=== PATIENT | male | born 1955 | race Caucasian/White ===

== ENCOUNTER 2017-04-21 14:57 | Outpatient (CLI) | payer MEDICARE ==
[2017-04-21 15:56] LABS: Mean Corpuscular Hemoglobin 30.2 pg (27.0-31.0); Mean Corpuscular Volume 91.4 fl (80.0-94.0); Platelet Count 256 thou/uL (130-400); RBC Distribution Width 12.9 % (11.5-14.5); Red Blood Cell (RBC) Count 5.32 mill/uL (4.70-6.10)
[2017-04-21 16:06] LABS: PTT 27.6 SEC (22.9-36.1); Prothrombin Time 13.5 SEC (12.0-14.7)
[2017-04-21 16:24] LABS: ALT (SGPT) 21 U/L (8-55); AST (SGOT) 13 U/L (5-34); Albumin 4.7 g/dL (3.4-4.8); Alkaline Phosphatase 65 U/L (40-150); Anion Gap 14 mmol/L (10-20); BUN (Urea Nitrogen) 20 mg/dL (8.4-25.7); Bilirubin, Total 0.7 mg/dL (0.2-1.2); Calc. Creatinine Clearance 0 mL/min (70-130); Calcium 9.5 mg/dL (7.8-10.44); Carbon Dioxide 24 mmol/L (23-31); Cardiac Risk 3.8 (Less than 4.5); Chloride 101 mmol/L (98-107); Cholesterol 106 mg/dl (< 200 Desired); Estimated GFR-MDRD 60; Globulin 2.5 g/dL (2.4-3.5); Glucose 86 mg/dL (80-115); HDL Cholesterol 28 mg/dL (>60 Neg Risk); LDL Cholesterol, Calculated 50 mg/dL; Potassium 4.6 mmol/L (3.5-5.1); Protein, Total 7.2 g/dL (5.8-8.1); Sodium 134 mmol/L (136-145); Triglycerides 138 mg/dL (Less than 150)
--- NOTE | 2017-04-24 17:31 | EKG ---
Test Reason : Blood Pressure : / mmHG Vent. Rate : 064 BPM Atrial Rate : 064 BPM P-R Int : 216 ms QRS Dur : 084 ms QT Int : 380 ms P-R-T Axes : 042 080 056 degrees QTc Int : 392 ms Sinus rhythm with 1st degree A-V block Otherwise normal ECG When compared with ECG of 17-JUN-2016 10:05, No significant change was found Confirmed by DR. Christine LORENZ ([id number]) on 04/24/2017 5:30:23 PM Referred By: BRETT Confirmed By:DR. Christine LORENZ
== END 2017-04-21 14:58 | disposition home or self-care (01) ==
LOC: LABBT 14:57
PROVIDERS: ATTEND Internal Medicine Cardiovascular Disease
DX: Z01.810 Encounter for preprocedural cardiovascular examination (principal); Z01.818 Encounter for other preprocedural examination; R07.9 Chest pain, unspecified; R06.09 Other forms of dyspnea; R53.83 Other fatigue
CPT/HCPCS: 80053; 80061; 85027; 85610; 85730; 93005; 93010

== ENCOUNTER 2017-04-22 05:54 | Day surgery (SDC) | payer MEDICARE ==
[2017-04-21 15:01] VITALS: BMI 36.6
[2017-04-22] MEDS ORDERED: Lidocaine 1% (PF) 30 ML VIAL ONE ×3 (06:51→11:27)
[2017-04-22] MEDS ORDERED: Midazolam HCl 2 mg/2 ml Vial ONE ×2 (11:48→12:10)
[2017-04-22] MEDS ORDERED: Fentanyl 100 MCG/2 ML VIAL ONE (11:53)
[2017-04-22] MEDS ORDERED: Heparin 10,000 UNITS/1 ML VIAL ONE (12:09)
--- NOTE | 2017-04-22 14:04 | DIS ---
DATE OF PROCEDURE: 04/22/2017 INDICATION FOR PROCEDURE: This is a 61-year-old patient with a known coronary artery disease, who srinivasan d a saphenous vein graft to the circumflex as well as a SPRINGER to left anterior descending artery. He was found to have essentially occluded SPRINGER to left anterior descending artery. He complained of uns table angina-type symptoms. He was advised to undergo a cardiac catheterization with probable angiop lasty and stent placement to the left anterior descending artery. He was taken to cardiac catheteriz ation lab, prepped and draped in sterile fashion where he underwent the procedure today without diffi culties or complications. The full note can be found in the computer system and in the chart. ADMISSION DIAGNOSES: The diagnoses for admission would have been unstable angina. He also has a his tory of hypertension; dyslipidemia; history of tobacco abuse in the past, but he has stopped smoking. DISCHARGE DIAGNOSES: Unstable angina. He also has a history of hypertension; dyslipidemia; history of tobacco abuse in the past, but he has stopped smoking. PROCEDURE IN HOSPITAL: Included cardiac catheterization, angioplasty with stent placement to left an terior descending artery. FOLLOWUP: Will be with me in the next 1 month in the office. He will continue his routine followups with the primary care physician. DISCHARGE MEDICATIONS: Include Brilinta 90 mg a day, aspirin 81 mg a day, ascorbic acid, vitamin C. He will also take Keflex as needed, vitamin D3, finasteride 5 mg daily, he takes krill oil 1 tablet daily, lisinopril 10 mg a day, metoprolol XL 50 mg daily, multivitamins daily, omeprazole 40 mg a day , Crestor 20 mg daily, Flomax 0.4 mg capsules 2 q.p.m., Lamisil 250 mg oral dose daily, and venlafaxi ne 150 mg q.24 hours. HOSPITAL COURSE: This very pleasant gentleman has a history of known coronary artery disease, who un derwent bypass surgery in the past. 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 He continued to have significant stenosis. T he left anterior descending artery was advised to undergo cardiac catheterization with probable stent placement to the left anterior descending artery. If we were unable to do this, then the patient wi ll need to undergo redo bypass surgery with a single vessel bypass to the left anterior descending ar gisella. He was taken to the lab today where he underwent successful angioplasty and stent placement to the left anterior descending artery. He was implanted with a 2.75 x 32 mm nondrug-coated stent, lioneli ch was dilated up to 2.74 mm. There was no evidence of residual stenosis and the patient tolerated t he procedure well. Once he remained stable and the sheaths have been removed, he can be discharged t o home 5-6 hours later.
[2017-04-22] MEDS ORDERED: Iopamidol 370 76% 100 ML VIAL ONE (16:21)
[2017-04-22] MEDS ORDERED: Iopamidol 370 76% 50 ML VIAL FS ONE (16:21)
--- NOTE | 2017-04-24 17:37 | EKG ---
Test Reason : POST STENT Blood Pressure : / mmHG Vent. Rate : 061 BPM Atrial Rate : 061 BPM P-R Int : 230 ms QRS Dur : 088 ms QT Int : 398 ms P-R-T Axes : 004 067 082 degrees QTc Int : 400 ms Sinus rhythm with 1st degree A-V block Otherwise normal ECG When compared with ECG of 21-APR-2017 15:36, (Unconfirmed) No significant change was found Confirmed by DR. Christine LORENZ ([id number]) on 04/24/2017 5:36:44 PM Referred By: BRETT Confirmed By:DR. Christine LORENZ
== END 2017-04-22 22:15 | disposition home or self-care (01) ==
LOC: CCL 05:54
PROVIDERS: ATTEND Internal Medicine Cardiovascular Disease
PROC: 4A023N6 Measurement of Cardiac Sampling and Pressure, Right Heart, Percutaneous Approach (ICD-10-PCS; principal; 2017-04-22)
DX: I25.110 Atherosclerotic heart disease of native coronary artery with unstable angina pectoris (principal); I10 Essential (primary) hypertension; E78.5 Hyperlipidemia, unspecified; Z79.899 Other long term (current) drug therapy; Z95.5 Presence of coronary angioplasty implant and graft; Z95.1 Presence of aortocoronary bypass graft; Z87.891 Personal history of nicotine dependence
CPT/HCPCS: 85347 ×3; 92928; 93455; C1769 ×2; C1876; C1887; 93005; 99152; 99153; J1644; J2001; J2250; J3010

== ENCOUNTER 2018-01-14 08:33 | Outpatient (CLI) | payer MEDICARE ==
--- NOTE | 2018-01-14 09:37 | RAD ---
TWO VIEW CHEST: Indication: Dyspnea. FINDINGS: The lungs are mildly hyperinflated. The cardiac silhouette is at upper limits of normal of size. Ther e has been prior sternotomy. No significant effusion or discrete pneumothorax. IMPRESSION: No focal consolidation. POS: SARANH
== END 2018-01-14 08:34 | disposition home or self-care (01) ==
LOC: RAD 08:33
PROVIDERS: ATTEND Internal Medicine Critical Care Medicine
DX: R06.00 Dyspnea, unspecified (principal)
CPT/HCPCS: 71046

== ENCOUNTER 2019-01-11 13:04 | Outpatient (CLI) | payer OTHER ==
--- NOTE | 2019-01-11 16:00 | CT ---
CT RIGHT SHOULDER WITHOUT CONTRAST ENHANCEMENT: HISTORY: The patient was carrying a 5 gallon bucket two to three weeks ago and has been having shoulder pain e shade since. FINDINGS: There is motion artifact on this exam. There is mild arthrosis of the AC and glenohumeral joints. I d o not see any signs of fracture. No signs of any soft tissue hematoma. No acute findings. If a rotato r cuff injury is clinically suspected, arthrogram may be helpful in further assessment. IMPRESSION: Mild arthritic changes of the right shoulder. POS: RAFFI
== END 2019-01-11 13:05 | disposition home or self-care (01) ==
LOC: CT 13:04
PROVIDERS: ATTEND Nurse Practitioner Family
DX: S43.401D Unspecified sprain of right shoulder joint, subsequent encounter (principal); M19.011 Primary osteoarthritis, right shoulder

== ENCOUNTER 2019-02-04 07:45 | Outpatient (CLI) | payer OTHER ==
[2019-02-04] MEDS ORDERED: EPINEPHrine 1 MG/ML AMP ONE (09:45)
[2019-02-04] MEDS ORDERED: Iopamidol 300 61% 50 ML VIAL FS ONE (09:45)
[2019-02-04] MEDS ORDERED: Lidocaine 1% PF 10 ML AMP ONE (09:45)
--- NOTE | 2019-02-04 11:28 | CT ---
CT ARTHROGRAM OF RIGHT SHOULDER: INDICATION: Concern for rotator cuff tear. COMPARISON: Prior CT right shoulder dated 01/11/2019. FINDINGS: There is complete disruption of the infraspinatus tendon with retraction of the tendon to the level o f the glenohumeral joint. There is also a full-thickness partial width tear involving the mid to posterior supraspinatus. There is a full-thickness tear of the long head of the biceps tendon with di stal retraction. The subscapularis appears intact. The teres minor is intact. No muscular atrophy is evident. There is mild osteoarthrosis of the glenohumeral joint and AC joint. No acute fracture is demonstrated. There is severe emphysema involving the right lung. There is a 3 mm pulmonary nodule in the right upper lobe. IMPRESSION: 1. There is a full-thickness tear of the infraspinatus and mid to posterior supraspinatus with retrac tion of the tendon to the level of the glenohumeral joint. Portions of the anterior supraspinatus remain intact. 2. Complete disruption of the intra-articular long head of the biceps tendon with distal retraction o f the tendon to the level bicipital groove. 3. Mild glenohumeral and AC joint osteoarthrosis. 4. Severe emphysema of the right lung with a 3 mm right upper lobe pulmonary nodule. Recommend a dedi cated CT of the thorax utilizing IV contrast to evaluate the lungs for additional pulmonary nodules. Transcribed Date/Time: 02/04/2019 11:40 AM
--- NOTE | 2019-02-04 12:14 | RAD ---
PROCEDURE: Fluoroscopic right shoulder arthrogram INDICATION: Right shoulder pain COMPARISON: None TECHNIQUE: Informed consent was obtained. Preprocedure nuclear radiation engineer images were obtained of the right should er. The patient was placed supine on the fluoroscopic table. A timeout was performed. Site overlying the right shoulder was prepped and draped in the usual sterile fashion. Buffered 1% lidocai ne was administered into the overlying subcutaneous tissues. Under fluoroscopic guidance, a 22-gauge spinal needle was guided down into the right glenohumeral joint. Confirmation of needle loca lization was confirmed by injecting 1 cc of the buffered 1% lidocaine. Following this 10 6060of the dilute Isovue solution CT Mix: 30 mL total volume consisting of 20 mL normal saline, 5 mL Isovue 300 , 5 mL 1% Lidocaine, 0.1 mL Epi 1 mg/ml) was injected. Contrast was visualized within the right glenohumeral joint with fluoroscopy. The needle was removed. The injection site was then cleansed and bandage. The patient tolerated the injection without difficulty. Fluoroscopic time: 0.5minutes Fluoroscopic dose: 127.8mcg/sq m FINDINGS: There is elevation of the right humeral head raising suspicion for rotator cuff insufficien cy. There is mild glenohumeral and AC joint osteoarthrosis. IMPRESSION: Successful right shoulder arthrogram. The patient is to have a follow-up CTarthrogram of the right shoulder. Please see this report for further details.
== END 2019-02-04 07:46 | disposition home or self-care (01) ==
LOC: CT 07:45
PROVIDERS: ATTEND Nurse Practitioner Family
DX: S49.91XD Unspecified injury of right shoulder and upper arm, subsequent encounter (principal); M19.011 Primary osteoarthritis, right shoulder; J43.9 Emphysema, unspecified; R91.1 Solitary pulmonary nodule; S46.111S Strain of muscle, fascia and tendon of long head of biceps, right arm, sequela; M75.121 Complete rotator cuff tear or rupture of right shoulder, not specified as traumatic; S46.811A Strain of other muscles, fascia and tendons at shoulder and upper arm level, right arm, initial encounter
CPT/HCPCS: 23350; 82565; J0171; J2001; Q9967

== ENCOUNTER 2019-03-03 07:44 | Outpatient (CLI) | payer OTHER, MEDICARE ==
--- NOTE | 2019-03-03 08:54 | CT ---
EXAM: CT of the chest with contrast HISTORY: Pulmonary nodule seen on CT of the right shoulder. History of bladder cancer COMPARISON: CT shoulder 02/04/2019 TECHNIQUE: Multiple contiguous axial images were obtained in a CT the chest with contrast. Coronal an d sagittal reformats were performed. FINDINGS: HEART: Normal in size without focal cardiac abnormality. There is ectasia of the anterior aspect of t he left ventricular wall and ectasia of the root of the main pulmonary artery. Calcification are seen in the coronary arteries. MEDIASTINUM: No hilar or mediastinal lymphadenopathy. LUNGS: No focal infiltrates, nodules, or masses. Emphysematous changes are seen in the lungs. PLEURAL SPACE: No pneumothorax or pleural effusion. CHEST WALL SOFT TISSUES: Unremarkable OSSEOUS STRUCTURES: Degenerative changes in the spine. A spinal stimulation device is seen with its t ip in the mid thoracic spine. VISUALIZED SUBDIAPHRAGMATIC STRUCTURES: Tiny calcified gallstone in the gallbladder neck. IMPRESSION: 1. No suspicious pulmonary nodule is identified. 2. Cholelithiasis
[2019-03-03] MEDS ORDERED: Iopamidol 370 76% 100 ML VIAL ONE (13:41)
== END 2019-03-03 07:45 | disposition home or self-care (01) ==
LOC: CT 07:44
PROVIDERS: ATTEND Nurse Practitioner Family
DX: R91.1 Solitary pulmonary nodule (principal); K80.20 Calculus of gallbladder without cholecystitis without obstruction
CPT/HCPCS: 71260; Q9967

== ENCOUNTER 2019-06-28 05:52 | Outpatient (CLI) | payer OTHER ==
[2019-06-28 10:43] LABS: #Basophils 0.1 thou/uL (0.0-0.2); #Eosinphils 0.1 thou/uL (0.0-0.7); #Lymphocytes 2.2 thou/uL (1.20-3.40); #Monocytes 0.7 thou/uL (0.11-0.59); #Neutrophils 4.2 thou/uL (1.40-6.50); %Basophils 0.9 % (0.0-1.0); %Eosinophils 1.7 % (0.0-10.0); %Monocytes 9.3 % (0.0-10.0); %Neutrophils 58.1 % (42.0-75.0); Mean Corpuscular HGB CONC 31.7 g/dL (32.0-36.0); Mean Corpuscular Hemoglobin 29.4 pg (27.0-31.0); Mean Corpuscular Volume 92.6 fL (78.0-98.0); Platelet Count 246 thou/uL (130-400); RBC Distribution Width 13.4 % (11.5-14.5); Red Blood Cell (RBC) Count 5.77 mill/uL (4.70-6.10); White Blood Cell (WBC) Count 7.2 thou/uL (4.8-10.8)
[2019-06-28 10:56] LABS: Anion Gap 13 mmol/L (10-20); BUN (Urea Nitrogen) 15 mg/dL (8.4-25.7); Calc. Creatinine Clearance 0 mL/min (70-130); Calcium 9.1 mg/dL (7.8-10.44); Carbon Dioxide 22 mmol/L (23-31); Chloride 107 mmol/L (98-107); Estimated GFR-MDRD 69; Glucose 83 mg/dL (80-115); Potassium 3.9 mmol/L (3.5-5.1); Sodium 138 mmol/L (136-145)
--- NOTE | 2019-06-28 16:10 | EKG ---
Test Reason : Blood Pressure : / mmHG Vent. Rate : 088 BPM Atrial Rate : 088 BPM P-R Int : 198 ms QRS Dur : 088 ms QT Int : 340 ms P-R-T Axes : 048 090 025 degrees QTc Int : 411 ms Normal sinus rhythm Rightward axis Nonspecific T wave abnormality Abnormal ECG When compared with ECG of 22-APR-2017 13:46, OR interval has decreased Nonspecific T wave abnormality now evident in Inferior leads Nonspecific T wave abnormality now evident in Anterolateral leads Confirmed by GENE JASON, DR. Albarado ([id number]) on 06/28/2019 4:10:05 PM Referred By: FARIDA Confirmed By:DR. Verena MILLS MD
[2019-06-28 18:12] LABS: SARS-CoV-2 MS2 Positive; SARS-CoV-2 N Gene Negative; SARS-CoV-2 S Gene Negative; SARS-CoV-2 orf1ab Negative
== END 2019-06-28 05:53 | disposition home or self-care (01) ==
LOC: LABBT 05:52
PROVIDERS: ATTEND Orthopaedic Surgery
DX: Z01.818 Encounter for other preprocedural examination (principal); Z11.59 Encounter for screening for other viral diseases; S46.011A Strain of muscle(s) and tendon(s) of the rotator cuff of right shoulder, initial encounter
CPT/HCPCS: 80048; 85025; 87635; 93005; 93010; U0003

== ENCOUNTER 2019-07-13 07:01 | Outpatient (CLI) | payer OTHER ==
[2019-07-13 10:16] LABS: #Basophils 0.1 thou/uL (0.0-0.2); #Eosinphils 0.2 thou/uL (0.0-0.7); #Lymphocytes 2.1 thou/uL (1.20-3.40); #Monocytes 0.6 thou/uL (0.11-0.59); #Neutrophils 4.5 thou/uL (1.40-6.50); %Basophils 0.9 % (0.0-1.0); %Eosinophils 2.9 % (0.0-10.0); %Lymphocytes 28.7 % (21.0-51.0); %Monocytes 7.8 % (0.0-10.0); %Neutrophils 59.8 % (42.0-75.0); Hemoglobin 16.4 g/dL (14.0-18.0); Mean Corpuscular HGB CONC 32.3 g/dL (32.0-36.0); Mean Corpuscular Volume 92.9 fL (78.0-98.0); Platelet Count 252 thou/uL (130-400); RBC Distribution Width 13.1 % (11.5-14.5); Red Blood Cell (RBC) Count 5.48 mill/uL (4.70-6.10); White Blood Cell (WBC) Count 7.5 thou/uL (4.8-10.8)
[2019-07-13 10:34] LABS: Anion Gap 13 mmol/L (10-20); BUN (Urea Nitrogen) 14 mg/dL (8.4-25.7); Calc. Creatinine Clearance 0 mL/min (70-130); Calcium 8.7 mg/dL (7.8-10.44); Carbon Dioxide 21 mmol/L (23-31); Chloride 107 mmol/L (98-107); Estimated GFR-MDRD 67; Glucose 103 mg/dL (80-115); Sodium 137 mmol/L (136-145)
[2019-07-13 17:44] LABS: SARS-CoV-2 MS2 Positive; SARS-CoV-2 N Gene Negative; SARS-CoV-2 S Gene Negative; SARS-CoV-2 orf1ab Negative
== END 2019-07-13 07:02 | disposition home or self-care (01) ==
LOC: LABBT 07:01
PROVIDERS: ATTEND Orthopaedic Surgery
DX: Z01.812 Encounter for preprocedural laboratory examination (principal); Z11.59 Encounter for screening for other viral diseases; S46.011A Strain of muscle(s) and tendon(s) of the rotator cuff of right shoulder, initial encounter
CPT/HCPCS: 80048; 85025; 87635; U0003

== ENCOUNTER 2019-09-06 06:37 | Outpatient (CLI) | payer OTHER ==
[2019-09-06 11:27] LABS: INR-International Normal Ratio 0.9; Prothrombin Time 11.6 sec (12.0-14.7)
[2019-09-06 11:29] LABS: #Basophils 0.1 thou/uL (0.0-0.2); #Eosinphils 0.2 thou/uL (0.0-0.7); #Lymphocytes 1.8 thou/uL (1.20-3.40); #Monocytes 0.6 thou/uL (0.11-0.59); #Neutrophils 4.6 thou/uL (1.40-6.50); %Basophils 0.8 % (0.0-1.0); %Eosinophils 2.2 % (0.0-10.0); %Lymphocytes 24.7 % (21.0-51.0); %Neutrophils 64.3 % (42.0-75.0); Hemoglobin 16.8 g/dL (14.0-18.0); Mean Corpuscular HGB CONC 32.6 g/dL (32.0-36.0); Mean Corpuscular Hemoglobin 29.7 pg (27.0-31.0); Mean Corpuscular Volume 91.1 fL (78.0-98.0); Mean Platelet Volume 6.7 fL (7.4-10.4); Platelet Count 288 thou/uL (130-400); RBC Distribution Width 12.9 % (11.5-14.5); Red Blood Cell (RBC) Count 5.66 mill/uL (4.70-6.10); White Blood Cell (WBC) Count 7.2 thou/uL (4.8-10.8)
[2019-09-06 12:25] LABS: Anion Gap 17 mmol/L (10-20); BUN (Urea Nitrogen) 13 mg/dL (8.4-25.7); Calc. Creatinine Clearance 0 mL/min (70-130); Calcium 9.2 mg/dL (7.8-10.44); Carbon Dioxide 18 mmol/L (23-31); Chloride 107 mmol/L (98-107); Estimated GFR-MDRD 52; Glucose 114 mg/dL (80-115); Potassium 4.2 mmol/L (3.5-5.1); Sodium 138 mmol/L (136-145)
[2019-09-07 12:20] LABS: SARS-CoV-2 MS2 Positive; SARS-CoV-2 N Gene Negative; SARS-CoV-2 S Gene Negative; SARS-CoV-2 orf1ab Negative
== END 2019-09-06 06:38 | disposition home or self-care (01) ==
LOC: LABBT 06:37
PROVIDERS: ATTEND Orthopaedic Surgery
DX: Z01.812 Encounter for preprocedural laboratory examination (principal); Z11.59 Encounter for screening for other viral diseases; S43.014A Anterior dislocation of right humerus, initial encounter
CPT/HCPCS: 80048; 85025; 85610; 87635; U0003

== ENCOUNTER 2019-09-09 05:42 | Inpatient (IN) | payer OTHER ==
[2019-09-09] MEDS ORDERED: Fentanyl 100 MCG/2 ML VIAL ONE ×2 (06:35→06:45)
[2019-09-09] MEDS ORDERED: Midazolam HCl 2 mg/2 ml Vial ONE ×2 (06:35→06:45)
[2019-09-09] MEDS ORDERED: Sodium Chloride 0.9% 100 ML ONE (06:42)
[2019-09-09] MEDS ORDERED: Tranexamic Acid 1,000 MG/10 ML VIAL ONE ×2 (06:42→09:56)
[2019-09-09] MEDS ORDERED: Vancomycin 1.5 GRAM/300 ML BAG ONE (06:42)
[2019-09-09] MEDS ORDERED: Ondansetron PF 4 MG/2 ML Vial IVP PRN (07:32)
[2019-09-09] MEDS ORDERED: Zolpidem Tartrate 5 MG TAB PO PRN (07:32)
[2019-09-09] MEDS ORDERED: Promethazine HCl 25 MG/ML VIAL IM PRN (07:32)
[2019-09-09] MEDS ORDERED: HYDROcodone/Acetaminophen 10/325 mg Tablet PO PRN (07:32)
[2019-09-09] MEDS ORDERED: traMADol HCl 50 MG TAB PO PRN ×2 (07:32)
[2019-09-09] MEDS ORDERED: Ropivacaine 0.2% 550 ML 550 ML NERVE BLCK SCH (07:32)
[2019-09-09] MEDS ORDERED: Fentanyl 100 MCG/2 ML VIAL IV PRN (07:33)
[2019-09-09] MEDS ORDERED: Methocarbamol 1 GM/10 ML VIAL SLOW IVP PRN (10:33)
[2019-09-09] MEDS ORDERED: Bisacodyl 10 MG SUPP PR PRN (10:33)
[2019-09-09] MEDS ORDERED: Methocarbamol 500 MG TAB PO PRN (10:33)
[2019-09-09] MEDS ORDERED: Acetaminophen 325 MG TAB PO PRN (10:33)
[2019-09-09] MEDS ORDERED: diphenhydrAMINE 50 MG CAP PO PRN (10:33)
--- NOTE | 2019-09-09 10:46 | RAD ---
EXAM: 2 views of the right shoulder HISTORY: Right shoulder arthroplasty COMPARISON: None FINDINGS: The patient is status post recent right shoulder arthroplasty. Overlying skin colby and a ir in the soft tissues are from recent surgery. No perihardware lucency is seen. IMPRESSION: Status post right shoulder arthroplasty without evidence of complication.
[2019-09-09 11:40] VITALS: BMI 33.3
[2019-09-09] MEDS: Dextrose 5 %-0.45 % NaCl 1,000 ML IV SCH (16:06)
[2019-09-09] MEDS: Cepastat Lozenges 1 LOZ PO PRN (16:07)
[2019-09-09] MEDS: CEFAZOLIN 2 GM in Premix Bag 1 BAG IVPB SCH ×2 (16:08→23:54)
[2019-09-09] MEDS ORDERED: Vancomycin 1.5 GRAM/300 ML BAG 1.5 GM in Premix Bag 1 BAG IVPB SCH (18:00)
[2019-09-09] MEDS: HYDROcodone/Acetaminophen 10/325 mg Tablet PO PRN ×2 (19:29→23:52)
[2019-09-09] MEDS: Famotidine 20 MG TAB PO SCH (21:48)
[2019-09-09] MEDS: Carvedilol 6.25 MG TAB PO SCH (21:49)
[2019-09-10] MEDS: Dextrose 5 %-0.45 % NaCl 1,000 ML IV SCH (02:55)
[2019-09-10] MEDS: HYDROcodone/Acetaminophen 10/325 mg Tablet PO PRN ×2 (04:09→09:23)
[2019-09-10] MEDS: Cepastat Lozenges 1 LOZ PO PRN (04:15)
[2019-09-10] MEDS ORDERED: Bupropion 150 MG SR TAB PO SCH (09:00)
[2019-09-10] MEDS ORDERED: Prevnar 13-Val Conj/PF 0.5 ML SYRINGE IM ONE (09:00)
[2019-09-10] MEDS ORDERED: Venlafaxine HCl XR 150 MG CAP PO SCH (09:00)
--- NOTE | 2019-09-10 09:12 | OP ---
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 POSTOPERATIVE DIAGNOSIS: Right reverse shoulder arthroplasty with recurrent dislocation. PROCEDURE PERFORMED: Revision right reverse shoulder arthroplasty. MITTEN STITCHER: Rashi Rico PA-C ANESTHESIA: Dr. Alberts. Patient received a general intubation with interscalene block. ESTIMATED BLOOD LOSS: 150 mL. TOURNIQUET TIME: None. IMPLANTS: A Tornier 42 mm, +3 lateral offset sphere with a 0 mm high-offset tray and a +9 mm poly. ANTIBIOTICS: Vancomycin 1.5, Ancef 2 g, TXA 1 g. COMPLICATIONS: None. HISTORY OF PRESENT ILLNESS: Mr. Garcia is a 63-year-old male who was dislocating his right reverse about 4 weeks after the initial procedure. The patient said he was bringing it up and he was having recurrent dislocation. The patient had no fevers or chills. No recurrence of drainage. No other issues. I discussed the risks and benefits of a revision reverse shoulder arthroplasty including pain, scar, bleeding, infection, damage to vital structures, decreased range of motion and strength, continued pain despite surgery intervention, need for further surgeries, loss of life or limb, the patient understood the risks and benefits of procedure, and elected to proceed. Time-out was then performed designating the patient's right upper extremity as the operative site based on site, consent, marking. DESCRIPTION OF PROCEDURE: After time-out, the patient was placed in beach chair position with bony prominences well padded. Ioban was placed over the incision. I made an in-line incision in line with the scar. My speech and language assistant helped to retract. As we retracted the skin edges and came down to the scar plane, took a little bit of pec laterally to create a scar plane and the vein laterally, we sidewalled the vein at some point during the case, which we later cauterized. We came down on top of the scar plane, created a plane underneath the deltoid. We came down on the bone laterally where the biceps screw would have been, peeled off remnant scar and followed up into the scar plane of the rotator interval. We took a culture of the joint fluid, it looked just serosanguineous without foul odor. We then exposed the entire shoulder. I actually had a very difficult time dislocating the shoulder while he was asleep or while he was moving his shoulder. I could see though that there was about a centimeter of distance between the glenosphere and the metaglene. We then dislocated the shoulder. We then used a tuning fork extractor to knock off the patient's metaglene component to the stem after we took off the tray from the stem, took that off and we cleaned off the edges, cleaned up, put a hubcap, moved back to the glenosphere. We exposed the glenosphere, removed the glenosphere, washed, cleaned out the edges, ensured that we removed some of the remnant scar versus subcapsular superolaterally and superomedially. We exposed the entire glenoid. After removing the glenosphere, my speech and language assistant placed an [place] to help retract and expose. We removed the glenosphere and placed a trial 42 mm lateral offset. My speech and language assistant dislocated the shoulder in position, we cleaned and placed a tray at the 12 mm position. We placed a poly at 6 mm, he reduced it into place, while I was pulling traction. We were able to keep it in place. I liked the position, we went for a slightly higher offset and 3 mm more, which gave a firmer fit. Being happy with this reduction, I removed our lateral offset, placed our final 42 mm, +3 mm glenosphere, screwed it into position. I went back, placed our tray at the 12 mm position high with high offset, and placed our +9 mm poly, reduced the shoulder into position. We washed, we took the remnant in subscap position, we placed #5 Ethibond twice through bone tunnels to help with the repair. We did a whipstitch through and past both limbs so we could have knots medially, we then passed those back through the cuff and sewed them to the remnant across the biceps interval. My partner retracted the soft tissue to expose that. We cut the sutures, we then closed the rotator interval with #2 Ethibond, washed. We saw some bleeding, we looked medially and saw there was a sidewall of the vein, which was where the oozing had been coming from. We cauterized that vein, we washed, closed the deltopectoral interval with 0 Vicryl, closed the subcu and colby. The patient will be admitted for 24 hours of antibiotics, placed in an abduction pillow, will perform elbow, wrist, and hand motion. He will not come out of his abduction pillow for 4 weeks. Job ID: [id number]
[2019-09-10] MEDS: Famotidine 20 MG TAB PO SCH (09:24)
[2019-09-10] MEDS: Carvedilol 6.25 MG TAB PO SCH (09:27)
[2019-09-10] MEDS ORDERED: Sodium Chloride 0.9% 10 ML ONE (10:15)
[2019-09-10 11:29] VITALS: TEMP 98.1
[2019-09-10 12:17] VITALS: BP 125/70
== END 2019-09-10 13:05 | disposition home or self-care (01) | DRG 483 ==
LOC: SDC 05:42 → SJJU 10:33
PROVIDERS: ADMIT Orthopaedic Surgery; ATTEND Orthopaedic Surgery
PROC: 0RRJ00Z Replacement of Right Shoulder Joint with Reverse Ball and Socket Synthetic Substitute, Open Approach (ICD-10-PCS; principal; 2019-09-09)
PROC: 0RPJ0JZ Removal of Synthetic Substitute from Right Shoulder Joint, Open Approach (ICD-10-PCS; 2019-09-09)
DX: T84.028A Dislocation of other internal joint prosthesis, initial encounter (principal); Y83.1 Surgical operation with implant of artificial internal device as the cause of abnormal reaction of the patient, or of later complication, without mention of misadventure at the time of the procedure; Z95.1 Presence of aortocoronary bypass graft; Z95.5 Presence of coronary angioplasty implant and graft
CPT/HCPCS: 87070; 87205; A4306; J0690; J2250; J2795; J3010; J3370; J3490

== ENCOUNTER 2020-02-01 07:25 | Outpatient (CLI) | payer OTHER ==
--- NOTE | 2020-02-01 09:03 | RAD ---
XR Joint Aspiration, Major History: Anterior dislocation of right shoulder, post reverse total arthroplasty. Concern for infecti on. Comparison: None. Findings: Patient was brought to the fluoroscopy suite. All questions were answered. Informed consent obtained. Timeout performed. The patient's right shoulder was prepped and draped in normal sterile fashion. Using fluoroscopic pete dance after adequate local anesthesia with lidocaine the right shoulder joint was accessed with a 22-gauge needle. 20 mL of red-tinged fluid was removed. Patient tolerated the procedure well without complication. Impression: Technically successful fluoroscopic guided right shoulder aspiration with removal of 20 m L red-tinged fluid.
== END 2020-02-01 07:26 | disposition home or self-care (01) ==
LOC: RAD 07:25
PROVIDERS: ATTEND Orthopaedic Surgery Hand Surgery
DX: S43.014A Anterior dislocation of right humerus, initial encounter (principal); M25.511 Pain in right shoulder; S46.011D Strain of muscle(s) and tendon(s) of the rotator cuff of right shoulder, subsequent encounter; Z96.611 Presence of right artificial shoulder joint
CPT/HCPCS: 20610; 77002

== ENCOUNTER 2020-02-04 16:30 | Inpatient (IN) | payer OTHER ==
[2020-02-08] MEDS ORDERED: Fentanyl 100 MCG/2 ML VIAL ONE ×3 (06:35→11:11)
[2020-02-08] MEDS ORDERED: Lidocaine 1% (PF) 30 ML VIAL ONE (06:37)
[2020-02-08] MEDS ORDERED: Midazolam HCl 2 mg/2 ml Vial ONE (06:56)
[2020-02-08] MEDS ORDERED: Mineral Oil Sterile 10ML 10 ML UDCUP ONE ×2 (07:07→07:47)
[2020-02-08] MEDS ORDERED: Sodium Chloride 0.9% 100 ML ONE (07:11)
[2020-02-08] MEDS ORDERED: Vancomycin 1.5 GRAM/300 ML BAG ONE (07:11)
[2020-02-08] MEDS ORDERED: Tranexamic Acid 1,000 MG/10 ML VIAL ONE ×2 (07:11→11:07)
[2020-02-08] MEDS ORDERED: Vancomycin 1.5 GRAM/300 ML BAG 1.5 GM in Premix Bag 1 BAG IVPB SCH ×2 (07:15→21:00)
[2020-02-08] MEDS ORDERED: Piperacillin/Tazobactam 3.375 GM in Sodium Chloride 0.9% 100 ML IVPB SCH ×2 (07:15→14:00)
[2020-02-08] MEDS ORDERED: Tobramycin Sulfate 1.2 GM VIAL ONE (07:47)
[2020-02-08] MEDS ORDERED: Tobramycin/Dexamethasone Ophth Oint 3.5 GM TUBE ONE (07:47)
[2020-02-08 08:05] LABS: PTT 27.8 sec (22.9-36.1); Prothrombin Time 13.4 sec (12.0-14.7)
--- NOTE | 2020-02-08 08:14 | HP ---
HISTORY OF PRESENT ILLNESS: Mr. Garcia is a 64-year-old male who presents with a right shoulder pain, had a revision reverse shoulder arthroplasty performed on 09/08. The patient presented to my clinic showing increased signs of an infectious source of his right shoulder. He had some induration. Pain was increasing. Attempted aspiration was done in my clinic, which was negative. The patient was sent for CT-guided aspiration of his right shoulder, which jad off fluid concerning for infection. Given the patient's increasing pain, induration, and signs of potential infection, we will take him back for an antibiotic spacer exchange. PAST MEDICAL HISTORY: Includes hypercholesterolemia, high blood pressure. PAST SURGICAL HISTORY: Cardiac bypass, past back surgery, right shoulder reverse on 07/14 with a revision on 09/08 for dislocation. ALLERGIES: NO KNOWN DRUG ALLERGIES. MEDICATIONS: Include aspirin, carvedilol, clopidogrel, Lexapro, Crestor, venlafaxine. SOCIAL HISTORY: The patient has history of smoker, quit in 2010. No alcohol use. Denies elicit drug use. The patient worked for the [employer]. REVIEW OF SYSTEMS: Noncontributory. PHYSICAL EXAMINATION: GENERAL: Alert and oriented male, in no acute distress. EXTREMITIES: Right upper extremity induration and swelling in his right arm. The patient has pain to touch. He has neurovascularly intact to the right lower extremity. 2+ PT pulses. LABORATORY DATA: The patient's CRP was 4 on last draw. ESR was greater than 20. White blood cell counts from the aspiration greater than 50,000. Culture at this point from 02/03 has no growth to date. His previous culture from July showed no growth to date. 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 ASSESSMENT AND PLAN: The patient needs to urgently/emergently have this right shoulder resected for antibiotic coverage for two-stage conversion back to reverse shoulder arthroplasty. I discussed with the patient that we need to do potentially an osteotomy of his humerus to remove the humeral stem as well as that we could fracture his glenoid trying to remove the implant. We will be planning to place a highly impregnated, highly dosed antibiotic spacer with a mold hemiarthroplasty to help with eradication of the infection. Give the patient IV antibiotics likely for [address] a PICC line. I discussed the risks and benefits of the surgery including pain, scar, bleeding, infection, damage to vital structures, decreased range of motion or strength, nonhealing, inability to replant, loss of life or limb. The patient understands these risks and benefits and elected to proceed. Job ID: [id number] MTDD
[2020-02-08] MEDS ORDERED: Phenylephrine 10 MG/ML VIAL ONE (09:28)
[2020-02-08] MEDS ORDERED: PHENYLEPHRINE-NS 100 MCG/ML 10 ML SYRINGE ONE (10:08)
[2020-02-08] MEDS ORDERED: Lidocaine 1% PF 5 ML VIAL ONE (10:08)
[2020-02-08] MEDS ORDERED: Rocuronium Bromide 10 MG/ML (10ML VIAL) ONE (10:08)
[2020-02-08] MEDS ORDERED: Ropivacaine 0.5% HCl/PF (150 MG/30 ML VIAL) ONE (10:08)
[2020-02-08] MEDS ORDERED: Dexamethasone 20 MG/5 ML VIAL ONE (10:08)
[2020-02-08] MEDS ORDERED: ePHEDrine 50 MG/ML VIAL ONE (10:08)
[2020-02-08] MEDS ORDERED: Glycopyrrolate 0.2 MG/ML 5 ML SYRINGE ONE (10:08)
[2020-02-08] MEDS ORDERED: PROPOFOL 200 MG/20 ML VIAL ONE (10:08)
[2020-02-08] MEDS ORDERED: Ondansetron PF 4 MG/2 ML Vial ONE (10:08)
[2020-02-08] MEDS ORDERED: Bisacodyl 10 MG SUPP PR PRN (10:28)
[2020-02-08] MEDS ORDERED: Methocarbamol 1 GM/10 ML VIAL SLOW IVP PRN (10:28)
[2020-02-08] MEDS ORDERED: Morphine 2 MG/ML VIAL SLOW IVP PRN (10:28)
[2020-02-08] MEDS ORDERED: Ondansetron PF 4 MG/2 ML Vial IVP PRN ×2 (10:28→10:53)
[2020-02-08] MEDS ORDERED: Ondansetron ODT 4 MG TAB PO PRN (10:28)
[2020-02-08] MEDS ORDERED: HYDROcodone/Acetaminophen 10/325 mg Tablet PO PRN ×4 (10:28→11:12)
[2020-02-08] MEDS ORDERED: Methocarbamol 500 MG TAB PO PRN (10:28)
[2020-02-08] MEDS ORDERED: traMADol HCl 50 MG TAB PO PRN ×2 (10:28)
[2020-02-08] MEDS ORDERED: Zolpidem Tartrate 5 MG TAB PO PRN ×2 (10:28→10:53)
[2020-02-08] MEDS ORDERED: diphenhydrAMINE 50 MG CAP PO PRN (10:28)
[2020-02-08] MEDS ORDERED: Ondansetron HCl/PF 4 MG/2 ML Vial IVP PRN (10:53)
[2020-02-08] MEDS ORDERED: diphenhydrAMINE 50 MG/ML VIAL IM PRN (10:53)
[2020-02-08] MEDS ORDERED: diphenhydrAMINE 50 MG/ML VIAL IVP PRN (10:53)
[2020-02-08] MEDS ORDERED: Promethazine HCl 25 MG/ML VIAL SLOW IVP PRN (10:53)
[2020-02-08] MEDS ORDERED: fentaNYL Citrate/PF 2,000 MCG in Sodium Chloride 0.9% 60 ML IV PRN (10:53)
[2020-02-08] MEDS ORDERED: Naloxone HCl 0.4 mg/ml Vial IV PRN (10:53)
[2020-02-08] MEDS ORDERED: Promethazine HCl 25 MG/ML VIAL IM PRN ×2 (10:53)
[2020-02-08] MEDS ORDERED: Communication Order-Pharmacy FS PRN (11:00)
[2020-02-08] MEDS: Clopidogrel Bisulfate 75 MG TAB PO SCH (12:03)
[2020-02-08] MEDS: Venlafaxine HCl XR 150 MG CAP PO SCH (12:03)
[2020-02-08] MEDS: Escitalopram Oxalate 10 mg Tablet PO SCH (12:03)
[2020-02-08] MEDS: Aspirin 81 mg Enteric Coated Tablet PO SCH (12:03)
[2020-02-08] MEDS: Famotidine 20 MG TAB PO SCH ×2 (12:56→20:54)
[2020-02-08] MEDS: Sodium Chloride 0.9% 1,000 ML IV SCH ×2 (13:34→16:58)
[2020-02-08] MEDS ORDERED: Heparin 1,000 UNITS/ML VIAL ONE (14:25)
--- NOTE | 2020-02-08 16:02 | CON ---
DATE OF CONSULTATION: 02/08/2020 REASON FOR CONSULTATION: Right shoulder arthroplasty infection. HISTORY OF PRESENT ILLNESS: A 64-year-old who has a history of hypertension and hyperlipidemia and coronary artery disease, and has chronic back pain and wears a spinal stimulator and as he picked up a heavy weight, he noticed sensation of pain in the right shoulder. He underwent right reverse shoulder arthroplasty, which happened in June 2019. In August, the patient sustained dislocation of the arthroplasty, 4 weeks after the initial procedure and kept having recurrent dislocations. Did not have any fever. No drainage. So, he underwent a revision of the arthroplasty. The patient subsequently developed worsening pain around January with swelling. He had a CT-guided aspiration, which jad fluid, cultures were negative, the cell count showed 50,000 WBCs with predominance of segmented neutrophils. Previous rheumatoid factor was negative, and despite negative culture, the clinical and laboratory findings were consistent with infection. So, the patient was admitted today and had the arthroplasty removed. Currently, he does not appear in distress. Denies headaches. No visual symptoms. Mild pain in the right shoulder. No dyspnea or cough. No abdominal pain or diarrhea. No genitourinary symptoms. No other joint symptoms. No neurological symptoms. MEDICAL HISTORY: Hyperlipidemia, hypertension, chronic low back pain with spinal stimulator, ischemic cardiomyopathy with cardiac bypass surgery and two reverse arthroplasties of the right shoulder, the second one was a revision. ALLERGIES: NONE. SOCIAL HISTORY: Used to work for [employer]. Former smoker, quit in 2010. Lives with his in [place]. FAMILY HISTORY: Noncontributory. CURRENT MEDICATIONS: 1. Dulcolax. 2. Coreg. 3. Plavix. 4. Lexapro. 5. Pepcid. 6. Fentanyl. 7. [place]. 8. Robaxin. 9. Zofran. 10. Promethazine. 11. Vancomycin. 12. Ambien. PHYSICAL EXAMINATION: VITAL SIGNS: Temperature 96.3, pulse 99, O2 saturation 92, flow rate 2 L. GENERAL: Does not appear in distress. Right shoulder dressing not removed. Peripheral IV access. No Burroughs catheter. No lymphadenopathy. HEENT: Ocular movements conjugate. Oral cavity normal. LUNGS: Symmetric, clear breath sounds. CARDIAC: S1 and S2, regular rate. No S3 or S4. ABDOMEN: Soft. Not distended or tender. No ascites. No bladder distention. MUSCULOSKELETAL: No other joint inflammatory activity. NEUROLOGIC: Nonfocal. LABORATORY DATA: White cell count 10.7, hemoglobin 15, platelets 320, normal differential. Sodium 138, creatinine 1.17, glucose 97, uric acid 7.5. In the synovial fluid, no crystals were identified by the pathologist. We now have a second sample for cultures still pending. The Gram stain has not shown any organism, although there is plenty of WBCs as expected. ASSESSMENT: Hypertension, hyperlipidemia, coronary artery disease with prior bypass graft surgery, spinal cord stimulator for back pain, and right shoulder tear with reverse arthroplasty procedure with revision and then now evidence of inflammatory changes. DISCUSSION: As mentioned by Dr. Beltrán, Cutibacterium acnes is one of the possible culprits here, and frequently those negative culture results are associated with subsequent identification of this organism. Coagulase-negative Staphylococci, nutritionally variant Streptococci would be another possibility. We will continue vancomycin for 4 to 6 weeks. Monitor CRP. Since all hardware was removed, the chances for relapse are low. Probably, we would give him another 3 months of oral doxycycline after completion of the initial IV phase. PICC line placement. Job ID: [id number]
[2020-02-08] MEDS: Rosuvastatin 10 MG TAB PO SCH (20:54)
[2020-02-08] MEDS: Carvedilol 6.25 MG TAB PO SCH (20:54)
[2020-02-09] MEDS ORDERED: Ondansetron PF 4 MG/2 ML Vial IVP PRN (02:55)
[2020-02-09] MEDS ORDERED: Promethazine HCl 25 MG/ML VIAL IM PRN (02:55)
[2020-02-09] MEDS ORDERED: diphenhydrAMINE 50 MG/ML VIAL IM PRN (02:55)
[2020-02-09] MEDS ORDERED: diphenhydrAMINE 50 MG/ML VIAL IVP PRN (02:55)
[2020-02-09] MEDS ORDERED: Naloxone HCl 0.4 mg/ml Vial IV PRN (02:55)
[2020-02-09] MEDS ORDERED: Communication Order-Pharmacy FS SCH (03:00)
[2020-02-09] MEDS: diphenhydrAMINE 25 MG CAP PO PRN ×4 (06:44→18:19)
[2020-02-09] MEDS: Sodium Chloride 0.9% 1,000 ML IV SCH ×2 (07:04→17:06)
--- NOTE | 2020-02-09 07:05 | OP ---
DATE OF PROCEDURE: 02/08/2020 PREOPERATIVE DIAGNOSIS: Right infected reverse shoulder arthroplasty. POSTOPERATIVE DIAGNOSIS: Right infected reverse shoulder arthroplasty. PROCEDURES PERFORMED: 1. Explant reverse shoulder arthroplasty. 2. Irrigation and debridement of osteomyelitis, right shoulder. 3. Antibiotic spacer implantation. DEPUTY COUNTY COUNSEL: Rashi Rico PA-C ANESTHESIOLOGIST: Johnny Daniel MD ANESTHESIA: The patient received a general endotracheal intubation with a single shot interscalene. ESTIMATED BLOOD LOSS: 400 mL. TOURNIQUET TIME: None. ANTIBIOTICS: Vancomycin 1.5 g after cultures were taken and Zosyn 3.375. The patient had cultures taken of soft tissue and sent for pathology, and cultures taken of the fluid. The patient had 2 g of vancomycin and 3.4 g of tobramycin in the cement spacer. IMPLANTS: We implanted a stem size 4 long and a 52 head mold cement spacer. COMPLICATIONS: None. HISTORY OF PRESENT ILLNESS: Mr. Garcia is a 64-year-old male who presented with right shoulder pain. The patient had a dislocating reverse total shoulder, which cultures were negative. The patient sustained a dislocation and was converted to a larger implant. The patient's pain increased acutely about 4 weeks ago. The patient had an aspiration done under CT guidance, which showed 50,000 white cells, elevated CRP and ESR. No cultures have grown to this date. They are being held for 3 weeks for cutaneous bacterial acnes. The patient's right shoulder implant and the patient's pain. The patient was brought emergently/urgently for explant of his right infected total shoulder. I discussed with him the risks and benefits of surgery to include pain, scar, bleeding, infection, damage to vital structures, decreased range of motion and strength, continued pain despite surgical intervention, loss of life or limb, and need for revision surgery for reimplantation. The patient understood the risks and benefits and elected to proceed. DESCRIPTION OF PROCEDURE: Time-out was performed designating the patient's right upper extremity as the operative site based on site, consents, and markings. After time-out, the patient's right upper extremity was prepped and draped in sterile fashion. We made a deltopectoral incision with cautery and came down to the scar plane of the deltopectoral confluence. We used cautery. As we controlled bleeding and fell into the hole, there was a full amount of serosanguineous fluid with what appeared to be like some fat necrosis or fluid collection. We took the fluid and sent it off for culture. We also took soft tissue, which we sent for path and for culture, Gram stain, anaerobes, aerobes, acid-fast, and fungal. We washed out the wound, dissected out the rim and debris. We dislocated this reverse, used a tuning fork to knock the metaglene off. We then moved to the glenosphere. We used our opening screw and loosened our opened screw. We then placed the extraction tool with its teeth and popped the glenosphere off. We backed out all 3 screws within the glenosphere. We then used an osteotome to break the adherence on the posterior aspect of the glenosphere. It was fixed, but not well fixed. We then placed the extraction device for the baseplate, backed up the screw, turned back to the screw, allowed not to dissociate from the screw and baseplate complex, and backed out. We used a curette to clean out bone as well as the scar and soft tissue. We washed thoroughly with 2 L of water and washed in the space to ensure we could get anything from any of the recesses. We then moved our attention to the patient's glenoid. We removed the patient's humerus. We exposed the humerus. We placed a flexible osteotome, which we knocked, placed around the patient's stem, loosening it, placed an extraction tool. We repeated this,with some minor torquing and we were able to back out the stem. We curetted out the bone, made sure the pedestal was opened, ensured we could broach and placed a size 4 stem. We had concurrently opened and started with 2 g of vancomycin and 3.4 g of tobramycin as antibiotic spacer, which we had curetted on the back table. We washed. We ensured there was space and passed it in place to reduce the shoulder. We washed. We closed the patient's deltopectoral interval with a running 0 Prolene. We closed the skin with 2-0 Prolene in a running stitch fashion. Before closing, we washed the remainder with 1.5 to 2 L through. The patient will be admitted. We will consult Dr. Jasso. PICC line will be placed. He will be started on vancomycin and Zosyn. We will await final cultures and likely discharge him home with home antibiotics. My cleaner assistant is helped with approach, retraction of structures, removal of implants, debridement, irrigation, and closure. Job ID: [id number] [facility]ITALJulia
[2020-02-09 07:48] LABS: Hemoglobin 12.5 g/dL (14.0-18.0); Mean Corpuscular HGB CONC 32.5 g/dL (32.0-36.0); Mean Corpuscular Hemoglobin 28.6 pg (27.0-31.0); Mean Corpuscular Volume 88.2 fL (78.0-98.0); Mean Platelet Volume 6.5 fL (7.4-10.4); Platelet Count 306 thou/uL (130-400); RBC Distribution Width 13.5 % (11.5-14.5); Red Blood Cell (RBC) Count 4.36 mill/uL (4.70-6.10); White Blood Cell (WBC) Count 14.1 thou/uL (4.8-10.8)
[2020-02-09] MEDS: Famotidine 20 MG TAB PO SCH ×2 (08:07→21:52)
[2020-02-09] MEDS: Escitalopram Oxalate 10 mg Tablet PO SCH (08:07)
[2020-02-09] MEDS: Venlafaxine HCl XR 150 MG CAP PO SCH (08:07)
[2020-02-09] MEDS: Carvedilol 6.25 MG TAB PO SCH ×2 (08:07→21:52)
[2020-02-09 08:08] LABS: Anion Gap 15 mmol/L (10-20); BUN (Urea Nitrogen) 10 mg/dL (8.4-25.7); Calc. Creatinine Clearance 121 mL/min (70-130); Calcium 8.1 mg/dL (7.8-10.44); Carbon Dioxide 22 mmol/L (23-31); Chloride 105 mmol/L (98-107); Glucose 120 mg/dL (80-115); Potassium 4.3 mmol/L (3.5-5.1); Sodium 138 mmol/L (136-145)
[2020-02-09] MEDS: Clopidogrel Bisulfate 75 MG TAB PO SCH (08:08)
[2020-02-09] MEDS: Aspirin 81 mg Enteric Coated Tablet PO SCH (08:08)
--- NOTE | 2020-02-09 10:49 | SPC ---
Left upper extremity PICC placement sonographic guided HISTORY: Septic arthritis. FINDINGS: After explaining the procedure and answering all questions, the left upper extremity was pr epped and draped in usual sterile fashion. Sterile technique, buffered local anesthesia, sonographic guidance, and a 22-gauge needle were used t o carefully access the left brachial vein. Standard technique was used to place the tip of a 5 Slovak single lumen PICC so that the tip lies at the level of the superior vena cava. Catheter was flushed and secured externally. Patient tolerated the procedure well and was returned in unchanged condition. Fluoroscopy time 0 seconds. IMPRESSION : Left upper extremity PICC is ready for use.
[2020-02-09] MEDS: Vancomycin 1.5 GRAM/300 ML BAG 1.5 GM in Premix Bag 1 BAG IVPB SCH (13:46)
[2020-02-09] MEDS: fentaNYL Citrate/PF 2,000 MCG in Sodium Chloride 0.9% 60 ML IV PRN (17:05)
[2020-02-09] MEDS: Rosuvastatin 10 MG TAB PO SCH (21:52)
--- NOTE | 2020-02-09 23:00 | CON ---
DATE OF CONSULTATION: CHIEF COMPLAINT: Right shoulder pain. HISTORY OF PRESENT ILLNESS: The patient is a 64-year-old male who had originally presented with a right shoulder pain, status post revision reverse shoulder arthroplasty performed on 09/09/2019. Apparently, the patient exhibited signs of an infected right shoulder status post surgery. He had increasing pain and induration. At one point, aspiration of shoulder was performed at an outpatient clinic, which was negative. The patient was sent for a CT-guided aspiration of his right shoulder, which jad out fluid that was concerning for infection. Therefore, the decision was made for the patient to undergo shoulder debridement. We were consulted for medical management for his history of high blood pressure and high cholesterol. PAST MEDICAL HISTORY: 1. Hypertension. 2. Hypercholesterolemia. PAST SURGICAL HISTORY: 1. Cardiac bypass. 2. Back surgery. 3. Right shoulder revision and reversal. SOCIAL HISTORY: The patient is a smoker. He quit in 2010. He has no history of alcohol use. Denies any illicit drug use. The patient works for the [employer]. FAMILY HISTORY: Noncontributory to this case. ALLERGIES: NO KNOWN DRUG ALLERGIES. HOME MEDICATIONS: 1. Coreg 6.25 mg p.o. b.i.d. 2. Aspirin 81 mg p.o. daily. 3. Plavix 75 mg p.o. daily. 4. Lexapro 10 mg p.o. daily. 5. Venlafaxine 150 mg p.o. daily. 6. Crestor 10 mg p.o. q.p.m. REVIEW OF SYSTEMS: All review of systems are negative unless otherwise stated in HPI. PHYSICAL EXAMINATION: VITAL SIGNS: Temperature 98.1, blood pressure 154/78, heart rate 85, respirations 16, 94% on room air. CONSTITUTIONAL: The patient is alert and oriented. Appears nontoxic and comfortable, lying in bed. HEAD: Atraumatic and normocephalic. EYES: PERRLA. Extraocular muscles intact. Sclerae nonicteric. ENT: Oropharynx clear. Uvula midline. Moist mucous membranes. NECK: Full range of motion. No cervical spinous tenderness. RESPIRATORY/CHEST: Respirations even and nonlabored. Clear to auscultation. No rhonchi, wheezes, or rales. CARDIAC: S1, S2 appreciated. No murmurs, rubs, or gallops. ABDOMEN: Soft, nontender. Active bowel sounds. No guarding. No rigidity. No rebound tenderness. BACK: Full range of motion. No central spinous tenderness. No CVA tenderness. EXTREMITIES: Upper extremities; right upper extremity is in a sling. Left upper extremity is normal. Full range of motion. Sensation intact. Palpable radial pulses. Strength is normal. Lower extremities; full range of motion. Strength intact. Sensation intact. Palpable pedal pulses. No swelling. NEUROLOGICAL: A and O x4. GCS of 15. LABORATORIES AND DIAGNOSTICS: Sodium 138, potassium 4.3, chloride 105, carbon dioxide 22, BUN 10, creatinine 1.0, GFR 75, glucose 120, calcium 8.1. WBCs 14.1, hemoglobin 12.5, hematocrit 38.5, platelets 306. Coags: PT was 13.4, APTT is 27.8, INR is 1.0. IMPRESSION: 1. Hypertension. 2. Hyperlipidemia. 3. Status post debridement of right shoulder revision and reversal. PLAN: The patient is postop day 0 for his right shoulder debridement. He is resting comfortably in bed. His blood pressure is mildly elevated. I agree with restarting the patient's home dose of Coreg. Agree with restarting home dose of Crestor. The patient is on aspirin and Plavix per Orthopedic Surgery. Further clinical course for his right shoulder as per Orthopedics. The patient is a full code. Discussed the case with Dr. Love. Job ID: [id number]
[2020-02-10] MEDS: Vancomycin 1.5 GRAM/300 ML BAG 1.5 GM in Premix Bag 1 BAG IVPB SCH ×2 (01:36→12:41)
[2020-02-10 06:09] LABS: #Basophils 0.1 thou/uL (0.0-0.2); #Eosinphils 0.2 thou/uL (0.0-0.7); #Lymphocytes 1.2 thou/uL (1.20-3.40); #Monocytes 0.9 thou/uL (0.11-0.59); #Neutrophils 7.1 thou/uL (1.40-6.50); %Basophils 0.6 % (0.0-1.0); %Eosinophils 2.1 % (0.0-10.0); %Lymphocytes 12.8 % (21.0-51.0); %Monocytes 9.7 % (0.0-10.0); %Neutrophils 74.8 % (42.0-75.0); Hemoglobin 11.5 g/dL (14.0-18.0); Mean Corpuscular HGB CONC 32.4 g/dL (32.0-36.0); Mean Corpuscular Hemoglobin 28.3 pg (27.0-31.0); Mean Corpuscular Volume 87.3 fL (78.0-98.0); Mean Platelet Volume 6.6 fL (7.4-10.4); Platelet Count 237 thou/uL (130-400); RBC Distribution Width 13.7 % (11.5-14.5); Red Blood Cell (RBC) Count 4.07 mill/uL (4.70-6.10); White Blood Cell (WBC) Count 9.5 thou/uL (4.8-10.8)
[2020-02-10] MEDS ORDERED: Fentanyl 100 MCG/2 ML VIAL ONE ×2 (06:52→09:32)
[2020-02-10] MEDS ORDERED: Phenylephrine 10 MG/ML VIAL ONE (07:35)
[2020-02-10] MEDS ORDERED: Promethazine HCl 25 MG/ML VIAL SLOW IVP PRN (08:42)
[2020-02-10] MEDS ORDERED: HYDROmorphone 2 MG/ML VIAL SLOW IVP PRN (08:42)
[2020-02-10] MEDS ORDERED: Promethazine HCl 25 MG/ML VIAL IM PRN (08:42)
[2020-02-10] MEDS ORDERED: Ondansetron HCl/PF 4 MG/2 ML Vial IVP PRN (08:42)
[2020-02-10] MEDS ORDERED: SUGAMMADEX SODIUM 200 MG/2 ML VIAL ONE (08:47)
[2020-02-10] MEDS ORDERED: PHENYLEPHRINE-NS 100 MCG/ML 10 ML SYRINGE ONE (10:19)
[2020-02-10] MEDS ORDERED: Ondansetron PF 4 MG/2 ML Vial ONE (10:19)
[2020-02-10] MEDS ORDERED: Glycopyrrolate 0.2 MG/ML 5 ML SYRINGE ONE (10:19)
[2020-02-10] MEDS ORDERED: Lidocaine 1% PF 5 ML VIAL ONE (10:19)
[2020-02-10] MEDS ORDERED: Rocuronium Bromide 10 MG/ML (10ML VIAL) ONE (10:19)
[2020-02-10] MEDS ORDERED: Dexamethasone 20 MG/5 ML VIAL ONE (10:19)
[2020-02-10] MEDS ORDERED: PROPOFOL 200 MG/20 ML VIAL ONE (10:19)
[2020-02-10] MEDS: Famotidine 20 MG TAB PO SCH ×2 (10:20→20:24)
[2020-02-10] MEDS: Venlafaxine HCl XR 150 MG CAP PO SCH (10:20)
[2020-02-10] MEDS: Carvedilol 6.25 MG TAB PO SCH ×2 (10:20→20:24)
[2020-02-10] MEDS: Escitalopram Oxalate 10 mg Tablet PO SCH (10:20)
[2020-02-10] MEDS: Sodium Chloride 0.9% 1,000 ML IV SCH ×2 (10:20→12:45)
[2020-02-10] MEDS: Clopidogrel Bisulfate 75 MG TAB PO SCH (10:37)
[2020-02-10] MEDS: Aspirin 81 mg Enteric Coated Tablet PO SCH (10:37)
[2020-02-10] MEDS: Rosuvastatin 10 MG TAB PO SCH (20:24)
[2020-02-11] MEDS: Vancomycin 1.5 GRAM/300 ML BAG 1.5 GM in Premix Bag 1 BAG IVPB SCH ×2 (00:26→12:25)
[2020-02-11 05:40] LABS: Hemoglobin 10.5 g/dL (14.0-18.0); Mean Corpuscular Hemoglobin 28.1 pg (27.0-31.0); Platelet Count 249 thou/uL (130-400); RBC Distribution Width 13.8 % (11.5-14.5); Red Blood Cell (RBC) Count 3.73 mill/uL (4.70-6.10); White Blood Cell (WBC) Count 8.1 thou/uL (4.8-10.8)
[2020-02-11 05:41] LABS: Mean Platelet Volume 6.8 fL (7.4-10.4)
[2020-02-11] MEDS: diphenhydrAMINE 25 MG CAP PO PRN ×2 (06:41→19:53)
[2020-02-11] MEDS: fentaNYL Citrate/PF 2,000 MCG in Sodium Chloride 0.9% 60 ML IV PRN (07:23)
[2020-02-11] MEDS: Venlafaxine HCl XR 150 MG CAP PO SCH (08:47)
[2020-02-11] MEDS: Famotidine 20 MG TAB PO SCH ×2 (08:47→19:53)
[2020-02-11] MEDS: Carvedilol 6.25 MG TAB PO SCH ×2 (08:48→19:54)
[2020-02-11] MEDS: Escitalopram Oxalate 10 mg Tablet PO SCH (08:48)
--- NOTE | 2020-02-11 09:25 | PDOC.HOSPP ---
- Subjective Encounter Date: 02/10/20 Encounter Time: 12:30 Subjective: pt up in bed no complains - Objective Vital Signs & Weight: Vital Signs (12 hours) Temp Pulse Resp BP BP Pulse Ox 02/11/20 08:48 136/68 02/11/20 07:16 98.1 F 83 16 136/68 96 02/11/20 03:52 98.5 F 84 16 137/78 96 02/11/20 00:09 98.4 F 80 16 139/77 95 Weight Weight 260 lb I&O: 02/10/20 02/11/20 02/12/20 06:59 06:59 06:59 Intake Total 2440 4595 Output Total 4050 Balance -1610 4595 Result Diagrams: 02/11/20 05:12 02/09/20 07:24 Hospitalist ROS - Review of Systems Cardiovascular: denies: chest pain, palpitations, orthopnea, paroxysmal noc. dyspnea, edema, light headedness, other Gastrointestinal: denies: nausea, vomiting, abdominal pain, diarrhea, constipation, melena, hematochezia, other Genitourinary: denies: dysuria, frequency, incontinence, hematuria, retention, other - Medication Medications: Active Medications Generic Name Dose Route Start Last Admin Trade Name Freq PRN Reason Stop Dose Admin Carvedilol 6.25 mg 02/08/20 21:00 02/11/20 08:48 Carvedilol 6.25 Mg Tab PO 6.25 mg BID DIO Administration Diphenhydramine HCl 25 mg 02/09/20 02:55 02/11/20 06:41 Diphenhydramine 25 Mg Cap PO 25 mg Q3H PRN Administration Itching Escitalopram Oxalate 10 mg 02/08/20 09:00 02/11/20 08:48 Escitalopram Oxalate 10 Mg Tablet PO 10 mg DAILY DIO Administration Famotidine 20 mg 02/08/20 12:00 02/11/20 08:47 Famotidine 20 Mg Tab PO 20 mg BID DIO Administration Sodium Chloride 1,000 mls @ 65 mls/hr 02/08/20 10:28 02/10/20 12:45 Normal Saline 0.9% IV 1,000 mls .[id number] DIO Administration Fentanyl Citrate 2,000 mcg/ 100 mls @ 0 mls/hr 02/09/20 02:56 02/11/20 07:23 Sodium Chloride IV 100 mls INF PRN Administration Pain As Directed Vancomycin HCl 1.5 gm/ Device 300 mls @ 200 mls/hr 02/09/20 13:00 02/11/20 00:26 IVPB 300 mls 0100,1300 DIO Administration Rosuvastatin Calcium 10 mg 02/08/20 21:00 02/10/20 20:24 Rosuvastatin 10 Mg Tab PO 10 mg HS DIO Administration Sodium Chloride 10 ml 02/08/20 09:00 02/11/20 08:48 Flush - Normal Saline 10 Ml Syringe IVF Not Given Q12HR DIO Venlafaxine HCl 150 mg 02/08/20 09:00 02/11/20 08:47 Venlafaxine Hcl Xr 150 Mg Cap PO 150 mg DAILY DIO Administration - Exam Neck: negative: supple, symmetric, no JVD, no thyromegaly, no lymphadenopathy, no carotid bruit, JVD Heart: negative: RRR, no murmur, no gallops, no rubs, normal peripheral pulses, irregular, diminshed peripheral pulses, murmur present, II/IV, III/IV Respiratory: negative: CTAB, no wheezes, no rales, no ronchi, normal chest expansion, no tachypnea, normal percussion, rales, rhonchi, tachypneic, wheezes Hosp A/P (1) Hypercholesteremia Code(s): E78.00 - PURE HYPERCHOLESTEROLEMIA, UNSPECIFIED Status: Acute (2) Hypertension Code(s): I10 - ESSENTIAL (PRIMARY) HYPERTENSION Status: Acute (3) Obesity Code(s): E66.9 - OBESITY, UNSPECIFIED Status: Acute (4) 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 Code(s): Z96.611 - PRESENCE OF RIGHT ARTIFICIAL SHOULDER JOINT Status: Acute - Plan pt has a hx of cad was on asa/plavix will need to restart when ok with surgery. pt restarted on her bp meds.
[2020-02-11 14:13] LABS: Fungus Stain Final report (.)
[2020-02-11] MEDS: Sodium Chloride 0.9% 1,000 ML IV SCH (14:27)
--- NOTE | 2020-02-11 16:41 | PDOC.HOSPP ---
- Subjective Encounter Date: 02/11/20 Encounter Time: 11:15 Subjective: pt up in bed no problems. - Objective Vital Signs & Weight: Vital Signs (12 hours) Temp Pulse Resp BP BP BP Pulse Ox 02/11/20 16:04 98.4 F 93 16 121/62 92 L 02/11/20 11:53 98.4 F 84 16 183/68 H 93 L 02/11/20 08:48 136/68 02/11/20 08:20 96 02/11/20 07:16 98.1 F 83 16 136/68 96 Weight Weight 260 lb I&O: 02/10/20 02/11/20 02/12/20 06:59 06:59 06:59 Intake Total 2440 4595 Output Total 4050 Balance -1610 4595 Result Diagrams: 02/11/20 05:12 02/09/20 07:24 Hospitalist ROS - Review of Systems Cardiovascular: denies: chest pain, palpitations, orthopnea, paroxysmal noc. dyspnea, edema, light headedness, other Gastrointestinal: denies: nausea, vomiting, abdominal pain, diarrhea, constipation, melena, hematochezia, other Genitourinary: denies: dysuria, frequency, incontinence, hematuria, retention, other - Medication Medications: Active Medications Generic Name Dose Route Start Last Admin Trade Name Freq PRN Reason Stop Dose Admin Carvedilol 6.25 mg 02/08/20 21:00 02/11/20 08:48 Carvedilol 6.25 Mg Tab PO 6.25 mg BID DIO Administration Diphenhydramine HCl 25 mg 02/09/20 02:55 02/11/20 06:41 Diphenhydramine 25 Mg Cap PO 25 mg Q3H PRN Administration Itching Escitalopram Oxalate 10 mg 02/08/20 09:00 02/11/20 08:48 Escitalopram Oxalate 10 Mg Tablet PO 10 mg DAILY DIO Administration Famotidine 20 mg 02/08/20 12:00 02/11/20 08:47 Famotidine 20 Mg Tab PO 20 mg BID DIO Administration Sodium Chloride 1,000 mls @ 65 mls/hr 02/08/20 10:28 02/11/20 14:27 Normal Saline 0.9% IV 1,000 mls .[id number] DIO Administration Fentanyl Citrate 2,000 mcg/ 100 mls @ 0 mls/hr 02/09/20 02:56 02/11/20 07:23 Sodium Chloride IV 100 mls INF PRN Administration Pain As Directed Vancomycin HCl 1.5 gm/ Device 300 mls @ 200 mls/hr 02/09/20 13:00 02/11/20 12:25 IVPB 300 mls 0100,1300 DIO Administration Rosuvastatin Calcium 10 mg 02/08/20 21:00 02/10/20 20:24 Rosuvastatin 10 Mg Tab PO 10 mg HS DIO Administration Sodium Chloride 10 ml 02/08/20 09:00 02/11/20 08:48 Flush - Normal Saline 10 Ml Syringe IVF Not Given Q12HR DIO Venlafaxine HCl 150 mg 02/08/20 09:00 02/11/20 08:47 Venlafaxine Hcl Xr 150 Mg Cap PO 150 mg DAILY DIO Administration - Exam Neck: negative: supple, symmetric, no JVD, no thyromegaly, no lymphadenopathy, no carotid bruit, JVD Heart: negative: RRR, no murmur, no gallops, no rubs, normal peripheral pulses, irregular, diminshed peripheral pulses, murmur present, II/IV, III/IV Respiratory: negative: CTAB, no wheezes, no rales, no ronchi, normal chest expansion, no tachypnea, normal percussion, rales, rhonchi, tachypneic, wheezes Gastrointestinal: negative: soft, non-tender, non-distended, normal bowel sounds, no palpable masses, no hepatomegaly, no splenomegaly, no bruit, no guarding, no rigidity, tender to palpation, distended, diminished bowl sounds, voluntary guarding Hosp A/P (1) Hypertension Code(s): I10 - ESSENTIAL (PRIMARY) HYPERTENSION Status: Acute (2) Obesity Code(s): E66.9 - OBESITY, UNSPECIFIED Status: Acute (3) Hypercholesteremia Code(s): E78.00 - PURE HYPERCHOLESTEROLEMIA, UNSPECIFIED Status: Acute - Plan pt has a hx of cad was on asa/plavix will need to restart when ok with surgery. pt restarted on her bp meds. 02/10 vital signs stable we will continue current antibiotics. Culture so far negative. Patient states that he does snore at night however does not want to get a sleep study.
[2020-02-11 18:16] LABS: Vancomycin, Random 26.5 ug/mL (See Comment)
[2020-02-11] MEDS: Rosuvastatin 10 MG TAB PO SCH (19:53)
[2020-02-11] MEDS: Zolpidem Tartrate 5 MG TAB PO PRN (19:54)
[2020-02-12] MEDS: Vancomycin 1.5 GRAM/300 ML BAG 1.5 GM in Premix Bag 1 BAG IVPB SCH ×2 (00:11→12:26)
[2020-02-12] MEDS: Sodium Chloride 0.9% 1,000 ML IV SCH (00:11)
[2020-02-12] MEDS ORDERED: Sodium Chloride 0.9% 1,000 ML IV SCH (01:55)
[2020-02-12 02:00] LABS: ALT (SGPT) 31 U/L (8-55); AST (SGOT) 28 U/L (5-34); Albumin 3.4 g/dL (3.4-4.8); Alkaline Phosphatase 73 U/L (40-110); Anion Gap 15 mmol/L (10-20); BUN (Urea Nitrogen) 14 mg/dL (8.4-25.7); Bilirubin, Total 0.7 mg/dL (0.2-1.2); Calc. Creatinine Clearance 121 mL/min (70-130); Calcium 7.9 mg/dL (7.8-10.44); Carbon Dioxide 25 mmol/L (23-31); Chloride 96 mmol/L (98-107); Globulin 3.1 g/dL (2.4-3.5); Glucose 100 mg/dL (80-115); Potassium 3.9 mmol/L (3.5-5.1); Protein, Total 6.5 g/dL (5.8-8.1); Sodium 132 mmol/L (136-145)
[2020-02-12] MEDS ORDERED: Furosemide 40 MG/4 ML VIAL SLOW IVP SCH (02:00)
[2020-02-12 05:47] LABS: #Eosinphils 0.1 thou/uL (0.0-0.7); #Lymphocytes 0.9 thou/uL (1.20-3.40); #Monocytes 1.1 thou/uL (0.11-0.59); #Neutrophils 6.9 thou/uL (1.40-6.50); %Basophils 0.3 % (0.0-1.0); %Eosinophils 0.6 % (0.0-10.0); %Lymphocytes 9.9 % (21.0-51.0); %Neutrophils 77.3 % (42.0-75.0); Hemoglobin 11.8 g/dL (14.0-18.0); Mean Corpuscular HGB CONC 32.3 g/dL (32.0-36.0); Mean Corpuscular Hemoglobin 28.3 pg (27.0-31.0); Mean Corpuscular Volume 87.5 fL (78.0-98.0); Mean Platelet Volume 6.7 fL (7.4-10.4); Platelet Count 253 thou/uL (130-400); Red Blood Cell (RBC) Count 4.16 mill/uL (4.70-6.10); White Blood Cell (WBC) Count 8.9 thou/uL (4.8-10.8)
[2020-02-12 06:06] LABS: Anion Gap 14 mmol/L (10-20); BUN (Urea Nitrogen) 14 mg/dL (8.4-25.7); Calc. Creatinine Clearance 104 mL/min (70-130); Calcium 7.9 mg/dL (7.8-10.44); Carbon Dioxide 30 mmol/L (23-31); Chloride 93 mmol/L (98-107); Glucose 100 mg/dL (80-115); Potassium 3.7 mmol/L (3.5-5.1); Sodium 133 mmol/L (136-145)
--- NOTE | 2020-02-12 07:23 | OP ---
DATE OF PROCEDURE: 02/10/2020 PREOPERATIVE DIAGNOSIS: Right shoulder reverse shoulder arthroplasty infection with wound drainage. POSTOPERATIVE DIAGNOSIS: Right shoulder septic wound drainage. PROCEDURE PERFORMED: Irrigation and debridement of right shoulder with exploration and cauterization of bleeding. EATING DISORDER PSYCHOLOGIST: None. ANESTHESIA: Dr. Alberts. The patient received a general intubation. ESTIMATED BLOOD LOSS: Less than 70 cc. TOURNIQUET TIME: None. ANTIBIOTICS: Vanc and Zosyn scheduled IMPLANTS: None. COMPLICATIONS: None. HISTORY OF PRESENT ILLNESS: Mr. Garcia is a 64-year-old male, who underwent an I and D on Friday, two days ago. Had continued significant drainage from his incision site. We felt that there were no significant bleeders. 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 I felt that given that there was so much infectious fluid and continued drainage, it would be mccarthy to repeat an I and D. I discussed with him the risks and benefits of an I and D. I discussed opening him back up to wash the shoulder back out, control any bleeding and closing again. He understood the risks and benefits and elected to proceed. DESCRIPTION OF PROCEDURE: Time-out was performed designating the patient's right upper extremity as the operative site based on site, consents, and markings. After time-out, the patient's right upper extremity was prepped and draped in sterile fashion. At completion of this, we took the sutures out of the wound, opened the superficial layer. There were no significant bleeders that we noted, washed about 300 cc of fluid through, looked for any bleeding superficially. We then took down the deltopectoral interval. There was some serous fluid different in nature to the previous infectious fluid and some hematoma that was noted. We washed, sucked out all the hematoma and fluid, but could not see any bleeding. We washed with 3 L of fluid through the shoulder joint subcu, completely washing out the joint for second I and D. We left the spacer in place, it has only been in for 48 hours. On completion of this, we looked deep, could see no bleeding, looked superficially and there was some bleeding that was just a general ooze, cauterized and could not control, therefore, used some Jules to help control the incision line right there with the hyperemic bleeding, after it was controlled, being happy with that we closed with 0 [id number] Prolene sutures deep, ensured that it was controlled bleeding, washed with 4L total through the wound and closed with a running 2-0 Prolene stitch for skin. The patient will be admitted back. We will continue IV antibiotics, can be discharged tomorrow if his IV antibiotics are set up. We will follow his H and H again in the morning. He is being followed by Dr. Mehul Jasso. The patient will likely undergo a period of spacer antibiotics, oral suppression and then potentially be converted back to reverse. Job ID: [id number] [facility]
[2020-02-12] MEDS: Acetaminophen 325 MG TAB PO PRN (08:13)
[2020-02-12] MEDS: Venlafaxine HCl XR 150 MG CAP PO SCH (08:14)
[2020-02-12] MEDS: Famotidine 20 MG TAB PO SCH ×2 (08:14→20:00)
[2020-02-12] MEDS: Carvedilol 6.25 MG TAB PO SCH (08:14)
[2020-02-12] MEDS: Escitalopram Oxalate 10 mg Tablet PO SCH (08:14)
--- NOTE | 2020-02-12 08:52 | RAD ---
Chest AP view INDICATION: New onset confusion COMPARISON: CT the chest dated March 03, 2019 FINDINGS: Lungs: There are scattered emphysema. Cardiac silhouette: There is mild cardiomegaly. There is post CABG change. There is a left-sided PIC C line in place. Pulmonary vasculature: Normal Pleural spaces: No pleural effusion or pneumothorax is demonstrated. Upper abdomen: No abnormality seen. Osseous structures: No acute osseous abnormality. Additional findings: None. IMPRESSION: No acute cardiopulmonary abnormality.
[2020-02-12] MEDS ORDERED: Clopidogrel Bisulfate 75 MG TAB PO SCH (10:30)
[2020-02-12] MEDS ORDERED: Aspirin 81 mg Enteric Coated Tablet PO SCH (10:30)
[2020-02-12] MEDS ORDERED: HYDROcodone/Acetaminophen 10/325 mg Tablet PO PRN (11:13)
[2020-02-12] MEDS ORDERED: traMADol HCl 50 MG TAB PO PRN ×2 (11:14)
[2020-02-12 13:10] LABS: Vancomycin, Trough 8.6 ug/mL
[2020-02-12] MEDS ORDERED: Iopamidol-370 76% 500 ML 1 ML ONE (13:46)
--- NOTE | 2020-02-12 15:10 | PDOC.HOSPP ---
- Subjective Encounter Date: 02/12/20 Encounter Time: 10:30 Subjective: Patient up in bed no complaints. - Objective Vital Signs & Weight: Vital Signs (12 hours) Temp Pulse Resp BP BP Pulse Ox 02/12/20 12:11 98.3 F 78 16 93/59 L 96 02/12/20 08:43 100 F H 02/12/20 08:14 131/83 02/12/20 08:13 100.4 F H 02/12/20 08:10 94 L 02/12/20 07:18 100.4 F H 99 18 131/83 94 L 02/12/20 06:29 98 86 L 02/12/20 04:00 98.9 F 101 H 20 154/75 H 92 L 02/12/20 03:40 92 L Weight Weight 260 lb I&O: 02/11/20 02/12/20 02/13/20 06:59 06:59 06:59 Intake Total 4595 2960 Output Total 1700 Balance 4595 1260 Result Diagrams: 02/12/20 05:16 02/12/20 05:16 Hospitalist ROS - Review of Systems Cardiovascular: denies: chest pain, palpitations, orthopnea, paroxysmal noc. dyspnea, edema, light headedness, other Gastrointestinal: denies: nausea, vomiting, abdominal pain, diarrhea, constipation, melena, hematochezia, other Genitourinary: denies: dysuria, frequency, incontinence, hematuria, retention, other - Medication Medications: Active Medications Generic Name Dose Route Start Last Admin Trade Name Freq PRN Reason Stop Dose Admin Acetaminophen 650 mg 02/08/20 10:28 02/12/20 08:13 Acetaminophen 325 Mg Tab PO 650 mg Q4H PRN Administration ORTA/T > 101.5F/Mild Pain (1-3) Carvedilol 6.25 mg 02/08/20 21:00 02/12/20 08:14 Carvedilol 6.25 Mg Tab PO 6.25 mg BID DIO Administration Diphenhydramine HCl 25 mg 02/09/20 02:55 02/11/20 19:53 Diphenhydramine 25 Mg Cap PO 25 mg Q3H PRN Administration Itching Escitalopram Oxalate 10 mg 02/08/20 09:00 02/12/20 08:14 Escitalopram Oxalate 10 Mg Tablet PO 10 mg DAILY DIO Administration Famotidine 20 mg 02/08/20 12:00 02/12/20 08:14 Famotidine 20 Mg Tab PO 20 mg BID DIO Administration Ondansetron HCl 4 mg 02/09/20 02:55 02/12/20 01:26 Ondansetron Pf 4 Mg/2 Ml Vial IVP 4 mg Q6H PRN Administration Nausea/Vomiting Rosuvastatin Calcium 10 mg 02/08/20 21:00 02/11/20 19:53 Rosuvastatin 10 Mg Tab PO 10 mg HS DIO Administration Sodium Chloride 10 ml 02/08/20 09:00 02/12/20 08:15 Flush - Normal Saline 10 Ml Syringe IVF Not Given Q12HR DIO Venlafaxine HCl 150 mg 02/08/20 09:00 02/12/20 08:14 Venlafaxine Hcl Xr 150 Mg Cap PO 150 mg DAILY DIO Administration Zolpidem Tartrate 5 mg 02/09/20 02:55 02/11/20 19:54 Zolpidem Tartrate 5 Mg Tab PO 5 mg HSPRN PRN Administration Insomnia - Exam Neck: negative: supple, symmetric, no JVD, no thyromegaly, no lymphadenopathy, no carotid bruit, JVD Heart: negative: RRR, no murmur, no gallops, no rubs, normal peripheral pulses, irregular, diminshed peripheral pulses, murmur present, II/IV, III/IV Respiratory: negative: CTAB, no wheezes, no rales, no ronchi, normal chest expansion, no tachypnea, normal percussion, rales, rhonchi, tachypneic, wheezes Gastrointestinal: negative: soft, non-tender, non-distended, normal bowel sounds, no palpable masses, no hepatomegaly, no splenomegaly, no bruit, no guarding, no rigidity, tender to palpation, distended, diminished bowl sounds, voluntary guarding Hosp A/P (1) Hypertension Code(s): I10 - ESSENTIAL (PRIMARY) HYPERTENSION Status: Acute (2) Obesity Code(s): E66.9 - OBESITY, UNSPECIFIED Status: Acute (3) Hypercholesteremia Code(s): E78.00 - PURE HYPERCHOLESTEROLEMIA, UNSPECIFIED Status: Acute (4) Acute respiratory failure with hypoxia Code(s): J96.01 - ACUTE RESPIRATORY FAILURE WITH HYPOXIA Status: Acute - Plan pt has a hx of cad was on asa/plavix will need to restart when ok with surgery. pt restarted on her bp meds. 02/10 vital signs stable we will continue current antibiotics. Culture so far negative. Patient states that he does snore at night however does not want to get a sleep study. 02/11 patient appeared to be hypoxic last night. BNP mildly elevated patient was given Lasix x1. Patient does have a history of smoking 4 packs a day for 40 years he quit in 2010 after his bypass. His lungs appear clear to auscultate. We will go ahead and do a CTA to rule out a PE. If his CT is negative we will start him on low-dose steroids with inhalers. We will also start patient on some duo nebs. I have stopped his IV fluids. We will hold his blood pressure medication also. His blood pressure is little bit on the softer side. Patient's cultures indicated propionibacterium acnes which is sensitive to ceftriaxone. Patient currently vancomycin. Infectious disease has been consulted. Patient was given incentive spirometer. Patient's aspirin and Plavix restarted.
--- NOTE | 2020-02-12 16:09 | CT ---
CTA Angio Chest W Con 02/12/2020 3:42 PM Indication: Recent shoulder surgery and concern for pulmonary embolus Technique: Multiple CTA images were obtained of the thorax with IV contrast. 3-D rendering: MIP nevaeh nstructed images were created and reviewed. Comparison: CT of the thorax with contrast agent or 2019 Findings: Pulmonary arteries: No central or segmental pulmonary embolus is evident. Heart and Aorta: There is postsurgical change of a prior CABG. There is coronary artery and thoracic aortic calcifications. There is a left-sided PICC line in place. Mediastinum:Normal appearing. No enlarged lymph nodes. Lungs:There are new area of patchy interstitial and airspace opacity within the posterior medial righ t lower lobe. There are subtle areas of subpleural groundglass airspace opacity within the left lower lobe. No kaitlynn consolidation is evident. There is scattered emphysema. Pleural space: Clear. Upper Abdomen: There is small hiatal hernia. There is gallstones layered within the gallbladder. Osseous Structures: There is scattered degenerative and osteoarthritic change present. No acute frac ture or subluxation demonstrated. There is a dorsal column stimulator involving the mid to distal thoracic spine. Soft tissues:There is soft tissue swelling surrounding the right shoulder consistent patient's recent shoulder replacement. Other findings:None. Impression: 1. No central or segmental pulmonary embolus demonstrated. 2. Peripheral areas of patchy interstitial and airspace opacity within the posterior medial right low er lobe is nonspecific and may reflect a developing pneumonia. There are also patchy areas of subpleural groundglass opacity in the peripheral left lower lobe suspicious for areas of bronchioliti s. Findings can be infectious or inflammatory in etiology. Recommend consideration for CT follow-up after appropriate therapy to document stability versus resolution. 3. Soft tissue swelling surrounding the right shoulder consistent patient's reported history of a rec ent right shoulder replacement. 4. Cholelithiasis 5. Small hiatal hernia.
[2020-02-12] MEDS: Rosuvastatin 10 MG TAB PO SCH (20:00)
[2020-02-12] MEDS: Vancomycin HCl 1.25 GM in Sodium Chloride 0.9% 250 ML 250 ML IVPB SCH (21:16)
[2020-02-13] MEDS: Vancomycin HCl 1.25 GM in Sodium Chloride 0.9% 250 ML 250 ML IVPB SCH (05:28)
[2020-02-13] MEDS ORDERED: Clopidogrel Bisulfate 75 MG TAB PO SCH (09:00)
[2020-02-13] MEDS ORDERED: methylPREDNISolone Sod Succ 40 MG VIAL IVP SCH (09:00)
[2020-02-13] MEDS: Aspirin 81 mg Enteric Coated Tablet PO SCH (09:01)
[2020-02-13] MEDS: Clopidogrel Bisulfate 75 MG TAB PO SCH (09:01)
[2020-02-13] MEDS: cefTRIAXone\\ROCEPHIN 2 GM in Sodium Chloride 0.9% 100 ML IVPB SCH (09:01)
[2020-02-13] MEDS: Venlafaxine HCl XR 150 MG CAP PO SCH (09:02)
[2020-02-13] MEDS: Escitalopram Oxalate 10 mg Tablet PO SCH (09:02)
[2020-02-13] MEDS: Famotidine 20 MG TAB PO SCH ×2 (09:02→21:01)
[2020-02-13] MEDS: Milk Of Magnesia 30 ML UDCUP PO PRN (10:34)
[2020-02-13] MEDS: Ipratropium Bromide 2.5 ml Neb NEB SCH ×4 (11:34→22:22)
[2020-02-13] MEDS ORDERED: Vancomycin HCl 1.25 GM in Sodium Chloride 0.9% 250 ML 250 ML IVPB SCH ×2 (14:15→15:00)
[2020-02-13] MEDS: HYDROcodone/Acetaminophen 10/325 mg Tablet PO PRN (14:26)
[2020-02-13] MEDS ORDERED: chlorproMAZINE HCl 25 MG TAB PO SCH (14:45)
--- NOTE | 2020-02-13 15:40 | PDOC.HOSPP ---
- Subjective Encounter Date: 02/13/20 Encounter Time: 11:00 Subjective: pt up in bed no complains - Objective Vital Signs & Weight: Vital Signs (12 hours) Temp Pulse Resp BP Pulse Ox 02/13/20 11:34 70 18 94 L 02/13/20 11:31 98.5 F 88 16 126/76 94 L 02/13/20 09:13 94 L 02/13/20 07:43 98.5 F 100 18 142/76 H 91 L 02/13/20 06:15 100.7 F H 97 18 115/71 93 L Weight Weight 260 lb I&O: 02/12/20 02/13/20 02/14/20 06:59 06:59 06:59 Intake Total 2960 1900 700 Output Total 1700 2200 Balance 1260 -300 700 Result Diagrams: 02/12/20 05:16 02/12/20 05:16 Hospitalist ROS - Review of Systems Gastrointestinal: denies: nausea, vomiting, abdominal pain, diarrhea, constipation, melena, hematochezia, other Genitourinary: denies: dysuria, frequency, incontinence, hematuria, retention, other Musculoskeletal: denies: neck pain, shoulder pain, arm pain, back pain, hand pain, leg pain, foot pain, other - Medication Medications: Active Medications Generic Name Dose Route Start Last Admin Trade Name Rejiq PRN Reason Stop Dose Admin Acetaminophen 650 mg 02/08/20 10:28 02/12/20 08:13 Acetaminophen 325 Mg Tab PO 650 mg Q4H PRN Administration ORTA/T > 101.5F/Mild Pain (1-3) Hydrocodone Bitart/Acetaminophen 2 tab 02/12/20 11:13 02/13/20 14:26 Hydrocodone/Acetaminophen 10/325 Mg Tablet PO 2 tab Q4H PRN Administration Pain 5-10 Aspirin 81 mg 02/13/20 09:00 02/13/20 09:01 Aspirin 81 Mg Enteric Coated Tablet PO 81 mg DAILY DIO Administration Carvedilol 6.25 mg 02/08/20 21:00 02/12/20 08:14 Carvedilol 6.25 Mg Tab PO 6.25 mg BID DIO Administration Chlorpromazine HCl 25 mg 02/13/20 14:45 02/13/20 15:29 Chlorpromazine Hcl 25 Mg Tab PO 02/13/20 16:45 25 mg NOW DIO Administration Clopidogrel Bisulfate 75 mg 02/13/20 09:00 02/13/20 09:01 Clopidogrel Bisulfate 75 Mg Tab PO 75 mg DAILY DIO Administration Diphenhydramine HCl 25 mg 02/09/20 02:55 02/11/20 19:53 Diphenhydramine 25 Mg Cap PO 25 mg Q3H PRN Administration Itching Escitalopram Oxalate 10 mg 02/08/20 09:00 02/13/20 09:02 Escitalopram Oxalate 10 Mg Tablet PO 10 mg DAILY DIO Administration Famotidine 20 mg 02/08/20 12:00 02/13/20 09:02 Famotidine 20 Mg Tab PO 20 mg BID DIO Administration Ceftriaxone Sodium 2 gm/ 100 mls @ 200 mls/hr 02/13/20 09:00 02/13/20 09:01 Sodium Chloride IVPB 100 mls Q24HR DIO Administration Ipratropium [place] 2.5 ml 02/13/20 10:30 02/13/20 11:34 Ipratropium [place] 2.5 Ml Neb NEB 2.5 ml [id number] DIO Administration Magnesium Hydroxide 30 ml 02/08/20 10:28 02/13/20 10:34 Milk Of Magnesia 30 Ml Udcup PO 30 ml DAILYPRN PRN Administration Constipation Ondansetron HCl 4 mg 02/09/20 02:55 02/12/20 01:26 Ondansetron Pf 4 Mg/2 Ml Vial IVP 4 mg Q6H PRN Administration Nausea/Vomiting Rosuvastatin Calcium 10 mg 02/08/20 21:00 02/12/20 20:00 Rosuvastatin 10 Mg Tab PO 10 mg HS DIO Administration Sodium Chloride 10 ml 02/08/20 09:00 02/13/20 09:03 Flush - Normal Saline 10 Ml Syringe IVF 10 ml Q12HR DIO Administration Venlafaxine HCl 150 mg 02/08/20 09:00 02/13/20 09:02 Venlafaxine Hcl Xr 150 Mg Cap PO 150 mg DAILY DIO Administration Zolpidem Tartrate 5 mg 02/09/20 02:55 02/11/20 19:54 Zolpidem Tartrate 5 Mg Tab PO 5 mg HSPRN PRN Administration Insomnia - Exam Heart: negative: RRR, no murmur, no gallops, no rubs, normal peripheral pulses, irregular, diminshed peripheral pulses, murmur present, II/IV, III/IV Respiratory: negative: CTAB, no wheezes, no rales, no ronchi, normal chest expansion, no tachypnea, normal percussion, rales, rhonchi, tachypneic, wheezes Hosp A/P (1) Hypertension Code(s): I10 - ESSENTIAL (PRIMARY) HYPERTENSION Status: Acute (2) Obesity Code(s): E66.9 - OBESITY, UNSPECIFIED Status: Acute (3) Hypercholesteremia Code(s): E78.00 - PURE HYPERCHOLESTEROLEMIA, UNSPECIFIED Status: Acute (4) Acute respiratory failure with hypoxia Code(s): J96.01 - ACUTE RESPIRATORY FAILURE WITH HYPOXIA Status: Acute - Plan pt has a hx of cad was on asa/plavix will need to restart when ok with surgery. pt restarted on her bp meds. 02/10 vital signs stable we will continue current antibiotics. Culture so far negative. Patient states that he does snore at night however does not want to get a sleep study. 02/11 patient appeared to be hypoxic last night. BNP mildly elevated patient was given Lasix x1. Patient does have a history of smoking 4 packs a day for 40 years he quit in 2010 after his bypass. His lungs appear clear to auscultate. We will go ahead and do a CTA to rule out a PE. If his CT is negative we will start him on low-dose steroids with inhalers. We will also start patient on some duo nebs. I have stopped his IV fluids. We will hold his blood pressure medication also. His blood pressure is little bit on the softer side. Patient's cultures indicated propionibacterium acnes which is sensitive to ceftriaxone. Patient currently vancomycin. Infectious disease has been consulted. Patient was given incentive spirometer. Patient's aspirin and Plavix restarted. 02/12 we will start patient on steroids given patient's 4 pack a day smoking history. Patient also on duo nebs. CTA negative for PE. This was discussed with patient and patient's .
--- NOTE | 2020-02-13 16:17 | PRG ---
DATE OF SERVICE: 02/13/2020 SUBJECTIVE: Sitting in bed, getting ready for some physical therapy, a little bit constipated. No respiratory symptoms. Mild pain in the right shoulder. He is voiding in the urinal without difficulty. No chest pain. No abdominal pain. OBJECTIVE: VITAL SIGNS: T-max 100.7 at 6:00 a.m. today, blood pressure 120/70, heart rate 70, respiratory rate 18, O2 saturation 94% on room air. LUNGS: Clear. HEART: S1 and S2. Regular rate. EXTREMITIES: Right shoulder with a small little dressing anteriorly placed. ABDOMEN: Soft, not distended. : No bladder distention. LABORATORY DATA: White cell count down to 8.9, hemoglobin 11.8, platelets 253. Creatinine 1.17. Microbiology showed Propionibacterium acne in 2 different samples from the shoulder. He had a chest CT done yesterday. The CT angio did not show any pulmonary embolism. There was some patchy areas of interstitial and airspace opacity in the posteromedial right lower lobe. There are some ground-glass opacities in peripheral left lower lobe. 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 Now the patient has those areas of lung changes with low-grade temperature elevation, although the overall picture is improving. We always worry about SARS-CoV-2 even in the hospital setting, so we will go ahead and recheck him for that including antibody test to make sure he does not have that. Switch him to Rocephin from vancomycin which is a first choice for treatment of Propionibacterium acne now that we have it identified from the samples. This will make it easier for outpatient management. Job ID: [id number] [facility]
--- NOTE | 2020-02-13 16:53 | PRG ---
DATE OF SERVICE: 02/13/2020 SUBJECTIVE: The patient is doing fine. He is somewhat agitated. He is still in the hospital. He is eager to leave the hospital. He is awaiting antibiotic treatment as an outpatient. He has an infected shoulder with Propionibacterium acne. Dr. Jasso is following the patient. His shoulder pain is decreasing. He has not really started moving the shoulder or exercising the shoulder. He is now wearing a sling. OBJECTIVE: VITAL SIGNS: Temperature is 98.5, pulse is 70, respiratory rate of 18, blood pressure is 126/76. GENERAL: He is lying supine. He is alert, in no apparent distress. LUNGS: Breathing comfortably. EXTREMITIES: Right shoulder has a healing wound. Dressing was taken off. There was some drainage on the dressing, but no active drainage. No erythema. He is able to gently flex and extend the fingers and wrist. 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 PLAN: The patient will continue intravenous antibiotics as guided by Dr. Jasso. He will continue inpatient treatment until these are arranged. I am hopefully, he could go home tomorrow. He is very eager to leave the hospital. I will ask the nurse to change his dressing today. He can mobilize out of bed. Job ID: [id number]
[2020-02-13] MEDS: Rosuvastatin 10 MG TAB PO SCH (21:01)
[2020-02-13 23:15] LABS: SARS-CoV-2 MS2 Positive; SARS-CoV-2 N Gene Positive; SARS-CoV-2 S Gene Positive; SARS-CoV-2 by NAA DETECTED (NotDetected); SARS-CoV-2 orf1ab Positive
[2020-02-14] MEDS: Ipratropium Bromide 2.5 ml Neb NEB SCH (00:34)
[2020-02-14] MEDS ORDERED: Albuterol 200 PUFF (6.7GM INHALER) INH PRN (00:50)
[2020-02-14] MEDS: Ipratropium Oral Inhaler INH SCH ×6 (03:12→22:45)
[2020-02-14] MEDS ORDERED: predniSONE 20 MG TAB PO SCH (08:00)
[2020-02-14] MEDS: HYDROcodone/Acetaminophen 10/325 mg Tablet PO PRN ×2 (09:12→17:32)
[2020-02-14] MEDS: cefTRIAXone\\ROCEPHIN 2 GM in Sodium Chloride 0.9% 100 ML IVPB SCH (09:13)
[2020-02-14] MEDS: Clopidogrel Bisulfate 75 MG TAB PO SCH (09:13)
[2020-02-14] MEDS: Famotidine 20 MG TAB PO SCH ×2 (09:13→21:00)
[2020-02-14] MEDS: Aspirin 81 mg Enteric Coated Tablet PO SCH (09:13)
[2020-02-14] MEDS: Escitalopram Oxalate 10 mg Tablet PO SCH (09:13)
[2020-02-14] MEDS: Venlafaxine HCl XR 150 MG CAP PO SCH (09:13)
[2020-02-14 10:12] LABS: SARS-CoV-2 IgG Ab Non-Reactive (NonReactive); SARS-CoV-2 IgG Index 0.05 S/CO (< 1.40)
[2020-02-14] MEDS: diphenhydrAMINE 25 MG CAP PO PRN (12:53)
[2020-02-14 14:26] LABS: Vancomycin, Trough 4.4 ug/mL
--- NOTE | 2020-02-14 16:09 | PRG ---
DATE OF SERVICE: 02/14/2020 SUBJECTIVE: The patient is feeling well. He wants to go home. Minimal pain in the right shoulder. No respiratory symptoms to speak off. OBJECTIVE: VITAL SIGNS: He is saturating 94% on room air. LUNGS: Clear. HEART: S1 and S2. Regular rate. ABDOMEN: Soft, not distended. EXTREMITIES: Right shoulder with a small dressing. LABORATORY DATA: His SARS-CoV PCR was positive, his antibody was negative. ASSESSMENT AND DISCUSSION: 1. Hypertension. 2. Coronary artery disease. 3. Bypass graft surgery. 4. Chronic smoking. 5. Spinal cord stimulator. 6. Right shoulder tear with arthroplasty and then infection with Propionibacterium acne. The patient to continue on IV Rocephin. He tested positive for SARS-CoV-2 and seems to be mild at this point, but he is in the first week of illness and I explained to him that he may deteriorate in the next week. He does have pulse oximeters at home and I advised him that if it drops below 94 to head onto the hospital to get early treatment to prevent progression. Hopefully, he is not going to progress into the inflammatory phase. Job ID: [id number]
[2020-02-14] MEDS ORDERED: chlorproMAZINE HCl 25 MG TAB PO PRN (17:03)
--- NOTE | 2020-02-14 17:18 | PDOC.HOSPP ---
- Subjective Encounter Date: 02/14/20 Encounter Time: 10:30 Subjective: pt up in bed no complains - Objective Vital Signs & Weight: Vital Signs (12 hours) Temp Pulse Resp BP BP Pulse Ox 02/14/20 14:44 98.7 F 91 16 108/66 92 L 02/14/20 11:20 98.7 F 81 18 121/78 93 L 02/14/20 09:13 93 L 02/14/20 07:40 99 F 94 16 117/72 93 L Weight Weight 260 lb I&O: 02/13/20 02/14/20 02/15/20 06:59 06:59 06:59 Intake Total 1900 1900 Output Total 2200 Balance -300 1900 Result Diagrams: 02/12/20 05:16 02/12/20 05:16 Hospitalist ROS - Review of Systems Cardiovascular: denies: chest pain, palpitations, orthopnea, paroxysmal noc. dyspnea, edema, light headedness, other Gastrointestinal: denies: nausea, vomiting, abdominal pain, diarrhea, constipation, melena, hematochezia, other Genitourinary: denies: dysuria, frequency, incontinence, hematuria, retention, other - Medication Medications: Active Medications Generic Name Dose Route Start Last Admin Trade Name Freq PRN Reason Stop Dose Admin Acetaminophen 650 mg 02/08/20 10:28 02/12/20 08:13 Acetaminophen 325 Mg Tab PO 650 mg Q4H PRN Administration ORTA/T > 101.5F/Mild Pain (1-3) Hydrocodone Bitart/Acetaminophen 2 tab 02/12/20 11:13 02/14/20 09:12 Hydrocodone/Acetaminophen 10/325 Mg Tablet PO 2 tab Q4H PRN Administration Pain 5-10 Aspirin 81 mg 02/13/20 09:00 02/14/20 09:13 Aspirin 81 Mg Enteric Coated Tablet PO 81 mg DAILY DIO Administration Carvedilol 6.25 mg 02/08/20 21:00 02/12/20 08:14 Carvedilol 6.25 Mg Tab PO 6.25 mg BID DIO Administration Clopidogrel Bisulfate 75 mg 02/13/20 09:00 02/14/20 09:13 Clopidogrel Bisulfate 75 Mg Tab PO 75 mg DAILY DIO Administration Diphenhydramine HCl 25 mg 02/09/20 02:55 02/14/20 12:53 Diphenhydramine 25 Mg Cap PO 25 mg Q3H PRN Administration Itching Escitalopram Oxalate 10 mg 02/08/20 09:00 02/14/20 09:13 Escitalopram Oxalate 10 Mg Tablet PO 10 mg DAILY DIO Administration Famotidine 20 mg 02/08/20 12:00 02/14/20 09:13 Famotidine 20 Mg Tab PO 20 mg BID DIO Administration Ceftriaxone Sodium 2 gm/ 100 mls @ 200 mls/hr 02/13/20 09:00 02/14/20 09:13 Sodium Chloride IVPB 100 mls Q24HR DIO Administration Ipratropium [place] 2 puff 02/14/20 02:30 02/14/20 15:25 Ipratropium Oral Inhaler INH 2 puff [id number] DIO Administration Magnesium Hydroxide 30 ml 02/08/20 10:28 02/13/20 10:34 Milk Of Magnesia 30 Ml Udcup PO 30 ml DAILYPRN PRN Administration Constipation Ondansetron HCl 4 mg 02/09/20 02:55 02/12/20 01:26 Ondansetron Pf 4 Mg/2 Ml Vial IVP 4 mg Q6H PRN Administration Nausea/Vomiting Prednisone 40 mg 02/14/20 08:00 02/14/20 09:26 Prednisone 20 Mg Tab PO 02/17/20 09:00 Not Given QAM-WM COUNTS INCLUDE 234 BEDS AT THE [facility] Rosuvastatin Calcium 10 mg 02/08/20 21:00 02/13/20 21:01 Rosuvastatin 10 Mg Tab PO 10 mg HS DIO Administration Sodium Chloride 10 ml 02/08/20 09:00 02/14/20 09:13 Flush - Normal Saline 10 Ml Syringe IVF 10 ml Q12HR DIO Administration Venlafaxine HCl 150 mg 02/08/20 09:00 02/14/20 09:13 Venlafaxine Hcl Xr 150 Mg Cap PO 150 mg DAILY DIO Administration Zolpidem Tartrate 5 mg 02/09/20 02:55 02/11/20 19:54 Zolpidem Tartrate 5 Mg Tab PO 5 mg HSPRN PRN Administration Insomnia - Exam Neck: negative: supple, symmetric, no JVD, no thyromegaly, no lymphadenopathy, no carotid bruit, JVD Heart: negative: RRR, no murmur, no gallops, no rubs, normal peripheral pulses, irregular, diminshed peripheral pulses, murmur present, II/IV, III/IV Respiratory: negative: CTAB, no wheezes, no rales, no ronchi, normal chest expansion, no tachypnea, normal percussion, rales, rhonchi, tachypneic, wheezes Gastrointestinal: negative: soft, non-tender, non-distended, normal bowel sounds, no palpable masses, no hepatomegaly, no splenomegaly, no bruit, no guarding, no rigidity, tender to palpation, distended, diminished bowl sounds, voluntary guarding Hosp A/P (1) Hypertension Code(s): I10 - ESSENTIAL (PRIMARY) HYPERTENSION Status: Acute (2) Obesity Code(s): E66.9 - OBESITY, UNSPECIFIED Status: Acute (3) Hypercholesteremia Code(s): E78.00 - PURE HYPERCHOLESTEROLEMIA, UNSPECIFIED Status: Acute (4) Acute respiratory failure with hypoxia Code(s): J96.01 - ACUTE RESPIRATORY FAILURE WITH HYPOXIA Status: Acute - Plan pt has a hx of cad was on asa/plavix will need to restart when ok with surgery. pt restarted on her bp meds. 02/10 vital signs stable we will continue current antibiotics. Culture so far negative. Patient states that he does snore at night however does not want to get a sleep study. 02/11 patient appeared to be hypoxic last night. BNP mildly elevated patient was given Lasix x1. Patient does have a history of smoking 4 packs a day for 40 years he quit in 2010 after his bypass. His lungs appear clear to auscultate. We will go ahead and do a CTA to rule out a PE. If his CT is negative we will start him on low-dose steroids with inhalers. We will also start patient on andrew e duo nebs. I have stopped his IV fluids. We will hold his blood pressure medication also. His blood pressure is little bit on the softer side. Patient's cultures indicated propionibacterium acnes which is sensitive to ceftriaxone. Patient currently vancomycin. Infectious disease has been cons ulted. Patient was given incentive spirometer. Patient's aspirin and Plavix restarted. 02/12 we will start patient on steroids given patient's 4 pack a day smoking history. Patient also on duo nebs. CTA negative for PE. This was discussed with patient and patient's . 02/13 will stop steroids. pt's abx will be set up and possible home in am. pt's covid test is positive.
[2020-02-14] MEDS: Rosuvastatin 10 MG TAB PO SCH (21:00)
[2020-02-14] MEDS: Carvedilol 6.25 MG TAB PO SCH (21:00)
[2020-02-15] MEDS: Ipratropium Oral Inhaler INH SCH ×5 (03:03→19:25)
[2020-02-15] MEDS: Famotidine 20 MG TAB PO SCH ×2 (10:26→20:40)
[2020-02-15] MEDS: Aspirin 81 mg Enteric Coated Tablet PO SCH (10:27)
[2020-02-15] MEDS: Clopidogrel Bisulfate 75 MG TAB PO SCH (10:27)
[2020-02-15] MEDS: Escitalopram Oxalate 10 mg Tablet PO SCH (10:27)
[2020-02-15] MEDS: Carvedilol 6.25 MG TAB PO SCH ×2 (10:27→20:49)
[2020-02-15] MEDS: Venlafaxine HCl XR 150 MG CAP PO SCH (10:27)
[2020-02-15] MEDS: cefTRIAXone\\ROCEPHIN 2 GM in Sodium Chloride 0.9% 100 ML IVPB SCH (10:30)
--- NOTE | 2020-02-15 12:33 | PRG ---
DATE OF SERVICE: 02/15/2020 SUBJECTIVE: Mr. Garcia is a 64-year-old male who is status post removal of the reverse shoulder arthroplasty for infection positive for propriobactor acnes. The patient is currently on IV antibiotics for treatment. He was negative before admission and now positive on admission for COVID, having some acute respiratory issues, but currently off any home oxygen; low-lying history of emphysema from previous smoking. The patient is currently resting comfortably in bed. He is pending discharge to home. We are waiting antibiotics for management. OBJECTIVE: VITAL SIGNS: Currently, temperature 99.9, pulse 101, respiratory rate 16, oxygen saturation 92%, blood pressure 112/72. GENERAL: Alert and oriented male, in no acute distress, resting comfortably in bed. EXTREMITIES: Right upper extremity clean, dry, and intact. Neurovascularly intact distally. LABORATORY DATA: COVID positive ASSESSMENT AND PLAN: The patient will need to be managed with vancomycin under direction of Dr. Jasso as outpatient. Appreciate Internal Medicine's management of his lungs as well as his COVID positive. We are currently pending transfer home depending on home health availability. The patient has been restarted on his deep venous thrombosis prophylaxis. I followed him in-house. [facility] ID: [id number] [facility]
[2020-02-15] MEDS: Rosuvastatin 10 MG TAB PO SCH (20:40)
[2020-02-16] MEDS: Ipratropium Oral Inhaler INH SCH ×2 (01:27→01:28)
[2020-02-16] MEDS: cefTRIAXone\\ROCEPHIN 2 GM in Sodium Chloride 0.9% 100 ML IVPB SCH (09:56)
[2020-02-16] MEDS: Clopidogrel Bisulfate 75 MG TAB PO SCH (09:57)
[2020-02-16] MEDS: Carvedilol 6.25 MG TAB PO SCH ×2 (09:57→21:55)
[2020-02-16] MEDS: Escitalopram Oxalate 10 mg Tablet PO SCH (09:57)
[2020-02-16] MEDS: Famotidine 20 MG TAB PO SCH ×2 (09:57→21:55)
[2020-02-16] MEDS: Aspirin 81 mg Enteric Coated Tablet PO SCH (09:57)
[2020-02-16] MEDS: Venlafaxine HCl XR 150 MG CAP PO SCH (09:57)
[2020-02-16] MEDS: HYDROcodone/Acetaminophen 10/325 mg Tablet PO PRN ×2 (10:15→22:12)
[2020-02-16] MEDS: Benzonatate 100 MG CAP PO PRN (10:53)
[2020-02-16] MEDS: Rosuvastatin 10 MG TAB PO SCH (21:55)
[2020-02-17] MEDS: Benzonatate 100 MG CAP PO PRN ×3 (05:59→15:56)
[2020-02-17] MEDS: Ipratropium Oral Inhaler INH SCH ×4 (07:00→18:39)
[2020-02-17] MEDS: Clopidogrel Bisulfate 75 MG TAB PO SCH (09:13)
[2020-02-17] MEDS: cefTRIAXone\\ROCEPHIN 2 GM in Sodium Chloride 0.9% 100 ML IVPB SCH (09:13)
[2020-02-17] MEDS: Famotidine 20 MG TAB PO SCH ×2 (09:13→20:05)
[2020-02-17] MEDS: Venlafaxine HCl XR 150 MG CAP PO SCH (09:13)
[2020-02-17] MEDS: Carvedilol 6.25 MG TAB PO SCH ×2 (09:14→21:26)
[2020-02-17] MEDS: HYDROcodone/Acetaminophen 10/325 mg Tablet PO PRN ×2 (09:14→15:56)
[2020-02-17] MEDS: Aspirin 81 mg Enteric Coated Tablet PO SCH (09:14)
[2020-02-17] MEDS: Escitalopram Oxalate 10 mg Tablet PO SCH (09:14)
[2020-02-17] MEDS: diphenhydrAMINE 25 MG CAP PO PRN (18:21)
[2020-02-17] MEDS: Rosuvastatin 10 MG TAB PO SCH (20:05)
[2020-02-18] MEDS: Ipratropium Oral Inhaler INH SCH ×9 (03:28→20:30)
[2020-02-18] MEDS: Benzonatate 100 MG CAP PO PRN ×2 (09:14→12:37)
[2020-02-18] MEDS: Famotidine 20 MG TAB PO SCH ×2 (09:14→20:30)
[2020-02-18] MEDS: Aspirin 81 mg Enteric Coated Tablet PO SCH (09:14)
[2020-02-18] MEDS: diphenhydrAMINE 25 MG CAP PO PRN (09:14)
[2020-02-18] MEDS: Clopidogrel Bisulfate 75 MG TAB PO SCH (09:14)
[2020-02-18] MEDS: Escitalopram Oxalate 10 mg Tablet PO SCH (09:14)
[2020-02-18] MEDS: Venlafaxine HCl XR 150 MG CAP PO SCH (09:15)
[2020-02-18] MEDS: Carvedilol 6.25 MG TAB PO SCH ×2 (09:15→22:58)
[2020-02-18] MEDS: cefTRIAXone\\ROCEPHIN 2 GM in Sodium Chloride 0.9% 100 ML IVPB SCH (09:15)
[2020-02-18] MEDS: HYDROcodone/Acetaminophen 10/325 mg Tablet PO PRN ×2 (09:16→12:36)
--- NOTE | 2020-02-18 09:20 | PRG ---
DATE OF SERVICE: 02/18/2020 HISTORY OF PRESENT ILLNESS: Mr. Garcia is a 64-year-old male, status post explant of his right infected reverse total shoulder arthroplasty. The patient is resting up in bed. He is removing his [place]. He is currently COVID positive, being followed by Internal Medicine as well as ID. The patient is pending placement for long-term IV antibiotic use. He is, otherwise, comfortable, resting in bed. OBJECTIVE: VITAL SIGNS: The patient's vitals today are 97.8, 77, 20, 85%, 105/64. The patient was discussed through a telephone encounter given his COVID positivity, but per nurses' report at the bedside, he has no wound changes. Otherwise, neurovascularly intact. ASSESSMENT AND PLAN: The patient is still pending transfer. I discussed then that I would like him to potentially be transferred to the [facility] bed. Therefore, he can continue his IV antibiotics there and be close to his home. We will try to get this set up through his insurance. We were still pending clearance by insurance. Job ID: [id number] [facility]
[2020-02-18] MEDS: Rosuvastatin 10 MG TAB PO SCH (20:30)
[2020-02-19] MEDS ORDERED: Dexamethasone 4 mg/ml Vial SLOW IVP SCH (00:45)
[2020-02-19] MEDS: Ipratropium Oral Inhaler INH SCH ×8 (01:00→22:30)
--- NOTE | 2020-02-19 01:02 | PDOC.EVN ---
Event Note - Event Note Event Note: Nursing called and stated that patient had to be changed from 4 L nasal cannula to a nonrebreather as he was not maintaining his oxygen saturation. Patient was continually taking off oxygen throughout the night and having to recover. However now patient is satting in the high 80s on a nonrebreather. Stat labs, ABG, steroids ordered for patient. Consider remdesivir once labs result. RT placing patient on high flow oxygen now. Transfer to tele monitored unit.
[2020-02-19 01:04] LABS: Actual Bicarbonate (HCO3a) 24.5 mEq/L (22-28); Base Excess (BEa) 0.2 mEq/L (-2.0 to +3.0); CO2 Tension 38.3 mmHg (35.0-45.0); Calcium, Ionized (arterial) 1.09 mmol/L (1.12-1.30); Carboxyhemoglobin (COHb) 0.8 gm% (0.0-3.0); pH, Arterial 7.42 (7.35-7.45)
[2020-02-19 01:06] LABS: Puncture Site RRA
[2020-02-19 01:07] LABS: ALV-art Gradient 613.125 mmHg (0-20)
[2020-02-19 01:58] LABS: #Eosinphils 0.1 thou/uL (0.0-0.7); #Lymphocytes 0.8 thou/uL (1.20-3.40); #Monocytes 0.4 thou/uL (0.11-0.59); #Neutrophils 5.4 thou/uL (1.40-6.50); %Basophils 0.1 % (0.0-1.0); %Eosinophils 1.1 % (0.0-10.0); %Lymphocytes 12.5 % (21.0-51.0); %Monocytes 6.6 % (0.0-10.0); %Neutrophils 79.8 % (42.0-75.0); Hemoglobin 11.4 g/dL (14.0-18.0); Mean Corpuscular HGB CONC 32.3 g/dL (32.0-36.0); Mean Corpuscular Volume 86.7 fL (78.0-98.0); Mean Platelet Volume 6.5 fL (7.4-10.4); Platelet Count 216 thou/uL (130-400); RBC Distribution Width 14.2 % (11.5-14.5); Red Blood Cell (RBC) Count 4.06 mill/uL (4.70-6.10); White Blood Cell (WBC) Count 6.7 thou/uL (4.8-10.8)
[2020-02-19 02:16] LABS: Lactic Acid 0.9 mmol/L (0.5-2.2)
[2020-02-19 02:20] LABS: ALT (SGPT) 17 U/L (8-55); AST (SGOT) 33 U/L (5-34); Albumin 2.9 g/dL (3.4-4.8); Alkaline Phosphatase 66 U/L (40-110); Anion Gap 15 mmol/L (10-20); BUN (Urea Nitrogen) 16 mg/dL (8.4-25.7); Bilirubin, Total 0.5 mg/dL (0.2-1.2); Calc. Creatinine Clearance 130 mL/min (70-130); Calcium 7.7 mg/dL (7.8-10.44); Carbon Dioxide 26 mmol/L (23-31); Chloride 99 mmol/L (98-107); Globulin 3.2 g/dL (2.4-3.5); Glucose 119 mg/dL (80-115); Potassium 3.5 mmol/L (3.5-5.1); Protein, Total 6.1 g/dL (5.8-8.1); Sodium 136 mmol/L (136-145)
[2020-02-19] MEDS: Benzonatate 100 MG CAP PO PRN (03:30)
[2020-02-19] MEDS: HYDROcodone/Acetaminophen 10/325 mg Tablet PO PRN (05:41)
[2020-02-19] MEDS: Dexamethasone 4 mg/ml Vial SLOW IVP SCH (08:04)
[2020-02-19] MEDS: Escitalopram Oxalate 10 mg Tablet PO SCH (08:05)
[2020-02-19] MEDS: Zinc Sulfate 220 MG CAP PO SCH (08:05)
[2020-02-19] MEDS: Ascorbic Acid 500 mg Chewable Tablet PO SCH (08:06)
[2020-02-19] MEDS: Cholecalciferol (Vitamin D3) 400 UNITS TAB PO SCH (08:06)
[2020-02-19] MEDS: Aspirin 81 mg Enteric Coated Tablet PO SCH (08:06)
[2020-02-19] MEDS: Carvedilol 6.25 MG TAB PO SCH ×2 (08:06→20:43)
[2020-02-19] MEDS: Famotidine 20 MG TAB PO SCH ×2 (08:07→20:43)
[2020-02-19] MEDS: Clopidogrel Bisulfate 75 MG TAB PO SCH (08:07)
[2020-02-19] MEDS: Venlafaxine HCl XR 150 MG CAP PO SCH (08:07)
[2020-02-19] MEDS: cefTRIAXone\\ROCEPHIN 2 GM in Sodium Chloride 0.9% 100 ML IVPB SCH (08:09)
[2020-02-19] MEDS ORDERED: Pharmacy to Dose REMDESIVIR IVPB PRN (08:31)
--- NOTE | 2020-02-19 08:46 | PDOC.HOSPP ---
- Subjective Encounter Date: 02/19/20 Encounter Time: 08:45 Subjective: Patient reports feeling short of breath. States he has been having difficulty catching his breath whenever he moves or gets out of bed to use the restroom. It also exacerbates his cough and the coughing fits then exacerbates his sob further. His cough has been productive for white phlegm but no hemoptysis noted. Denies any chest pain. Has not noted any lower leg swelling or calf tenderness. He was using mechanical SCDs initially but took them over a few days ago. He complains of pain in his right shoulder that is stable. Usually tolerable and only bothersome with movement. Patient was last seen by us on 02/13/2010, at which time we were following for medical management of his comorbidities. Our team had signed off due to plans for discharge the morning of 02/14, however patient remained in the hospital. He had an episode of respiratory distress yesterday evening and was transferred to [facility] for high flow given hypoxia noted on ABG. His sats are now ranging 96-100% on 35L O2 via High Flow. - Objective Vital Signs & Weight: Vital Signs (12 hours) Temp Pulse Resp BP BP Pulse Ox 02/19/20 04:00 95 02/19/20 03:25 97.7 F 76 18 116/73 96 02/19/20 00:20 98.8 F 69 18 117/74 87 L 02/18/20 23:59 93 L 02/18/20 22:58 103/67 02/18/20 21:00 98 F 76 18 103/67 93 L Weight Admit Weight 260 lb Weight 260 lb I&O: 02/18/20 02/19/20 02/20/20 06:59 06:59 06:59 Intake Total 1548 1640 Balance 1548 1640 Result Diagrams: 02/19/20 01:30 02/19/20 01:30 Hospitalist ROS - Review of Systems Constitutional: denies: fever, chills, sweats, weakness, malaise, other Eyes: denies: pain, vision change, conjunctivae inflammation, eyelid inflammation, redness, other ENT: denies: ear pain, ear discharge, nose pain, nose discharge, nose congestion, mouth pain, mouth swelling, throat pain, throat swelling, other Respiratory: reports: cough, shortness of breath, SOB with excertion, sputum (white). denies: dry, hemoptysis, pleuritic pain, wheezing, other Cardiovascular: denies: chest pain, palpitations, orthopnea, paroxysmal noc. dyspnea, edema, light headedness, other Gastrointestinal: denies: nausea, vomiting, abdominal pain, diarrhea, constipation, melena, hematochezia, other Genitourinary: denies: dysuria, frequency, incontinence, hematuria, retention, other Musculoskeletal: reports: shoulder pain (right shoulder). denies: neck pain, arm pain, back pain, hand pain, leg pain, foot pain, other Skin: denies: rash, lesions, krishna, bruising, other Neurological: denies: weakness, numbness, incoordination, change in speech, co nfusion, seizures, other - Medication Medications: Active Medications Generic Name Dose Route Start Last Admin Trade Name Freq PRN Reason Stop Dose Admin Acetaminophen 650 mg 02/08/20 10:28 02/12/20 08:13 Acetaminophen 325 Mg Tab PO 650 mg Q4H PRN Administration ORTA/T > 101.5F/Mild Pain (1-3) Hydrocodone Bitart/Acetaminophen 2 tab 02/12/20 11:13 02/19/20 05:41 Hydrocodone/Acetaminophen 10/325 Mg Tablet PO 2 tab Q4H PRN Administration Pain 5-10 Ascorbic Acid 1,000 mg 02/19/20 09:00 02/19/20 08:06 Ascorbic Acid 500 Mg Chewable Tablet PO 1,000 mg DAILY DIO Administration Aspirin 81 mg 02/13/20 09:00 02/19/20 08:06 Aspirin 81 Mg Enteric Coated Tablet PO 81 mg DAILY DIO Administration Benzonatate 100 mg 02/16/20 10:30 02/19/20 03:30 Benzonatate 100 Mg Cap PO 100 mg Q4H PRN Administration Cough Carvedilol 6.25 mg 02/08/20 21:00 02/19/20 08:06 Carvedilol 6.25 Mg Tab PO 6.25 mg BID DIO Administration Chlorpromazine HCl 25 mg 02/14/20 17:03 02/14/20 18:56 Chlorpromazine Hcl 25 Mg Tab PO 25 mg Q6H PRN Administration Restlessness Cholecalciferol 400 units 02/19/20 09:00 02/19/20 08:06 Cholecalciferol (Vitamin D3) 400 Units Tab PO 400 units DAILY DIO Administration Clopidogrel Bisulfate 75 mg 02/13/20 09:00 02/19/20 08:07 Clopidogrel Bisulfate 75 Mg Tab PO 75 mg DAILY DIO Administration Dexamethasone 6 mg 02/19/20 09:00 02/19/20 08:04 Dexamethasone 4 Mg/Ml Vial SLOW IVP 6 mg DAILY DIO Administration Diphenhydramine HCl 25 mg 02/09/20 02:55 02/18/20 09:14 Diphenhydramine 25 Mg Cap PO 25 mg Q3H PRN Administration Itching Escitalopram Oxalate 10 mg 02/08/20 09:00 02/19/20 08:05 Escitalopram Oxalate 10 Mg Tablet PO 10 mg DAILY DIO Administration Famotidine 20 mg 02/08/20 12:00 02/19/20 08:07 Famotidine 20 Mg Tab PO 20 mg BID DIO Administration Ceftriaxone Sodium 2 gm/ 100 mls @ 200 mls/hr 02/13/20 09:00 02/19/20 08:09 Sodium Chloride IVPB 100 mls Q24HR DIO Administration Ipratropium Jensen 2 puff 02/14/20 02:30 02/19/20 05:50 Ipratropium Oral Inhaler INH 2 puff [id number] DIO Administration Magnesium Hydroxide 30 ml 02/08/20 10:28 02/13/20 10:34 Milk Of Magnesia 30 Ml Udcup PO 30 ml DAILYPRN PRN Administration Constipation Ondansetron HCl 4 mg 02/09/20 02:55 02/12/20 01:26 Ondansetron Pf 4 Mg/2 Ml Vial IVP 4 mg Q6H PRN Administration Nausea/Vomiting Rosuvastatin Calcium 10 mg 02/08/20 21:00 02/18/20 20:30 Rosuvastatin 10 Mg Tab PO 10 mg HS DIO Administration Sodium Chloride 10 ml 02/08/20 09:00 02/19/20 08:04 Flush - Normal Saline 10 Ml Syringe IVF 10 ml Q12HR DIO Administration Venlafaxine HCl 150 mg 02/08/20 09:00 02/19/20 08:07 Venlafaxine Hcl Xr 150 Mg Cap PO 150 mg DAILY DIO Administration Zinc Sulfate 220 mg 02/19/20 09:00 02/19/20 08:05 Zinc Sulfate 220 Mg Cap PO 220 mg DAILY DIO Administration Zolpidem Tartrate 5 mg 02/09/20 02:55 02/11/20 19:54 Zolpidem Tartrate 5 Mg Tab PO 5 mg HSPRN PRN Administration Insomnia - Exam General Appearance: NAD, awake alert Eye: PERRL, anicteric sclera ENT: normocephalic atraumatic, no oropharyngeal lesions Neck: supple, no lymphadenopathy Heart: RRR, normal peripheral pulses Respiratory: CTAB, no wheezes, no rales, normal chest expansion, no tachypnea Gastrointestinal: soft, non-tender, non-distended, normal bowel sounds, no guarding, no rigidity Extremities: no edema Extremities - other findings: right leg girth slightly greater than left Skin: normal turgor, no lesions, no rashes Neurological: cranial nerve grossly intact, normal sensation to touch Musculoskeletal: normal tone, normal strength, no muscle wasting Psychiatric: normal affect, normal behavior, A&O x 3 Hosp A/P (1) COVID-19 Code(s): U07.1 - COVID-19 Status: Acute (2) Acute respiratory failure with hypoxia Code(s): J96.01 - ACUTE RESPIRATORY FAILURE WITH HYPOXIA Status: Acute (3) Hypercholesteremia Code(s): E78.00 - PURE HYPERCHOLESTEROLEMIA, UNSPECIFIED Status: Chronic (4) Hypertension Code(s): I10 - ESSENTIAL (PRIMARY) HYPERTENSION Status: Chronic (5) Obesity Code(s): E66.9 - OBESITY, UNSPECIFIED Status: Chronic (6) 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 Code(s): Z96.611 - PRESENCE OF RIGHT ARTIFICIAL SHOULDER JOINT Status: Acute (7) CAD (coronary artery disease) Code(s): I25.10 - ATHSCL HEART DISEASE OF [place] CORONARY ARTERY W/O ANG PCTRS Status: Chronic (8) History of tobacco abuse Code(s): Z87.891 - PERSONAL HISTORY OF NICOTINE DEPENDENCE Status: Chronic - Plan Acute hypoxic respiratory failure secondary to COVID: Tested + on 02/13/20 Started on Dex 6 mg IV daily, Zinc and Vitamin C Continue inhalers, change PRN to [facility] Screen for Remdesivir Monitor O2 sats Repeat ABG to assess for improvement on high flow CXR ordered given episode of respiratory distress this morning D-dimer elevated, has been off mechanical SCDs venous dopplers, if negative resume mechanical SCDs CTA done on 02/12/20 (negative for PE), no chest pain at present or tachycardia Consider repeating if any worsening Monitor inflammatory markers Hypertension: Monitor BP Receiving Coreg and BP has been stable CAD: Stable Continue home medications Hyperlipidemia: Continue statin Monitor LFTs Right shoulder pain: S/p right infected reverse total shoulder arthroplasty Continue Tylenol for pain Continue antibiotics (long-term use of IV antibiotics expected per Ortho team) Disposition: Awaiting Swing bed placement, currently on hold given respiratory status CODE STATUS FULL ADDENDUM: Venogram negative for DVT DVT Prophylaxis with Heparin Patient has asked me to update his Skylar Garcia and has asked that his family not call him ronan as many phone calls have been interrupting his rest. updated, she is aware of improvement in oxygenation since placed on supplemental O2. All questions answered. She is requesting no family contact him ronan and has notified her son and other family members.
--- NOTE | 2020-02-19 09:16 | ULT ---
Venous duplex sonogram bilateral lower extremity HISTORY: Bilateral leg pain and edema. FINDINGS: Each common femoral vein and greater saphenous junction were evaluated along with each femo ral, deep femoral, popliteal, and posterior tibial vein. There is good color and spectral Doppler flow, compression, and augmentation. IMPRESSION : Normal exam.
[2020-02-19 09:45] LABS: Actual Bicarbonate (HCO3a) 25.8 mEq/L (22-28); Base Excess (BEa) 1.7 mEq/L (-2.0 to +3.0); CO2 Tension 38.9 mmHg (35.0-45.0); Calcium, Ionized (arterial) 1.08 mmol/L (1.12-1.30); Carboxyhemoglobin (COHb) 0.1 gm% (0.0-3.0); Hemoglobin (Hb) 11.9 g/dL (14.0-18.0); O2 Tension (PaO2), arterial 75.4 mmHg (> 80.0); Potassium - ABG Lab 4.07 mmol/L (3.70-5.30); pH, Arterial 7.44 (7.35-7.45)
[2020-02-19 09:47] LABS: Puncture Site LRA
[2020-02-19 09:48] LABS: ALV-art Gradient 474.895 mmHg (0-20)
--- NOTE | 2020-02-19 12:19 | PRG ---
DATE OF SERVICE: 02/19/2020 HISTORY OF PRESENT ILLNESS: Mr. Garcia is a 64-year-old male status post resection of his right shoulder, who is currently in the hospital, was awaiting placement, was positive for COVID on 02/03/2020. Currently, moved to the step-down unit. He is on high-flow oxygen. Had an ultrasound taken which was negative for DVT. The patient is awaiting a CTA. Previous CTA showed no PE. The patient is being followed by Internal Medicine. The patient is resting in bed. OBJECTIVE: VITAL SIGNS: 97.7, 62, 20, 123/64. GENERAL: Alert, oriented, resting in bed, non-breather in place. EXTREMITIES: Right upper extremity clean, dry, and intact. Neurovascularly intact right upper extremity. IMPRESSION: 1. Acute respiratory failure with hypoxia, history of COVID. 2. History of revision right shoulder. 3. Coronary artery disease. 4. Hypertension. 5. Obesity. PLAN: The patient will be monitored by Medicine. The patient is still receiving his antibiotics. His swing bed placement placed on hold. I discussed the patient that his situation is concerning. I discussed that his pre-existing pulmonary disease, obesity, combined with COVID is concerning for potential difficulty with his lungs, effusion or injury. I discussed that. The patient desires to be intubated, I discussed that we will continue to medically manage him as we move forward. Discussed that I would contact his and tell her that he has been moved to step-down unit to different unit to be followed for his lungs. He expressed that he did not want to worry his or concern her in any way. Therefore, I would mention that as we discussed the patient will be followed in-house by Medicine as well as Ortho. Job ID: [id number] [facility]
[2020-02-19] MEDS ORDERED: Enoxaparin Sodium 40 MG/0.4 ML SYRINGE SC SCH (12:30)
--- NOTE | 2020-02-19 13:32 | RAD ---
Chest one view HISTORY: Breast showing distress. COMPARISON: 02/12/2020. FINDINGS: Cardiac silhouette is magnified by projection. Pulmonary vasculature upper limits of normal . Mediastinum is midline with postoperative changes. Subtle ill-defined patchy areas of groundglass infiltrate involving each lung, relative sparing of th e right upper lobe, have progressed since the prior study. No lobar consolidation or evidence of pneumothorax. IMPRESSION : Slight interval progression of hazy bilateral infiltrates. Correlate for COVID pneumonitis.
[2020-02-19] MEDS: Heparin 5,000 UNITS/ML VIAL SC SCH ×2 (14:32→20:42)
[2020-02-19] MEDS ORDERED: Azithromycin 500 MG in Sodium Chloride 0.9% 250 ML 250 ML IVPB SCH (15:00)
[2020-02-19] MEDS ORDERED: REMDESIVIR (EUA) 200 MG in Sodium Chloride 0.9% 250 ML 210 ML IV SCH ×2 (18:00→20:15)
[2020-02-19] MEDS: Albuterol 200 PUFF (6.7GM INHALER) INH SCH (18:44)
[2020-02-19] MEDS: Rosuvastatin 10 MG TAB PO SCH (20:41)
[2020-02-19] MEDS: Zolpidem Tartrate 5 MG TAB PO PRN (20:42)
--- NOTE | 2020-02-19 21:52 | PRG ---
DATE OF SERVICE: 02/19/2020 SUBJECTIVE: Mr. Garcia is in the observation COVID unit and he has deteriorated. Unfortunately, what I was afraid he was going to go into is has really materialized. He is in the full inflammatory phase. Now, he is on high-flow at 55 and still not kind of borderline marginal O2 saturations. When I went into the room, he actually had the cannula off his nose and he was at 70% and he is kind of clueless and that type of COVID patient who does not feel the hypoxemia. It is more of a shunt type of phenomenon and so I repositioned it and it went up to 90% to 91%, but that is kind of marginal. Otherwise, he does not complain of much of anything. His right shoulder is not bothering him. OBJECTIVE: VITAL SIGNS: His temperature is normal, BP 106/50, heart rate 64, and his O2 saturations actually are not 97, they are more like 90% to 91%. LUNGS: He has bilateral inspiratory crackles. HEART: S1 and S2. Regular rate. ABDOMEN: Soft. MUSCULOSKELETAL: Right shoulder covered with dressing. He has no edema. LABORATORY DATA: White cell count 6.7, hemoglobin 11.4, and platelets 216. Sodium 136 and creatinine 0.93. Liver profile normal. CRP is up to 14. ASSESSMENT AND DISCUSSION: Now, he is on Decadron and he just got his first dose today and he is on Remdesivir as well. He is on Rocephin and azithromycin. I guess Rocephin will mostly be for his Propionibacterium infection of the right shoulder. He does not need azithromycin. I will go ahead and discontinue it, but he has a very marginal state right now and there is not much else other than BiPAP and going to the ICU for intubation if he continues to deteriorate. Job ID: [id number]
[2020-02-20] MEDS: Ipratropium Oral Inhaler INH SCH ×6 (02:30→22:54)
[2020-02-20] MEDS: Albuterol 200 PUFF (6.7GM INHALER) INH SCH ×4 (04:19→18:30)
[2020-02-20 05:26] LABS: Anion Gap 16 mmol/L (10-20); BUN (Urea Nitrogen) 17 mg/dL (8.4-25.7); CRP (Inflammatory) 8.19 mg/dL (= or < 0.5); Calc. Creatinine Clearance 148 mL/min (70-130); Carbon Dioxide 23 mmol/L (23-31); Chloride 104 mmol/L (98-107); Glucose 115 mg/dL (80-115); Potassium 3.8 mmol/L (3.5-5.1); Sodium 139 mmol/L (136-145)
[2020-02-20 05:28] LABS: ALT (SGPT) 18 U/L (8-55); AST (SGOT) 27 U/L (5-34); Alkaline Phosphatase 66 U/L (40-110); Bilirubin, Direct 0.3 mg/dL (0.1-0.3); Bilirubin, Total 0.7 mg/dL (0.2-1.2); Protein, Total 6.3 g/dL (5.8-8.1)
[2020-02-20] MEDS: Dexamethasone 4 mg/ml Vial SLOW IVP SCH (07:58)
[2020-02-20] MEDS: Clopidogrel Bisulfate 75 MG TAB PO SCH (07:59)
[2020-02-20] MEDS: Venlafaxine HCl XR 150 MG CAP PO SCH (07:59)
[2020-02-20] MEDS: Aspirin 81 mg Enteric Coated Tablet PO SCH (07:59)
[2020-02-20] MEDS: Famotidine 20 MG TAB PO SCH ×2 (07:59→20:37)
[2020-02-20] MEDS: Ascorbic Acid 500 mg Chewable Tablet PO SCH (07:59)
[2020-02-20] MEDS: Cholecalciferol (Vitamin D3) 400 UNITS TAB PO SCH (07:59)
[2020-02-20] MEDS: Carvedilol 6.25 MG TAB PO SCH ×2 (07:59→20:37)
[2020-02-20] MEDS: Escitalopram Oxalate 10 mg Tablet PO SCH (07:59)
[2020-02-20] MEDS: Zinc Sulfate 220 MG CAP PO SCH (07:59)
[2020-02-20] MEDS: cefTRIAXone\\ROCEPHIN 2 GM in Sodium Chloride 0.9% 100 ML IVPB SCH (08:01)
[2020-02-20] MEDS: Heparin 5,000 UNITS/ML VIAL SC SCH ×3 (08:03→20:37)
[2020-02-20] MEDS ORDERED: Enoxaparin Sodium 40 MG/0.4 ML SYRINGE SC SCH (09:00)
--- NOTE | 2020-02-20 15:20 | PDOC.HOSPP ---
- Subjective Encounter Date: 02/20/20 Encounter Time: 10:30 Subjective: pt up in bed confused. - Objective Vital Signs & Weight: Vital Signs (12 hours) Temp Pulse Resp BP BP Pulse Ox 02/20/20 15:10 98.0 F 69 24 H 124/70 98 02/20/20 11:32 98.2 F 65 24 H 143/75 H 98 02/20/20 08:00 97.3 F L 69 22 H 171/69 H 100 02/20/20 04:20 97.6 F 71 22 H 115/58 L Weight Admit Weight 260 lb Weight 260 lb I&O: 02/19/20 02/20/20 02/21/20 06:59 06:59 06:59 Intake Total 1640 Output Total 750 Balance 1640 -750 Result Diagrams: 02/19/20 01:30 02/20/20 04:54 Hospitalist ROS - Review of Systems Other: pt confused - Medication Medications: Active Medications Generic Name Dose Route Start Last Admin Trade Name Freq PRN Reason Stop Dose Admin Acetaminophen 650 mg 02/08/20 10:28 02/12/20 08:13 Acetaminophen 325 Mg Tab PO 650 mg Q4H PRN Administration ORTA/T > 101.5F/Mild Pain (1-3) Hydrocodone Bitart/Acetaminophen 2 tab 02/12/20 11:13 02/19/20 05:41 Hydrocodone/Acetaminophen 10/325 Mg Tablet PO 2 tab Q4H PRN Administration Pain 5-10 Albuterol Sulfate 2 puff 02/19/20 19:00 02/20/20 12:27 Albuterol 200 Puff (6.7gm Inhaler) INH 2 puff [id number] DIO Administration Ascorbic Acid 1,000 mg 02/19/20 09:00 02/20/20 07:59 Ascorbic Acid 500 Mg Chewable Tablet PO 1,000 mg DAILY DIO Administration Aspirin 81 mg 02/13/20 09:00 02/20/20 07:59 Aspirin 81 Mg Enteric Coated Tablet PO 81 mg DAILY DIO Administration Benzonatate 100 mg 02/16/20 10:30 02/19/20 03:30 Benzonatate 100 Mg Cap PO 100 mg Q4H PRN Administration Cough Carvedilol 6.25 mg 02/08/20 21:00 02/20/20 07:59 Carvedilol 6.25 Mg Tab PO 6.25 mg BID DIO Administration Chlorpromazine HCl 25 mg 02/14/20 17:03 02/14/20 18:56 Chlorpromazine Hcl 25 Mg Tab PO 25 mg Q6H PRN Administration Restlessness Cholecalciferol 400 units 02/19/20 09:00 02/20/20 07:59 Cholecalciferol (Vitamin D3) 400 Units Tab PO 400 units DAILY DIO Administration Clopidogrel Bisulfate 75 mg 02/13/20 09:00 02/20/20 07:59 Clopidogrel Bisulfate 75 Mg Tab PO 75 mg DAILY DIO Administration Dexamethasone 6 mg 02/19/20 09:00 02/20/20 07:58 Dexamethasone 4 Mg/Ml Vial SLOW IVP 6 mg DAILY DIO Administration Escitalopram Oxalate 10 mg 02/08/20 09:00 02/20/20 07:59 Escitalopram Oxalate 10 Mg Tablet PO 10 mg DAILY DIO Administration Famotidine 20 mg 02/08/20 12:00 02/20/20 07:59 Famotidine 20 Mg Tab PO 20 mg BID DIO Administration Heparin Sodium (Porcine) 5,000 units 02/19/20 15:00 02/20/20 14:50 Heparin 5,000 Units/Ml Vial SC 5,000 units TID DIO Administration Ceftriaxone Sodium 2 gm/ 100 mls @ 200 mls/hr 02/13/20 09:00 02/20/20 08:01 Sodium Chloride IVPB 100 mls Q24HR DIO Administration Ipratropium [place] 2 puff 02/14/20 02:30 02/20/20 14:51 Ipratropium Oral Inhaler INH 2 puff [id number] DIO Administration Magnesium Hydroxide 30 ml 02/08/20 10:28 02/13/20 10:34 Milk Of Magnesia 30 Ml Udcup PO 30 ml DAILYPRN PRN Administration Constipation Rosuvastatin Calcium 10 mg 02/08/20 21:00 02/19/20 20:41 Rosuvastatin 10 Mg Tab PO 10 mg HS DIO Administration Sodium Chloride 10 ml 02/08/20 09:00 02/20/20 08:04 Flush - Normal Saline 10 Ml Syringe IVF 10 ml Q12HR DIO Administration Venlafaxine HCl 150 mg 02/08/20 09:00 02/20/20 07:59 Venlafaxine Hcl Xr 150 Mg Cap PO 150 mg DAILY DIO Administration Zinc Sulfate 220 mg 02/19/20 09:00 02/20/20 07:59 Zinc Sulfate 220 Mg Cap PO 220 mg DAILY DIO Administration Zolpidem Tartrate 5 mg 02/09/20 02:55 02/19/20 20:42 Zolpidem Tartrate 5 Mg Tab PO 5 mg HSPRN PRN Administration Insomnia - Exam Neck: negative: supple, symmetric, no JVD, no thyromegaly, no lymphadenopathy, no carotid bruit, JVD Heart: negative: RRR, no murmur, no gallops, no rubs, normal peripheral pulses, irregular, diminshed peripheral pulses, murmur present, II/IV, III/IV Respiratory: negative: CTAB, no wheezes, no rales, no ronchi, normal chest expansion, no tachypnea, normal percussion, rales, rhonchi, tachypneic, wheezes Gastrointestinal: negative: soft, non-tender, non-distended, normal bowel sounds, no palpable masses, no hepatomegaly, no splenomegaly, no bruit, no guarding, no rigidity, tender to palpation, distended, diminished bowl sounds, voluntary guarding Hosp A/P (1) Hypertension Code(s): I10 - ESSENTIAL (PRIMARY) HYPERTENSION Status: Chronic (2) Obesity Code(s): E66.9 - OBESITY, UNSPECIFIED Status: Chronic (3) Hypercholesteremia Code(s): E78.00 - PURE HYPERCHOLESTEROLEMIA, UNSPECIFIED Status: Chronic (4) Acute respiratory failure with hypoxia Code(s): J96.01 - ACUTE RESPIRATORY FAILURE WITH HYPOXIA Status: Acute - Plan pt has a hx of cad was on asa/plavix will need to restart when ok with surgery. pt restarted on her bp meds. 02/10 vital signs stable we will continue current antibiotics. Culture so far negative. Patient states that he does snore at night however does not want to get a sleep study. 02/11 patient appeared to be hypoxic last night. BNP mildly elevated patient was given Lasix x1. Patient does have a history of smoking 4 packs a day for 40 years he quit in 2010 after his bypass. His lungs appear clear to auscultate. We will go ahead and do a CTA to rule out a PE. If his CT is negative we will start him on low-dose steroids with inhalers. We will also start patient on some duo nebs. I have stopped his IV fluids. We will hold his blood pressure medication also. His blood pressure is little bit on the softer side. Patient's cultures indicated propionibacterium acnes which is sensitive to ceftriaxone. Patient currently vancomycin. Infectious disease has been consulted. Patient was given incentive spirometer. Patient's aspirin and Plavix restarted. 02/12 we will start patient on steroids given patient's 4 pack a day smoking history. Patient also on duo nebs. CTA negative for PE. This was discussed with patient and patient's . 02/13 will stop steroids. pt's abx will be set up and possible home in am. pt's covid test is positive. 02/18 called and updated. Asked nursing staff to keep oxygen sat around 95% since pt has a significant hx of smoking and most likely has emphysema. pt on remdesivir and steroids. He is on high flow. will continue abx for right shoulder.
--- NOTE | 2020-02-20 16:08 | PRG ---
DATE OF SERVICE: 02/20/2020 HISTORY OF PRESENT ILLNESS: Mr. Garcia is a 64-year-old male who is status post spacer exchange of his right infected total shoulder. The patient is currently positive for COVID, currently on high-flow oxygen. His saturations have been normalized as well as he is maintaining his oxygen. The patient has been removing his oxygen and somewhat confused. He has gotten up twice and fallen off his bed. Most recently while his bedside visit, the patient is somewhat combative and confused. OBJECTIVE: VITAL SIGNS: Temperature 98, pulse 69, respiratory rate 24, currently on high-flow with 98%, blood pressure 124/70. GENERAL: The patient is confused, moving around in bed, dressing in place. LABORATORY DATA: The patient's labs today show chemistry with a BUN of 3, AST and ALT 27 and 18. IMPRESSION: 1. COVID with acute respiratory distress. 2. History of obesity. 3. Hypertension. 4. Status post total shoulder removal for infected total shoulder. ASSESSMENT AND PLAN: The patient will be followed in-house by Medicine and Ortho. He is currently receiving medical management for his COVID. He continues to have confusion, which is concerning. He may deteriorate and require intubation. The patient's will be contacted and informed of the situation. Job ID: [id number] MTDD
[2020-02-20] MEDS ORDERED: Ziprasidone 20 MG VIAL IM SCH (16:30)
--- NOTE | 2020-02-20 17:50 | PRG ---
DATE OF SERVICE: 02/20/2020 SUBJECTIVE: Mr. Garcia is kind of confused, rambling speech, slightly labored breathing. He has a PICC line in place, mildly uncooperative. He denies any abdominal pain. He is voiding in diaper. OBJECTIVE: VITAL SIGNS: He has briefly tried nonrebreathing mask, but went back to high-flow at 60, saturating 98% with 24 respirations per minute, his blood pressure 160/69. LUNGS: With a few scattered inspiratory crackles. HEART: S1 and S2. Regular rate. ABDOMEN: Soft, not distended. EXTREMITIES: Right shoulder dressing in place. NEUROLOGIC: Nonfocal. LABORATORY DATA: White cell count 6.7, not repeated. Today's liver profile normal. Ferritin is 367 and CRP is down to 8.19 yesterday. ASSESSMENT AND DISCUSSION: Right shoulder infection propionibacterium after arthroplasty removed. He is on Rocephin for it. In addition, he got COVID-19 and he has quite [id number] infection. He is quite marginal now. His KAVYA score is at 4.6, so he is right at the borderline of having to require transfer to the ICU and intubation. He has just started with Decadron yesterday, so maybe we will turn around quickly. We will hope for that. Job ID: [id number]
[2020-02-20] MEDS: Mometasone 100 MCG/Formoterol 5 MCG 120 PUFF INHALER INH SCH (18:30)
[2020-02-20] MEDS: Rosuvastatin 10 MG TAB PO SCH (20:37)
[2020-02-20] MEDS: REMDESIVIR (EUA) 100 MG in Sodium Chloride 0.9% 250 ML 230 ML IV SCH (20:38)
[2020-02-21] MEDS: Albuterol 200 PUFF (6.7GM INHALER) INH SCH ×4 (01:52→18:00)
[2020-02-21] MEDS: Ipratropium Oral Inhaler INH SCH ×6 (03:00→22:35)
[2020-02-21] MEDS ORDERED: Melatonin 3 MG TAB PO PRN (03:20)
[2020-02-21] MEDS ORDERED: Ziprasidone 20 MG VIAL IM SCH ×2 (03:30→15:30)
[2020-02-21] MEDS ORDERED: Sterile Water 10 ML VIAL FS PRN (03:45)
[2020-02-21] MEDS: Mometasone 100 MCG/Formoterol 5 MCG 120 PUFF INHALER INH SCH ×2 (05:30→17:59)
[2020-02-21] MEDS: Ascorbic Acid 500 mg Chewable Tablet PO SCH (09:41)
[2020-02-21] MEDS: Aspirin 81 mg Enteric Coated Tablet PO SCH (09:41)
[2020-02-21] MEDS: Dexamethasone 4 mg/ml Vial SLOW IVP SCH (09:42)
[2020-02-21] MEDS: Clopidogrel Bisulfate 75 MG TAB PO SCH (09:42)
[2020-02-21] MEDS: cefTRIAXone\\ROCEPHIN 2 GM in Sodium Chloride 0.9% 100 ML IVPB SCH (09:42)
[2020-02-21] MEDS: Cholecalciferol (Vitamin D3) 400 UNITS TAB PO SCH (09:42)
[2020-02-21] MEDS: Venlafaxine HCl XR 150 MG CAP PO SCH (09:43)
[2020-02-21] MEDS: Zinc Sulfate 220 MG CAP PO SCH (09:43)
[2020-02-21] MEDS: Famotidine 20 MG TAB PO SCH ×2 (09:44→19:36)
[2020-02-21] MEDS: Heparin 5,000 UNITS/ML VIAL SC SCH ×3 (09:44→19:36)
[2020-02-21] MEDS: Escitalopram Oxalate 10 mg Tablet PO SCH (09:46)
[2020-02-21] MEDS: Carvedilol 6.25 MG TAB PO SCH ×2 (09:47→19:36)
--- NOTE | 2020-02-21 15:57 | PDOC.HOSPP ---
- Subjective Encounter Date: 02/21/20 Encounter Time: 10:30 Subjective: Patient up in bed very agitated try to pull off his restraints multiple times. - Objective Vital Signs & Weight: Vital Signs (12 hours) Temp Pulse Resp BP BP Pulse Ox 02/21/20 12:23 73 26 H 120/58 L 95 02/21/20 09:47 108/54 L 02/21/20 07:50 97.9 F 82 25 H 180/76 H 94 L Weight Admit Weight 260 lb Weight 260 lb I&O: 02/20/20 02/21/20 02/22/20 06:59 06:59 06:59 Intake Total 610 120 Output Total 750 600 500 Balance -750 10 -380 Result Diagrams: 02/19/20 01:30 02/20/20 04:54 Hospitalist ROS - Review of Systems Other: pt confused - Medication Medications: Active Medications Generic Name Dose Route Start Last Admin Trade Name Freq PRN Reason Stop Dose Admin Acetaminophen 650 mg 02/08/20 10:28 02/12/20 08:13 Acetaminophen 325 Mg Tab PO 650 mg Q4H PRN Administration ORTA/T > 101.5F/Mild Pain (1-3) Albuterol Sulfate 2 puff 02/19/20 19:00 02/21/20 12:53 Albuterol 200 Puff (6.7gm Inhaler) INH 2 puff [id number] DIO Administration Ascorbic Acid 1,000 mg 02/19/20 09:00 02/21/20 09:41 Ascorbic Acid 500 Mg Chewable Tablet PO 1,000 mg DAILY DIO Administration Aspirin 81 mg 02/13/20 09:00 02/21/20 09:41 Aspirin 81 Mg Enteric Coated Tablet PO 81 mg DAILY DIO Administration Benzonatate 100 mg 02/16/20 10:30 02/19/20 03:30 Benzonatate 100 Mg Cap PO 100 mg Q4H PRN Administration Cough Carvedilol 6.25 mg 02/08/20 21:00 02/21/20 09:47 Carvedilol 6.25 Mg Tab PO 6.25 mg BID DIO Administration Cholecalciferol 400 units 02/19/20 09:00 02/21/20 09:42 Cholecalciferol (Vitamin D3) 400 Units Tab PO 400 units DAILY DIO Administration Clopidogrel Bisulfate 75 mg 02/13/20 09:00 02/21/20 09:42 Clopidogrel Bisulfate 75 Mg Tab PO 75 mg DAILY DIO Administration Dexamethasone 6 mg 02/19/20 09:00 02/21/20 09:42 Dexamethasone 4 Mg/Ml Vial SLOW IVP 6 mg DAILY DIO Administration Escitalopram Oxalate 10 mg 02/08/20 09:00 02/21/20 09:46 Escitalopram Oxalate 10 Mg Tablet PO 10 mg DAILY DIO Administration Famotidine 20 mg 02/08/20 12:00 02/21/20 09:44 Famotidine 20 Mg Tab PO 20 mg BID DIO Administration Heparin Sodium (Porcine) 5,000 units 02/19/20 15:00 02/21/20 14:34 Heparin 5,000 Units/Ml Vial SC 5,000 units TID DIO Administration Ceftriaxone Sodium 2 gm/ 100 mls @ 200 mls/hr 02/13/20 09:00 02/21/20 09:42 Sodium Chloride IVPB 100 mls Q24HR DIO Administration Remdesivir 100 mg/ Sodium 250 mls @ 250 mls/hr 02/20/20 18:00 02/20/20 20:38 Chloride IV 02/23/20 18:59 250 mls 1800 DIO Administration Ipratropium [place] 2 puff 02/14/20 02:30 02/21/20 14:36 Ipratropium Oral Inhaler INH 2 puff [id number] DIO Administration Magnesium Hydroxide 30 ml 02/08/20 10:28 02/13/20 10:34 Milk Of Magnesia 30 Ml Udcup PO 30 ml DAILYPRN PRN Administration Constipation Methocarbamol 1,500 mg 02/08/20 10:28 02/20/20 22:50 Methocarbamol 500 Mg Tab PO 1,500 mg Q6H PRN Administration Muscle Spasm Mometasone Furoate/Formoterol Fumar 2 puff 02/20/20 18:30 02/21/20 05:30 Mometasone 100 Mcg/Formoterol 5 Mcg 120 Puff Inhaler INH 2 puff BID-RT DIO Administration Quetiapine Fumarate 25 mg 02/21/20 09:00 02/21/20 09:43 Quetiapine Fumarate 25 Mg Tab PO 25 mg DAILY DIO Administration Rosuvastatin Calcium 10 mg 02/08/20 21:00 02/20/20 20:37 Rosuvastatin 10 Mg Tab PO 10 mg HS DIO Administration Sodium Chloride 10 ml 02/08/20 09:00 02/21/20 09:44 Flush - Normal Saline 10 Ml Syringe IVF 10 ml Q12HR DIO Administration Sterile Water 1.2 ml 02/21/20 03:45 02/21/20 04:06 Sterile Water 10 Ml Vial FS 1.2 ml PRN PRN Administration RECONSTITUTION Venlafaxine HCl 150 mg 02/08/20 09:00 02/21/20 09:43 Venlafaxine Hcl Xr 150 Mg Cap PO 150 mg DAILY DIO Administration Zinc Sulfate 220 mg 02/19/20 09:00 02/21/20 09:43 Zinc Sulfate 220 Mg Cap PO 220 mg DAILY DIO Administration Ziprasidone 10 mg 02/21/20 15:30 02/21/20 15:39 Ziprasidone 20 Mg Vial IM 02/21/20 17:30 10 mg NOW DIO Administration - Exam Heart: negative: RRR, no murmur, no gallops, no rubs, normal peripheral pulses, irregular, diminshed peripheral pulses, murmur present, II/IV, III/IV Respiratory: negative: CTAB, no wheezes, no rales, no ronchi, normal chest expansion, no tachypnea, normal percussion, rales, rhonchi, tachypneic, wheezes Gastrointestinal: negative: soft, non-tender, non-distended, normal bowel sounds, no palpable masses, no hepatomegaly, no splenomegaly, no bruit, no guarding, no rigidity, tender to palpation, distended, diminished bowl sounds, voluntary guarding Hosp A/P (1) Hypertension Code(s): I10 - ESSENTIAL (PRIMARY) HYPERTENSION Status: Chronic (2) Obesity Code(s): E66.9 - OBESITY, UNSPECIFIED Status: Chronic (3) Hypercholesteremia Code(s): E78.00 - PURE HYPERCHOLESTEROLEMIA, UNSPECIFIED Status: Chronic (4) Acute respiratory failure with hypoxia Code(s): J96.01 - ACUTE RESPIRATORY FAILURE WITH HYPOXIA Status: Acute (5) COVID-19 Code(s): U07.1 - COVID-19 Status: Acute - Plan pt has a hx of cad was on asa/plavix will need to restart when ok with surgery. pt restarted on her bp meds. 02/10 vital signs stable we will continue current antibiotics. Culture so far negative. Patient states that he does snore at night however does not want to get a sleep study. 02/11 patient appeared to be hypoxic last night. BNP mildly elevated patient was given Lasix x1. Patient does have a history of smoking 4 packs a day for 40 years he quit in 2010 after his bypass. His lungs appear clear to auscultate. We will go ahead and do a CTA to rule out a PE. If his CT is negative we will start him on low-dose steroids with inhalers. We will also start patient on some duo nebs. I have stopped his IV fluids. We will hold his blood pressure medication also. His blood pressure is little bit on the softer side. Patient's cultures indicated propionibacterium acnes which is sensitive to ceftriaxone. Patient currently vancomycin. Infectious disease has been consulted. Patient was given incentive spirometer. Patient's aspirin and Plavix restarted. 02/12 we will start patient on steroids given patient's 4 pack a day smoking history. Patient also on duo nebs. CTA negative for PE. This was discussed with patient and patient's . 02/13 will stop steroids. pt's abx will be set up and possible home in am. pt's covid test is positive. 02/18 called and updated. Asked nursing staff to keep oxygen sat around 95% since pt has a significant hx of smoking and most likely has emphysema. pt on remdesivir and steroids. He is on high flow. will continue abx for right adriel ulder. 02/20 pt's called and updated. She currently is in four-point restraint. Will check inflammatory markers in the morning. He is not eating very much either may start PPN. Patient also has not slept which can add to his confusion. I have given him Seroquel we will continue that and see if that helps.
[2020-02-21] MEDS: REMDESIVIR (EUA) 100 MG in Sodium Chloride 0.9% 250 ML 230 ML IV SCH (17:59)
[2020-02-21] MEDS: Rosuvastatin 10 MG TAB PO SCH (19:36)
[2020-02-22] MEDS: Albuterol 200 PUFF (6.7GM INHALER) INH SCH ×5 (02:17→23:54)
[2020-02-22] MEDS: Mometasone 100 MCG/Formoterol 5 MCG 120 PUFF INHALER INH SCH ×2 (02:36→05:47)
[2020-02-22] MEDS: Ipratropium Oral Inhaler INH SCH ×6 (03:00→23:54)
[2020-02-22 05:36] LABS: Anion Gap 16 mmol/L (10-20); BUN (Urea Nitrogen) 25 mg/dL (8.4-25.7); Calc. Creatinine Clearance 133 mL/min (70-130); Calcium 7.9 mg/dL (7.8-10.44); Carbon Dioxide 20 mmol/L (23-31); Chloride 108 mmol/L (98-107); Potassium 3.3 mmol/L (3.5-5.1); Sodium 141 mmol/L (136-145)
[2020-02-22 05:38] LABS: Glucose 57 mg/dL (80-115)
[2020-02-22 05:43] LABS: ALT (SGPT) 17 U/L (8-55); AST (SGOT) 22 U/L (5-34); Albumin 3.1 g/dL (3.4-4.8); Alkaline Phosphatase 17 U/L (40-110); Bilirubin, Direct 0.5 mg/dL (0.1-0.3); Bilirubin, Total 0.9 mg/dL (0.2-1.2); Magnesium 1.9 mg/dL (1.6-2.6); Protein, Total 6.1 g/dL (5.8-8.1)
[2020-02-22] MEDS ORDERED: Dextrose 5% in Water 1,000 ML IV PRN (08:23)
[2020-02-22] MEDS ORDERED: Dextrose 50% Abboject 50 ML SYRINGE SLOW IVP PRN (08:23)
[2020-02-22] MEDS: Carvedilol 6.25 MG TAB PO SCH ×3 (08:41→19:42)
[2020-02-22] MEDS: Escitalopram Oxalate 10 mg Tablet PO SCH ×2 (08:41→09:49)
[2020-02-22] MEDS: Aspirin 81 mg Enteric Coated Tablet PO SCH ×2 (08:41→09:49)
[2020-02-22] MEDS: Zinc Sulfate 220 MG CAP PO SCH ×2 (08:41→09:50)
[2020-02-22] MEDS: Cholecalciferol (Vitamin D3) 400 UNITS TAB PO SCH ×2 (08:41→09:49)
[2020-02-22 08:42] LABS: Base Excess (BEa) -2.7 mEq/L (-2.0 to +3.0); Carboxyhemoglobin (COHb) 0.5 gm% (0.0-3.0); Hemoglobin (Hb) 12.1 g/dL (14.0-18.0); Potassium - ABG Lab 3.69 mmol/L (3.70-5.30)
[2020-02-22 08:45] LABS: CO2 Tension 24.7 mmHg (35.0-45.0); O2 Tension (PaO2), arterial 53.7 mmHg (> 80.0); Puncture Site LBA
[2020-02-22] MEDS: cefTRIAXone\\ROCEPHIN 2 GM in Sodium Chloride 0.9% 100 ML IVPB SCH ×2 (08:45→11:38)
[2020-02-22 08:46] LABS: ALV-art Gradient 450.175 mmHg (0-20)
[2020-02-22] MEDS: Famotidine 20 MG TAB PO SCH ×3 (08:46→19:42)
[2020-02-22] MEDS: Venlafaxine HCl XR 150 MG CAP PO SCH (08:47)
[2020-02-22] MEDS: Dexamethasone 4 mg/ml Vial SLOW IVP SCH (08:48)
[2020-02-22] MEDS: Clopidogrel Bisulfate 75 MG TAB PO SCH ×2 (08:48→09:49)
[2020-02-22] MEDS: Ascorbic Acid 500 mg Chewable Tablet PO SCH ×2 (08:48→09:49)
[2020-02-22] MEDS: Enoxaparin Sodium 40 MG/0.4 ML SYRINGE SC SCH ×2 (08:52→19:42)
[2020-02-22] MEDS ORDERED: Propofol 1,000 MG/100 ML VIAL IV ONE (09:37)
[2020-02-22 10:03] LABS: Actual Bicarbonate (HCO3a) 19.8 mEq/L (22-28); Base Excess (BEa) -6.2 mEq/L (-2.0 to +3.0); Calcium, Ionized (arterial) 1.12 mmol/L (1.12-1.30); Carboxyhemoglobin (COHb) 0.3 gm% (0.0-3.0); Hemoglobin (Hb) 13.3 g/dL (14.0-18.0); O2 Tension (PaO2), arterial 95.2 mmHg (> 80.0); Potassium - ABG Lab 3.39 mmol/L (3.70-5.30)
--- NOTE | 2020-02-22 10:03 | RAD ---
PORTABLE SUPINE CHEST: Date: 02/22/2020 INDICATION: Assess intubation/ET tube. COMPARISON: 02/19/2020. FINDINGS/IMPRESSION: ET tube has been placed and tip is well above [place]. NG tube passes through the EG junction. Diffuse bilateral interstitial and hazy alveolar infiltrates are again noted, not significantly [place] in appearance. POS: AGW
[2020-02-22 10:04] LABS: Puncture Site LRA
[2020-02-22] MEDS ORDERED: cefTRIAXone\\ROCEPHIN 2 GM VIAL ONE (11:27)
[2020-02-22] MEDS ORDERED: DISCONTINUE PREVIOUS NARCOTIC PAIN MEDICATIONS AND BENZODIAZEPINES FS SCH (12:15)
[2020-02-22] MEDS ORDERED: Fentanyl BOLUS 250 ML IVPB PRN (12:15)
[2020-02-22] MEDS ORDERED: Morphine 2 MG/ML VIAL SLOW IVP PRN (12:15)
[2020-02-22] MEDS ORDERED: Propofol BOLUS 1,000 MG/100 ML VIAL IV PRN (12:15)
[2020-02-22 12:43] LABS: Actual Bicarbonate (HCO3a) 21.8 mEq/L (22-28); Base Excess (BEa) -3.7 mEq/L (-2.0 to +3.0); CO2 Tension 41.5 mmHg (35.0-45.0); Calcium, Ionized (arterial) 1.12 mmol/L (1.12-1.30); Carboxyhemoglobin (COHb) 0.6 gm% (0.0-3.0); Hemoglobin (Hb) 11.8 g/dL (14.0-18.0); Potassium - ABG Lab 3.85 mmol/L (3.70-5.30); pH, Arterial 7.34 (7.35-7.45)
[2020-02-22] MEDS: Propofol 1,000 MG/100 ML VIAL IV PRN ×2 (13:00→17:24)
[2020-02-22 13:05] LABS: O2 Tension (PaO2), arterial 54.1 mmHg (> 80.0)
[2020-02-22 13:06] LABS: ALV-art Gradient 321.825 mmHg (0-20); Puncture Site LBA
[2020-02-22] MEDS: fentaNYL Citrate/PF 2,000 MCG in Sodium Chloride 0.9% 60 ML IV SCH (14:05)
[2020-02-22] MEDS: Sodium Chloride 0.45% 1,000 ML IV SCH (14:59)
--- NOTE | 2020-02-22 15:55 | CON ---
DATE OF CONSULTATION: 02/22/2020 HISTORY OF PRESENT ILLNESS: Hair Garcia is a 64-year-old male. He has been in the hospital since 02/07. On 02/12, he was identified as having a COVID infection. He has had an arthroplasty removed with Propionibacterium infection in his right shoulder. He became confused today. He is not keeping high flow or BiPAP in place. I recommended intubation. PAST MEDICAL HISTORY: 1. Lipid disorder. 2. Hypertension. 3. History of spinal stimulator for chronic back pain. 4. History of coronary artery bypass grafting. 5. 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 6. History of an ischemic cardiomyopathy. SOCIAL HISTORY: He quit smoking in 2010. He is not a daily drinker. ALLERGIES: HE HAS NO DRUG ALLERGIES. FAMILY HISTORY: Negative for lung disease in early age. REVIEW OF SYSTEMS: Otherwise noncontributory. PHYSICAL EXAMINATION: VITAL SIGNS: Heart rate is in the 60s, blood pressure is 112/63, respiratory rate is 20. GENERAL: Mechanically ventilated. NECK: Without lymphadenopathy. LUNGS: Clear. HEART: Regular rhythm. ABDOMEN: Soft and nontender. EXTREMITIES: Without edema. LABORATORY DATA: A pH 7.34, CO2 of 41, and PO2 of 54 after intubation. Sodium 141, potassium 3.3, chloride 108, bicarb 20, BUN 25, and creatinine 0.9. IMPRESSION: 1. Respiratory failure associated with COVID pneumonia. 2. Status post removal of hardware in the shoulder with Propionibacterium infection, on Rocephin for this. Plan will be mechanical ventilation and supportive care. We will follow the other physicians. This is a 70 min consult with greater than 50% of the time spent on the unit with coordination of care. Job ID: [id number] [facility]
[2020-02-22] MEDS: REMDESIVIR (EUA) 100 MG in Sodium Chloride 0.9% 250 ML 230 ML IV SCH (17:24)
--- NOTE | 2020-02-22 18:03 | PDOC.HOSPP ---
- Subjective Encounter Date: 02/22/20 Encounter Time: 10:30 Subjective: Patient appears to become more confused. Appears to be significantly tachypneic - Objective Vital Signs & Weight: Vital Signs (12 hours) Temp Pulse Resp BP BP Pulse Ox 02/22/20 16:00 97.0 F L 26 H 02/22/20 14:21 63 112/63 02/22/20 14:20 63 20 100 02/22/20 14:00 25 H 02/22/20 12:30 92 L 02/22/20 12:29 72 137/80 02/22/20 12:05 97.3 F L 27 H 02/22/20 10:00 99 02/22/20 09:54 14 02/22/20 09:45 85 14 178/88 H 98 02/22/20 08:50 94 L 02/22/20 08:48 95 Weight Admit Weight 260 lb Weight 257 lb 15.053 oz Most Recent Monitor Data Heart Rate from ECG 66 NIBP 116/63 NIBP BP-Mean 80 Respiration from ECG 26 SpO2 97 I&O: 02/21/20 02/22/20 02/23/20 06:59 06:59 06:59 Intake Total 610 810 Output Total 600 500 319 Balance 10 310 -319 Result Diagrams: 02/19/20 01:30 02/22/20 04:41 Additional Labs: Accuchecks 02/22/20 02/22/20 02/22/20 16:38 11:06 09:17 POC Glucose 124 H 100 73 02/22/20 06:46 POC Glucose 80 Hospitalist ROS - Review of Systems Other: Patient confused - Medication Medications: Active Medications Generic Name Dose Route Start Last Admin Trade Name Freq PRN Reason Stop Dose Admin Acetaminophen 650 mg 02/08/20 10:28 02/12/20 08:13 Acetaminophen 325 Mg Tab PO 650 mg Q4H PRN Administration ORTA/T > 101.5F/Mild Pain (1-3) Albuterol Sulfate 2 puff 02/19/20 19:00 02/22/20 12:32 Albuterol 200 Puff (6.7gm Inhaler) INH 2 puff [id number] DIO Administration Ascorbic Acid 1,000 mg 02/19/20 09:00 02/22/20 09:49 Ascorbic Acid 500 Mg Chewable Tablet PO Not Given DAILY DIO Aspirin 81 mg 02/13/20 09:00 02/22/20 09:49 Aspirin 81 Mg Enteric Coated Tablet PO Not Given DAILY DIO Benzonatate 100 mg 02/16/20 10:30 02/19/20 03:30 Benzonatate 100 Mg Cap PO 100 mg Q4H PRN Administration Cough Carvedilol 6.25 mg 02/08/20 21:00 02/22/20 09:43 Carvedilol 6.25 Mg Tab PO Not Given BID DIO Cholecalciferol 400 units 02/19/20 09:00 02/22/20 09:49 Cholecalciferol (Vitamin D3) 400 Units Tab PO Not Given DAILY [facility] Clopidogrel Bisulfate 75 mg 02/13/20 09:00 02/22/20 09:49 Clopidogrel Bisulfate 75 Mg Tab PO Not Given DAILY [facility] Dexamethasone 6 mg 02/19/20 09:00 02/22/20 08:48 Dexamethasone 4 Mg/Ml Vial SLOW IVP 6 mg DAILY DIO Administration Enoxaparin Sodium 40 mg 02/22/20 09:00 02/22/20 08:52 Enoxaparin Sodium 40 Mg/0.4 Ml Syringe SC 40 mg 09,2099 DIO Administration Escitalopram Oxalate 10 mg 02/08/20 09:00 02/22/20 09:49 Escitalopram Oxalate 10 Mg Tablet PO Not Given DAILY [facility] Famotidine 20 mg 02/08/20 12:00 02/22/20 09:49 Famotidine 20 Mg Tab PO Not Given BID DIO Ceftriaxone Sodium 2 gm/ 100 mls @ 200 mls/hr 02/13/20 09:00 02/22/20 11:38 Sodium Chloride IVPB Not Given Q24HR DIO Remdesivir 100 mg/ Sodium 250 mls @ 250 mls/hr 02/20/20 18:00 02/22/20 17:24 Chloride IV 02/23/20 18:59 250 mls 1800 DIO Administration Fentanyl Citrate 2,000 mcg/ 100 mls @ 0 mls/hr 02/22/20 12:15 02/22/20 14:05 Sodium Chloride IV 03/23/20 12:15 100 mls INF DIO Administration Protocol Per Protocol Sodium Chloride 1,000 mls @ 100 mls/hr 02/22/20 14:45 02/22/20 14:59 1/2 Normal Saline IV 1,000 mls .Q10H DIO Administration Ipratropium [place] 2 puff 02/14/20 02:30 02/22/20 14:20 Ipratropium Oral Inhaler INH 2 puff [id number] DIO Administration Magnesium Hydroxide 30 ml 02/08/20 10:28 02/13/20 10:34 Milk Of Magnesia 30 Ml Udcup PO 30 ml DAILYPRN PRN Administration Constipation Melatonin 3 mg 02/21/20 03:20 02/21/20 19:36 Melatonin 3 Mg Tab PO 3 mg HSPRN PRN Administration Insomnia Methocarbamol 1,500 mg 02/08/20 10:28 02/20/20 22:50 Methocarbamol 500 Mg Tab PO 1,500 mg Q6H PRN Administration Muscle Spasm Mometasone Furoate/Formoterol Fumar 2 puff 02/20/20 18:30 02/22/20 05:47 Mometasone 100 Mcg/Formoterol 5 Mcg 120 Puff Inhaler INH 2 puff BID-RT DIO Administration Propofol 1,000 mg 02/22/20 12:15 02/22/20 17:24 Propofol 1,000 Mg/100 Ml Vial IV 03/23/20 12:15 1,000 mg INF PRN Administration TO ACHIEVE GOAL RASS Protocol Quetiapine Fumarate 25 mg 02/21/20 09:00 02/22/20 08:48 Quetiapine Fumarate 25 Mg Tab PO 25 mg DAILY DIO Administration Rosuvastatin Calcium 10 mg 02/08/20 21:00 02/21/20 19:36 Rosuvastatin 10 Mg Tab PO 10 mg HS DIO Administration Sodium Chloride 10 ml 02/08/20 09:00 02/22/20 08:41 Flush - Normal Saline 10 Ml Syringe IVF 10 ml Q12HR DIO Administration Sterile Water 1.2 ml 02/21/20 03:45 02/21/20 04:06 Sterile Water 10 Ml Vial FS 1.2 ml PRN PRN Administration RECONSTITUTION Venlafaxine HCl 150 mg 02/08/20 09:00 02/22/20 08:47 Venlafaxine Hcl Xr 150 Mg Cap PO 150 mg DAILY DIO Administration Zinc Sulfate 220 mg 02/19/20 09:00 02/22/20 09:50 Zinc Sulfate 220 Mg Cap PO Not Given DAILY DIO - Exam Neck: negative: supple, symmetric, no JVD, no thyromegaly, no lymphadenopathy, no carotid bruit, JVD Heart: negative: RRR, no murmur, no gallops, no rubs, normal peripheral pulses, irregular, diminshed peripheral pulses, murmur present, II/IV, III/IV Respiratory: negative: CTAB, no wheezes, no rales, no ronchi, normal chest expansion, no tachypnea, normal percussion, rales, rhonchi, tachypneic, wheezes Gastrointestinal: negative: soft, non-tender, non-distended, normal bowel sounds, no palpable masses, no hepatomegaly, no splenomegaly, no bruit, no guarding, no rigidity, tender to palpation, distended, diminished bowl sounds, voluntary guarding Extremities: 1+ LE edema Neurological - other findings: Patient appears confused Hosp A/P (1) Hypertension Code(s): I10 - ESSENTIAL (PRIMARY) HYPERTENSION Status: Chronic (2) Obesity Code(s): E66.9 - OBESITY, UNSPECIFIED Status: Chronic (3) Hypercholesteremia Code(s): E78.00 - PURE HYPERCHOLESTEROLEMIA, UNSPECIFIED Status: Chronic (4) Acute respiratory failure with hypoxia Code(s): J96.01 - ACUTE RESPIRATORY FAILURE WITH HYPOXIA Status: Acute (5) COVID-19 Code(s): U07.1 - COVID-19 Status: Acute - Plan pt has a hx of cad was on asa/plavix will need to restart when ok with surgery. pt restarted on her bp meds. 02/10 vital signs stable we will continue current antibiotics. Culture so far negative. Patient states that he does snore at night however does not want to get a sleep study. 02/11 patient appeared to be hypoxic last night. BNP mildly elevated patient was given Lasix x1. Patient does have a history of smoking 4 packs a day for 40 years he quit in 2010 after his bypass. His lungs appear clear to auscultate. We will go ahead and do a CTA to rule out a PE. If his CT is negative we will start him on low-dose steroids with inhalers. We will also start patient on some duo nebs. I have stopped his IV fluids. We will hold his blood pressure medication also. His blood pressure is little bit on the softer side. Patient's cultures indicated propionibacterium acnes which is sensitive to ceftriaxone. Patient currently vancomycin. Infectious disease has been consulted. Patient was given incentive spirometer. Patient's aspirin and Plavix restarted. 02/12 we will start patient on steroids given patient's 4 pack a day smoking history. Patient also on duo nebs. CTA negative for PE. This was discussed with patient and patient's . 02/13 will stop steroids. pt's abx will be set up and possible home in am. pt's covid test is positive. 02/18 called and updated. Asked nursing staff to keep oxygen sat around 95% since pt has a significant hx of smoking and most likely has emphysema. pt on remdesivir and steroids. He is on high flow. will continue abx for right adriel ulder. 02/20 pt's called and updated. She currently is in four-point restraint. Will check inflammatory markers in the morning. He is not eating very much either may start PPN. Patient also has not slept which can add to his confusion. I have given him Seroquel we will continue that and see if that helps. 02/21 patient's called and updated that we are going to go ahead and intubate this patient. Patient continues to become tachypneic ABG appears worse on high flow. Spoke with pulmonary recommended intubation. Patient also not eating very much was started NG tube feedings after intubation.
[2020-02-22] MEDS: Lorazepam 2 MG/ML VIAL SLOW IVP PRN (19:42)
[2020-02-22] MEDS: Rosuvastatin 10 MG TAB PO SCH (19:42)
[2020-02-23] MEDS: Sodium Chloride 0.45% 1,000 ML IV SCH ×3 (00:05→19:41)
[2020-02-23] MEDS: Lorazepam 2 MG/ML VIAL SLOW IVP PRN ×5 (00:59→21:15)
[2020-02-23] MEDS: Propofol 1,000 MG/100 ML VIAL IV PRN ×5 (01:00→19:43)
[2020-02-23] MEDS: fentaNYL Citrate/PF 2,000 MCG in Sodium Chloride 0.9% 60 ML IV SCH ×2 (02:24→17:28)
[2020-02-23] MEDS: Ipratropium Oral Inhaler INH SCH ×6 (06:34→23:58)
[2020-02-23] MEDS: Mometasone 100 MCG/Formoterol 5 MCG 120 PUFF INHALER INH SCH ×2 (06:37→18:15)
[2020-02-23] MEDS: Albuterol 200 PUFF (6.7GM INHALER) INH SCH ×4 (06:59→23:58)
[2020-02-23 08:26] LABS: Actual Bicarbonate (HCO3a) 24.3 mEq/L (22-28); Base Excess (BEa) -1.3 mEq/L (-2.0 to +3.0); CO2 Tension 44.7 mmHg (35.0-45.0); Calcium, Ionized (arterial) 1.09 mmol/L (1.12-1.30); Hemoglobin (Hb) 10.2 g/dL (14.0-18.0); Potassium - ABG Lab 3.79 mmol/L (3.70-5.30); pH, Arterial 7.35 (7.35-7.45)
[2020-02-23] MEDS: Cholecalciferol (Vitamin D3) 400 UNITS TAB PO SCH (09:15)
[2020-02-23 09:48] LABS: O2 Tension (PaO2), arterial 58.6 mmHg (> 80.0); Puncture Site LRA
[2020-02-23 09:49] LABS: ALV-art Gradient 384.625 mmHg (0-20)
[2020-02-23] MEDS: Dexamethasone 4 mg/ml Vial SLOW IVP SCH (09:52)
[2020-02-23] MEDS: Enoxaparin Sodium 40 MG/0.4 ML SYRINGE SC SCH ×2 (09:52→19:40)
[2020-02-23] MEDS: Venlafaxine HCl XR 150 MG CAP PO SCH (09:53)
[2020-02-23] MEDS: Carvedilol 6.25 MG TAB PO SCH ×2 (09:53→19:40)
[2020-02-23] MEDS: Escitalopram Oxalate 10 mg Tablet PO SCH (09:53)
[2020-02-23] MEDS: Clopidogrel Bisulfate 75 MG TAB PO SCH (09:54)
[2020-02-23] MEDS: Ascorbic Acid 500 mg Chewable Tablet PO SCH (09:54)
[2020-02-23] MEDS: Aspirin 81 mg Enteric Coated Tablet PO SCH (09:54)
[2020-02-23] MEDS: Famotidine 20 MG TAB PO SCH ×2 (09:54→19:40)
[2020-02-23] MEDS: cefTRIAXone\\ROCEPHIN 2 GM in Sodium Chloride 0.9% 100 ML IVPB SCH (10:26)
--- NOTE | 2020-02-23 10:35 | PQF ---
CLINICAL DOCUMENTATION CLARIFICATION FORM: Dear Dr. Love Date: 02/23/20 Please exercise your independent, professional judgment in responding to the clarification form. Clinical indicators are provided on the bottom of this form for your review. Please check appropriate box(es): [ ] Encephalopathy: Type: [ x] Acute [ ] Subacute [ ] Chronic Etiology: [ ] Hypertensive [x ] Metabolic [ ] Toxic [ ] Hypoxic [ ] Septic [ ] [place] [ ] Drug induced: [ ] In the setting of underlying dementia [ ] Unspecified [ ] Other (please specify) [ ] Transient Alteration of Awareness [ ] Other diagnosis [ ] Unable to determine In addition, please specify: Present on Admission (POA): [ ] Yes [ x ] No [ ] Unable to determine For continuity of documentation, please document condition throughout progress notes and discharge summary. Thank You. To be completed by CDI/Coding staff for physician review: CLINICAL INDICATORS - SIGNS / SYMPTOMS / LABS / RESULTS AND LOCATION IN EMR NURSE NOTE 1/2:"REPEATEDLY PULLING OFF HIS OXYGEN, HEART MONITOR AND PICKING AT HIS IV LINES." NURSE NOTE 1/2: "PULLED OFF HIGH FLOW OXYGEN, PULSE OX MONITOR, HEART MONITOR, AND PULLED OFF THE DRESSING OF HIS PICC LINE...VERY CONFUSED, TALKING ABOUT GUNS AND SOMEONE STANDING IN THE CORNER OF THE ROOM (NO ONE IS THERE)." NURSE NOTE 1/3: "BED ALARM SOUNDED, PT HAS CHEWED APART THE LEFT WRIST RESTRAINT...VERY AGITATED...SECURITY CALLED." RISK FACTORS / RESULTS AND LOCATION IN EMR TOOK OFF NONREBREATHER/HYPOXIA (NN 1/2) RECENT SURGERY 02/11 COVID 19 + (TESTED 02/12) TREATMENTS / RESULTS AND LOCATION IN EMR 4 POINT RESTRAINTS (PN SEROQUEL (02/20-PRESENT) BED ALARM (NN 02/18) VIDEO MONITOR (NN02/18) IM GEODON (SEE NN 02/20) IV ATIVAN (02/22- SEE APR) CDS Signature: Daria Hill Phone #: [phone] Date: 02/23/20 This is a permanent part of the Medical Record [facility]
[2020-02-23] MEDS: Zinc Sulfate 220 MG CAP PO SCH (11:11)
[2020-02-23 11:27] LABS: #Lymphocytes 0.5 thou/uL (1.20-3.40); #Monocytes 0.5 thou/uL (0.11-0.59); #Neutrophils 8.1 thou/uL (1.40-6.50); %Basophils 0.1 % (0.0-1.0); %Eosinophils 0.5 % (0.0-10.0); %Monocytes 5.2 % (0.0-10.0); %Neutrophils 89.2 % (42.0-75.0); Hemoglobin 10.2 g/dL (14.0-18.0); Mean Corpuscular HGB CONC 31.1 g/dL (32.0-36.0); Mean Corpuscular Hemoglobin 27.5 pg (27.0-31.0); Mean Corpuscular Volume 88.6 fL (78.0-98.0); Mean Platelet Volume 6.3 fL (7.4-10.4); Platelet Count 349 thou/uL (130-400); RBC Distribution Width 14.6 % (11.5-14.5); White Blood Cell (WBC) Count 9.1 thou/uL (4.8-10.8)
[2020-02-23] MEDS ORDERED: Rocuronium Bromide 10 MG/ML (10ML VIAL) ONE (11:29)
[2020-02-23] MEDS ORDERED: PROPOFOL 200 MG/20 ML VIAL ONE (11:29)
[2020-02-23 11:45] LABS: ALT (SGPT) 13 U/L (8-55); AST (SGOT) 16 U/L (5-34); Albumin 2.7 g/dL (3.4-4.8); Alkaline Phosphatase 74 U/L (40-110); Anion Gap 14 mmol/L (10-20); BUN (Urea Nitrogen) 22 mg/dL (8.4-25.7); Bilirubin, Total 0.7 mg/dL (0.2-1.2); CRP (Inflammatory) 13.31 mg/dL (= or < 0.5); Calc. Creatinine Clearance 140 mL/min (70-130); Calcium 7.4 mg/dL (7.8-10.44); Carbon Dioxide 23 mmol/L (23-31); Chloride 108 mmol/L (98-107); Glucose 107 mg/dL (80-115); Potassium 3.9 mmol/L (3.5-5.1); Protein, Total 5.7 g/dL (5.8-8.1); Sodium 141 mmol/L (136-145)
--- NOTE | 2020-02-23 17:54 | PDOC.HOSPP ---
- Subjective Encounter Date: 02/23/20 Encounter Time: 11:30 Subjective: Patient intubated - Objective Vital Signs & Weight: Vital Signs (12 hours) Temp Pulse Resp BP Pulse Ox 02/23/20 16:00 22 H 02/23/20 14:43 95 02/23/20 14:29 68 114/62 02/23/20 14:00 21 H 02/23/20 12:00 98.2 F 23 H 02/23/20 10:58 78 17 109/62 95 02/23/20 10:00 19 02/23/20 09:53 119/61 02/23/20 08:00 98.1 F 18 96 02/23/20 06:38 69 105/63 02/23/20 06:37 69 20 95 02/23/20 06:36 72 20 94 L 02/23/20 06:00 24 H Weight Admit Weight 260 lb Weight 257 lb 15.053 oz Most Recent Monitor Data Heart Rate from ECG 69 NIBP 107/59 NIBP BP-Mean 75 Respiration from ECG 17 SpO2 100 I&O: 02/22/20 02/23/20 02/24/20 06:59 06:59 06:59 Intake Total 810 1260.4 340 Output Total 500 894 870 Balance 310 366.4 -530 Result Diagrams: 02/23/20 11:12 02/23/20 11:12 Additional Labs: Accuchecks 02/23/20 02/23/20 02/23/20 16:27 10:11 04:08 POC Glucose 163 H 108 H 86 02/22/20 22:01 POC Glucose 95 Hospitalist ROS - Medication Medications: Active Medications Generic Name Dose Route Start Last Admin Trade Name Freq PRN Reason Stop Dose Admin Acetaminophen 650 mg 02/08/20 10:28 02/12/20 08:13 Acetaminophen 325 Mg Tab PO 650 mg Q4H PRN Administration ORTA/T > 101.5F/Mild Pain (1-3) Albuterol Sulfate 2 puff 02/19/20 19:00 02/23/20 12:23 Albuterol 200 Puff (6.7gm Inhaler) INH 2 puff [id number] DIO Administration Ascorbic Acid 1,000 mg 02/19/20 09:00 02/23/20 09:54 Ascorbic Acid 500 Mg Chewable Tablet PO 1,000 mg DAILY DIO Administration Aspirin 81 mg 02/13/20 09:00 02/23/20 09:54 Aspirin 81 Mg Enteric Coated Tablet PO 81 mg DAILY DIO Administration Benzonatate 100 mg 02/16/20 10:30 02/19/20 03:30 Benzonatate 100 Mg Cap PO 100 mg Q4H PRN Administration Cough Carvedilol 6.25 mg 02/08/20 21:00 02/23/20 09:53 Carvedilol 6.25 Mg Tab PO 6.25 mg BID DIO Administration Cholecalciferol 400 units 02/19/20 09:00 02/23/20 09:15 Cholecalciferol (Vitamin D3) 400 Units Tab PO 400 units DAILY DIO Administration Clopidogrel Bisulfate 75 mg 02/13/20 09:00 02/23/20 09:54 Clopidogrel Bisulfate 75 Mg Tab PO 75 mg DAILY DIO Administration Dexamethasone 6 mg 02/19/20 09:00 02/23/20 09:52 Dexamethasone 4 Mg/Ml Vial SLOW IVP 6 mg DAILY DIO Administration Enoxaparin Sodium 40 mg 02/22/20 09:00 02/23/20 09:52 Enoxaparin Sodium 40 Mg/0.4 Ml Syringe SC 40 mg 09,2099 DIO Administration Escitalopram Oxalate 10 mg 02/08/20 09:00 02/23/20 09:53 Escitalopram Oxalate 10 Mg Tablet PO 10 mg DAILY DIO Administration Famotidine 20 mg 02/08/20 12:00 02/23/20 09:54 Famotidine 20 Mg Tab PO 20 mg BID DIO Administration Ceftriaxone Sodium 2 gm/ 100 mls @ 200 mls/hr 02/13/20 09:00 02/23/20 10:26 Sodium Chloride IVPB 100 mls Q24HR DIO Administration Remdesivir 100 mg/ Sodium 250 mls @ 250 mls/hr 02/20/20 18:00 02/22/20 17:24 Chloride IV 02/23/20 18:59 250 mls 1800 DIO Administration Fentanyl Citrate 2,000 mcg/ 100 mls @ 0 mls/hr 02/22/20 12:15 02/23/20 17:28 Sodium Chloride IV 03/23/20 12:15 100 mls INF DIO Administration Protocol Per Protocol Sodium Chloride 1,000 mls @ 100 mls/hr 02/22/20 14:45 02/23/20 11:22 1/2 Normal Saline IV 1,000 mls .Q10H DIO Administration Ipratropium [place] 2 puff 02/14/20 02:30 02/23/20 14:43 Ipratropium Oral Inhaler INH 2 puff [id number] DIO Administration Lorazepam 2 mg 02/22/20 12:15 02/23/20 13:22 Lorazepam 2 Mg/Ml Vial SLOW IVP 03/23/20 12:15 2 mg Q1H PRN Administration Breakthrough agitation Magnesium Hydroxide 30 ml 02/08/20 10:28 02/13/20 10:34 Milk Of Magnesia 30 Ml Udcup PO 30 ml DAILYPRN PRN Administration Constipation Melatonin 3 mg 02/21/20 03:20 02/21/20 19:36 Melatonin 3 Mg Tab PO 3 mg HSPRN PRN Administration Insomnia Methocarbamol 1,500 mg 02/08/20 10:28 02/20/20 22:50 Methocarbamol 500 Mg Tab PO 1,500 mg Q6H PRN Administration Muscle Spasm Mometasone Furoate/Formoterol Fumar 2 puff 02/20/20 18:30 02/23/20 06:37 Mometasone 100 Mcg/Formoterol 5 Mcg 120 Puff Inhaler INH 2 puff BID-RT DIO Administration Propofol 1,000 mg 02/22/20 12:15 02/23/20 13:24 Propofol 1,000 Mg/100 Ml Vial IV 03/23/20 12:15 1,000 mg INF PRN Administration TO ACHIEVE GOAL RASS Protocol Quetiapine Fumarate 25 mg 02/21/20 09:00 02/23/20 09:53 Quetiapine Fumarate 25 Mg Tab PO 25 mg DAILY DIO Administration Rosuvastatin Calcium 10 mg 02/08/20 21:00 02/22/20 19:42 Rosuvastatin 10 Mg Tab PO 10 mg HS DIO Administration Sodium Chloride 10 ml 02/08/20 09:00 02/23/20 09:55 Flush - Normal Saline 10 Ml Syringe IVF 10 ml Q12HR DIO Administration Sterile Water 1.2 ml 02/21/20 03:45 02/21/20 04:06 Sterile Water 10 Ml Vial FS 1.2 ml PRN PRN Administration RECONSTITUTION Venlafaxine HCl 150 mg 02/08/20 09:00 02/23/20 09:53 Venlafaxine Hcl Xr 150 Mg Cap PO 150 mg DAILY DIO Administration Zinc Sulfate 220 mg 02/19/20 09:00 02/23/20 11:11 Zinc Sulfate 220 Mg Cap PO Not Given DAILY DIO Hosp A/P (1) Hypertension Code(s): I10 - ESSENTIAL (PRIMARY) HYPERTENSION Status: Chronic (2) Obesity Code(s): E66.9 - OBESITY, UNSPECIFIED Status: Chronic (3) Hypercholesteremia Code(s): E78.00 - PURE HYPERCHOLESTEROLEMIA, UNSPECIFIED Status: Chronic (4) Acute respiratory failure with hypoxia Code(s): J96.01 - ACUTE RESPIRATORY FAILURE WITH HYPOXIA Status: Acute (5) COVID-19 Code(s): U07.1 - COVID-19 Status: Acute - Plan pt has a hx of cad was on asa/plavix will need to restart when ok with surgery. pt restarted on her bp meds. 02/10 vital signs stable we will continue current antibiotics. Culture so far negative. Patient states that he does snore at night however does not want to get a sleep study. 02/11 patient appeared to be hypoxic last night. BNP mildly elevated patient was given Lasix x1. Patient does have a history of smoking 4 packs a day for 40 years he quit in 2010 after his bypass. His lungs appear clear to auscultate. We will go ahead and do a CTA to rule out a PE. If his CT is negative we will start him on low-dose steroids with inhalers. We will also start patient on some duo nebs. I have stopped his IV fluids. We will hold his blood pressure medication also. His blood pressure is little bit on the softer side. Patient's cultures indicated propionibacterium acnes which is sensitive to ceftriaxone. Patient currently vancomycin. Infectious disease has been consulted. Patient was given incentive spirometer. Patient's aspirin and Plavix restarted. 02/12 we will start patient on steroids given patient's 4 pack a day smoking history. Patient also on duo nebs. CTA negative for PE. This was discussed with patient and patient's . 02/13 will stop steroids. pt's abx will be set up and possible home in am. pt's covid test is positive. 02/18 called and updated. Asked nursing staff to keep oxygen sat around 95% since pt has a significant hx of smoking and most likely has emphysema. pt on remdesivir and steroids. He is on high flow. will continue abx for right shoulder. 02/20 pt's called and updated. She currently is in four-point restraint. Will check inflammatory markers in the morning. He is not eating very much either may start PPN. Patient also has not slept which can add to his confusion. I have given him Seroquel we will continue that and see if that helps. 02/21 patient's called and updated that we are going to go ahead and intubate this patient. Patient continues to become tachypneic ABG appears worse on high flow. Spoke with pulmonary recommended intubation. Patient also not eating very much was started NG tube feedings after intubation. 02/22 patient continues to be intubated no significant changes. We will continue Decadron. We will continue DVT prophylaxis. Patient tolerating feeds.
[2020-02-23] MEDS: REMDESIVIR (EUA) 100 MG in Sodium Chloride 0.9% 250 ML 230 ML IV SCH (18:30)
[2020-02-23] MEDS: Rosuvastatin 10 MG TAB PO SCH (19:40)
--- NOTE | 2020-02-23 21:04 | PRG ---
DATE OF SERVICE: 02/23/2020 SUBJECTIVE: Mr. Garcia remains hemodynamically stable. OBJECTIVE: VITAL SIGNS: Blood pressure 106/61, respiratory rate is 20, heart rate is in 60s, and oximetry is 100%. LUNGS: Remarkable for coarse equal breath sounds. HEART: Regular rhythm. ABDOMEN: Soft. LABORATORY DATA: White count 9.1, hemoglobin 10.2, platelets 349. Sodium 141, potassium 3.9, chloride 108, bicarb 23, BUN 22, creatinine 0.86. PH 7.35, CO2 of 44, pO2 of 58. IMPRESSION: 1. COVID pneumonia, now intubated. 2. Status post debridement and removal of hardware in his shoulder with Propionibacterium infection. PLAN: Continue supportive care. Critical care time 30 min Job ID: [id number] MTDD
[2020-02-24] MEDS: Ipratropium Oral Inhaler INH SCH ×6 (02:16→22:22)
[2020-02-24] MEDS: Propofol 1,000 MG/100 ML VIAL IV PRN ×4 (03:54→20:19)
[2020-02-24] MEDS: Lorazepam 2 MG/ML VIAL SLOW IVP PRN (03:55)
[2020-02-24] MEDS: fentaNYL Citrate/PF 2,000 MCG in Sodium Chloride 0.9% 60 ML IV SCH ×2 (04:50→20:20)
[2020-02-24] MEDS: Sodium Chloride 0.45% 1,000 ML IV SCH ×2 (04:51→07:49)
[2020-02-24 05:47] LABS: ALT (SGPT) 13 U/L (8-55); AST (SGOT) 14 U/L (5-34); Albumin 2.6 g/dL (3.4-4.8); Alkaline Phosphatase 72 U/L (40-110); Anion Gap 12 mmol/L (10-20); BUN (Urea Nitrogen) 23 mg/dL (8.4-25.7); Bilirubin, Direct 0.4 mg/dL (0.1-0.3); Bilirubin, Total 0.5 mg/dL (0.2-1.2); Calc. Creatinine Clearance 141 mL/min (70-130); Calcium 7.6 mg/dL (7.8-10.44); Carbon Dioxide 28 mmol/L (23-31); Chloride 105 mmol/L (98-107); Glucose 93 mg/dL (80-115); Potassium 4.3 mmol/L (3.5-5.1); Protein, Total 5.6 g/dL (5.8-8.1); Sodium 141 mmol/L (136-145)
[2020-02-24] MEDS: Mometasone 100 MCG/Formoterol 5 MCG 120 PUFF INHALER INH SCH ×2 (06:27→18:39)
[2020-02-24] MEDS: Albuterol 200 PUFF (6.7GM INHALER) INH SCH ×3 (06:38→18:38)
[2020-02-24] MEDS: Clopidogrel Bisulfate 75 MG TAB PO SCH (07:46)
[2020-02-24] MEDS: Famotidine 20 MG TAB PO SCH ×2 (07:46→20:18)
[2020-02-24] MEDS: Venlafaxine HCl XR 150 MG CAP PO SCH (07:46)
[2020-02-24] MEDS: Dexamethasone 4 mg/ml Vial SLOW IVP SCH (07:47)
[2020-02-24] MEDS: Aspirin 81 mg Enteric Coated Tablet PO SCH (07:47)
[2020-02-24] MEDS: Ascorbic Acid 500 mg Chewable Tablet PO SCH (07:47)
[2020-02-24] MEDS: Escitalopram Oxalate 10 mg Tablet PO SCH (07:48)
[2020-02-24] MEDS: Carvedilol 6.25 MG TAB PO SCH ×2 (07:48→20:19)
[2020-02-24] MEDS: Zinc Sulfate 220 MG CAP PO SCH (07:48)
[2020-02-24] MEDS: cefTRIAXone\\ROCEPHIN 2 GM in Sodium Chloride 0.9% 100 ML IVPB SCH (07:49)
[2020-02-24] MEDS: Cholecalciferol (Vitamin D3) 400 UNITS TAB PO SCH (07:50)
[2020-02-24] MEDS: Enoxaparin Sodium 40 MG/0.4 ML SYRINGE SC SCH ×2 (07:51→20:19)
[2020-02-24 07:57] LABS: Actual Bicarbonate (HCO3a) 27.3 mEq/L (22-28); Base Excess (BEa) -0.7 mEq/L (-2.0 to +3.0); Calcium, Ionized (arterial) 1.18 mmol/L (1.12-1.30); Carboxyhemoglobin (COHb) 0.2 gm% (0.0-3.0); Hemoglobin (Hb) 10.7 g/dL (14.0-18.0); Potassium - ABG Lab 4.38 mmol/L (3.70-5.30); pH, Arterial 7.26 (7.35-7.45)
[2020-02-24 07:58] LABS: CO2 Tension 62.7 mmHg (35.0-45.0)
[2020-02-24 07:59] LABS: O2 Tension (PaO2), arterial 56.8 mmHg (> 80.0); Puncture Site LRA
[2020-02-24 08:00] LABS: ALV-art Gradient 363.925 mmHg (0-20)
--- NOTE | 2020-02-24 15:16 | PRG ---
DATE OF SERVICE: 02/24/2020 SUBJECTIVE: Hair Garcia remains mechanically ventilated. Blood gas shows pH 7.26, CO2 of 62, PO2 of 56. We have increased his PEEP today and said his rate of 20. Hemodynamics remained stable. OBJECTIVE: VITAL SIGNS: Blood pressure 120/61, heart rate is in 60s, respiratory rates in 20s. LUNGS: Coarse and clear. HEART: Regular rhythm. ABDOMEN: Soft. EXTREMITIES: Without asymmetry. LABORATORY DATA: White count 9.1 yesterday. There is no CBC today. Electrolytes today are normal. Creatinine is 0.85. IMPRESSION: COVID pneumonia with respiratory failure. He is not weanable at this point in time. Critical care time 30 min. Job ID: [id number] MTDD
[2020-02-24] MEDS: Rosuvastatin 10 MG TAB PO SCH (20:18)
[2020-02-25] MEDS: Albuterol 200 PUFF (6.7GM INHALER) INH SCH ×4 (01:09→18:49)
[2020-02-25] MEDS: Sodium Chloride 0.45% 1,000 ML IV SCH ×3 (05:36→19:36)
[2020-02-25] MEDS: Milk Of Magnesia 30 ML UDCUP PO PRN (05:41)
[2020-02-25] MEDS: Ipratropium Oral Inhaler INH SCH ×6 (06:37→22:16)
[2020-02-25] MEDS: Mometasone 100 MCG/Formoterol 5 MCG 120 PUFF INHALER INH SCH ×2 (06:39→18:50)
[2020-02-25] MEDS: Aspirin 81 mg Enteric Coated Tablet PO SCH (07:39)
[2020-02-25] MEDS: Enoxaparin Sodium 40 MG/0.4 ML SYRINGE SC SCH (07:39)
[2020-02-25] MEDS: Famotidine 20 MG TAB PO SCH ×2 (07:39→19:37)
[2020-02-25] MEDS: Carvedilol 6.25 MG TAB PO SCH ×2 (07:40→19:37)
[2020-02-25] MEDS: Cholecalciferol (Vitamin D3) 400 UNITS TAB PO SCH (07:40)
[2020-02-25] MEDS: Clopidogrel Bisulfate 75 MG TAB PO SCH (07:40)
[2020-02-25] MEDS: Ascorbic Acid 500 mg Chewable Tablet PO SCH (07:40)
[2020-02-25] MEDS: Zinc Sulfate 220 MG CAP PO SCH (07:40)
[2020-02-25] MEDS: Escitalopram Oxalate 10 mg Tablet PO SCH (07:40)
[2020-02-25] MEDS: Venlafaxine HCl XR 150 MG CAP PO SCH (07:40)
[2020-02-25] MEDS: Dexamethasone 4 mg/ml Vial SLOW IVP SCH (07:41)
[2020-02-25] MEDS: cefTRIAXone\\ROCEPHIN 2 GM in Sodium Chloride 0.9% 100 ML IVPB SCH (07:43)
[2020-02-25] MEDS: fentaNYL Citrate/PF 2,000 MCG in Sodium Chloride 0.9% 60 ML IV SCH (15:05)
--- NOTE | 2020-02-25 17:22 | PDOC.HOSPP ---
- Subjective Encounter Date: 02/24/20 Encounter Time: 12:30 Subjective: Patient intubated - Objective Vital Signs & Weight: Vital Signs (12 hours) Temp Pulse Resp BP Pulse Ox 02/25/20 15:07 69 25 H 98 02/25/20 15:05 69 138/77 02/25/20 12:00 17 02/25/20 10:35 70 20 95 02/25/20 10:25 72 143/73 H 02/25/20 10:00 18 02/25/20 08:00 98.3 F 23 H 96 02/25/20 07:40 123/58 L 02/25/20 06:40 65 123/58 L 92 L 02/25/20 06:39 69 27 H 92 L 02/25/20 06:38 69 27 H 92 L 02/25/20 06:00 23 H Weight Admit Weight 260 lb Weight 262 lb 12.656 oz Most Recent Monitor Data Heart Rate from ECG 64 NIBP 126/64 NIBP BP-Mean 84 Respiration from ECG 24 SpO2 97 I&O: 02/24/20 02/25/20 02/26/20 06:59 06:59 06:59 Intake Total 4736.4 4023 1071 Output Total 1770 2130 840 Balance 2966.4 1893 231 Result Diagrams: 02/23/20 11:12 02/24/20 03:30 Additional Labs: Accuchecks 02/25/20 02/24/20 02/24/20 03:37 20:54 15:58 POC Glucose 91 94 129 H Hospitalist ROS - Medication Medications: Active Medications Generic Name Dose Route Start Last Admin Trade Name Freq PRN Reason Stop Dose Admin Acetaminophen 650 mg 02/08/20 10:28 02/12/20 08:13 Acetaminophen 325 Mg Tab PO 650 mg Q4H PRN Administration ORTA/T > 101.5F/Mild Pain (1-3) Albuterol Sulfate 2 puff 02/19/20 19:00 02/25/20 12:28 Albuterol 200 Puff (6.7gm Inhaler) INH 2 puff [id number] DIO Administration Ascorbic Acid 1,000 mg 02/19/20 09:00 02/25/20 07:40 Ascorbic Acid 500 Mg Chewable Tablet PO 1,000 mg DAILY DIO Administration Aspirin 81 mg 02/13/20 09:00 02/25/20 07:39 Aspirin 81 Mg Enteric Coated Tablet PO 81 mg DAILY DIO Administration Benzonatate 100 mg 02/16/20 10:30 02/19/20 03:30 Benzonatate 100 Mg Cap PO 100 mg Q4H PRN Administration Cough Carvedilol 6.25 mg 02/08/20 21:00 02/25/20 07:40 Carvedilol 6.25 Mg Tab PO 6.25 mg BID DIO Administration Cholecalciferol 400 units 02/19/20 09:00 02/25/20 07:40 Cholecalciferol (Vitamin D3) 400 Units Tab PO 400 units DAILY DIO Administration Clopidogrel Bisulfate 75 mg 02/13/20 09:00 02/25/20 07:40 Clopidogrel Bisulfate 75 Mg Tab PO 75 mg DAILY DIO Administration Dexamethasone 6 mg 02/19/20 09:00 02/25/20 07:41 Dexamethasone 4 Mg/Ml Vial SLOW IVP 6 mg DAILY DIO Administration Enoxaparin Sodium 40 mg 02/22/20 09:00 02/25/20 07:39 Enoxaparin Sodium 40 Mg/0.4 Ml Syringe SC 40 mg 09,2099 DIO Administration Escitalopram Oxalate 10 mg 02/08/20 09:00 02/25/20 07:40 Escitalopram Oxalate 10 Mg Tablet PO 10 mg DAILY DIO Administration Famotidine 20 mg 02/08/20 12:00 02/25/20 07:39 Famotidine 20 Mg Tab PO 20 mg BID DIO Administration Ceftriaxone Sodium 2 gm/ 100 mls @ 200 mls/hr 02/13/20 09:00 02/25/20 07:43 Sodium Chloride IVPB 100 mls Q24HR DIO Administration Fentanyl Citrate 2,000 mcg/ 100 mls @ 0 mls/hr 02/22/20 12:15 02/25/20 15:05 Sodium Chloride IV 03/23/20 12:15 100 mls INF DIO Administration Protocol Per Protocol Sodium Chloride 1,000 mls @ 100 mls/hr 02/22/20 14:45 02/25/20 15:06 1/2 Normal Saline IV Not Given .Q10H DIO Ipratropium [place] 2 puff 02/14/20 02:30 02/25/20 15:07 Ipratropium Oral Inhaler INH 2 puff [id number] DIO Administration Lorazepam 2 mg 02/22/20 12:15 02/24/20 03:55 Lorazepam 2 Mg/Ml Vial SLOW IVP 03/23/20 12:15 2 mg Q1H PRN Administration Breakthrough agitation Magnesium Hydroxide 30 ml 02/08/20 10:28 02/25/20 05:41 Milk Of Magnesia 30 Ml Udcup PO 30 ml DAILYPRN PRN Administration Constipation Melatonin 3 mg 02/21/20 03:20 02/21/20 19:36 Melatonin 3 Mg Tab PO 3 mg HSPRN PRN Administration Insomnia Methocarbamol 1,500 mg 02/08/20 10:28 02/20/20 22:50 Methocarbamol 500 Mg Tab PO 1,500 mg Q6H PRN Administration Muscle Spasm Mometasone Furoate/Formoterol Fumar 2 puff 02/20/20 18:30 02/25/20 06:39 Mometasone 100 Mcg/Formoterol 5 Mcg 120 Puff Inhaler INH 2 puff BID-RT DIO Administration Propofol 1,000 mg 02/22/20 12:15 02/24/20 20:19 Propofol 1,000 Mg/100 Ml Vial IV 03/23/20 12:15 1,000 mg INF PRN Administration TO ACHIEVE GOAL RASS Protocol Quetiapine Fumarate 25 mg 02/21/20 09:00 02/25/20 07:40 Quetiapine Fumarate 25 Mg Tab PO 25 mg DAILY DIO Administration Rosuvastatin Calcium 10 mg 02/08/20 21:00 02/24/20 20:18 Rosuvastatin 10 Mg Tab PO 10 mg HS DIO Administration Sodium Chloride 10 ml 02/08/20 09:00 02/25/20 07:41 Flush - Normal Saline 10 Ml Syringe IVF Not Given Q12HR DIO Sterile Water 1.2 ml 02/21/20 03:45 02/21/20 04:06 Sterile Water 10 Ml Vial FS 1.2 ml PRN PRN Administration RECONSTITUTION Venlafaxine HCl 150 mg 02/08/20 09:00 02/25/20 07:40 Venlafaxine Hcl Xr 150 Mg Cap PO 150 mg DAILY DIO Administration Zinc Sulfate 220 mg 02/19/20 09:00 02/25/20 07:40 Zinc Sulfate 220 Mg Cap PO 220 mg DAILY DIO Administration Hosp A/P (1) Hypertension Code(s): I10 - ESSENTIAL (PRIMARY) HYPERTENSION Status: Chronic (2) Obesity Code(s): E66.9 - OBESITY, UNSPECIFIED Status: Chronic (3) Hypercholesteremia Code(s): E78.00 - PURE HYPERCHOLESTEROLEMIA, UNSPECIFIED Status: Chronic (4) Acute respiratory failure with hypoxia Code(s): J96.01 - ACUTE RESPIRATORY FAILURE WITH HYPOXIA Status: Acute (5) COVID-19 Code(s): U07.1 - COVID-19 Status: Acute - Plan pt has a hx of cad was on asa/plavix will need to restart when ok with surgery. pt restarted on her bp meds. 02/10 vital signs stable we will continue current antibiotics. Culture so far negative. Patient states that he does snore at night however does not want to get a sleep study. 02/11 patient appeared to be hypoxic last night. BNP mildly elevated patient was given Lasix x1. Patient does have a history of smoking 4 packs a day for 40 years he quit in 2010 after his bypass. His lungs appear clear to auscultate. We will go ahead and do a CTA to rule out a PE. If his CT is negative we will start him on low-dose steroids with inhalers. We will also start patient on s ome duo nebs. I have stopped his IV fluids. We will hold his blood pressure medication also. His blood pressure is little bit on the softer side. Patient's cultures indicated propionibacterium acnes which is sensitive to ceftriaxone. Patient currently vancomycin. Infectious disease has been co nsulted. Patient was given incentive spirometer. Patient's aspirin and Plavix restarted. 02/12 we will start patient on steroids given patient's 4 pack a day smoking history. Patient also on duo nebs. CTA negative for PE. This was discussed with patient and patient's . 02/13 will stop steroids. pt's abx will be set up and possible home in am. pt's covid test is positive. 02/18 called and updated. Asked nursing staff to keep oxygen sat around 95% since pt has a significant hx of smoking and most likely has emphysema. pt on remdesivir and steroids. He is on high flow. will continue abx for right shoulder. 02/20 pt's called and updated. She currently is in four-point restraint. Will check inflammatory markers in the morning. He is not eating very much either may start PPN. Patient also has not slept which can add to his confusion. I have given him Seroquel we will continue that and see if that helps. 02/21 patient's called and updated that we are going to go ahead and intubate this patient. Patient continues to become tachypneic ABG appears worse on high flow. Spoke with pulmonary recommended intubation. Patient also not eating very much was started NG tube feedings after intubation. 02/22 patient continues to be intubated no significant changes. We will continue Decadron. We will continue DVT prophylaxis. Patient tolerating feeds. 02/23 patient continues to be intubated. Continue Decadron. DVT prophylaxis.
--- NOTE | 2020-02-25 17:24 | PDOC.HOSPP ---
- Subjective Encounter Date: 02/25/20 Encounter Time: 10:30 Subjective: Patient continues to be intubated - Objective Vital Signs & Weight: Vital Signs (12 hours) Temp Pulse Resp BP Pulse Ox 02/25/20 15:07 69 25 H 98 02/25/20 15:05 69 138/77 02/25/20 12:00 17 02/25/20 10:35 70 20 95 02/25/20 10:25 72 143/73 H 02/25/20 10:00 18 02/25/20 08:00 98.3 F 23 H 96 02/25/20 07:40 123/58 L 02/25/20 06:40 65 123/58 L 92 L 02/25/20 06:39 69 27 H 92 L 02/25/20 06:38 69 27 H 92 L 02/25/20 06:00 23 H Weight Admit Weight 260 lb Weight 262 lb 12.656 oz Most Recent Monitor Data Heart Rate from ECG 64 NIBP 126/64 NIBP BP-Mean 84 Respiration from ECG 24 SpO2 97 I&O: 02/24/20 02/25/20 02/26/20 06:59 06:59 06:59 Intake Total 4736.4 4023 1071 Output Total 1770 2130 840 Balance 2966.4 1893 231 Result Diagrams: 02/23/20 11:12 02/24/20 03:30 Additional Labs: Accuchecks 02/25/20 02/24/20 02/24/20 03:37 20:54 15:58 POC Glucose 91 94 129 H Hospitalist ROS - Review of Systems Other: Intubated - Medication Medications: Active Medications Generic Name Dose Route Start Last Admin Trade Name Freq PRN Reason Stop Dose Admin Acetaminophen 650 mg 02/08/20 10:28 02/12/20 08:13 Acetaminophen 325 Mg Tab PO 650 mg Q4H PRN Administration ORTA/T > 101.5F/Mild Pain (1-3) Albuterol Sulfate 2 puff 02/19/20 19:00 02/25/20 12:28 Albuterol 200 Puff (6.7gm Inhaler) INH 2 puff [id number] DIO Administration Ascorbic Acid 1,000 mg 02/19/20 09:00 02/25/20 07:40 Ascorbic Acid 500 Mg Chewable Tablet PO 1,000 mg DAILY DIO Administration Aspirin 81 mg 12/27/20 09:00 02/25/20 07:39 Aspirin 81 Mg Enteric Coated Tablet PO 81 mg DAILY DIO Administration Benzonatate 100 mg 02/16/20 10:30 02/19/20 03:30 Benzonatate 100 Mg Cap PO 100 mg Q4H PRN Administration Cough Carvedilol 6.25 mg 02/08/20 21:00 02/25/20 07:40 Carvedilol 6.25 Mg Tab PO 6.25 mg BID DIO Administration Cholecalciferol 400 units 02/19/20 09:00 02/25/20 07:40 Cholecalciferol (Vitamin D3) 400 Units Tab PO 400 units DAILY DIO Administration Clopidogrel Bisulfate 75 mg 02/13/20 09:00 02/25/20 07:40 Clopidogrel Bisulfate 75 Mg Tab PO 75 mg DAILY DIO Administration Dexamethasone 6 mg 02/19/20 09:00 02/25/20 07:41 Dexamethasone 4 Mg/Ml Vial SLOW IVP 6 mg DAILY DIO Administration Enoxaparin Sodium 40 mg 02/22/20 09:00 02/25/20 07:39 Enoxaparin Sodium 40 Mg/0.4 Ml Syringe SC 40 mg 09,2099 DIO Administration Escitalopram Oxalate 10 mg 02/08/20 09:00 02/25/20 07:40 Escitalopram Oxalate 10 Mg Tablet PO 10 mg DAILY DIO Administration Famotidine 20 mg 02/08/20 12:00 02/25/20 07:39 Famotidine 20 Mg Tab PO 20 mg BID DIO Administration Ceftriaxone Sodium 2 gm/ 100 mls @ 200 mls/hr 02/13/20 09:00 02/25/20 07:43 Sodium Chloride IVPB 100 mls Q24HR DIO Administration Fentanyl Citrate 2,000 mcg/ 100 mls @ 0 mls/hr 02/22/20 12:15 02/25/20 15:05 Sodium Chloride IV 03/23/20 12:15 100 mls INF DIO Administration Protocol Per Protocol Sodium Chloride 1,000 mls @ 100 mls/hr 02/22/20 14:45 02/25/20 15:06 1/2 Normal Saline IV Not Given .Q10H DIO Ipratropium [place] 2 puff 02/14/20 02:30 02/25/20 15:07 Ipratropium Oral Inhaler INH 2 puff [id number] DIO Administration Lorazepam 2 mg 02/22/20 12:15 02/24/20 03:55 Lorazepam 2 Mg/Ml Vial SLOW IVP 03/23/20 12:15 2 mg Q1H PRN Administration Breakthrough agitation Magnesium Hydroxide 30 ml 02/08/20 10:28 02/25/20 05:41 Milk Of Magnesia 30 Ml Udcup PO 30 ml DAILYPRN PRN Administration Constipation Melatonin 3 mg 02/21/20 03:20 02/21/20 19:36 Melatonin 3 Mg Tab PO 3 mg HSPRN PRN Administration Insomnia Methocarbamol 1,500 mg 02/08/20 10:28 02/20/20 22:50 Methocarbamol 500 Mg Tab PO 1,500 mg Q6H PRN Administration Muscle Spasm Mometasone Furoate/Formoterol Fumar 2 puff 02/20/20 18:30 02/25/20 06:39 Mometasone 100 Mcg/Formoterol 5 Mcg 120 Puff Inhaler INH 2 puff BID-RT DIO Administration Propofol 1,000 mg 02/22/20 12:15 02/24/20 20:19 Propofol 1,000 Mg/100 Ml Vial IV 03/23/20 12:15 1,000 mg INF PRN Administration TO ACHIEVE GOAL RASS Protocol Quetiapine Fumarate 25 mg 02/21/20 09:00 02/25/20 07:40 Quetiapine Fumarate 25 Mg Tab PO 25 mg DAILY DIO Administration Rosuvastatin Calcium 10 mg 02/08/20 21:00 02/24/20 20:18 Rosuvastatin 10 Mg Tab PO 10 mg HS DIO Administration Sodium Chloride 10 ml 02/08/20 09:00 02/25/20 07:41 Flush - Normal Saline 10 Ml Syringe IVF Not Given Q12HR DIO Sterile Water 1.2 ml 02/21/20 03:45 02/21/20 04:06 Sterile Water 10 Ml Vial FS 1.2 ml PRN PRN Administration RECONSTITUTION Venlafaxine HCl 150 mg 02/08/20 09:00 02/25/20 07:40 Venlafaxine Hcl Xr 150 Mg Cap PO 150 mg DAILY DIO Administration Zinc Sulfate 220 mg 02/19/20 09:00 02/25/20 07:40 Zinc Sulfate 220 Mg Cap PO 220 mg DAILY DIO Administration - Exam Neck: negative: supple, symmetric, no JVD, no thyromegaly, no lymphadenopathy, no carotid bruit, JVD Heart: negative: RRR, no murmur, no gallops, no rubs, normal peripheral pulses, irregular, diminshed peripheral pulses, murmur present, II/IV, III/IV Respiratory: negative: CTAB, no wheezes, no rales, no ronchi, normal chest expansion, no tachypnea, normal percussion, rales, rhonchi, tachypneic, wheezes Gastrointestinal: negative: soft, non-tender, non-distended, normal bowel so unds, no palpable masses, no hepatomegaly, no splenomegaly, no bruit, no guarding, no rigidity, tender to palpation, distended, diminished bowl sounds, voluntary guarding Hosp A/P (1) Hypertension Code(s): I10 - ESSENTIAL (PRIMARY) HYPERTENSION Status: Chronic (2) Obesity Code(s): E66.9 - OBESITY, UNSPECIFIED Status: Chronic (3) Hypercholesteremia Code(s): E78.00 - PURE HYPERCHOLESTEROLEMIA, UNSPECIFIED Status: Chronic (4) Acute respiratory failure with hypoxia Code(s): J96.01 - ACUTE RESPIRATORY FAILURE WITH HYPOXIA Status: Acute (5) COVID-19 Code(s): U07.1 - COVID-19 Status: Acute - Plan pt has a hx of cad was on asa/plavix will need to restart when ok with surgery. pt restarted on her bp meds. 02/10 vital signs stable we will continue current antibiotics. Culture so far negative. Patient states that he does snore at night however does not want to get a sleep study. 02/11 patient appeared to be hypoxic last night. BNP mildly elevated patient was given Lasix x1. Patient does have a history of smoking 4 packs a day for 40 years he quit in 2010 after his bypass. His lungs appear clear to auscultate. We will go ahead and do a CTA to rule out a PE. If his CT is negative we will start him on low-dose steroids with inhalers. We will also start patient on some duo nebs. I have stopped his IV fluids. We will hold his blood pressure medication also. His blood pressure is little bit on the softer side. Patient's cultures indicated propionibacterium acnes which is sensitive to ceftriaxone. Patient currently vancomycin. Infectious disease has been consulted. Patient was given incentive spirometer. Patient's aspirin and Plavix restarted. 02/12 we will start patient on steroids given patient's 4 pack a day smoking history. Patient also on duo nebs. CTA negative for PE. This was discussed with patient and patient's . 02/13 will stop steroids. pt's abx will be set up and possible home in am. pt's covid test is positive. 02/18 called and updated. Asked nursing staff to keep oxygen sat around 95% since pt has a significant hx of smoking and most likely has emphysema. pt on remdesivir and steroids. He is on high flow. will continue abx for right shoulder. 02/20 pt's called and updated. She currently is in four-point restraint. Will check inflammatory markers in the morning. He is not eating very much either may start PPN. Patient also has not slept which can add to his confusion. I have given him Seroquel we will continue that and see if that he lps. 02/21 patient's called and updated that we are going to go ahead and intubate this patient. Patient continues to become tachypneic ABG appears worse on high flow. Spoke with pulmonary recommended intubation. Patient also not eating very much was started NG tube feedings after intubation. 02/22 patient continues to be intubated no significant changes. We will continue Decadron. We will continue DVT prophylaxis. Patient tolerating feeds. 02/23 patient continues to be intubated. Continue Decadron. DVT prophylaxis. 02/24 patient continues to be intubated. Continue steroids and DVT prophylaxis. Patient's was updated by pulmonary. We will continue antibiotics for right shoulder. Sputum culture spent
--- NOTE | 2020-02-25 17:26 | PRG ---
DATE OF SERVICE: 02/25/2020 SUBJECTIVE: Mr. Garcia is stable overnight. OBJECTIVE: VITAL SIGNS: Heart rate is in the 60s, blood pressure 138/77, respiratory rate per mechanical ventilation, FiO2 is down to 55 today. LUNGS: Remarkable for equal breath sounds. HEART: Regular rhythm. ABDOMEN: Soft. EXTREMITIES: Without edema. LABORATORY STUDIES: White count has not been checked for a couple of days. We will reorder daily lab We will order daily chest x-ray since there have been a significant incidence of spontaneous pneumothoraces in these COVID patients. I contacted the and the daughter by phone. I answered all their questions, although most of the questions they already knew the answer to. I have explained to him that it is unpredictable whether these people rapidly improve or slowly improve or deteriorate. Hopefully, he is stabilized and will slowly improve from this point on. IMPRESSION: 1. COVID pneumonia. 2. Respiratory failure, trying to minimize FiO2 and then we will try to slowly decrease PEEP to minimize airway pressures. 3. Hypertension. 4. Obesity. 5. History of lipid disorder. 6. History of coronary artery disease. We probably will continue antibiotics because of shoulder infection. Weighs over 100 kg, so it would not be unreasonable to increase his Lovenox up to 60 mg subcu q.12. We will continue supportive care. Critical care time 30 min. Job ID: [id number] MTDD
[2020-02-25] MEDS: Propofol 1,000 MG/100 ML VIAL IV PRN (19:36)
[2020-02-25] MEDS: Enoxaparin Sodium 60 MG/0.6 ML SYRINGE SC SCH (19:37)
[2020-02-25] MEDS: Rosuvastatin 10 MG TAB PO SCH (19:37)
[2020-02-26] MEDS: Albuterol 200 PUFF (6.7GM INHALER) INH SCH ×2 (01:50→07:11)
[2020-02-26] MEDS: Ipratropium Oral Inhaler INH SCH ×3 (01:51→10:55)
[2020-02-26] MEDS: fentaNYL Citrate/PF 2,000 MCG in Sodium Chloride 0.9% 60 ML IV SCH ×2 (03:42→17:19)
[2020-02-26 05:28] LABS: ALT (SGPT) 12 U/L (8-55); AST (SGOT) 17 U/L (5-34); Albumin 2.5 g/dL (3.4-4.8); Alkaline Phosphatase 82 U/L (40-110); Anion Gap 12 mmol/L (10-20); BUN (Urea Nitrogen) 17 mg/dL (8.4-25.7); Bilirubin, Direct 0.3 mg/dL (0.1-0.3); Bilirubin, Total 0.5 mg/dL (0.2-1.2); Calc. Creatinine Clearance 190 mL/min (70-130); Calcium 7.7 mg/dL (7.8-10.44); Carbon Dioxide 31 mmol/L (23-31); Chloride 98 mmol/L (98-107); Glucose 90 mg/dL (80-115); Potassium 3.8 mmol/L (3.5-5.1); Protein, Total 5.6 g/dL (5.8-8.1); Sodium 137 mmol/L (136-145)
[2020-02-26] MEDS: Propofol 1,000 MG/100 ML VIAL IV PRN ×4 (05:53→23:49)
[2020-02-26] MEDS: Sodium Chloride 0.45% 1,000 ML IV SCH (05:56)
[2020-02-26 05:58] LABS: Eosinophils 1 % (0-10); Hemoglobin 10.5 g/dL (14.0-18.0); Lymphocytes 7 % (21-51); MDiff Complete? YES; Mean Corpuscular HGB CONC 31.7 g/dL (32.0-36.0); Mean Corpuscular Hemoglobin 28.3 pg (27.0-31.0); Mean Corpuscular Volume 89.2 fL (78.0-98.0); Mean Platelet Volume 6.4 fL (7.4-10.4); Monocytes 6 % (0-10); Neutrophil 86 % (42-75); Platelet Count 343 thou/uL (130-400); Platelet Morphology Comment Appears Adequate; RBC Distribution Width 14.2 % (11.5-14.5); RBC Morphology Normal; White Blood Cell (WBC) Count 10.9 thou/uL (4.8-10.8)
[2020-02-26] MEDS: Mometasone 100 MCG/Formoterol 5 MCG 120 PUFF INHALER INH SCH ×2 (07:11→18:32)
[2020-02-26] MEDS: Enoxaparin Sodium 60 MG/0.6 ML SYRINGE SC SCH ×2 (08:01→20:48)
[2020-02-26] MEDS: Famotidine 20 MG TAB PO SCH ×2 (08:02→20:47)
[2020-02-26] MEDS: cefTRIAXone\\ROCEPHIN 2 GM in Sodium Chloride 0.9% 100 ML IVPB SCH (08:02)
[2020-02-26] MEDS: Aspirin 81 mg Enteric Coated Tablet PO SCH (08:02)
[2020-02-26] MEDS: Cholecalciferol (Vitamin D3) 400 UNITS TAB PO SCH (08:02)
[2020-02-26] MEDS: Zinc Sulfate 220 MG CAP PO SCH (08:03)
[2020-02-26] MEDS: Dexamethasone 4 mg/ml Vial SLOW IVP SCH (08:03)
[2020-02-26] MEDS: Ascorbic Acid 500 mg Chewable Tablet PO SCH (08:03)
[2020-02-26] MEDS: Venlafaxine HCl XR 150 MG CAP PO SCH (08:03)
[2020-02-26] MEDS: Clopidogrel Bisulfate 75 MG TAB PO SCH (08:03)
[2020-02-26] MEDS: Escitalopram Oxalate 10 mg Tablet PO SCH (08:03)
[2020-02-26] MEDS: Carvedilol 6.25 MG TAB PO SCH ×2 (08:04→21:45)
[2020-02-26] MEDS: Lorazepam 2 MG/ML VIAL SLOW IVP PRN (08:06)
--- NOTE | 2020-02-26 09:37 | RAD ---
Exam: Chest one view HISTORY:Respiratory distress. Ventilated patient. Comparison: 02/19/2020, 02/22/2020 FINDINGS: Lines and tubes: Endotracheal tube, nasogastric tube are redemonstrated. Stable left-sided PICC line. Cardiac silhouette:Normal cardiac silhouette. There are sternotomy wires. Aorta: Unremarkable Pulmonary vessels: Normal Costophrenic angles: Clear LUNGS: Multifocal interstitial and alveolar opacities, unchanged. Pneumothorax: None Osseous abnormalities: Stable dorsal column stimulator IMPRESSION: No significant interval change.
[2020-02-26] MEDS ORDERED: Furosemide 100 MG/10 ML VIAL SLOW IVP SCH (12:15)
--- NOTE | 2020-02-26 18:32 | PRG ---
DATE OF SERVICE: Mr. Garcia remains mechanically ventilated. slow improvement. We can consider weaning here sometime early next week. Critical care time 30 min. Job ID: [id number] MTDD
[2020-02-26] MEDS: HumaLOG 300 UNITS/3 ML VIAL SC PRN (18:46)
[2020-02-26] MEDS: Rosuvastatin 10 MG TAB PO SCH (20:47)
[2020-02-27 04:49] LABS: Anion Gap 12 mmol/L (10-20); BUN (Urea Nitrogen) 23 mg/dL (8.4-25.7); Calc. Creatinine Clearance 166 mL/min (70-130); Calcium 7.8 mg/dL (7.8-10.44); Carbon Dioxide 34 mmol/L (23-31); Chloride 96 mmol/L (98-107); Glucose 102 mg/dL (80-115); Potassium 3.9 mmol/L (3.5-5.1); Sodium 138 mmol/L (136-145)
[2020-02-27 05:14] LABS: Eosinophils 1 % (0-10); Hemoglobin 10.2 g/dL (14.0-18.0); Lymphocytes 9 % (21-51); MDiff Complete? YES; Mean Corpuscular HGB CONC 30.7 g/dL (32.0-36.0); Mean Corpuscular Hemoglobin 27.1 pg (27.0-31.0); Mean Platelet Volume 6.6 fL (7.4-10.4); Monocytes 5 % (0-10); Myelocyte 1 % (0-0); Neutrophil 84 % (42-75); Platelet Count 339 thou/uL (130-400); Platelet Morphology Comment Appears Adequate; RBC Distribution Width 14.2 % (11.5-14.5); RBC Morphology Normal; Red Blood Cell (RBC) Count 3.77 mill/uL (4.70-6.10); White Blood Cell (WBC) Count 8.3 thou/uL (4.8-10.8)
[2020-02-27] MEDS: Propofol 1,000 MG/100 ML VIAL IV PRN ×3 (05:56→20:03)
[2020-02-27] MEDS: fentaNYL Citrate/PF 2,000 MCG in Sodium Chloride 0.9% 60 ML IV SCH (06:48)
[2020-02-27] MEDS: Mometasone 100 MCG/Formoterol 5 MCG 120 PUFF INHALER INH SCH ×2 (07:41→18:46)
[2020-02-27] MEDS: Furosemide 100 MG/10 ML VIAL SLOW IVP SCH (09:13)
[2020-02-27] MEDS: cefTRIAXone\\ROCEPHIN 2 GM in Sodium Chloride 0.9% 100 ML IVPB SCH (09:14)
[2020-02-27] MEDS: Aspirin 81 mg Enteric Coated Tablet PO SCH (09:14)
[2020-02-27] MEDS: Venlafaxine HCl XR 150 MG CAP PO SCH (09:14)
[2020-02-27] MEDS: Escitalopram Oxalate 10 mg Tablet PO SCH (09:14)
[2020-02-27] MEDS: Dexamethasone 4 mg/ml Vial SLOW IVP SCH (09:15)
[2020-02-27] MEDS: Clopidogrel Bisulfate 75 MG TAB PO SCH (09:15)
[2020-02-27] MEDS: Ascorbic Acid 500 mg Chewable Tablet PO SCH (09:15)
[2020-02-27] MEDS: Lorazepam 2 MG/ML VIAL SLOW IVP PRN ×2 (09:15→20:31)
[2020-02-27] MEDS: Zinc Sulfate 220 MG CAP PO SCH (09:15)
[2020-02-27] MEDS: Cholecalciferol (Vitamin D3) 400 UNITS TAB PO SCH (09:15)
[2020-02-27] MEDS: Enoxaparin Sodium 60 MG/0.6 ML SYRINGE SC SCH ×2 (09:16→20:20)
[2020-02-27] MEDS: Carvedilol 6.25 MG TAB PO SCH ×2 (09:20→20:20)
[2020-02-27] MEDS: Famotidine 20 MG TAB PO SCH ×2 (09:21→20:21)
--- NOTE | 2020-02-27 10:34 | RAD ---
AP CHEST: Date: 02/27/2020 INDICATION: CCU follow-up. On ventilator. Pneumonia. COMPARISON: 02/26/2020. FINDINGS: Cardiomegaly with mild vascular congestion. Confluent infiltrates and/or edema in the lung bases with bilateral effusions. IMPRESSION: No evidence of significant interval change. POS: AGW
--- NOTE | 2020-02-27 16:01 | PRG ---
DATE OF SERVICE: 02/27/2020 SUBJECTIVE: Hair Garcia remains stable. OBJECTIVE: VITAL SIGNS: Heart rates in the 70s, FiO2 is at 40%, blood pressure 109/62, respiratory rates in the teens. His static compliance today calculates at 51, which is excellent . LUNGS: Remarkable for coarse equal breath sounds. HEART: Regular rhythm. ABDOMEN: Soft. EXTREMITIES: Without asymmetry. LABORATORY DATA: White count 8.3, hemoglobin 10.2, platelets 339. Sodium 138, potassium 3.9, chloride 96, bicarb 34, BUN 23, creatinine 0.73. Chest radiograph reviewed by me is essentially unchanged. IMPRESSION: COVID pneumonia with improving gas exchange and lung compliance. He may be weanable in 24 to 48 hours. Critical care time 30 min. Job ID: [id number] MTDD
--- NOTE | 2020-02-27 16:04 | PDOC.HOSPP ---
- Subjective Encounter Date: 02/27/20 Encounter Time: 14:00 Subjective: pt intubated - Objective Vital Signs & Weight: Vital Signs (12 hours) Temp Pulse Resp BP Pulse Ox 02/27/20 14:14 70 02/27/20 14:00 21 H 02/27/20 12:00 99.1 F 20 02/27/20 10:12 74 02/27/20 10:00 22 H 02/27/20 09:20 120/62 02/27/20 08:00 98.3 F 20 96 02/27/20 07:42 78 02/27/20 06:00 20 Weight Admit Weight 260 lb Weight 264 lb 1.82 oz Most Recent Monitor Data Heart Rate from ECG 71 NIBP 107/63 NIBP BP-Mean 77 Respiration from ECG 20 SpO2 97 I&O: 02/26/20 02/27/20 02/28/20 06:59 06:59 06:59 Intake Total 5302.5 3106 60 Output Total 2680 3795 1800 Balance 5982.5 -239 -0784 Result Diagrams: 02/27/20 04:00 02/27/20 04:00 Additional Labs: Accuchecks 02/26/20 02/26/20 22:31 16:23 POC Glucose 119 H 136 H Hospitalist ROS - Review of Systems Other: intubate - Medication Medications: Active Medications Generic Name Dose Route Start Last Admin Trade Name Freq PRN Reason Stop Dose Admin Acetaminophen 650 mg 02/08/20 10:28 02/12/20 08:13 Acetaminophen 325 Mg Tab PO 650 mg Q4H PRN Administration ORTA/T > 101.5F/Mild Pain (1-3) Albuterol/Ipratropium 3 ml 02/26/20 10:30 02/27/20 14:13 Ipratropium/Albuterol Sulfate 3 Ml Neb NEB 3 ml [id number] DIO Administration Ascorbic Acid 1,000 mg 02/19/20 09:00 02/27/20 09:15 Ascorbic Acid 500 Mg Chewable Tablet PO 1,000 mg DAILY DIO Administration Aspirin 81 mg 02/13/20 09:00 02/27/20 09:14 Aspirin 81 Mg Enteric Coated Tablet PO 81 mg DAILY DIO Administration Benzonatate 100 mg 02/16/20 10:30 02/19/20 03:30 Benzonatate 100 Mg Cap PO 100 mg Q4H PRN Administration Cough Carvedilol 6.25 mg 02/08/20 21:00 02/27/20 09:20 Carvedilol 6.25 Mg Tab PO 6.25 mg BID DIO Administration Cholecalciferol 400 units 02/19/20 09:00 02/27/20 09:15 Cholecalciferol (Vitamin D3) 400 Units Tab PO 400 units DAILY DIO Administration Clopidogrel Bisulfate 75 mg 02/13/20 09:00 02/27/20 09:15 Clopidogrel Bisulfate 75 Mg Tab PO 75 mg DAILY DIO Administration Dexamethasone 6 mg 02/19/20 09:00 02/27/20 09:15 Dexamethasone 4 Mg/Ml Vial SLOW IVP 6 mg DAILY DIO Administration Enoxaparin Sodium 60 mg 02/25/20 21:00 02/27/20 09:16 Enoxaparin Sodium 60 Mg/0.6 Ml Syringe SC 60 mg 09,2100 DIO Administration Escitalopram Oxalate 10 mg 02/08/20 09:00 02/27/20 09:14 Escitalopram Oxalate 10 Mg Tablet PO 10 mg DAILY DIO Administration Famotidine 20 mg 02/08/20 12:00 02/27/20 09:21 Famotidine 20 Mg Tab PO 20 mg BID DIO Administration Furosemide 60 mg 02/27/20 09:00 02/27/20 09:13 Furosemide 100 Mg/10 Ml Vial SLOW IVP 60 mg DAILY DIO Administration Ceftriaxone Sodium 2 gm/ 100 mls @ 200 mls/hr 02/13/20 09:00 02/27/20 09:14 Sodium Chloride IVPB 100 mls Q24HR DIO Administration Fentanyl Citrate 2,000 mcg/ 100 mls @ 0 mls/hr 02/22/20 12:15 02/27/20 06:48 Sodium Chloride IV 03/23/20 12:15 100 mls INF DIO Administration Protocol Per Protocol Insulin Human Lispro 0 units 02/22/20 08:23 02/26/20 18:46 Humalog 300 Units/3 Ml Vial SC 3 unit .MILD SLIDING SCALE PRN Administration Mild Correctional Scale Lorazepam 2 mg 02/22/20 12:15 02/27/20 09:15 Lorazepam 2 Mg/Ml Vial SLOW IVP 03/23/20 12:15 2 mg Q1H PRN Administration Breakthrough agitation Magnesium Hydroxide 30 ml 02/08/20 10:28 02/25/20 05:41 Milk Of Magnesia 30 Ml Udcup PO 30 ml DAILYPRN PRN Administration Constipation Melatonin 3 mg 02/21/20 03:20 02/21/20 19:36 Melatonin 3 Mg Tab PO 3 mg HSPRN PRN Administration Insomnia Methocarbamol 1,500 mg 02/08/20 10:28 02/20/20 22:50 Methocarbamol 500 Mg Tab PO 1,500 mg Q6H PRN Administration Muscle Spasm Mometasone Furoate/Formoterol Fumar 2 puff 02/20/20 18:30 02/27/20 07:41 Mometasone 100 Mcg/Formoterol 5 Mcg 120 Puff Inhaler INH 2 puff BID-RT DIO Administration Propofol 1,000 mg 02/22/20 12:15 02/27/20 09:15 Propofol 1,000 Mg/100 Ml Vial IV 03/23/20 12:15 1,000 mg INF PRN Administration TO ACHIEVE GOAL RASS Protocol Quetiapine Fumarate 25 mg 02/21/20 09:00 02/27/20 09:15 Quetiapine Fumarate 25 Mg Tab PO 25 mg DAILY DIO Administration Rosuvastatin Calcium 10 mg 02/08/20 21:00 02/26/20 20:47 Rosuvastatin 10 Mg Tab PO 10 mg HS DIO Administration Sodium Chloride 10 ml 02/08/20 09:00 02/27/20 09:15 Flush - Normal Saline 10 Ml Syringe IVF 10 ml Q12HR DIO Administration Sterile Water 1.2 ml 02/21/20 03:45 02/21/20 04:06 Sterile Water 10 Ml Vial FS 1.2 ml PRN PRN Administration RECONSTITUTION Venlafaxine HCl 150 mg 02/08/20 09:00 02/27/20 09:14 Venlafaxine Hcl Xr 150 Mg Cap PO 150 mg DAILY DIO Administration Zinc Sulfate 220 mg 02/19/20 09:00 02/27/20 09:15 Zinc Sulfate 220 Mg Cap PO 220 mg DAILY DIO Administration - Exam Neck: negative: supple, symmetric, no JVD, no thyromegaly, no lymphadenopathy, no carotid bruit, JVD Heart: negative: RRR, no murmur, no gallops, no rubs, normal peripheral pulses, irregular, diminshed peripheral pulses, murmur present, II/IV, III/IV Respiratory: negative: CTAB, no wheezes, no rales, no ronchi, normal chest expansion, no tachypnea, normal percussion, rales, rhonchi, tachypneic, wheezes Gastrointestinal: negative: soft, non-tender, non-distended, normal bowel sounds, no palpable masses, no hepatomegaly, no splenomegaly, no bruit, no guarding, no rigidity, tender to palpation, distended, diminished bowl sounds, voluntary guarding Hosp A/P (1) Hypertension Code(s): I10 - ESSENTIAL (PRIMARY) HYPERTENSION Status: Chronic (2) Obesity Code(s): E66.9 - OBESITY, UNSPECIFIED Status: Chronic (3) Hypercholesteremia Code(s): E78.00 - PURE HYPERCHOLESTEROLEMIA, UNSPECIFIED Status: Chronic (4) Acute respiratory failure with hypoxia Code(s): J96.01 - ACUTE RESPIRATORY FAILURE WITH HYPOXIA Status: Acute (5) COVID-19 Code(s): U07.1 - COVID-19 Status: Acute - Plan pt has a hx of cad was on asa/plavix will need to restart when ok with surgery. pt restarted on her bp meds. 02/10 vital signs stable we will continue current antibiotics. Culture so far negative. Patient states that he does snore at night however does not want to get a sleep study. 02/11 patient appeared to be hypoxic last night. BNP mildly elevated patient was given Lasix x1. Patient does have a history of smoking 4 packs a day for 40 years he quit in 2010 after his bypass. His lungs appear clear to auscultate. We will go ahead and do a CTA to rule out a PE. If his CT is negative we will start him on low-dose steroids with inhalers. We will also start patient on some duo nebs. I have stopped his IV fluids. We will hold his blood pressure medication also. His blood pressure is little bit on the softer side. Patient's cultures indicated propionibacterium acnes which is sensitive to ceftriaxone. Patient currently vancomycin. Infectious disease has been consulted. Patient was given incentive spirometer. Patient's aspirin and Plavix restarted. 02/12 we will start patient on steroids given patient's 4 pack a day smoking history. Patient also on duo nebs. CTA negative for PE. This was discussed with patient and patient's . 02/13 will stop steroids. pt's abx will be set up and possible home in am. pt's covid test is positive. 02/18 called and updated. Asked nursing staff to keep oxygen sat around 95% since pt has a significant hx of smoking and most likely has emphysema. pt on remdesivir and steroids. He is on high flow. will continue abx for right shoulder. 02/20 pt's called and updated. She currently is in four-point restraint. Will check inflammatory markers in the morning. He is not eating very much either may start PPN. Patient also has not slept which can add to his confusion. I have given him Seroquel we will continue that and see if that helps. 02/21 patient's called and updated that we are going to go ahead and intubate this patient. Patient continues to become tachypneic ABG appears worse on high flow. Spoke with pulmonary recommended intubation. Patient also not eating very much was started NG tube feedings after intubation. 02/22 patient continues to be intubated no significant changes. We will continue Decadron. We will continue DVT prophylaxis. Patient tolerating feeds. 02/23 patient continues to be intubated. Continue Decadron. DVT prophylaxis. 02/24 patient continues to be intubated. Continue steroids and DVT prophylaxis. Patient's was updated by pulmonary. We will continue antibiotics for right shoulder. Sputum culture spent 02/25 patient continues to be intubated we will continue steroids and DVT prophylaxis. We will continue antibiotics 02/26 patient intubated. Tolerating tube feeds. Will continue IV antibiotics.
[2020-02-27] MEDS: Rosuvastatin 10 MG TAB PO SCH (20:20)
[2020-02-28] MEDS: Lorazepam 2 MG/ML VIAL SLOW IVP PRN ×6 (00:25→22:00)
[2020-02-28] MEDS: fentaNYL Citrate/PF 2,000 MCG in Sodium Chloride 0.9% 60 ML IV SCH (00:54)
[2020-02-28 04:20] LABS: Band 2 % (5-11); Hemoglobin 11.4 g/dL (14.0-18.0); Hypochromia SLIGHT = 6-15 cells (100X) (0-5/hpf); Lymphocytes 12 % (21-51); MDiff Complete? YES; Mean Corpuscular HGB CONC 31.1 g/dL (32.0-36.0); Mean Corpuscular Hemoglobin 27.1 pg (27.0-31.0); Mean Corpuscular Volume 87.1 fL (78.0-98.0); Mean Platelet Volume 6.6 fL (7.4-10.4); Monocytes 6 % (0-10); Neutrophil 76 % (42-75); Platelet Count 406 thou/uL (130-400); Platelet Morphology Comment Appears Adequate; RBC Distribution Width 14.3 % (11.5-14.5); Reactive Lymphocytes 4 % (0-10); Red Blood Cell (RBC) Count 4.22 mill/uL (4.70-6.10); White Blood Cell (WBC) Count 12.4 thou/uL (4.8-10.8)
[2020-02-28 04:31] LABS: ALT (SGPT) 28 U/L (8-55); AST (SGOT) 72 U/L (5-34); Albumin 2.9 g/dL (3.4-4.8); Alkaline Phosphatase 71 U/L (40-110); Anion Gap 15 mmol/L (10-20); BUN (Urea Nitrogen) 28 mg/dL (8.4-25.7); Bilirubin, Direct 0.4 mg/dL (0.1-0.3); Bilirubin, Total 0.6 mg/dL (0.2-1.2); Calc. Creatinine Clearance 162 mL/min (70-130); Calcium 8.3 mg/dL (7.8-10.44); Carbon Dioxide 33 mmol/L (23-31); Chloride 95 mmol/L (98-107); Glucose 109 mg/dL (80-115); Potassium 3.8 mmol/L (3.5-5.1); Protein, Total 6.7 g/dL (5.8-8.1); Sodium 139 mmol/L (136-145)
[2020-02-28] MEDS: Mometasone 100 MCG/Formoterol 5 MCG 120 PUFF INHALER INH SCH ×2 (06:57→18:03)
--- NOTE | 2020-02-28 07:57 | RAD ---
RADIOGRAPH CHEST 1 VIEW: DATE: 02/28/2020 TIME: 5:05 AM HISTORY: 64-year-old male with respiratory failure COMPARISON: 02/27/2020 FINDINGS: No change in life support lines. No change in diffuse mixed interstitial and alveolar infiltrates. No pneumothorax. IMPRESSION: No interval change in diffuse infiltrates
--- NOTE | 2020-02-28 08:12 | PRG ---
DATE OF SERVICE: 02/28/2020 SUBJECTIVE: Mr. Garcia remains mechanically ventilated. OBJECTIVE: VITAL SIGNS: Heart rate is 80, oximetry is 95, FiO2 is 40, and blood pressure 128/73. Intake and outputs -2104. LUNGS: Distant and clear. HEART: Regular rhythm. ABDOMEN: Soft. EXTREMITIES: With no change. LABORATORY DATA: White count 12.4, hemoglobin 11.4, and platelets 406. Sodium 139, potassium 3.8, chloride 95, bicarbonate 33, BUN 20, and creatinine 0.76. IMPRESSION: 1. COVID pneumonia with respiratory failure, improving very slowly. 2. Septic shoulder, status post removal of hardware. Chest x-ray today still shows diffuse infiltrates. We will continue supportive care. Gradual decrease in ventilatory support as tolerated. Critical care time 30 min. Job ID: [id number] MTDD
[2020-02-28] MEDS: cefTRIAXone\\ROCEPHIN 2 GM in Sodium Chloride 0.9% 100 ML IVPB SCH (08:47)
[2020-02-28] MEDS: Furosemide 100 MG/10 ML VIAL SLOW IVP SCH (08:47)
[2020-02-28] MEDS: Enoxaparin Sodium 60 MG/0.6 ML SYRINGE SC SCH ×2 (08:47→20:26)
[2020-02-28] MEDS: Zinc Sulfate 220 MG CAP PO SCH (08:48)
[2020-02-28] MEDS: Dexamethasone 4 mg/ml Vial SLOW IVP SCH (08:48)
[2020-02-28] MEDS: Ascorbic Acid 500 mg Chewable Tablet PO SCH (08:48)
[2020-02-28] MEDS: Venlafaxine HCl XR 150 MG CAP PO SCH (08:48)
[2020-02-28] MEDS: Aspirin 81 mg Enteric Coated Tablet PO SCH (08:48)
[2020-02-28] MEDS: Famotidine 20 MG TAB PO SCH ×2 (08:48→20:26)
[2020-02-28] MEDS: Clopidogrel Bisulfate 75 MG TAB PO SCH (08:49)
[2020-02-28] MEDS: Carvedilol 6.25 MG TAB PO SCH ×2 (08:49→20:39)
[2020-02-28] MEDS: Cholecalciferol (Vitamin D3) 400 UNITS TAB PO SCH (08:49)
[2020-02-28] MEDS: Escitalopram Oxalate 10 mg Tablet PO SCH (08:49)
[2020-02-28] MEDS: Propofol 1,000 MG/100 ML VIAL IV PRN ×2 (08:51→20:26)
[2020-02-28] MEDS ORDERED: Fentanyl CADD 0 ML ONE ×2 (11:57→16:35)
--- NOTE | 2020-02-28 13:50 | PQF ---
CLINICAL DOCUMENTATION CLARIFICATION FORM: Dear Dr. Love Date: 02/28/20 Please exercise your independent, professional judgment in responding to the clarification form. Clinical indicators are provided on the bottom of this form for your review. Please check appropriate box(es): HEART FAILURE: A. ACUITY [ ] Acute [ ] Acute on Chronic [ ] Chronic B. TYPE: [ ] Systolic / HFrEF [ ] Diastolic / HFpEF [ ] Combined Systolic / Diastolic [ ] Hypertensive Heart and Kidney disease [ ] Hypertensive Heart Disease [ ] Hypertensive Kidney Disease [x ] Other diagnosis ____pt was sob so it was a differential but no heart failur [ ] Unable to determine In addition, please specify: Present on Admission (POA): [ ] Yes [x ] No [ ] Unable to determine For continuity of documentation, please document condition throughout progress notes and discharge summary. Thank You. To be completed by CDI/Coding staff for physician review: CLINICAL INDICATORS - SIGNS / SYMPTOMS / LABS / RESULTS AND LOCATION IN EMR PN 02/24 BHIMJI: (02/11- "PATIENT APPEARED TO BE HYPOXIC LAST NIGHT. BNP MILDLY ELEVATED; PATIENT WAS GIVEN LASIX X1) BNP 191.7 RISKS FACTORS / RESULTS AND LOCATION IN EMR DUONEBS (PN 02/24- BHIM) IVF STOPPED (PN 02/24- BHIM) IV LASIX (PN 02/24- BHIMJI / GIVEN 02/26-PRESENT)) CARVEDILOL (02/07-PRESENT) INTUBATION WITH MECHANICAL VENTILATION (02/22) TREATMENTS / RESULTS AND LOCATION IN EMR DUONEBS (PN 02/24- BHIMJI) IVF STOPPED (PN 02/24- BHIM) IV LASIX (PN 02/24- BHIMJI / GIVEN 02/26-PRESENT)) CARVEDILOL (02/07-PRESENT) INTUBATION WITH MECHANICAL VENTILATION (02/22) CDS Signature: Daria Hill RN Phone #: [phone] Date: 02/28/20 This is a permanent part of the Medical Record [facility]
--- NOTE | 2020-02-28 15:55 | PDOC.HOSPP ---
- Subjective Encounter Date: 02/28/20 Encounter Time: 10:00 Subjective: Patient continues to be intubated - Objective Vital Signs & Weight: Vital Signs (12 hours) Temp Pulse Resp BP Pulse Ox 02/28/20 15:14 77 02/28/20 14:00 25 H 02/28/20 12:00 28 H 02/28/20 11:00 98.6 F 77 02/28/20 10:00 27 H 02/28/20 08:49 122/78 02/28/20 08:00 98.1 F 23 H 02/28/20 07:05 95 02/28/20 06:46 80 02/28/20 06:00 27 H 02/28/20 04:00 98.7 F 23 H Weight Admit Weight 260 lb Weight 4.205 oz Most Recent Monitor Data Heart Rate from ECG 77 NIBP 114/65 NIBP BP-Mean 81 Respiration from ECG 31 SpO2 99 I&O: 02/27/20 02/28/20 02/29/20 06:59 06:59 06:59 Intake Total 3106 1361 Output Total 8923 1555 1788 [facility]689 [phone] Result Diagrams: 02/28/20 03:30 02/28/20 03:30 Additional Labs: Accuchecks 02/28/20 02/27/20 02/27/20 04:22 22:14 16:27 POC Glucose 97 115 H 138 H 02/27/20 03:44 POC Glucose 99 Hospitalist ROS - Review of Systems Other: Patient intubated - Medication Medications: Active Medications Generic Name Dose Route Start Last Admin Trade Name Freq PRN Reason Stop Dose Admin Acetaminophen 650 mg 02/08/20 10:28 02/12/20 08:13 Acetaminophen 325 Mg Tab PO 650 mg Q4H PRN Administration ORTA/T > 101.5F/Mild Pain (1-3) Albuterol/Ipratropium 3 ml 02/26/20 10:30 02/28/20 15:36 Ipratropium/Albuterol Sulfate 3 Ml Neb NEB 3 ml [id number] DIO Administration Ascorbic Acid 1,000 mg 02/19/20 09:00 02/28/20 08:48 Ascorbic Acid 500 Mg Chewable Tablet PO 1,000 mg DAILY DIO Administration Aspirin 81 mg 02/13/20 09:00 02/28/20 08:48 Aspirin 81 Mg Enteric Coated Tablet PO 81 mg DAILY DIO Administration Benzonatate 100 mg 02/16/20 10:30 02/19/20 03:30 Benzonatate 100 Mg Cap PO 100 mg Q4H PRN Administration Cough Carvedilol 6.25 mg 02/08/20 21:00 02/28/20 08:49 Carvedilol 6.25 Mg Tab PO 6.25 mg BID DIO Administration Cholecalciferol 400 units 02/19/20 09:00 02/28/20 08:49 Cholecalciferol (Vitamin D3) 400 Units Tab PO 400 units DAILY DIO Administration Clopidogrel Bisulfate 75 mg 02/13/20 09:00 02/28/20 08:49 Clopidogrel Bisulfate 75 Mg Tab PO 75 mg DAILY DIO Administration Dexamethasone 6 mg 02/19/20 09:00 02/28/20 08:48 Dexamethasone 4 Mg/Ml Vial SLOW IVP 6 mg DAILY DIO Administration Enoxaparin Sodium 60 mg 02/25/20 21:00 02/28/20 08:47 Enoxaparin Sodium 60 Mg/0.6 Ml Syringe SC 60 mg 0900,2100 DIO Administration Escitalopram Oxalate 10 mg 02/08/20 09:00 02/28/20 08:49 Escitalopram Oxalate 10 Mg Tablet PO 10 mg DAILY DIO Administration Famotidine 20 mg 02/08/20 12:00 02/28/20 08:48 Famotidine 20 Mg Tab PO 20 mg BID DIO Administration Furosemide 60 mg 02/27/20 09:00 02/28/20 08:47 Furosemide 100 Mg/10 Ml Vial SLOW IVP 60 mg DAILY DIO Administration Ceftriaxone Sodium 2 gm/ 100 mls @ 200 mls/hr 02/13/20 09:00 02/28/20 08:47 Sodium Chloride IVPB 100 mls Q24HR DIO Administration Fentanyl Citrate 2,000 mcg/ 100 mls @ 0 mls/hr 02/22/20 12:15 02/28/20 00:54 Sodium Chloride IV 03/23/20 12:15 100 mls INF DIO Administration Protocol Per Protocol Insulin Human Lispro 0 units 02/22/20 08:23 02/26/20 18:46 Humalog 300 Units/3 Ml Vial SC 3 unit .MILD SLIDING SCALE PRN Administration Mild Correctional Scale Lorazepam 2 mg 02/22/20 12:15 02/28/20 08:47 Lorazepam 2 Mg/Ml Vial SLOW IVP 03/23/20 12:15 2 mg Q1H PRN Administration Breakthrough agitation Magnesium Hydroxide 30 ml 02/08/20 10:28 02/25/20 05:41 Milk Of Magnesia 30 Ml Udcup PO 30 ml DAILYPRN PRN Administration Constipation Melatonin 3 mg 02/21/20 03:20 02/21/20 19:36 Melatonin 3 Mg Tab PO 3 mg HSPRN PRN Administration Insomnia Methocarbamol 1,500 mg 02/08/20 10:28 02/20/20 22:50 Methocarbamol 500 Mg Tab PO 1,500 mg Q6H PRN Administration Muscle Spasm Mometasone Furoate/Formoterol Fumar 2 puff 02/20/20 18:30 02/28/20 06:57 Mometasone 100 Mcg/Formoterol 5 Mcg 120 Puff Inhaler INH 2 puff BID-RT DIO Administration Morphine Sulfate 2 mg 02/22/20 12:15 02/28/20 08:47 Morphine 2 Mg/Ml Vial SLOW IVP 03/23/20 12:15 2 mg Q1H PRN Administration Breakthrough Pain/Agitation Propofol 1,000 mg 02/22/20 12:15 02/28/20 08:51 Propofol 1,000 Mg/100 Ml Vial IV 03/23/20 12:15 1,000 mg INF PRN Administration TO ACHIEVE GOAL RASS Protocol Quetiapine Fumarate 25 mg 02/21/20 09:00 02/28/20 08:48 Quetiapine Fumarate 25 Mg Tab PO 25 mg DAILY DIO Administration Rosuvastatin Calcium 10 mg 02/08/20 21:00 02/27/20 20:20 Rosuvastatin 10 Mg Tab PO 10 mg HS DIO Administration Sodium Chloride 10 ml 02/08/20 09:00 02/28/20 08:50 Flush - Normal Saline 10 Ml Syringe IVF 10 ml Q12HR DIO Administration Sterile Water 1.2 ml 02/21/20 03:45 02/21/20 04:06 Sterile Water 10 Ml Vial FS 1.2 ml PRN PRN Administration RECONSTITUTION Venlafaxine HCl 150 mg 02/08/20 09:00 02/28/20 08:48 Venlafaxine Hcl Xr 150 Mg Cap PO 150 mg DAILY DIO Administration Zinc Sulfate 220 mg 02/19/20 09:00 02/28/20 08:48 Zinc Sulfate 220 Mg Cap PO 220 mg DAILY DIO Administration Hosp A/P (1) Hypertension Code(s): I10 - ESSENTIAL (PRIMARY) HYPERTENSION Status: Chronic (2) Obesity Code(s): E66.9 - OBESITY, UNSPECIFIED Status: Chronic (3) Hypercholesteremia Code(s): E78.00 - PURE HYPERCHOLESTEROLEMIA, UNSPECIFIED Status: Chronic (4) Acute respiratory failure with hypoxia Code(s): J96.01 - ACUTE RESPIRATORY FAILURE WITH HYPOXIA Status: Acute (5) COVID-19 Code(s): U07.1 - COVID-19 Status: Acute - Plan pt has a hx of cad was on asa/plavix will need to restart when ok with surgery. pt restarted on her bp meds. 02/10 vital signs stable we will continue current antibiotics. Culture so far negative. Patient states that he does snore at night however does not want to get a sleep study. 02/11 patient appeared to be hypoxic last night. BNP mildly elevated patient was given Lasix x1. Patient does have a history of smoking 4 packs a day for 40 years he quit in 2010 after his bypass. His lungs appear clear to auscultate. We will go ahead and do a CTA to rule out a PE. If his CT is negative we will start him on low-dose steroids with inhalers. We will also start patient on some duo nebs. I have stopped his IV fluids. We will hold his blood pressure medication also. His blood pressure is little bit on the softer side. Patient's cultures indicated propionibacterium acnes which is sensitive to ceftriaxone. Patient currently vancomycin. Infectious disease has been consulted. Patient was given incentive spirometer. Patient's aspirin and Plavix restarted. 02/12 we will start patient on steroids given patient's 4 pack a day smoking history. Patient also on duo nebs. CTA negative for PE. This was discussed with patient and patient's . 02/13 will stop steroids. pt's abx will be set up and possible home in am. pt's covid test is positive. 02/18 called and updated. Asked nursing staff to keep oxygen sat around 95% since pt has a significant hx of smoking and most likely has emphysema. pt on remdesivir and steroids. He is on high flow. will continue abx for right shoulder. 02/20 pt's called and updated. She currently is in four-point restraint. Will check inflammatory markers in the morning. He is not eating very much either may start PPN. Patient also has not slept which can add to his confusion. I have given him Seroquel we will continue that and see if that helps. 02/21 patient's called and updated that we are going to go ahead and intubate this patient. Patient continues to become tachypneic ABG appears worse on high flow. Spoke with pulmonary recommended intubation. Patient also not eating very much was started NG tube feedings after intubation. 02/22 patient continues to be intubated no significant changes. We will continue Decadron. We will continue DVT prophylaxis. Patient tolerating feeds. 02/23 patient continues to be intubated. Continue Decadron. DVT prophylaxis. 02/24 patient continues to be intubated. Continue steroids and DVT prophylaxis. Patient's was updated by pulmonary. We will continue antibiotics for right shoulder. Sputum culture spent 02/25 patient continues to be intubated we will continue steroids and DVT prophylaxis. We will continue antibiotics 02/26 patient intubated. Tolerating tube feeds. Will continue IV antibiotics. 02/27 patient continues to be intubated, tolerating tube feeds. patient on DVT prophylaxis. will continue antibiotics for now
[2020-02-28] MEDS ORDERED: Fentanyl CADD 100 ML ONE (20:14)
[2020-02-28] MEDS: Rosuvastatin 10 MG TAB PO SCH (20:26)
[2020-02-29] MEDS: Propofol 1,000 MG/100 ML VIAL IV PRN ×2 (04:21→23:45)
[2020-02-29 04:41] LABS: Band 3 % (5-11); Hemoglobin 11.3 g/dL (14.0-18.0); Hypochromia SLIGHT = 6-15 cells (100X) (0-5/hpf); Lymphocytes 8 % (21-51); MDiff Complete? YES; Mean Corpuscular HGB CONC 30.6 g/dL (32.0-36.0); Mean Corpuscular Hemoglobin 26.7 pg (27.0-31.0); Mean Corpuscular Volume 87.4 fL (78.0-98.0); Mean Platelet Volume 6.8 fL (7.4-10.4); Monocytes 10 % (0-10); Neutrophil 79 % (42-75); Platelet Count 364 thou/uL (130-400); Platelet Morphology Comment Appears Adequate; RBC Distribution Width 14.3 % (11.5-14.5); Red Blood Cell (RBC) Count 4.21 mill/uL (4.70-6.10); White Blood Cell (WBC) Count 13.1 thou/uL (4.8-10.8)
[2020-02-29 04:47] LABS: Anion Gap 13 mmol/L (10-20); BUN (Urea Nitrogen) 32 mg/dL (8.4-25.7); Calc. Creatinine Clearance 0 mL/min (70-130); Calcium 8.2 mg/dL (7.8-10.44); Carbon Dioxide 33 mmol/L (23-31); Chloride 94 mmol/L (98-107); Glucose 109 mg/dL (80-115); Potassium 3.6 mmol/L (3.5-5.1); Sodium 136 mmol/L (136-145)
[2020-02-29] MEDS: Mometasone 100 MCG/Formoterol 5 MCG 120 PUFF INHALER INH SCH ×2 (07:01→18:20)
--- NOTE | 2020-02-29 07:58 | RAD ---
EXAM: Single view of the chest HISTORY: Ventilated patient with respiratory failure COMPARISON: 02/28/2020 FINDINGS: Single view of the chest shows a mildly enlarged cardiomediastinal silhouette. The patient is status post sternotomy. The lines and tubes are unchanged in position. Multifocal peripheral infiltrates are seen in the lungs. There may be a small left pleural effusion. Degenerative changes a re seen in the spine. A spinal stimulation device is partially visualized. IMPRESSION: Stable exam
[2020-02-29] MEDS: Enoxaparin Sodium 60 MG/0.6 ML SYRINGE SC SCH ×2 (08:46→20:50)
[2020-02-29] MEDS: Clopidogrel Bisulfate 75 MG TAB PO SCH (08:47)
[2020-02-29] MEDS: Escitalopram Oxalate 10 mg Tablet PO SCH (08:47)
[2020-02-29] MEDS: Carvedilol 6.25 MG TAB PO SCH ×2 (08:47→20:50)
[2020-02-29] MEDS: Ascorbic Acid 500 mg Chewable Tablet PO SCH (08:47)
[2020-02-29] MEDS: Famotidine 20 MG TAB PO SCH ×2 (08:47→20:50)
[2020-02-29] MEDS: Zinc Sulfate 220 MG CAP PO SCH (08:47)
[2020-02-29] MEDS: Dexamethasone 4 mg/ml Vial SLOW IVP SCH (08:48)
[2020-02-29] MEDS: Aspirin Chewable 81 MG TAB PO SCH (08:48)
[2020-02-29] MEDS: Cholecalciferol (Vitamin D3) 400 UNITS TAB PO SCH (08:48)
[2020-02-29] MEDS: Venlafaxine HCl XR 150 MG CAP PO SCH (08:48)
[2020-02-29] MEDS: cefTRIAXone\\ROCEPHIN 2 GM in Sodium Chloride 0.9% 100 ML IVPB SCH (08:48)
[2020-02-29] MEDS: Furosemide 100 MG/10 ML VIAL SLOW IVP SCH (08:48)
--- NOTE | 2020-02-29 14:49 | PDOC.HOSPP ---
- Subjective Encounter Date: 02/29/20 Encounter Time: 10:30 Subjective: Patient intubated - Objective Vital Signs & Weight: Vital Signs (12 hours) Temp Pulse Resp BP Pulse Ox 02/29/20 14:42 81 23 H 94 L 02/29/20 14:00 21 H 02/29/20 12:00 23 H 02/29/20 10:58 84 118/64 02/29/20 10:47 83 26 H 96 02/29/20 10:00 24 H 02/29/20 08:47 176/85 H 02/29/20 08:22 96.7 F L 02/29/20 08:00 26 H 93 L 02/29/20 07:09 90 113/73 02/29/20 07:00 91 20 91 L 02/29/20 06:00 22 H 02/29/20 04:00 23 H 02/29/20 03:00 99.2 F Weight Admit Weight 260 lb Weight 4.219 oz Most Recent Monitor Data Heart Rate from ECG 81 NIBP 147/91 NIBP BP-Mean 109 Respiration from ECG 22 SpO2 94 I&O: 02/28/20 02/29/20 03/01/20 06:59 06:59 06:59 Intake Total 1361 1363 373 Output Total 3761 1427 5262 [facility]2104 [phone] Result Diagrams: 02/29/20 03:50 02/29/20 03:50 Additional Labs: Accuchecks 02/29/20 02/29/20 02/28/20 08:55 03:50 22:24 POC Glucose 127 H 106 H 109 H 02/28/20 02/28/20 15:21 09:15 POC Glucose 144 H 107 H Hospitalist ROS - Review of Systems Other: Patient intubated - Medication Medications: Active Medications Generic Name Dose Route Start Last Admin Trade Name Freq PRN Reason Stop Dose Admin Acetaminophen 650 mg 02/08/20 10:28 02/12/20 08:13 Acetaminophen 325 Mg Tab PO 650 mg Q4H PRN Administration ORTA/T > 101.5F/Mild Pain (1-3) Albuterol/Ipratropium 3 ml 02/26/20 10:30 02/29/20 14:42 Ipratropium/Albuterol Sulfate 3 Ml Neb NEB 3 ml [id number] DIO Administration Ascorbic Acid 1,000 mg 02/19/20 09:00 02/29/20 08:47 Ascorbic Acid 500 Mg Chewable Tablet PO 1,000 mg DAILY DIO Administration Aspirin 81 mg 02/29/20 09:00 02/29/20 08:48 Aspirin Chewable 81 Mg Tab PO 81 mg DAILY DIO Administration Benzonatate 100 mg 02/16/20 10:30 02/19/20 03:30 Benzonatate 100 Mg Cap PO 100 mg Q4H PRN Administration Cough Carvedilol 6.25 mg 02/08/20 21:00 02/29/20 08:47 Carvedilol 6.25 Mg Tab PO 6.25 mg BID DIO Administration Cholecalciferol 400 units 02/19/20 09:00 02/29/20 08:48 Cholecalciferol (Vitamin D3) 400 Units Tab PO 400 units DAILY DIO Administration Clopidogrel Bisulfate 75 mg 02/13/20 09:00 02/29/20 08:47 Clopidogrel Bisulfate 75 Mg Tab PO 75 mg DAILY DIO Administration Dexamethasone 6 mg 02/19/20 09:00 02/29/20 08:48 Dexamethasone 4 Mg/Ml Vial SLOW IVP 6 mg DAILY DIO Administration Enoxaparin Sodium 60 mg 02/25/20 21:00 02/29/20 08:46 Enoxaparin Sodium 60 Mg/0.6 Ml Syringe SC 60 mg 09,2099 IDO Administration Escitalopram Oxalate 10 mg 02/08/20 09:00 02/29/20 08:47 Escitalopram Oxalate 10 Mg Tablet PO 10 mg DAILY DIO Administration Famotidine 20 mg 02/08/20 12:00 02/29/20 08:47 Famotidine 20 Mg Tab PO 20 mg BID DIO Administration Furosemide 60 mg 02/27/20 09:00 02/29/20 08:48 Furosemide 100 Mg/10 Ml Vial SLOW IVP 60 mg DAILY DIO Administration Ceftriaxone Sodium 2 gm/ 100 mls @ 200 mls/hr 02/13/20 09:00 02/29/20 08:48 Sodium Chloride IVPB 100 mls Q24HR DIO Administration Insulin Human Lispro 0 units 02/22/20 08:23 02/26/20 18:46 Humalog 300 Units/3 Ml Vial SC 3 unit .MILD SLIDING SCALE PRN Administration Mild Correctional Scale Lorazepam 2 mg 02/22/20 12:15 02/28/20 22:00 Lorazepam 2 Mg/Ml Vial SLOW IVP 03/23/20 12:15 2 mg Q1H PRN Administration Breakthrough agitation Magnesium Hydroxide 30 ml 02/08/20 10:28 02/25/20 05:41 Milk Of Magnesia 30 Ml Udcup PO 30 ml DAILYPRN PRN Administration Constipation Melatonin 3 mg 02/21/20 03:20 02/21/20 19:36 Melatonin 3 Mg Tab PO 3 mg HSPRN PRN Administration Insomnia Methocarbamol 1,500 mg 02/08/20 10:28 02/20/20 22:50 Methocarbamol 500 Mg Tab PO 1,500 mg Q6H PRN Administration Muscle Spasm Mometasone Furoate/Formoterol Fumar 2 puff 02/20/20 18:30 02/29/20 07:01 Mometasone 100 Mcg/Formoterol 5 Mcg 120 Puff Inhaler INH 2 puff BID-RT DIO Administration Morphine Sulfate 2 mg 02/22/20 12:15 02/28/20 08:47 Morphine 2 Mg/Ml Vial SLOW IVP 03/23/20 12:15 2 mg Q1H PRN Administration Breakthrough Pain/Agitation Propofol 1,000 mg 02/22/20 12:15 02/29/20 04:21 Propofol 1,000 Mg/100 Ml Vial IV 03/23/20 12:15 1,000 mg INF PRN Administration TO ACHIEVE GOAL RASS Protocol Quetiapine Fumarate 25 mg 02/21/20 09:00 02/29/20 08:47 Quetiapine Fumarate 25 Mg Tab PO 25 mg DAILY DIO Administration Rosuvastatin Calcium 10 mg 02/08/20 21:00 02/28/20 20:26 Rosuvastatin 10 Mg Tab PO 10 mg HS DIO Administration Sodium Chloride 10 ml 02/08/20 09:00 02/29/20 08:49 Flush - Normal Saline 10 Ml Syringe IVF 10 ml Q12HR DIO Administration Sterile Water 1.2 ml 02/21/20 03:45 02/21/20 04:06 Sterile Water 10 Ml Vial FS 1.2 ml PRN PRN Administration RECONSTITUTION Venlafaxine HCl 150 mg 02/08/20 09:00 02/29/20 08:48 Venlafaxine Hcl Xr 150 Mg Cap PO 150 mg DAILY DIO Administration Zinc Sulfate 220 mg 02/19/20 09:00 01/12/21 08:47 Zinc Sulfate 220 Mg Cap PO 220 mg DAILY DIO Administration - Exam Heart: negative: RRR, no murmur, no gallops, no rubs, normal peripheral pulses, irregular, diminshed peripheral pulses, murmur present, II/IV, III/IV Respiratory: negative: CTAB, no wheezes, no rales, no ronchi, normal chest expansion, no tachypnea, normal percussion, rales, rhonchi, tachypneic, wheezes Gastrointestinal: negative: soft, non-tender, non-distended, normal bowel sounds, no palpable masses, no hepatomegaly, no splenomegaly, no bruit, no guarding, no rigidity, tender to palpation, distended, diminished bowl sounds, voluntary guarding Extremities: 1+ LE edema Hosp A/P (1) Hypertension Code(s): I10 - ESSENTIAL (PRIMARY) HYPERTENSION Status: Chronic (2) Obesity Code(s): E66.9 - OBESITY, UNSPECIFIED Status: Chronic (3) Hypercholesteremia Code(s): E78.00 - PURE HYPERCHOLESTEROLEMIA, UNSPECIFIED Status: Chronic (4) Acute respiratory failure with hypoxia Code(s): J96.01 - ACUTE RESPIRATORY FAILURE WITH HYPOXIA Status: Acute (5) COVID-19 Code(s): U07.1 - COVID-19 Status: Acute - Plan pt has a hx of cad was on asa/plavix will need to restart when ok with surgery. pt restarted on her bp meds. 02/10 vital signs stable we will continue current antibiotics. Culture so far negative. Patient states that he does snore at night however does not want to get a sleep study. 02/11 patient appeared to be hypoxic last night. BNP mildly elevated patient was given Lasix x1. Patient does have a history of smoking 4 packs a day for 40 years he quit in 2010 after his bypass. His lungs appear clear to auscultate. We will go ahead and do a CTA to rule out a PE. If his CT is negative we will start him on low-dose steroids with inhalers. We will also start patient on some duo nebs. I have stopped his IV fluids. We will hold his blood pressure medication also. His blood pressure is little bit on the softer side. Patient's cultures indicated propionibacterium acnes which is sensitive to ceftriaxone. Patient currently vancomycin. Infectious disease has been consulted. Patient was given incentive spirometer. Patient's aspirin and Plavix restarted. 02/12 we will start patient on steroids given patient's 4 pack a day smoking history. Patient also on duo nebs. CTA negative for PE. This was discussed with patient and patient's . 02/13 will stop steroids. pt's abx will be set up and possible home in am. pt's covid test is positive. 02/18 called and updated. Asked nursing staff to keep oxygen sat around 95% since pt has a significant hx of smoking and most likely has emphysema. pt on remdesivir and steroids. He is on high flow. will continue abx for right shoulder. 02/20 pt's called and updated. She currently is in four-point restraint. Will check inflammatory markers in the morning. He is not eating very much either may start PPN. Patient also has not slept which can add to his confusion. I have given him Seroquel we will continue that and see if that helps. 02/21 patient's called and updated that we are going to go ahead and intubate this patient. Patient continues to become tachypneic ABG appears worse on high flow. Spoke with pulmonary recommended intubation. Patient also not eating very much was started NG tube feedings after intubation. 02/22 patient continues to be intubated no significant changes. We will continue Decadron. We will continue DVT prophylaxis. Patient tolerating feeds. 02/23 patient continues to be intubated. Continue Decadron. DVT prophylaxis. 02/24 patient continues to be intubated. Continue steroids and DVT prophylaxis. Patient's was updated by pulmonary. We will continue antibiotics for right shoulder. Sputum culture spent 02/25 patient continues to be intubated we will continue steroids and DVT prophylaxis. We will continue antibiotics 02/26 patient intubated. Tolerating tube feeds. Will continue IV antibiotics. 02/27 patient continues to be intubated, tolerating tube feeds. patient on DVT prophylaxis. will continue antibiotics for now 02/28 patient continues to be intubated. Patient's called and updated. Tolerating tube feeds. Currently on 45% FiO2. Patient on DVT prophylaxis and steroids. We will continue antibiotic for his right shoulder pain. Will ask infectious disease how long to continue this antibiotic for.
--- NOTE | 2020-02-29 16:18 | PRG ---
DATE OF SERVICE: 02/29/2020 SUBJECTIVE: Mr. Garcia remains mechanically ventilated. OBJECTIVE: VITAL SIGNS: Heart rate is 80, blood pressure 164/91, respiratory rate 20, oximetry is 94. Intake and outputs negative 1742. LUNGS: Distant, clear. HEART: Regular rate and rhythm. ABDOMEN: Soft. EXTREMITIES: Without asymmetry. LABORATORY DATA: Chest x-ray is unchanged. White count 13, hemoglobin 11, platelets 364. Electrolytes remarkable only for BUN of 32, creatinine 0.7. IMPRESSION AND PLAN: Coronavirus disease pneumonia, clinically stable, slow weaning. Critical care time 30 min. Job ID: [id number] MTDD
[2020-02-29] MEDS ORDERED: Fentanyl CADD 100 ML ONE (16:31)
[2020-02-29] MEDS: Fentanyl CADD 100 ML IV SCH (17:13)
[2020-02-29] MEDS: Rosuvastatin 10 MG TAB PO SCH (20:49)
[2020-03-01] MEDS: Acetaminophen 325 MG TAB PO PRN (05:33)
[2020-03-01] MEDS: Propofol 1,000 MG/100 ML VIAL IV PRN ×2 (05:34→10:06)
[2020-03-01 05:42] LABS: Anion Gap 14 mmol/L (10-20); BUN (Urea Nitrogen) 35 mg/dL (8.4-25.7); Calc. Creatinine Clearance 0 mL/min (70-130); Calcium 8.8 mg/dL (7.8-10.44); Carbon Dioxide 34 mmol/L (23-31); Chloride 95 mmol/L (98-107); Glucose 122 mg/dL (80-115); Potassium 4.3 mmol/L (3.5-5.1); Sodium 139 mmol/L (136-145)
[2020-03-01 05:44] LABS: Hemoglobin 12.2 g/dL (14.0-18.0); Mean Corpuscular HGB CONC 30.6 g/dL (32.0-36.0); Mean Corpuscular Hemoglobin 27.1 pg (27.0-31.0); Mean Corpuscular Volume 88.7 fL (78.0-98.0); Mean Platelet Volume 6.9 fL (7.4-10.4); Platelet Count 399 thou/uL (130-400); RBC Distribution Width 14.5 % (11.5-14.5); White Blood Cell (WBC) Count 19.4 thou/uL (4.8-10.8)
[2020-03-01 05:45] LABS: Band 6 % (5-11); Lymphocytes 3 % (21-51); MDiff Complete? YES; Monocytes 10 % (0-10); Neutrophil 81 % (42-75)
[2020-03-01] MEDS: Mometasone 100 MCG/Formoterol 5 MCG 120 PUFF INHALER INH SCH ×2 (07:15→18:14)
--- NOTE | 2020-03-01 07:54 | RAD ---
EXAM: CHEST ONE VIEW HISTORY: On ventilator. Follow-up evaluation. COMPARISON: 02/29/2020 FINDINGS: Endotracheal tube and nasogastric tubes remain in place. Left-sided PICC line remains in place. Posto perative changes related to median sternotomy are noted. Dorsal column stimulator leads again overlie the lower thoracic spine. Increased interstitial and patchy parenchymal opacities are again s een at each lung base and to a lesser extent in the right midlung zone. Findings do appear mildly increased at each lung base compared to prior exam. No other interval change. IMPRESSION: Bilateral interstitial and alveolar opacities suggesting bilateral pneumonia greatest at the lung bas es.
[2020-03-01] MEDS: Famotidine 20 MG TAB PO SCH ×2 (09:31→20:42)
[2020-03-01] MEDS: cefTRIAXone\\ROCEPHIN 2 GM in Sodium Chloride 0.9% 100 ML IVPB SCH (09:31)
[2020-03-01] MEDS: Cholecalciferol (Vitamin D3) 400 UNITS TAB PO SCH (09:31)
[2020-03-01] MEDS: Carvedilol 6.25 MG TAB PO SCH (09:32)
[2020-03-01] MEDS: Aspirin Chewable 81 MG TAB PO SCH (09:32)
[2020-03-01] MEDS: Enoxaparin Sodium 60 MG/0.6 ML SYRINGE SC SCH ×2 (09:32→20:41)
[2020-03-01] MEDS: Escitalopram Oxalate 10 mg Tablet PO SCH (09:32)
[2020-03-01] MEDS: Venlafaxine HCl XR 150 MG CAP PO SCH (09:32)
[2020-03-01] MEDS: Clopidogrel Bisulfate 75 MG TAB PO SCH (09:32)
[2020-03-01] MEDS: Ascorbic Acid 500 mg Chewable Tablet PO SCH (09:32)
[2020-03-01] MEDS: Zinc Sulfate 220 MG CAP PO SCH (09:32)
[2020-03-01] MEDS: Dexamethasone 4 mg/ml Vial SLOW IVP SCH (09:33)
[2020-03-01] MEDS: Furosemide 100 MG/10 ML VIAL SLOW IVP SCH (09:33)
[2020-03-01] MEDS: HumaLOG 300 UNITS/3 ML VIAL SC PRN (10:06)
[2020-03-01] MEDS ORDERED: Fentanyl CADD 100 ML ONE (12:16)
[2020-03-01 14:04] LABS: Bacteria/HPF None Seen HPF (None Seen); Bilirubin Negative (Negative); Blood, Urine 1+ (Negative); Clarity Clear (Clear); Glucose, Urine (Dipstick) Normal (Negative); Ketone, Urine Negative (Negative); Leukocyte Negative Leu/uL (Negative); Nitrite Negative (Negative); Protein, Urine (Dipstick) Negative (Neg-Trace); Specific Gravity, Urine 1.021 (1.002-1.036); Squamous Epithelial None Seen HPF (0-3); Urobilinogen Normal mg/dL (Less than 2); WBC/HPF 0-3 HPF (0-3); Yeast-Budding 4+ HPF (None Seen); pH, Urine 5.5 (5.0-9.0)
[2020-03-01 14:06] LABS: Urine Culture Reflex No No
[2020-03-01] MEDS: MEROPENEM 1 GM/50 ML 1 GM in Premix Bag 1 BAG IVPB SCH ×2 (14:46→21:30)
--- NOTE | 2020-03-01 15:07 | PDOC.HOSPP ---
- Subjective Encounter Date: 03/01/20 Encounter Time: 10:45 Subjective: Continues to be intubated - Objective Vital Signs & Weight: Vital Signs (12 hours) Temp Pulse Resp BP Pulse Ox 03/01/20 14:00 25 H 03/01/20 12:00 25 H 03/01/20 10:08 104 H 03/01/20 10:00 23 H 03/01/20 09:32 164/91 H 03/01/20 08:00 21 H 92 L 03/01/20 07:15 93 03/01/20 06:03 100 F H 94 22 H 03/01/20 06:00 22 H 03/01/20 05:33 102.1 F H 102 H 24 H 03/01/20 05:00 97 03/01/20 04:00 102.1 F H 24 H Weight Admit Weight 260 lb Weight 4.219 oz Most Recent Monitor Data Heart Rate from ECG 96 NIBP 115/66 NIBP BP-Mean 82 Respiration from ECG 26 SpO2 96 I&O: 02/29/20 03/01/20 03/02/20 06:59 06:59 06:59 Intake Total 1363 1090 1232.7 Output Total 3105 2590 700 Balance -1742 -1500 532.7 Result Diagrams: 03/01/20 Unknown 03/01/20 03:30 Additional Labs: Accuchecks 03/01/20 03/01/20 02/29/20 09:39 03:51 22:16 POC Glucose 159 H 159 H 115 H 02/29/20 16:36 POC Glucose 143 H Hospitalist ROS - Review of Systems Other: Intubated - Medication Medications: Active Medications Generic Name Dose Route Start Last Admin Trade Name Freq PRN Reason Stop Dose Admin Acetaminophen 650 mg 02/08/20 10:28 03/01/20 05:33 Acetaminophen 325 Mg Tab PO 650 mg Q4H PRN Administration ORTA/T > 101.5F/Mild Pain (1-3) Albuterol/Ipratropium 3 ml 02/26/20 10:30 03/01/20 10:22 Ipratropium/Albuterol Sulfate 3 Ml Neb NEB 3 ml [id number] DIO Administration Ascorbic Acid 1,000 mg 02/19/20 09:00 03/01/20 09:32 Ascorbic Acid 500 Mg Chewable Tablet PO 1,000 mg DAILY DIO Administration Aspirin 81 mg 02/29/20 09:00 03/01/20 09:32 Aspirin Chewable 81 Mg Tab PO 81 mg DAILY DIO Administration Benzonatate 100 mg 02/16/20 10:30 02/19/20 03:30 Benzonatate 100 Mg Cap PO 100 mg Q4H PRN Administration Cough Carvedilol 6.25 mg 02/08/20 21:00 03/01/20 09:32 Carvedilol 6.25 Mg Tab PO 6.25 mg BID DIO Administration Cholecalciferol 400 units 02/19/20 09:00 03/01/20 09:31 Cholecalciferol (Vitamin D3) 400 Units Tab PO 400 units DAILY DIO Administration Clopidogrel Bisulfate 75 mg 02/13/20 09:00 03/01/20 09:32 Clopidogrel Bisulfate 75 Mg Tab PO 75 mg DAILY DIO Administration Dexamethasone 6 mg 02/19/20 09:00 03/01/20 09:33 Dexamethasone 4 Mg/Ml Vial SLOW IVP 6 mg DAILY DIO Administration Enoxaparin Sodium 60 mg 02/25/20 21:00 03/01/20 09:32 Enoxaparin Sodium 60 Mg/0.6 Ml Syringe SC 60 mg 0900,2100 DIO Administration Escitalopram Oxalate 10 mg 02/08/20 09:00 03/01/20 09:32 Escitalopram Oxalate 10 Mg Tablet PO 10 mg DAILY DIO Administration Famotidine 20 mg 02/08/20 12:00 03/01/20 09:31 Famotidine 20 Mg Tab PO 20 mg BID DIO Administration Furosemide 60 mg 02/27/20 09:00 03/01/20 09:33 Furosemide 100 Mg/10 Ml Vial SLOW IVP 60 mg DAILY DIO Administration Fentanyl 100 mls @ 0 mls/hr 02/28/20 16:30 02/29/20 17:13 Fentanyl Cadd IV 03/29/20 16:30 100 mls INF DIO Administration Protocol Per Protocol Meropenem 1 gm/ Device 50 mls @ 200 mls/hr 03/01/20 14:00 03/01/20 14:46 IVPB 50 mls Q8HR DIO Administration Insulin Human Lispro 0 units 02/22/20 08:23 03/01/20 10:06 Humalog 300 Units/3 Ml Vial SC 2 unit .MILD SLIDING SCALE PRN Administration Mild Correctional Scale Lorazepam 2 mg 02/22/20 12:15 02/28/20 22:00 Lorazepam 2 Mg/Ml Vial SLOW IVP 03/23/20 12:15 2 mg Q1H PRN Administration Breakthrough agitation Magnesium Hydroxide 30 ml 02/08/20 10:28 02/25/20 05:41 Milk Of Magnesia 30 Ml Udcup PO 30 ml DAILYPRN PRN Administration Constipation Melatonin 3 mg 02/21/20 03:20 02/21/20 19:36 Melatonin 3 Mg Tab PO 3 mg HSPRN PRN Administration Insomnia Methocarbamol 1,500 mg 02/08/20 10:28 02/20/20 22:50 Methocarbamol 500 Mg Tab PO 1,500 mg Q6H PRN Administration Muscle Spasm Mometasone Furoate/Formoterol Fumar 2 puff 02/20/20 18:30 03/01/20 07:15 Mometasone 100 Mcg/Formoterol 5 Mcg 120 Puff Inhaler INH 2 puff BID-RT DIO Administration Morphine Sulfate 2 mg 02/22/20 12:15 02/28/20 08:47 Morphine 2 Mg/Ml Vial SLOW IVP 03/23/20 12:15 2 mg Q1H PRN Administration Breakthrough Pain/Agitation Propofol 1,000 mg 02/22/20 12:15 03/01/20 10:06 Propofol 1,000 Mg/100 Ml Vial IV 03/23/20 12:15 1,000 mg INF PRN Administration TO ACHIEVE GOAL RASS Protocol Rosuvastatin Calcium 10 mg 02/08/20 21:00 02/29/20 20:49 Rosuvastatin 10 Mg Tab PO 10 mg HS DIO Administration Sodium Chloride 10 ml 02/08/20 09:00 03/01/20 10:48 Flush - Normal Saline 10 Ml Syringe IVF 10 ml Q12HR DIO Administration Sterile Water 1.2 ml 02/21/20 03:45 02/21/20 04:06 Sterile Water 10 Ml Vial FS 1.2 ml PRN PRN Administration RECONSTITUTION Venlafaxine HCl 150 mg 02/08/20 09:00 03/01/20 09:32 Venlafaxine Hcl Xr 150 Mg Cap PO 150 mg DAILY DIO Administration Zinc Sulfate 220 mg 02/19/20 09:00 03/01/20 09:32 Zinc Sulfate 220 Mg Cap PO 220 mg DAILY DIO Administration - Exam Neck: negative: supple, symmetric, no JVD, no thyromegaly, no lymphadenopathy, no carotid bruit, JVD Heart: negative: RRR, no murmur, no gallops, no rubs, normal peripheral pulses, irregular, diminshed peripheral pulses, murmur present, II/IV, III/IV Respiratory: negative: CTAB, no wheezes, no rales, no ronchi, normal chest expansion, no tachypnea, normal percussion, rales, rhonchi, tachypneic, wheezes Gastrointestinal: negative: soft, non-tender, non-distended, normal bowel sounds, no palpable masses, no hepatomegaly, no splenomegaly, no bruit, no guarding, no rigidity, tender to palpation, distended, diminished bowl sounds, voluntary guarding Hosp A/P (1) Hypertension Code(s): I10 - ESSENTIAL (PRIMARY) HYPERTENSION Status: Chronic (2) Obesity Code(s): E66.9 - OBESITY, UNSPECIFIED Status: Chronic (3) Hypercholesteremia Code(s): E78.00 - PURE HYPERCHOLESTEROLEMIA, UNSPECIFIED Status: Chronic (4) Acute respiratory failure with hypoxia Code(s): J96.01 - ACUTE RESPIRATORY FAILURE WITH HYPOXIA Status: Acute (5) COVID-19 Code(s): U07.1 - COVID-19 Status: Acute - Plan pt has a hx of cad was on asa/plavix will need to restart when ok with surgery. pt restarted on her bp meds. 02/10 vital signs stable we will continue current antibiotics. Culture so far negative. Patient states that he does snore at night however does not want to get a sleep study. 02/11 patient appeared to be hypoxic last night. BNP mildly elevated patient was given Lasix x1. Patient does have a history of smoking 4 packs a day for 40 years he quit in 2010 after his bypass. His lungs appear clear to auscultate. We will go ahead and do a CTA to rule out a PE. If his CT is negative we will start him on low-dose steroids with inhalers. We will also start patient on some duo nebs. I have stopped his IV fluids. We will hold his blood pressure medication also. His blood pressure is little bit on the softer side. Patient 's cultures indicated propionibacterium acnes which is sensitive to ceftriaxone. Patient currently vancomycin. Infectious disease has been consulted. Patient was given incentive spirometer. Patient's aspirin and Plavix restarted. 02/12 we will start patient on steroids given patient's 4 pack a day smoking history. Patient also on duo nebs. CTA negative for PE. This was discussed with patient and patient's . 02/13 will stop steroids. pt's abx will be set up and possible home in am. pt's covid test is positive. 02/18 called and updated. Asked nursing staff to keep oxygen sat around 95% since pt has a significant hx of smoking and most likely has emphysema. pt on remdesivir and steroids. He is on high flow. will continue abx for right shoulder. 02/20 pt's called and updated. She currently is in four-point restraint. Will check inflammatory markers in the morning. He is not eating very much either may start PPN. Patient also has not slept which can add to his con fusion. I have given him Seroquel we will continue that and see if that helps. 02/21 patient's called and updated that we are going to go ahead and intubate this patient. Patient continues to become tachypneic ABG appears worse on high flow. Spoke with pulmonary recommended intubation. Patient also not eating very much was started NG tube feedings after intubation. 02/22 patient continues to be intubated no significant changes. We will continue Decadron. We will continue DVT prophylaxis. Patient tolerating feeds. 02/23 patient continues to be intubated. Continue Decadron. DVT prophylaxis. 02/24 patient continues to be intubated. Continue steroids and DVT prophylaxis. Patient's was updated by pulmonary. We will continue antibiotics for right shoulder. Sputum culture spent 02/25 patient continues to be intubated we will continue steroids and DVT prophylaxis. We will continue antibiotics 02/26 patient intubated. Tolerating tube feeds. Will continue IV antibiotics. 02/27 patient continues to be intubated, tolerating tube feeds. patient on DVT prophylaxis. will continue antibiotics for now 02/28 patient continues to be intubated. Patient's called and updated. Tolerating tube feeds. Currently on 45% FiO2. Patient on DVT prophylaxis and steroids. We will continue antibiotic for his right shoulder pain. Will ask infectious disease how long to continue this antibiotic for. 03/01 pt's oxygen level was increased. He has a elevated wbc and spiked a fever last night. We will get blood cultures and urine. We will start patient on meropenem. I will speak with infectious disease in regards to his antibiotics. Not sure if this is due to a new infection versus cytokine storm.
--- NOTE | 2020-03-01 20:37 | PRG ---
DATE OF SERVICE: 03/01/2020 SUBJECTIVE: Hair Garcia remains mechanically ventilated. He is still on Rocephin for his shoulder. Oximetry is in the 90s. His FiO2 is dropped throughout the day down to 40% this evening. OBJECTIVE: VITAL SIGNS: Blood pressure 109/68, heart rate is 93, respiratory rate is 20. LUNGS: Remarkable for coarse equal breath sounds. HEART: Regular rate and rhythm. ABDOMEN: Soft. EXTREMITIES: No edema. LABORATORY DATA: White count 19.4, hemoglobin 12.2, platelets 399. Sodium 139, potassium 4.3, chloride 95, bicarb 34, BUN 35, creatinine 0.69. Intake and outputs -1500. IMPRESSION: COVID pneumonia with respiratory failure after removal of shoulder hardware for chronic bacterial infection. His PEEP was increased a little bit today. His FiO2 has come down. Hopefully he will slowly improve. CRITICAL CARE TIME: 30 minutes. Job ID: [id number]
[2020-03-01] MEDS: Rosuvastatin 10 MG TAB PO SCH (20:42)
[2020-03-01] MEDS: Sodium Chloride 0.45% 1,000 ML IV SCH (21:37)
[2020-03-02] MEDS: Propofol 1,000 MG/100 ML VIAL IV PRN ×3 (00:42→18:05)
[2020-03-02] MEDS: MEROPENEM 1 GM/50 ML 1 GM in Premix Bag 1 BAG IVPB SCH ×3 (06:18→21:29)
[2020-03-02 06:23] LABS: Band 4 % (5-11); Hemoglobin 11.9 g/dL (14.0-18.0); Hypochromia SLIGHT = 6-15 cells (100X) (0-5/hpf); Lymphocytes 5 % (21-51); MDiff Complete? YES; Mean Corpuscular HGB CONC 30.3 g/dL (32.0-36.0); Mean Corpuscular Hemoglobin 27.4 pg (27.0-31.0); Mean Corpuscular Volume 90.3 fL (78.0-98.0); Mean Platelet Volume 7.4 fL (7.4-10.4); Monocytes 15 % (0-10); Neutrophil 76 % (42-75); Platelet Count 298 thou/uL (130-400); Platelet Morphology Comment Appears Adequate; RBC Distribution Width 14.3 % (11.5-14.5); Red Blood Cell (RBC) Count 4.36 mill/uL (4.70-6.10); White Blood Cell (WBC) Count 11.6 thou/uL (4.8-10.8)
[2020-03-02 06:31] LABS: Anion Gap 14 mmol/L (10-20); BUN (Urea Nitrogen) 53 mg/dL (8.4-25.7); Calc. Creatinine Clearance 142 mL/min (70-130); Calcium 8.7 mg/dL (7.8-10.44); Carbon Dioxide 35 mmol/L (23-31); Chloride 96 mmol/L (98-107); Glucose 129 mg/dL (80-115); Sodium 141 mmol/L (136-145)
[2020-03-02] MEDS: Mometasone 100 MCG/Formoterol 5 MCG 120 PUFF INHALER INH SCH ×2 (07:18→18:18)
[2020-03-02] MEDS ORDERED: Fentanyl CADD 100 ML ONE (08:14)
[2020-03-02] MEDS: Fentanyl CADD 100 ML IV SCH (08:15)
[2020-03-02] MEDS: Famotidine 20 MG TAB PO SCH ×2 (08:16→20:04)
[2020-03-02] MEDS: Zinc Sulfate 220 MG CAP PO SCH (08:16)
[2020-03-02] MEDS: Aspirin Chewable 81 MG TAB PO SCH (08:16)
[2020-03-02] MEDS: Clopidogrel Bisulfate 75 MG TAB PO SCH (08:16)
[2020-03-02] MEDS: Venlafaxine HCl XR 150 MG CAP PO SCH (08:16)
[2020-03-02] MEDS: Ascorbic Acid 500 mg Chewable Tablet PO SCH (08:16)
[2020-03-02] MEDS: Dexamethasone 4 mg/ml Vial SLOW IVP SCH (08:16)
[2020-03-02] MEDS: Cholecalciferol (Vitamin D3) 400 UNITS TAB PO SCH (08:16)
[2020-03-02] MEDS: Escitalopram Oxalate 10 mg Tablet PO SCH (08:16)
--- NOTE | 2020-03-02 08:53 | RAD ---
PORTABLE CHEST: Date: 03/02/2020 HISTORY: Respiratory distress. FINDINGS: Endotracheal and NG tubes are in satisfactory position. The bilateral predominantly lower lobe lung i nfiltrates show some slight improvement to the previous exam. IMPRESSION: Improving bilateral lower lobe lung infiltrates. Improvement is most pronounced in the right base. POS: [facility]
[2020-03-02] MEDS: Enoxaparin Sodium 60 MG/0.6 ML SYRINGE SC SCH ×2 (09:26→20:05)
[2020-03-02] MEDS: HumaLOG 300 UNITS/3 ML VIAL SC PRN ×2 (11:17→21:32)
--- NOTE | 2020-03-02 14:46 | PDOC.HOSPP ---
- Subjective Encounter Date: 03/02/20 Encounter Time: 11:50 Subjective: Patient continues to be intubated - Objective Vital Signs & Weight: Vital Signs (12 hours) Temp Pulse Resp Pulse Ox 03/02/20 12:00 98.4 F 20 03/02/20 10:00 20 03/02/20 09:00 98.8 F 03/02/20 08:00 20 03/02/20 07:43 95 03/02/20 07:11 86 03/02/20 06:00 20 03/02/20 04:00 98.8 F 20 Weight Admit Weight 260 lb Weight 243 lb 6.245 oz Most Recent Monitor Data Heart Rate from ECG 93 NIBP 163/98 NIBP BP-Mean 119 Respiration from ECG 22 SpO2 92 I&O: 03/01/20 03/02/20 03/03/20 06:59 06:59 06:59 Intake Total 1090 2713.2 92 Output Total 2590 1590 235 Balance -1500 1123.2 -143 Result Diagrams: 03/02/20 05:00 03/02/20 05:00 Additional Labs: Accuchecks 03/02/20 03/02/20 03/01/20 11:15 06:21 20:08 POC Glucose 161 H 134 H 128 H 03/01/20 16:15 POC Glucose 146 H Hospitalist ROS - Review of Systems Other: Intubated - Medication Medications: Active Medications Generic Name Dose Route Start Last Admin Trade Name Freq PRN Reason Stop Dose Admin Acetaminophen 650 mg 02/08/20 10:28 03/01/20 05:33 Acetaminophen 325 Mg Tab PO 650 mg Q4H PRN Administration ORTA/T > 101.5F/Mild Pain (1-3) Albuterol/Ipratropium 3 ml 02/26/20 10:30 03/02/20 13:34 Ipratropium/Albuterol Sulfate 3 Ml Neb NEB 3 ml [id number] DIO Administration Ascorbic Acid 1,000 mg 02/19/20 09:00 03/02/20 08:16 Ascorbic Acid 500 Mg Chewable Tablet PO 1,000 mg DAILY DIO Administration Aspirin 81 mg 02/29/20 09:00 03/02/20 08:16 Aspirin Chewable 81 Mg Tab PO 81 mg DAILY DIO Administration Benzonatate 100 mg 02/16/20 10:30 02/19/20 03:30 Benzonatate 100 Mg Cap PO 100 mg Q4H PRN Administration Cough Carvedilol 6.25 mg 02/08/20 21:00 03/01/20 09:32 Carvedilol 6.25 Mg Tab PO 6.25 mg BID DIO Administration Cholecalciferol 400 units 02/19/20 09:00 03/02/20 08:16 Cholecalciferol (Vitamin D3) 400 Units Tab PO 400 units DAILY DIO Administration Clopidogrel Bisulfate 75 mg 02/13/20 09:00 03/02/20 08:16 Clopidogrel Bisulfate 75 Mg Tab PO 75 mg DAILY DIO Administration Dexamethasone 6 mg 02/19/20 09:00 03/02/20 08:16 Dexamethasone 4 Mg/Ml Vial SLOW IVP 6 mg DAILY DIO Administration Enoxaparin Sodium 60 mg 02/25/20 21:00 03/02/20 09:26 Enoxaparin Sodium 60 Mg/0.6 Ml Syringe SC 60 mg 0900,2100 DIO Administration Escitalopram Oxalate 10 mg 02/08/20 09:00 03/02/20 08:16 Escitalopram Oxalate 10 Mg Tablet PO 10 mg DAILY DIO Administration Famotidine 20 mg 02/08/20 12:00 03/02/20 08:16 Famotidine 20 Mg Tab PO 20 mg BID DIO Administration Furosemide 60 mg 02/27/20 09:00 03/01/20 09:33 Furosemide 100 Mg/10 Ml Vial SLOW IVP 60 mg DAILY DIO Administration Sodium Chloride 1,000 mls @ 0 mls/hr 02/26/20 12:15 03/01/20 21:37 1/2 Normal Saline IV 1,000 mls .Q0M DIO Administration KVO Fentanyl 100 mls @ 0 mls/hr 02/28/20 16:30 03/02/20 08:15 Fentanyl Cadd IV 03/29/20 16:30 100 mls INF DIO Administration Protocol Per Protocol Meropenem 1 gm/ Device 50 mls @ 200 mls/hr 03/01/20 14:00 03/02/20 06:18 IVPB 50 mls Q8HR DIO Administration Insulin Human Lispro 0 units 02/22/20 08:23 03/02/20 11:17 Humalog 300 Units/3 Ml Vial SC 2 unit .MILD SLIDING SCALE PRN Administration Mild Correctional Scale Lorazepam 2 mg 02/22/20 12:15 02/28/20 22:00 Lorazepam 2 Mg/Ml Vial SLOW IVP 03/23/20 12:15 2 mg Q1H PRN Administration Breakthrough agitation Magnesium Hydroxide 30 ml 02/08/20 10:28 02/25/20 05:41 Milk Of Magnesia 30 Ml Udcup PO 30 ml DAILYPRN PRN Administration Constipation Melatonin 3 mg 02/21/20 03:20 02/21/20 19:36 Melatonin 3 Mg Tab PO 3 mg HSPRN PRN Administration Insomnia Methocarbamol 1,500 mg 02/08/20 10:28 02/20/20 22:50 Methocarbamol 500 Mg Tab PO 1,500 mg Q6H PRN Administration Muscle Spasm Mometasone Furoate/Formoterol Fumar 2 puff 02/20/20 18:30 03/02/20 07:18 Mometasone 100 Mcg/Formoterol 5 Mcg 120 Puff Inhaler INH 2 puff BID-RT DIO Administration Morphine Sulfate 2 mg 02/22/20 12:15 02/28/20 08:47 Morphine 2 Mg/Ml Vial SLOW IVP 03/23/20 12:15 2 mg Q1H PRN Administration Breakthrough Pain/Agitation Propofol 1,000 mg 02/22/20 12:15 03/02/20 08:17 Propofol 1,000 Mg/100 Ml Vial IV 03/23/20 12:15 1,000 mg INF PRN Administration TO ACHIEVE GOAL RASS Protocol Rosuvastatin Calcium 10 mg 02/08/20 21:00 03/01/20 20:42 Rosuvastatin 10 Mg Tab PO 10 mg HS DIO Administration Sodium Chloride 10 ml 02/08/20 09:00 03/02/20 08:17 Flush - Normal Saline 10 Ml Syringe IVF 10 ml Q12HR DIO Administration Sterile Water 1.2 ml 02/21/20 03:45 02/21/20 04:06 Sterile Water 10 Ml Vial FS 1.2 ml PRN PRN Administration RECONSTITUTION Venlafaxine HCl 150 mg 02/08/20 09:00 03/02/20 08:16 Venlafaxine Hcl Xr 150 Mg Cap PO 150 mg DAILY DIO Administration Zinc Sulfate 220 mg 02/19/20 09:00 03/02/20 08:16 Zinc Sulfate 220 Mg Cap PO 220 mg DAILY DIO Administration - Exam Neck: negative: supple, symmetric, no JVD, no thyromegaly, no lymphadenopathy, no carotid bruit, JVD Heart: negative: RRR, no murmur, no gallops, no rubs, normal peripheral pulses, irregular, diminshed peripheral pulses, murmur present, II/IV, III/IV Respiratory: negative: CTAB, no wheezes, no rales, no ronchi, normal chest expansion, no tachypnea, normal percussion, rales, rhonchi, tachypneic, wheezes Gastrointestinal: negative: soft, non-tender, non-distended, normal bowel sounds, no palpable masses, no hepatomegaly, no splenomegaly, no bruit, no guarding, no rigidity, tender to palpation, distended, diminished bowl sounds, voluntary guarding Hosp A/P (1) Hypertension Code(s): I10 - ESSENTIAL (PRIMARY) HYPERTENSION Status: Chronic (2) Obesity Code(s): E66.9 - OBESITY, UNSPECIFIED Status: Chronic (3) Hypercholesteremia Code(s): E78.00 - PURE HYPERCHOLESTEROLEMIA, UNSPECIFIED Status: Chronic (4) Acute respiratory failure with hypoxia Code(s): J96.01 - ACUTE RESPIRATORY FAILURE WITH HYPOXIA Status: Acute (5) COVID-19 Code(s): U07.1 - COVID-19 Status: Acute - Plan pt has a hx of cad was on asa/plavix will need to restart when ok with surgery. pt restarted on her bp meds. 02/10 vital signs stable we will continue current antibiotics. Culture so far negative. Patient states that he does snore at night however does not want to get a sleep study. 02/11 patient appeared to be hypoxic last night. BNP mildly elevated patient was given Lasix x1. Patient does have a history of smoking 4 packs a day for 40 years he quit in 2010 after his bypass. His lungs appear clear to auscultate. We will go ahead and do a CTA to rule out a PE. If his CT is negative we will start him on low-dose steroids with inhalers. We will also start patient on some duo nebs. I have stopped his IV fluids. We will hold his blood pressure medication also. His blood pressure is little bit on the softer side. Patient's cultures indicated propionibacterium acnes which is sensitive to ceftriaxone. Patient currently vancomycin. Infectious disease has been consulted. Patient was given incentive spirometer. Patient's aspirin and Plavix restarted. 02/12 we will start patient on steroids given patient's 4 pack a day smoking history. Patient also on duo nebs. CTA negative for PE. This was discussed with patient and patient's . 02/13 will stop steroids. pt's abx will be set up and possible home in am. pt's covid test is positive. 02/18 called and updated. Asked nursing staff to keep oxygen sat around 95% since pt has a significant hx of smoking and most likely has emphysema. pt on remdesivir and steroids. He is on high flow. will continue abx for right shoulder. 02/20 pt's called and updated. She currently is in four-point restraint. Will check inflammatory markers in the morning. He is not eating very much either may start PPN. Patient also has not slept which can add to his confusio n. I have given him Seroquel we will continue that and see if that helps. 02/21 patient's called and updated that we are going to go ahead and intubate this patient. Patient continues to become tachypneic ABG appears worse on high flow. Spoke with pulmonary recommended intubation. Patient also not eating very much was started NG tube feedings after intubation. 02/22 patient continues to be intubated no significant changes. We will continue Decadron. We will continue DVT prophylaxis. Patient tolerating feeds. 02/23 patient continues to be intubated. Continue Decadron. DVT prophylaxis. 02/24 patient continues to be intubated. Continue steroids and DVT prophylaxis. Patient's was updated by pulmonary. We will continue antibiotics for right shoulder. Sputum culture spent 02/25 patient continues to be intubated we will continue steroids and DVT prophylaxis. We will continue antibiotics 02/26 patient intubated. Tolerating tube feeds. Will continue IV antibiotics. 02/27 patient continues to be intubated, tolerating tube feeds. patient on DVT prophylaxis. will continue antibiotics for now 02/28 patient continues to be intubated. Patient's called and updated. To lerating tube feeds. Currently on 45% FiO2. Patient on DVT prophylaxis and steroids. We will continue antibiotic for his right shoulder pain. Will ask infectious disease how long to continue this antibiotic for. 03/01 pt's oxygen level was increased. He has a elevated wbc and spiked a fever last night. We will get blood cultures and urine. We will start patient on meropenem. I will speak with infectious disease in regards to his antibiotics. Not sure if this is due to a new infection versus cytokine storm. 03/02 we will continue current treatment. We will continue to hold Lasix for now. No fever overnight. Patient's oxygen saturations have been titrated down we will monitor.
--- NOTE | 2020-03-02 18:20 | PRG ---
DATE OF SERVICE: 03/02/2020 SUBJECTIVE: Hair Garcia remains mechanically ventilated. OBJECTIVE: VITAL SIGNS: He is afebrile. Respiratory rate is 20. FiO2 is 45. His heart rate is in 80s. Blood pressure 150/86. Intake and output are positive 1123. LUNGS: Remarkable for coarse equal breath sounds. HEART: Regular rhythm. ABDOMEN: Soft. EXTREMITIES: Without edema. LABORATORY DATA: White count 11.6, hemoglobin 11.9, platelets 298. Sodium 141, potassium 4, chloride 96, bicarb 35, BUN 53, creatinine 0.8. IMAGING DATA: Chest radiograph shows improved bilateral infiltrates. IMPRESSION: COVID pneumonia with slightly improved radiograph, stable gas exchange. We will continue to slowly decrease his ventilatory support as tolerated. Placement in LTAC or tracheostomy and then placement in LTAC would be the next step. Critical care time 30 min. Job ID: [id number] MTDD
[2020-03-02] MEDS: Rosuvastatin 10 MG TAB PO SCH ×2 (20:04→20:05)
[2020-03-03] MEDS: Acetaminophen 325 MG TAB PO PRN (00:31)
[2020-03-03] MEDS: Propofol 1,000 MG/100 ML VIAL IV PRN ×4 (03:31→22:48)
[2020-03-03] MEDS ORDERED: Fentanyl CADD 100 ML ONE (03:38)
[2020-03-03 05:11] LABS: Anion Gap 14 mmol/L (10-20); BUN (Urea Nitrogen) 50 mg/dL (8.4-25.7); Calc. Creatinine Clearance 149 mL/min (70-130); Calcium 8.6 mg/dL (7.8-10.44); Carbon Dioxide 36 mmol/L (23-31); Chloride 98 mmol/L (98-107); Glucose 111 mg/dL (80-115); Sodium 144 mmol/L (136-145)
[2020-03-03] MEDS: MEROPENEM 1 GM/50 ML 1 GM in Premix Bag 1 BAG IVPB SCH ×3 (05:13→21:31)
[2020-03-03 05:50] LABS: Band 6 % (5-11); Hemoglobin 10.8 g/dL (14.0-18.0); Lymphocytes 8 % (21-51); MDiff Complete? YES; Mean Corpuscular HGB CONC 28.8 g/dL (32.0-36.0); Mean Corpuscular Hemoglobin 25.8 pg (27.0-31.0); Mean Corpuscular Volume 89.6 fL (78.0-98.0); Mean Platelet Volume 7.5 fL (7.4-10.4); Monocytes 10 % (0-10); Neutrophil 76 % (42-75); Platelet Count 323 thou/uL (130-400); RBC Distribution Width 14.4 % (11.5-14.5); RBC Morphology Normal; White Blood Cell (WBC) Count 9.8 thou/uL (4.8-10.8)
[2020-03-03] MEDS: Mometasone 100 MCG/Formoterol 5 MCG 120 PUFF INHALER INH SCH ×2 (06:57→19:35)
--- NOTE | 2020-03-03 08:01 | RAD ---
EXAM: Single view of the chest HISTORY: Intubated patient with respiratory failure COMPARISON: 03/02/2020 FINDINGS: Single view of the chest shows a normal sized cardiomediastinal silhouette. The patient is status post sternotomy. The lines and tubes are unchanged in position. Scattered stable multifocal infiltrates are seen in the lungs. The patient has a right shoulder replacement. Degenerat delta changes are seen in the spine. IMPRESSION: Stable multifocal pneumonia
[2020-03-03] MEDS: Dexamethasone 4 mg/ml Vial SLOW IVP SCH (08:40)
[2020-03-03] MEDS: Enoxaparin Sodium 60 MG/0.6 ML SYRINGE SC SCH ×2 (08:40→20:43)
[2020-03-03] MEDS: Aspirin Chewable 81 MG TAB PO SCH (08:41)
[2020-03-03] MEDS: Clopidogrel Bisulfate 75 MG TAB PO SCH (08:41)
[2020-03-03] MEDS: Zinc Sulfate 220 MG CAP PO SCH (08:41)
[2020-03-03] MEDS: Escitalopram Oxalate 10 mg Tablet PO SCH (08:42)
[2020-03-03] MEDS: Ascorbic Acid 500 mg Chewable Tablet PO SCH (08:42)
[2020-03-03] MEDS: Cholecalciferol (Vitamin D3) 400 UNITS TAB PO SCH (08:42)
[2020-03-03] MEDS: Venlafaxine HCl XR 150 MG CAP PO SCH (08:42)
[2020-03-03] MEDS: Famotidine 20 MG TAB PO SCH ×2 (08:42→20:43)
[2020-03-03] MEDS: Sodium Bicarbonate Tab 325 MG TAB PER TUBE PRN ×2 (10:21→11:52)
[2020-03-03] MEDS: Pancrelipase DR 12,000 1 CAP FS PRN ×2 (10:21→11:52)
[2020-03-03] MEDS ORDERED: Morphine 2 MG/ML VIAL SLOW IVP PRN (12:46)
[2020-03-03] MEDS ORDERED: Lorazepam 2 MG/ML VIAL SLOW IVP PRN (12:47)
--- NOTE | 2020-03-03 13:37 | RAD ---
Supine KUB: 03/03/2020 HISTORY: Nasogastric tube FINDINGS: The distal aspect of a nasogastric tube is visualized. The side-port is in the expected loc ation of the gastroesophageal junction and the distal tip is within the left upper quadrant, likely within the region of the gastric fundus. Supine imaging limits assessment for free intraperitoneal ai r and small bowel obstruction. Dorsal column stimulating leads overlie the lower thoracic spine. IMPRESSION: KUB as detailed above. Advancing the nasogastric tube is suggested.
--- NOTE | 2020-03-03 13:43 | PRG ---
DATE OF SERVICE: 03/03/2020 SUBJECTIVE: Hair Garcia is afebrile. OBJECTIVE: VITAL SIGNS: Respiratory rate is 20, oximetry is mid 90s. LUNGS: Remarkable for equal breath sounds. HEART: Regular rhythm. ABDOMEN: Soft. EXTREMITIES: Without edema. LABORATORY DATA: White count 9.8, hemoglobin 10.8, platelets 323. Sodium 144, potassium 4, chloride 98, bicarb 36, BUN 50, creatinine 0.76. IMAGING STUDIES: His chest x-ray is unchanged. IMPRESSION: 1. COVID pneumonia. 2. 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 PLAN: Over the course of this gentleman in the ICU, his radiographs and his clinical pictures improved very slowly. He is 24 days into this and would likely benefit from a tracheostomy next week to facilitate weaning. Critical care time 30 min. Job ID: [id number] MTDD
[2020-03-03] MEDS: Milk Of Magnesia 30 ML UDCUP PO PRN (17:52)
--- NOTE | 2020-03-03 20:06 | PDOC.HOSPP ---
- Subjective Encounter Date: 03/03/20 Encounter Time: 10:30 Subjective: Continues to be intubated - Objective Vital Signs & Weight: Vital Signs (12 hours) Temp Pulse Resp 03/03/20 18:25 106 H 03/03/20 18:00 24 H 03/03/20 16:00 100.1 F H 03/03/20 14:00 20 03/03/20 13:41 84 03/03/20 12:00 99.1 F 20 03/03/20 10:15 83 03/03/20 10:00 20 Weight Admit Weight 260 lb Weight 243 lb 4.8 oz Most Recent Monitor Data Heart Rate from ECG 105 NIBP 174/105 NIBP BP-Mean 128 Respiration from ECG 20 SpO2 92 I&O: 03/02/20 03/03/20 03/04/20 06:59 06:59 06:59 Intake Total 2713.2 2251 906.7 Output Total 1590 1585 775 Balance 1123.2 666 131.7 Result Diagrams: 03/03/20 04:30 03/03/20 04:30 Additional Labs: Accuchecks 03/03/20 03/03/20 03/03/20 16:18 10:23 04:44 POC Glucose 129 H 123 H 121 H 03/02/20 20:34 POC Glucose 159 H Hospitalist ROS - Review of Systems Other: Intubated - Medication Medications: Active Medications Generic Name Dose Route Start Last Admin Trade Name Freq PRN Reason Stop Dose Admin Acetaminophen 650 mg 02/08/20 10:28 03/03/20 00:31 Acetaminophen 325 Mg Tab PO 650 mg Q4H PRN Administration ORTA/T > 101.5F/Mild Pain (1-3) Albuterol/Ipratropium 3 ml 02/26/20 10:30 03/03/20 18:35 Ipratropium/Albuterol Sulfate 3 Ml Neb NEB 3 ml [id number] DIO Administration Lipase/Protease/Amylase 1 cap 03/03/20 10:15 03/03/20 11:[address] 12,000 1 Cap FS 1 cap .PER PROTOCOL PRN Administration TUBE OCCLUSION PROTOCOL Ascorbic Acid 1,000 mg 02/19/20 09:00 03/03/20 08:42 Ascorbic Acid 500 Mg Chewable Tablet PO 1,000 mg DAILY DIO Administration Aspirin 81 mg 02/29/20 09:00 03/03/20 08:41 Aspirin Chewable 81 Mg Tab PO 81 mg DAILY DIO Administration Benzonatate 100 mg 02/16/20 10:30 02/19/20 03:30 Benzonatate 100 Mg Cap PO 100 mg Q4H PRN Administration Cough Carvedilol 6.25 mg 02/08/20 21:00 03/01/20 09:32 Carvedilol 6.25 Mg Tab PO 6.25 mg BID DIO Administration Cholecalciferol 400 units 02/19/20 09:00 03/03/20 08:42 Cholecalciferol (Vitamin D3) 400 Units Tab PO 400 units DAILY DIO Administration Clopidogrel Bisulfate 75 mg 02/13/20 09:00 03/03/20 08:41 Clopidogrel Bisulfate 75 Mg Tab PO 75 mg DAILY DIO Administration Dexamethasone 6 mg 02/19/20 09:00 03/03/20 08:40 Dexamethasone 4 Mg/Ml Vial SLOW IVP 6 mg DAILY DIO Administration Enoxaparin Sodium 60 mg 02/25/20 21:00 03/03/20 08:40 Enoxaparin Sodium 60 Mg/0.6 Ml Syringe SC 60 mg 09,2099 DIO Administration Escitalopram Oxalate 10 mg 02/08/20 09:00 03/03/20 08:42 Escitalopram Oxalate 10 Mg Tablet PO 10 mg DAILY DIO Administration Famotidine 20 mg 02/08/20 12:00 03/03/20 08:42 Famotidine 20 Mg Tab PO 20 mg BID DIO Administration Furosemide 60 mg 02/27/20 09:00 03/01/20 09:33 Furosemide 100 Mg/10 Ml Vial SLOW IVP 60 mg DAILY DIO Administration Sodium Chloride 1,000 mls @ 0 mls/hr 02/26/20 12:15 03/01/20 21:37 1/2 Normal Saline IV 1,000 mls .Q0M DIO Administration KVO Fentanyl 100 mls @ 0 mls/hr 02/28/20 16:30 03/02/20 08:15 Fentanyl Cadd IV 03/29/20 16:30 100 mls INF DIO Administration Protocol Per Protocol Meropenem 1 gm/ Device 50 mls @ 200 mls/hr 03/01/20 14:00 03/03/20 14:20 IVPB 50 mls Q8HR DIO Administration Insulin Human Lispro 0 units 02/22/20 08:23 03/02/20 21:32 Humalog 300 Units/3 Ml Vial SC 2 unit .MILD SLIDING SCALE PRN Administration Mild Correctional Scale Magnesium Hydroxide 30 ml 02/08/20 10:28 03/03/20 17:52 Milk Of Magnesia 30 Ml Udcup PO 30 ml DAILYPRN PRN Administration Constipation Melatonin 3 mg 02/21/20 03:20 02/21/20 19:36 Melatonin 3 Mg Tab PO 3 mg HSPRN PRN Administration Insomnia Methocarbamol 1,500 mg 02/08/20 10:28 02/20/20 22:50 Methocarbamol 500 Mg Tab PO 1,500 mg Q6H PRN Administration Muscle Spasm Mometasone Furoate/Formoterol Fumar 2 puff 02/20/20 18:30 03/03/20 06:57 Mometasone 100 Mcg/Formoterol 5 Mcg 120 Puff Inhaler INH 2 puff BID-RT DIO Administration Propofol 1,000 mg 02/22/20 12:15 03/03/20 14:39 Propofol 1,000 Mg/100 Ml Vial IV 03/23/20 12:15 1,000 mg INF PRN Administration TO ACHIEVE GOAL RASS Protocol Rosuvastatin Calcium 10 mg 02/08/20 21:00 03/02/20 20:05 Rosuvastatin 10 Mg Tab PO 10 mg HS DIO Administration Sodium Bicarbonate 650 mg 03/03/20 10:15 03/03/20 11:52 Sodium Bicarbonate Tab 325 Mg Tab PER TUBE 650 mg .PER PROTOCOL PRN Administration ENTERAL TUBE OCCLUSION Sodium Chloride 10 ml 02/08/20 09:00 03/03/20 08:40 Flush - Normal Saline 10 Ml Syringe IVF 10 ml Q12HR DIO Administration Sterile Water 1.2 ml 02/21/20 03:45 02/21/20 04:06 Sterile Water 10 Ml Vial FS 1.2 ml PRN PRN Administration RECONSTITUTION Venlafaxine HCl 150 mg 02/08/20 09:00 03/03/20 08:42 Venlafaxine Hcl Xr 150 Mg Cap PO 150 mg DAILY DIO Administration Zinc Sulfate 220 mg 02/19/20 09:00 03/03/20 08:41 Zinc Sulfate 220 Mg Cap PO 220 mg DAILY DIO Administration - Exam Neck: negative: supple, symmetric, no JVD, no thyromegaly, no lymphadenopathy, no carotid bruit, JVD Heart: negative: RRR, no murmur, no gallops, no rubs, normal peripheral pulses, irregular, diminshed peripheral pulses, murmur present, II/IV, III/IV Respiratory: negative: CTAB, no wheezes, no rales, no ronchi, normal chest expansion, no tachypnea, normal percussion, rales, rhonchi, tachypneic, wheezes Gastrointestinal: negative: soft, non-tender, non-distended, normal bowel sounds, no palpable masses, no hepatomegaly, no splenomegaly, no bruit, no guarding, no rigidity, tender to palpation, distended, diminished bowl sounds, voluntary guarding Hosp A/P (1) Hypertension Code(s): I10 - ESSENTIAL (PRIMARY) HYPERTENSION Status: Chronic (2) Obesity Code(s): E66.9 - OBESITY, UNSPECIFIED Status: Chronic (3) Hypercholesteremia Code(s): E78.00 - PURE HYPERCHOLESTEROLEMIA, UNSPECIFIED Status: Chronic (4) Acute respiratory failure with hypoxia Code(s): J96.01 - ACUTE RESPIRATORY FAILURE WITH HYPOXIA Status: Acute (5) COVID-19 Code(s): U07.1 - COVID-19 Status: Acute - Plan pt has a hx of cad was on asa/plavix will need to restart when ok with surgery. pt restarted on her bp meds. 02/10 vital signs stable we will continue current antibiotics. Culture so far negative. Patient states that he does snore at night however does not want to get a sleep study. 02/11 patient appeared to be hypoxic last night. BNP mildly elevated patient was given Lasix x1. Patient does have a history of smoking 4 packs a day for 40 years he quit in 2010 after his bypass. His lungs appear clear to auscultate. We will go ahead and do a CTA to rule out a PE. If his CT is negative we will start him on low-dose steroids with inhalers. We will also start patient on some duo nebs. I have stopped his IV fluids. We will hold his blood pressure medication also. His blood pressure is little bit on the softer side. Patient's cultures indicated propionibacterium acnes which is sensitive to ceftriaxone. Patient currently vancomycin. Infectious disease has been consulted. Patient was given incentive spirometer. Patient's aspirin and Plavix restarted. 02/12 we will start patient on steroids given patient's 4 pack a day smoking history. Patient also on duo nebs. CTA negative for PE. This was discussed with patient and patient's . 02/13 will stop steroids. pt's abx will be set up and possible home in am. pt's covid test is positive. 02/18 called and updated. Asked nursing staff to keep oxygen sat around 95% since pt has a significant hx of smoking and most likely has emphysema. pt on remdesivir and steroids. He is on high flow. will continue abx for right shoulder. 02/20 pt's called and updated. She currently is in four-point restraint. Will check inflammatory markers in the morning. He is not eating very much either may start PPN. Patient also has not slept which can add to his confusi on. I have given him Seroquel we will continue that and see if that helps. 02/21 patient's called and updated that we are going to go ahead and intubate this patient. Patient continues to become tachypneic ABG appears worse on high flow. Spoke with pulmonary recommended intubation. Patient also not eating very much was started NG tube feedings after intubation. 02/22 patient continues to be intubated no significant changes. We will continue Decadron. We will continue DVT prophylaxis. Patient tolerating feeds. 02/23 patient continues to be intubated. Continue Decadron. DVT prophylaxis. 02/24 patient continues to be intubated. Continue steroids and DVT prophylaxis. Patient's was updated by pulmonary. We will continue antibiotics for right shoulder. Sputum culture spent 02/25 patient continues to be intubated we will continue steroids and DVT prophylaxis. We will continue antibiotics 02/26 patient intubated. Tolerating tube feeds. Will continue IV antibiotics. 02/27 patient continues to be intubated, tolerating tube feeds. patient on DVT prophylaxis. will continue antibiotics for now 02/28 patient continues to be intubated. Patient's called and updated. T olerating tube feeds. Currently on 45% FiO2. Patient on DVT prophylaxis and steroids. We will continue antibiotic for his right shoulder pain. Will ask infectious disease how long to continue this antibiotic for. 03/01 pt's oxygen level was increased. He has a elevated wbc and spiked a fever last night. We will get blood cultures and urine. We will start patient on meropenem. I will speak with infectious disease in regards to his antibiotics. Not sure if this is due to a new infection versus cytokine storm. 03/02 we will continue current treatment. We will continue to hold Lasix for now. No fever overnight. Patient's oxygen saturations have been titrated down we will monitor. 03/03 we will continue broad-spectrum antibiotics. WBC is improved. I have asked the nurse to hold off sedation longer to check for neuro status. Pupils are reactive. DVT prophylaxis full anticoagulation. Will Lasix for now. Urine output adequate. Patient tolerating tube feeds. called and updated today. His daughter is supposed to come from [place] today.
[2020-03-03] MEDS: Carvedilol 6.25 MG TAB PO SCH (20:44)
[2020-03-04] MEDS: Acetaminophen 325 MG TAB PO PRN ×3 (00:17→20:32)
[2020-03-04] MEDS ORDERED: Fentanyl CADD 100 ML ONE ×2 (01:50→23:08)
[2020-03-04] MEDS: Fentanyl CADD 100 ML IV SCH ×2 (02:36→23:27)
[2020-03-04 05:24] LABS: ALT (SGPT) 219 U/L (8-55); AST (SGOT) 180 U/L (5-34); Albumin 2.8 g/dL (3.4-4.8); Alkaline Phosphatase 112 U/L (40-110); Anion Gap 18 mmol/L (10-20); BUN (Urea Nitrogen) 53 mg/dL (8.4-25.7); Bilirubin, Direct 0.6 mg/dL (0.1-0.3); CRP (Inflammatory) 6.09 mg/dL (= or < 0.5); Calc. Creatinine Clearance 140 mL/min (70-130); Calcium 8.3 mg/dL (7.8-10.44); Carbon Dioxide 34 mmol/L (23-31); Chloride 100 mmol/L (98-107); Glucose 114 mg/dL (80-115); Potassium 3.7 mmol/L (3.5-5.1); Protein, Total 6.7 g/dL (5.8-8.1); Sodium 148 mmol/L (136-145)
[2020-03-04] MEDS: MEROPENEM 1 GM/50 ML 1 GM in Premix Bag 1 BAG IVPB SCH ×3 (05:33→21:19)
[2020-03-04 05:38] LABS: Band 3 % (5-11); Hemoglobin 10.8 g/dL (14.0-18.0); Lymphocytes 10 % (21-51); MDiff Complete? YES; Mean Corpuscular HGB CONC 29.4 g/dL (32.0-36.0); Mean Corpuscular Hemoglobin 26.3 pg (27.0-31.0); Mean Corpuscular Volume 89.4 fL (78.0-98.0); Mean Platelet Volume 7.9 fL (7.4-10.4); Monocytes 14 % (0-10); Neutrophil 73 % (42-75); Platelet Count 319 thou/uL (130-400); RBC Distribution Width 14.3 % (11.5-14.5); Red Blood Cell (RBC) Count 4.09 mill/uL (4.70-6.10)
[2020-03-04] MEDS: Mometasone 100 MCG/Formoterol 5 MCG 120 PUFF INHALER INH SCH ×2 (06:40→18:25)
[2020-03-04] MEDS: Furosemide 100 MG/10 ML VIAL SLOW IVP SCH (08:39)
[2020-03-04] MEDS: Dexamethasone 4 mg/ml Vial SLOW IVP SCH (08:41)
[2020-03-04] MEDS: Enoxaparin Sodium 60 MG/0.6 ML SYRINGE SC SCH ×2 (08:41→20:29)
[2020-03-04] MEDS: Famotidine 20 MG TAB PO SCH ×2 (08:42→20:30)
[2020-03-04] MEDS: Escitalopram Oxalate 10 mg Tablet PO SCH (08:42)
[2020-03-04] MEDS: Venlafaxine HCl XR 150 MG CAP PO SCH (08:42)
[2020-03-04] MEDS: Clopidogrel Bisulfate 75 MG TAB PO SCH (08:42)
[2020-03-04] MEDS: Cholecalciferol (Vitamin D3) 400 UNITS TAB PO SCH (08:42)
[2020-03-04] MEDS: Carvedilol 6.25 MG TAB PO SCH ×2 (08:42→20:30)
[2020-03-04] MEDS: Aspirin Chewable 81 MG TAB PO SCH (08:42)
[2020-03-04] MEDS: Zinc Sulfate 220 MG CAP PO SCH (08:42)
[2020-03-04] MEDS: Ascorbic Acid 500 mg Chewable Tablet PO SCH (08:42)
[2020-03-04] MEDS: Propofol 1,000 MG/100 ML VIAL IV PRN ×3 (10:12→20:30)
--- NOTE | 2020-03-04 10:37 | PRG ---
DATE OF SERVICE: 03/04/2020 35 minutes critical care time. SUBJECTIVE: The patient continues on mechanical ventilation. There has been no acute changes overnight. His daughter has flown in from [place] and she is at the bedside and I spoke with her at length. OBJECTIVE: VITAL SIGNS: On exam, temperature 97.9, pulse 93, blood pressure 141/79, O2 saturation 96%. 24-hour intake 1909, output 1530. HEENT: Unremarkable. NECK: No adenopathy or JVD. LUNGS: Coarse breath sounds. CARDIAC: S1, S2. Regular. ABDOMEN: Soft. EXTREMITIES: No edema. LABORATORY DATA: Sodium 148, potassium 3.7, chloride 100, CO2 of 34, BUN 53, creatinine 0.8, and glucose 114. Ferritin is 439. White blood cell count 8, hematocrit 36.6, and platelet count 319. ASSESSMENT: 1. Acute respiratory failure requiring mechanical ventilation. 2. COVID-19 pneumonia. 3. Status post removal of hardware from an infected shoulder. PLAN: 1. I would agree with tracheostomy placement early next week. He is continuing antibiotic therapy. I have gone ahead and held his Lasix because his sodium is drifting upward. I do not think we will see any effect of this on tomorrow's labs because he had already received a dose of Lasix before I rounded today. 2. We will recheck his chest x-ray tomorrow. Job ID: [id number]
--- NOTE | 2020-03-04 17:09 | PDOC.HOSPP ---
- Subjective Encounter Date: 03/04/20 Encounter Time: 17:07 non-verbal (intubated and mechanically ventilated) - Objective Vital Signs & Weight: Vital Signs (12 hours) Temp Pulse Resp BP 03/04/20 14:46 82 03/04/20 14:00 20 03/04/20 12:00 99.7 F H 03/04/20 11:08 86 03/04/20 10:00 20 03/04/20 08:42 164/91 H 03/04/20 08:00 97.9 F 03/04/20 06:43 82 03/04/20 06:00 20 Weight Admit Weight 260 lb Weight 246 lb Most Recent Monitor Data Heart Rate from ECG 83 NIBP 108/67 NIBP BP-Mean 80 Respiration from ECG 18 SpO2 95 I&O: 03/03/20 03/04/20 03/05/20 06:59 06:59 06:59 Intake Total 2251 1909.7 331.5 Output Total 1585 1530 1070 Balance 666 379.7 -738.5 Result Diagrams: 03/04/20 03:55 03/04/20 03:40 Additional Labs: Accuchecks 03/04/20 03/04/20 03/04/20 16:01 10:11 04:17 POC Glucose 149 H 131 H 130 H 03/03/20 21:24 POC Glucose 138 H Hospitalist ROS - Review of Systems ROS unobtainable: due to endotracheal tube Respiratory: reports: shortness of breath Neurological: reports: weakness - Medication Medications: Active Medications Generic Name Dose Route Start Last Admin Trade Name Freq PRN Reason Stop Dose Admin Acetaminophen 650 mg 02/08/20 10:28 03/04/20 16:17 Acetaminophen 325 Mg Tab PO 650 mg Q4H PRN Administration ORTA/T > 101.5F/Mild Pain (1-3) Albuterol/Ipratropium 3 ml 02/26/20 10:30 03/04/20 14:45 Ipratropium/Albuterol Sulfate 3 Ml Neb NEB 3 ml [id number] DIO Administration Lipase/Protease/Amylase 1 cap 03/03/20 10:15 03/03/20 11:[address] 12,000 1 Cap FS 1 cap .PER PROTOCOL PRN Administration TUBE OCCLUSION PROTOCOL Ascorbic Acid 1,000 mg 02/19/20 09:00 03/04/20 08:42 Ascorbic Acid 500 Mg Chewable Tablet PO 1,000 mg DAILY DIO Administration Aspirin 81 mg 02/29/20 09:00 03/04/20 08:42 Aspirin Chewable 81 Mg Tab PO 81 mg DAILY DIO Administration Benzonatate 100 mg 02/16/20 10:30 02/19/20 03:30 Benzonatate 100 Mg Cap PO 100 mg Q4H PRN Administration Cough Bisacodyl 10 mg 02/08/20 10:28 03/04/20 00:18 Bisacodyl 10 Mg Supp SD 10 mg Q6H PRN Administration Constipation Carvedilol 6.25 mg 02/08/20 21:00 03/04/20 08:42 Carvedilol 6.25 Mg Tab PO 6.25 mg BID DIO Administration Cholecalciferol 400 units 02/19/20 09:00 03/04/20 08:42 Cholecalciferol (Vitamin D3) 400 Units Tab PO 400 units DAILY DIO Administration Clopidogrel Bisulfate 75 mg 02/13/20 09:00 03/04/20 08:42 Clopidogrel Bisulfate 75 Mg Tab PO 75 mg DAILY DIO Administration Dexamethasone 6 mg 02/19/20 09:00 03/04/20 08:41 Dexamethasone 4 Mg/Ml Vial SLOW IVP 6 mg DAILY DIO Administration Enoxaparin Sodium 60 mg 02/25/20 21:00 03/04/20 08:41 Enoxaparin Sodium 60 Mg/0.6 Ml Syringe SC 60 mg 0900,2100 DIO Administration Escitalopram Oxalate 10 mg 02/08/20 09:00 03/04/20 08:42 Escitalopram Oxalate 10 Mg Tablet PO 10 mg DAILY DIO Administration Famotidine 20 mg 02/08/20 12:00 03/04/20 08:42 Famotidine 20 Mg Tab PO 20 mg BID DIO Administration Sodium Chloride 1,000 mls @ 0 mls/hr 02/26/20 12:15 03/01/20 21:37 1/2 Normal Saline IV 1,000 mls .Q0M DIO Administration KVO Fentanyl 100 mls @ 0 mls/hr 02/28/20 16:30 03/04/20 02:36 Fentanyl Cadd IV 03/29/20 16:30 100 mls INF DIO Administration Protocol Per Protocol Meropenem 1 gm/ Device 50 mls @ 200 mls/hr 03/01/20 14:00 03/04/20 14:10 IVPB 50 mls Q8HR DIO Administration Insulin Human Lispro 0 units 02/22/20 08:23 03/02/20 21:32 Humalog 300 Units/3 Ml Vial SC 2 unit .MILD SLIDING SCALE PRN Administration Mild Correctional Scale Magnesium Hydroxide 30 ml 02/08/20 10:28 03/03/20 17:52 Milk Of Magnesia 30 Ml Udcup PO 30 ml DAILYPRN PRN Administration Constipation Melatonin 3 mg 02/21/20 03:20 02/21/20 19:36 Melatonin 3 Mg Tab PO 3 mg HSPRN PRN Administration Insomnia Methocarbamol 1,500 mg 02/08/20 10:28 02/20/20 22:50 Methocarbamol 500 Mg Tab PO 1,500 mg Q6H PRN Administration Muscle Spasm Mometasone Furoate/Formoterol Fumar 2 puff 02/20/20 18:30 03/04/20 06:40 Mometasone 100 Mcg/Formoterol 5 Mcg 120 Puff Inhaler INH 2 puff BID-RT DIO Administration Propofol 1,000 mg 02/22/20 12:15 03/04/20 15:23 Propofol 1,000 Mg/100 Ml Vial IV 03/23/20 12:15 1,000 mg INF PRN Administration TO ACHIEVE GOAL RASS Protocol Rosuvastatin Calcium 10 mg 02/08/20 21:00 03/02/20 20:05 Rosuvastatin 10 Mg Tab PO 10 mg HS DIO Administration Sodium Bicarbonate 650 mg 03/03/20 10:15 03/03/20 11:52 Sodium Bicarbonate Tab 325 Mg Tab PER TUBE 650 mg .PER PROTOCOL PRN Administration ENTERAL TUBE OCCLUSION Sodium Chloride 10 ml 02/08/20 09:00 03/04/20 08:41 Flush - Normal Saline 10 Ml Syringe IVF 10 ml Q12HR DIO Administration Sterile Water 1.2 ml 02/21/20 03:45 02/21/20 04:06 Sterile Water 10 Ml Vial FS 1.2 ml PRN PRN Administration RECONSTITUTION Venlafaxine HCl 150 mg 02/08/20 09:00 03/04/20 08:42 Venlafaxine Hcl Xr 150 Mg Cap PO 150 mg DAILY DIO Administration Zinc Sulfate 220 mg 02/19/20 09:00 03/04/20 08:42 Zinc Sulfate 220 Mg Cap PO 220 mg DAILY DIO Administration - Exam General Appearance: ill appearing ENT: normocephalic atraumatic, dry oral mucosa Neck: supple, symmetric Heart: RRR, no murmur, no gallops, no rubs, normal peripheral pulses Respiratory: CTAB, no wheezes, no rales, no ronchi, normal chest expansion Gastrointestinal: soft, non-tender, non-distended, normal bowel sounds, no palpable masses, no hepatomegaly Extremities: no cyanosis, no clubbing, no edema Skin: normal turgor, no lesions Neurological: cranial nerve grossly intact, normal sensation to touch, no weakness, no focal deficits, no new deficit Musculoskeletal: normal tone, normal strength Psychiatric: oriented to person, not oriented, somnolent, lethargic Hosp A/P (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 He is appropriately on IV antibiotics. I will defer to the ID services about ongoing antibiotic treatment. (2) Acute respiratory failure with hypoxia Code(s): J96.01 - ACUTE RESPIRATORY FAILURE WITH HYPOXIA Status: Acute Plan: Patient found to have respiratory failure likely secondary to COVID-19 pneumonia. He is currently intubated and mechanically ventilated. We appreciate pulmonary services for the ongoing help. (3) Pneumonia due to COVID-19 virus Code(s): U07.1 - COVID-19; J12.82 - PNEUMONIA DUE TO CORONAVIRUS DISEASE 2019 Status: Acute Plan: He is on IV meropenem. Zinc sulfate is also on board. He did receive remdesivir earlier on admission. 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
[2020-03-04] MEDS: Rosuvastatin 10 MG TAB PO SCH (20:30)
[2020-03-05] MEDS: Propofol 1,000 MG/100 ML VIAL IV PRN ×5 (02:34→23:36)
[2020-03-05 05:00] LABS: Anion Gap 14 mmol/L (10-20); BUN (Urea Nitrogen) 63 mg/dL (8.4-25.7); Calc. Creatinine Clearance 145 mL/min (70-130); Calcium 8.3 mg/dL (7.8-10.44); Carbon Dioxide 36 mmol/L (23-31); Chloride 99 mmol/L (98-107); Glucose 111 mg/dL (80-115); Potassium 3.4 mmol/L (3.5-5.1); Sodium 146 mmol/L (136-145)
[2020-03-05] MEDS: MEROPENEM 1 GM/50 ML 1 GM in Premix Bag 1 BAG IVPB SCH ×3 (05:28→20:55)
[2020-03-05 05:36] LABS: Hemoglobin 10.5 g/dL (14.0-18.0); Mean Corpuscular HGB CONC 30.3 g/dL (32.0-36.0); Mean Corpuscular Hemoglobin 27.1 pg (27.0-31.0); Mean Corpuscular Volume 89.5 fL (78.0-98.0); Mean Platelet Volume 7.7 fL (7.4-10.4); Platelet Count 262 thou/uL (130-400); RBC Distribution Width 14.3 % (11.5-14.5); Red Blood Cell (RBC) Count 3.87 mill/uL (4.70-6.10)
[2020-03-05 06:01] LABS: Band 4 % (5-11); Lymphocytes 14 % (21-51); MDiff Complete? YES; Monocytes 14 % (0-10); Myelocyte 1 % (0-0); Neutrophil 67 % (42-75)
[2020-03-05] MEDS: Mometasone 100 MCG/Formoterol 5 MCG 120 PUFF INHALER INH SCH ×2 (07:07→18:12)
--- NOTE | 2020-03-05 07:57 | RAD ---
XR Chest 1 View Portable History: Pneumonia Comparison: Radiograph 2 days prior Findings: Endotracheal tube tip just below the clavicles. Enteric tube tip below diaphragm although o ut of field of view. Left PICC tip at the cavoatrial junction. Consolidative processes are similar. Multiple midline sternotomy wires. No pneumothorax or effusion. Relative to comparison 1 week prior airspace consolidation is also similar. Impression: Similar examination of the chest without improved lung aeration.
[2020-03-05] MEDS: Famotidine 20 MG TAB PO SCH ×2 (08:57→20:03)
[2020-03-05] MEDS: Zinc Sulfate 220 MG CAP PO SCH (08:57)
[2020-03-05] MEDS: Aspirin Chewable 81 MG TAB PO SCH (08:57)
[2020-03-05] MEDS: Ascorbic Acid 500 mg Chewable Tablet PO SCH (08:57)
[2020-03-05] MEDS: Cholecalciferol (Vitamin D3) 400 UNITS TAB PO SCH (08:57)
[2020-03-05] MEDS: Carvedilol 6.25 MG TAB PO SCH ×2 (08:58→20:04)
[2020-03-05] MEDS: Venlafaxine HCl XR 150 MG CAP PO SCH (08:58)
[2020-03-05] MEDS: Dexamethasone 4 mg/ml Vial SLOW IVP SCH (08:58)
[2020-03-05] MEDS: Escitalopram Oxalate 10 mg Tablet PO SCH (08:58)
[2020-03-05] MEDS: Enoxaparin Sodium 60 MG/0.6 ML SYRINGE SC SCH (08:59)
[2020-03-05] MEDS: Clopidogrel Bisulfate 75 MG TAB PO SCH (09:01)
--- NOTE | 2020-03-05 12:07 | PRG ---
DATE OF SERVICE: 03/05/2020 This is 35 minutes critical time. SUBJECTIVE: The patient remains intubated on mechanical ventilation. He is having some bleeding from his nostrils. PHYSICAL EXAMINATION: VITAL SIGNS: Temperature is 97.6, pulse 77, blood pressure 90/62, O2 sat 88%. 24-hour intake, 2309; output 2280. HEENT: Unremarkable. NECK: No adenopathy or JVD. LUNGS: Clear anteriorly. CARDIAC: S1, S2. Regular. ABDOMEN: Soft. EXTREMITIES: No edema. LABORATORY DATA: White blood cell count 9, hematocrit 34.7, and platelet count 262. Sodium 146, potassium 3.4, chloride 99, CO2 of 36, BUN 63, creatinine 0.7, glucose 111. Chest x-ray shows clearing lung cervantes. ASSESSMENT: 1. Acute respiratory failure requiring mechanical ventilation. 2. COVID-19 pneumonia. 3. Status post removal of hardware from infected shoulder. PLAN: 1. I think we should probably hold his Lovenox and Plavix for the time being. 2. Hopefully, trach and PEG later this week. Job ID: [id number]
--- NOTE | 2020-03-05 13:26 | PDOC.HOSPP ---
- Subjective Encounter Date: 03/05/20 Encounter Time: 13:25 Subjective: Mr. Garcia remains intubated and mechanically ventilated. No family was at the bedside when I came to visit. Nursing staff reported some nasal bleed and the patient is actually on Lovenox and his Plavix. Since they are planning to do a tracheostomy and a PEG tube we can probably hold on for now and resume them much later after. - Objective Vital Signs & Weight: Vital Signs (12 hours) Temp Pulse Resp BP Pulse Ox 03/05/20 12:00 20 03/05/20 11:02 74 121/69 03/05/20 11:00 98.1 F 03/05/20 10:00 20 03/05/20 08:58 127/76 03/05/20 08:00 20 95 03/05/20 07:00 97.6 F 03/05/20 06:58 67 127/76 03/05/20 06:00 20 03/05/20 04:00 98.8 F 20 03/05/20 02:02 77 03/05/20 02:00 99.0 F 21 H Weight Admit Weight 260 lb Weight 244 lb 3.2 oz Most Recent Monitor Data Heart Rate from ECG 80 NIBP 115/79 NIBP BP-Mean 91 Respiration from ECG 20 SpO2 97 I&O: 03/04/20 03/05/20 03/06/20 06:59 06:59 06:59 Intake Total 1909.7 2309.2 200 Output Total 1530 2280 470 Balance 379.7 29.2 -270 Result Diagrams: 03/05/20 03:40 03/05/20 03:40 Additional Labs: Accuchecks 03/05/20 03/05/20 03/04/20 10:06 03:59 21:32 POC Glucose 125 H 114 H 134 H 03/04/20 16:01 POC Glucose 149 H Radiology Reviewed by me: Yes EKG Reviewed by me: Yes Hospitalist ROS - Review of Systems ROS unobtainable: due to endotracheal tube Constitutional: reports: weakness, malaise Respiratory: reports: shortness of breath, SOB with excertion Gastrointestinal: reports: nausea Neurological: reports: weakness - Medication Medications: Active Medications Generic Name Dose Route Start Last Admin Trade Name Freq PRN Reason Stop Dose Admin Acetaminophen 650 mg 02/08/20 10:28 03/04/20 20:32 Acetaminophen 325 Mg Tab PO 650 mg Q4H PRN Administration ORTA/T > 101.5F/Mild Pain (1-3) Albuterol/Ipratropium 3 ml 02/26/20 10:30 03/05/20 11:02 Ipratropium/Albuterol Sulfate 3 Ml Neb NEB 3 ml [id number] DIO Administration Lipase/Protease/Amylase 1 cap 03/03/20 10:15 03/03/20 11:[address] 12,000 1 Cap FS 1 cap .PER PROTOCOL PRN Administration TUBE OCCLUSION PROTOCOL Ascorbic Acid 1,000 mg 02/19/20 09:00 03/05/20 08:57 Ascorbic Acid 500 Mg Chewable Tablet PO 1,000 mg DAILY DIO Administration Aspirin 81 mg 02/29/20 09:00 03/05/20 08:57 Aspirin Chewable 81 Mg Tab PO 81 mg DAILY DIO Administration Benzonatate 100 mg 02/16/20 10:30 02/19/20 03:30 Benzonatate 100 Mg Cap PO 100 mg Q4H PRN Administration Cough Bisacodyl 10 mg 02/08/20 10:28 03/04/20 00:18 Bisacodyl 10 Mg Supp TN 10 mg Q6H PRN Administration Constipation Carvedilol 6.25 mg 02/08/20 21:00 03/05/20 08:58 Carvedilol 6.25 Mg Tab PO 6.25 mg BID DIO Administration Cholecalciferol 400 units 02/19/20 09:00 03/05/20 08:57 Cholecalciferol (Vitamin D3) 400 Units Tab PO 400 units DAILY DIO Administration Clopidogrel Bisulfate 75 mg 02/13/20 09:00 03/05/20 09:01 Clopidogrel Bisulfate 75 Mg Tab PO 75 mg DAILY DIO Administration Dexamethasone 6 mg 02/19/20 09:00 03/05/20 08:58 Dexamethasone 4 Mg/Ml Vial SLOW IVP 6 mg DAILY DIO Administration Enoxaparin Sodium 60 mg 02/25/20 21:00 03/05/20 08:59 Enoxaparin Sodium 60 Mg/0.6 Ml Syringe SC 60 mg 0900,2100 DIO Administration Escitalopram Oxalate 10 mg 02/08/20 09:00 03/05/20 08:58 Escitalopram Oxalate 10 Mg Tablet PO 10 mg DAILY DIO Administration Famotidine 20 mg 02/08/20 12:00 03/05/20 08:57 Famotidine 20 Mg Tab PO 20 mg BID DIO Administration Sodium Chloride 1,000 mls @ 0 mls/hr 02/26/20 12:15 03/01/20 21:37 1/2 Normal Saline IV 1,000 mls .Q0M DIO Administration KVO Fentanyl 100 mls @ 0 mls/hr 02/28/20 16:30 03/04/20 23:27 Fentanyl Cadd IV 03/29/20 16:30 100 mls INF DIO Administration Protocol Per Protocol Meropenem 1 gm/ Device 50 mls @ 200 mls/hr 03/01/20 14:00 03/05/20 13:22 IVPB 50 mls Q8HR DIO Administration Insulin Human Lispro 0 units 02/22/20 08:23 03/02/20 21:32 Humalog 300 Units/3 Ml Vial SC 2 unit .MILD SLIDING SCALE PRN Administration Mild Correctional Scale Magnesium Hydroxide 30 ml 02/08/20 10:28 03/03/20 17:52 Milk Of Magnesia 30 Ml Udcup PO 30 ml DAILYPRN PRN Administration Constipation Melatonin 3 mg 02/21/20 03:20 02/21/20 19:36 Melatonin 3 Mg Tab PO 3 mg HSPRN PRN Administration Insomnia Methocarbamol 1,500 mg 02/08/20 10:28 02/20/20 22:50 Methocarbamol 500 Mg Tab PO 1,500 mg Q6H PRN Administration Muscle Spasm Mometasone Furoate/Formoterol Fumar 2 puff 02/20/20 18:30 03/05/20 07:07 Mometasone 100 Mcg/Formoterol 5 Mcg 120 Puff Inhaler INH 2 puff BID-RT DIO Administration Propofol 1,000 mg 02/22/20 12:15 03/05/20 09:42 Propofol 1,000 Mg/100 Ml Vial IV 03/23/20 12:15 1,000 mg INF PRN Administration TO ACHIEVE GOAL RASS Protocol Rosuvastatin Calcium 10 mg 02/08/20 21:00 03/04/20 20:30 Rosuvastatin 10 Mg Tab PO 10 mg HS DIO Administration Sodium Bicarbonate 650 mg 03/03/20 10:15 03/03/20 11:52 Sodium Bicarbonate Tab 325 Mg Tab PER TUBE 650 mg .PER PROTOCOL PRN Administration ENTERAL TUBE OCCLUSION Sodium Chloride 10 ml 02/08/20 09:00 03/05/20 08:58 Flush - Normal Saline 10 Ml Syringe IVF 10 ml Q12HR DIO Administration Sterile Water 1.2 ml 02/21/20 03:45 02/21/20 04:06 Sterile Water 10 Ml Vial FS 1.2 ml PRN PRN Administration RECONSTITUTION Venlafaxine HCl 150 mg 02/08/20 09:00 03/05/20 08:58 Venlafaxine Hcl Xr 150 Mg Cap PO 150 mg DAILY DIO Administration Zinc Sulfate 220 mg 02/19/20 09:00 03/05/20 08:57 Zinc Sulfate 220 Mg Cap PO 220 mg DAILY DIO Administration - Exam General Appearance: NAD, ill appearing Eye: PERRL, anicteric sclera ENT: normocephalic atraumatic, no oropharyngeal lesions, moist mucosa Neck: supple, symmetric, no JVD, no thyromegaly Heart: RRR, no murmur, no gallops Respiratory: CTAB, no wheezes, no rales, normal chest expansion, no tachypnea Gastrointestinal: soft, non-tender, non-distended, normal bowel sounds, no palpa ble masses, no hepatomegaly, no splenomegaly Neurological - other findings: intubated and ventilated. 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 Operative cultures are growing Propionibacterium acne. (2) Acute respiratory failure with hypoxia Code(s): J96.01 - ACUTE RESPIRATORY FAILURE WITH HYPOXIA Status: Acute Plan: He remains intubated and mechanically ventilated. 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 (3) Pneumonia due to COVID-19 virus Code(s): U07.1 - COVID-19; J12.82 - PNEUMONIA DUE TO CORONAVIRUS DISEASE 2019 Status: Acute Plan: He is on meropenem. We will continue this for now. 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
[2020-03-05] MEDS: Rosuvastatin 10 MG TAB PO SCH (20:03)
[2020-03-05] MEDS: Sodium Chloride 0.45% 1,000 ML IV SCH (22:05)
[2020-03-06] MEDS: Propofol 1,000 MG/100 ML VIAL IV PRN ×3 (04:43→21:07)
[2020-03-06 04:56] LABS: Anion Gap 15 mmol/L (10-20); BUN (Urea Nitrogen) 51 mg/dL (8.4-25.7); Calc. Creatinine Clearance 158 mL/min (70-130); Calcium 8.4 mg/dL (7.8-10.44); Carbon Dioxide 34 mmol/L (23-31); Chloride 101 mmol/L (98-107); Glucose 99 mg/dL (80-115); Potassium 3.6 mmol/L (3.5-5.1); Sodium 146 mmol/L (136-145)
[2020-03-06 04:59] LABS: ALT (SGPT) 204 U/L (8-55); AST (SGOT) 95 U/L (5-34); Albumin 2.9 g/dL (3.4-4.8); Alkaline Phosphatase 87 U/L (40-110); Bilirubin, Direct 0.5 mg/dL (0.1-0.3); Bilirubin, Total 0.9 mg/dL (0.2-1.2); Protein, Total 6.5 g/dL (5.8-8.1)
[2020-03-06] MEDS: MEROPENEM 1 GM/50 ML 1 GM in Premix Bag 1 BAG IVPB SCH ×3 (05:21→22:49)
[2020-03-06] MEDS ORDERED: Fentanyl CADD 100 ML ONE (06:16)
[2020-03-06 06:17] LABS: Hemoglobin 10.7 g/dL (14.0-18.0); Mean Corpuscular HGB CONC 30.4 g/dL (32.0-36.0); Mean Corpuscular Hemoglobin 27.2 pg (27.0-31.0); Mean Corpuscular Volume 89.5 fL (78.0-98.0); Mean Platelet Volume 8.1 fL (7.4-10.4); Platelet Count 270 thou/uL (130-400); Red Blood Cell (RBC) Count 3.93 mill/uL (4.70-6.10); White Blood Cell (WBC) Count 9.9 thou/uL (4.8-10.8)
[2020-03-06 06:20] LABS: Band 7 % (5-11); Lymphocytes 14 % (21-51); MDiff Complete? YES; Metamyelocyte 1 % (0-0); Monocytes 6 % (0-10); Myelocyte 2 % (0-0); Neutrophil 70 % (42-75)
[2020-03-06] MEDS: Mometasone 100 MCG/Formoterol 5 MCG 120 PUFF INHALER INH SCH ×2 (06:51→18:09)
--- NOTE | 2020-03-06 08:35 | RAD ---
Portable frontal chest radiograph: 03/06/2020 COMPARISON: 03/05/2020 HISTORY: Pneumonia FINDINGS: Stable endotracheal tube, left upper extremity PICC, and nasogastric tube. Stable midline s ternotomy wires. Hazy interstitial and alveolar opacity noted within the lung bases, left greater than right, and with in the mid lung zones, right greater than left. Findings are not significantly changed when compared to the prior examination. IMPRESSION: No significant interval change.
[2020-03-06] MEDS: Aspirin Chewable 81 MG TAB PO SCH (08:54)
[2020-03-06] MEDS: Famotidine 20 MG TAB PO SCH ×2 (08:54→20:17)
[2020-03-06] MEDS: Dexamethasone 4 mg/ml Vial SLOW IVP SCH (08:54)
[2020-03-06] MEDS: Escitalopram Oxalate 10 mg Tablet PO SCH (08:54)
[2020-03-06] MEDS: Cholecalciferol (Vitamin D3) 400 UNITS TAB PO SCH (08:55)
[2020-03-06] MEDS: Ascorbic Acid 500 mg Chewable Tablet PO SCH (08:55)
[2020-03-06] MEDS: Venlafaxine HCl XR 150 MG CAP PO SCH (08:55)
[2020-03-06] MEDS: Zinc Sulfate 220 MG CAP PO SCH (08:55)
[2020-03-06] MEDS: Carvedilol 6.25 MG TAB PO SCH ×2 (08:55→20:17)
--- NOTE | 2020-03-06 13:36 | PDOC.PALPN ---
Palliative Progress Note - Subjective Intubtaed with mechanical ventilation. Mild bleeding bilateral nares. Hospitalist suggested holding PlaviX and Lovenox secondary to pending PEG/Trach. - Objective Vital Signs: Vital Signs - Most Recent Temp Pulse Resp BP Pulse Ox 98.0 F 76 22 H 115/59 L 97 03/06/20 11:58 03/06/20 10:48 03/06/20 12:00 03/06/20 08:55 03/06/20 08:00 - Physical Exam Constitutional: NAD, encephalitic, ill appearing HEENT: moist MMs Respiratory: clear to auscultation bilateral, no rales, no wheezing Cardiovascular: RRR Gastrointestinal: soft, non-tender, positive bowel sounds Genitourinary: cook catheter Musculoskeletal: no cyanosis, no clubbing, pulses present, diffuse muscle atrophy Neurology: no focal deficits Skin: cap refill <2 seconds, no lesions, no rash Deviation from normal: sedated - Assessment (1) Palliative care encounter Code(s): Z51.5 - ENCOUNTER FOR PALLIATIVE CARE Current Visit: Yes Status: Acute (2) Acute respiratory failure with hypoxia Code(s): J96.01 - ACUTE RESPIRATORY FAILURE WITH HYPOXIA Current Visit: Yes Status: Acute (3) COVID-19 Code(s): U07.1 - COVID-19 Current Visit: Yes Status: Acute (4) Pneumonia due to COVID-19 virus Code(s): U07.1 - COVID-19; J12.82 - PNEUMONIA DUE TO CORONAVIRUS DISEASE 2019 Current Visit: Yes Status: Acute (5) Hypertension Code(s): I10 - ESSENTIAL (PRIMARY) HYPERTENSION Current Visit: Yes Status: Chronic (6) Obesity Code(s): E66.9 - OBESITY, UNSPECIFIED Current Visit: Yes Status: Chronic - Plan Plan: Palliative care has assisted in family support, prognosis disease assist. Family currently is hopeful for Trach/Peg and transfer to [facility] in [place]. Goal: Recovery from Covid to optimal functional status Trach/Peg Transition to LTAC/[facility] CM facilitating transition of care to LTAC Palliative care will sign off as Goals are met. If needed to revisit goals of care, coping, complex decision making please reconsult our team Thank you for this very appropriate consult. Please also refer to Palliative Care notes in note section. [30] minutes spent on this encounter with >50% of the time in counseling and coordination of care. - ROS Non Response: due to endotracheal tube, due to mental status
--- NOTE | 2020-03-06 14:28 | PDOC.HOSPP ---
- Subjective Encounter Date: 03/06/20 Encounter Time: 14:26 Subjective: Patient remains on mechanical ventilation. His sedation is being weaned off. He seems to follow some commands. He squeezed my hand when I asked him to. Family are interested in long-term acute care placement. - Objective Vital Signs & Weight: Vital Signs (12 hours) Temp Pulse Resp BP Pulse Ox 03/06/20 14:12 89 03/06/20 13:53 21 H 03/06/20 12:00 22 H 03/06/20 11:58 98.0 F 03/06/20 10:48 76 03/06/20 10:00 24 H 03/06/20 08:55 115/59 L 03/06/20 08:00 97 03/06/20 07:00 98.5 F 03/06/20 06:51 91 122/76 03/06/20 06:00 20 03/06/20 04:00 98.0 F 03/06/20 02:54 73 125/78 Weight Admit Weight 260 lb Weight 245 lb 13.047 oz Most Recent Monitor Data Heart Rate from ECG 91 NIBP 129/77 NIBP BP-Mean 94 Respiration from ECG 23 SpO2 95 I&O: 03/05/20 03/06/20 03/07/20 06:59 06:59 06:59 Intake Total 2309.2 2443 460 Output Total 2280 1755 385 Balance 29.2 688 75 Result Diagrams: 03/06/20 03:00 03/06/20 03:00 Additional Labs: Accuchecks 03/06/20 03/05/20 03/05/20 04:19 20:34 15:23 POC Glucose 104 H 142 H 142 H Radiology Reviewed by me: Yes EKG Reviewed by me: Yes Hospitalist ROS - Review of Systems ROS unobtainable: due to endotracheal tube Constitutional: reports: weakness, malaise Respiratory: reports: shortness of breath Neurological: reports: weakness - Medication Medications: Active Medications Generic Name Dose Route Start Last Admin Trade Name Freq PRN Reason Stop Dose Admin Acetaminophen 650 mg 02/08/20 10:28 03/04/20 20:32 Acetaminophen 325 Mg Tab PO 650 mg Q4H PRN Administration ORTA/T > 101.5F/Mild Pain (1-3) Albuterol/Ipratropium 3 ml 02/26/20 10:30 03/06/20 14:11 Ipratropium/Albuterol Sulfate 3 Ml Neb NEB 3 ml [id number] DIO Administration Lipase/Protease/Amylase 1 cap 03/03/20 10:15 03/03/20 11:[address] 12,000 1 Cap FS 1 cap .PER PROTOCOL PRN Administration TUBE OCCLUSION PROTOCOL Ascorbic Acid 1,000 mg 02/19/20 09:00 03/06/20 08:55 Ascorbic Acid 500 Mg Chewable Tablet PO 1,000 mg DAILY DIO Administration Aspirin 81 mg 02/29/20 09:00 03/06/20 08:54 Aspirin Chewable 81 Mg Tab PO 81 mg DAILY DIO Administration Benzonatate 100 mg 02/16/20 10:30 02/19/20 03:30 Benzonatate 100 Mg Cap PO 100 mg Q4H PRN Administration Cough Bisacodyl 10 mg 02/08/20 10:28 03/04/20 00:18 Bisacodyl 10 Mg Supp TN 10 mg Q6H PRN Administration Constipation Carvedilol 6.25 mg 02/08/20 21:00 03/06/20 08:55 Carvedilol 6.25 Mg Tab PO 6.25 mg BID DIO Administration Cholecalciferol 400 units 02/19/20 09:00 03/06/20 08:55 Cholecalciferol (Vitamin D3) 400 Units Tab PO 400 units DAILY DIO Administration Dexamethasone 6 mg 02/19/20 09:00 03/06/20 08:54 Dexamethasone 4 Mg/Ml Vial SLOW IVP 6 mg DAILY DIO Administration Escitalopram Oxalate 10 mg 02/08/20 09:00 03/06/20 08:54 Escitalopram Oxalate 10 Mg Tablet PO 10 mg DAILY DIO Administration Famotidine 20 mg 02/08/20 12:00 03/06/20 08:54 Famotidine 20 Mg Tab PO 20 mg BID DIO Administration Sodium Chloride 1,000 mls @ 0 mls/hr 02/26/20 12:15 03/05/20 22:05 1/2 Normal Saline IV 1,000 mls .Q0M DIO Administration KVO Fentanyl 100 mls @ 0 mls/hr 02/28/20 16:30 03/04/20 23:27 Fentanyl Cadd IV 03/29/20 16:30 100 mls INF DIO Administration Protocol Per Protocol Meropenem 1 gm/ Device 50 mls @ 200 mls/hr 03/01/20 14:00 03/06/20 13:43 IVPB 50 mls Q8HR DIO Administration Insulin Human Lispro 0 units 02/22/20 08:23 03/02/20 21:32 Humalog 300 Units/3 Ml Vial SC 2 unit .MILD SLIDING SCALE PRN Administration Mild Correctional Scale Magnesium Hydroxide 30 ml 02/08/20 10:28 03/03/20 17:52 Milk Of Magnesia 30 Ml Udcup PO 30 ml DAILYPRN PRN Administration Constipation Melatonin 3 mg 02/21/20 03:20 02/21/20 19:36 Melatonin 3 Mg Tab PO 3 mg HSPRN PRN Administration Insomnia Methocarbamol 1,500 mg 02/08/20 10:28 02/20/20 22:50 Methocarbamol 500 Mg Tab PO 1,500 mg Q6H PRN Administration Muscle Spasm Mometasone Furoate/Formoterol Fumar 2 puff 02/20/20 18:30 03/06/20 06:51 Mometasone 100 Mcg/Formoterol 5 Mcg 120 Puff Inhaler INH 2 puff BID-RT DIO Administration Propofol 1,000 mg 02/22/20 12:15 03/06/20 08:52 Propofol 1,000 Mg/100 Ml Vial IV 03/23/20 12:15 1,000 mg INF PRN Administration TO ACHIEVE GOAL RASS Protocol Rosuvastatin Calcium 10 mg 02/08/20 21:00 03/05/20 20:03 Rosuvastatin 10 Mg Tab PO 10 mg HS DIO Administration Sodium Bicarbonate 650 mg 03/03/20 10:15 03/03/20 11:52 Sodium Bicarbonate Tab 325 Mg Tab PER TUBE 650 mg .PER PROTOCOL PRN Administration ENTERAL TUBE OCCLUSION Sodium Chloride 10 ml 02/08/20 09:00 03/06/20 08:56 Flush - Normal Saline 10 Ml Syringe IVF 10 ml Q12HR DIO Administration Sterile Water 1.2 ml 02/21/20 03:45 02/21/20 04:06 Sterile Water 10 Ml Vial FS 1.2 ml PRN PRN Administration RECONSTITUTION Venlafaxine HCl 150 mg 02/08/20 09:00 03/06/20 08:55 Venlafaxine Hcl Xr 150 Mg Cap PO 150 mg DAILY DIO Administration Zinc Sulfate 220 mg 02/19/20 09:00 03/06/20 08:55 Zinc Sulfate 220 Mg Cap PO 220 mg DAILY DIO Administration - Exam General Appearance: NAD, ill appearing Eye: PERRL ENT: normocephalic atraumatic, no oropharyngeal lesions Neck: supple, symmetric, no JVD, no thyromegaly Heart: RRR, no murmur, no gallops Respiratory: CTAB, no wheezes, no rales, normal chest expansion Gastrointestinal: soft, non-tender, non-distended, normal bowel sounds Neurological: cranial nerve grossly intact Psychiatric: not oriented, somnolent, lethargic Hosp A/P (1) 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 This will be continued for now. 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
--- NOTE | 2020-03-06 17:00 | PRG ---
DATE OF SERVICE: 03/06/2020 SUBJECTIVE: Hair Garcia remains mechanically ventilated. OBJECTIVE: VITAL SIGNS: His respiratory rates in the 20s. He is afebrile. FiO2 is 45%, blood pressure is 117/68. Intake and outputs -160. LUNGS: Remarkable for coarse equal breath sounds. HEART: Regular rhythm. ABDOMEN: Soft. LABORATORY DATA: White count 9.9, hemoglobin 10.7, and platelets 270. Sodium 146, potassium 3.6, chloride 101, bicarb 34, BUN 51, and creatinine 0.7. IMPRESSION AND PLAN: COVID pneumonia, respiratory failure. In my opinion, the best chance for survival long-term would be with a tracheostomy. He had multiple other issues affecting his ability to rehabilitate. I would anticipate that rehabilitation will take 1 to 2 months at a minimum, if everything goes well. Adjust his Lovenox to once a day. I have restarted his Plavix. I would recommend tracheostomy. Family is willing. I am told that the is unsure. Critical care time 30 min. Job ID: [id number] MTDD
[2020-03-06] MEDS: Rosuvastatin 10 MG TAB PO SCH (20:17)
[2020-03-07] MEDS: Propofol 1,000 MG/100 ML VIAL IV PRN ×4 (04:27→21:23)
[2020-03-07 05:10] LABS: Band 13 % (5-11); Hemoglobin 10.7 g/dL (14.0-18.0); Lymphocytes 21 % (21-51); MDiff Complete? YES; Mean Corpuscular HGB CONC 30.7 g/dL (32.0-36.0); Mean Corpuscular Hemoglobin 27.3 pg (27.0-31.0); Mean Corpuscular Volume 89.2 fL (78.0-98.0); Mean Platelet Volume 8.1 fL (7.4-10.4); Monocytes 9 % (0-10); Neutrophil 57 % (42-75); Platelet Count 266 thou/uL (130-400); RBC Distribution Width 15.2 % (11.5-14.5); Red Blood Cell (RBC) Count 3.93 mill/uL (4.70-6.10); White Blood Cell (WBC) Count 10.9 thou/uL (4.8-10.8)
[2020-03-07 05:18] LABS: Anion Gap 15 mmol/L (10-20); BUN (Urea Nitrogen) 48 mg/dL (8.4-25.7); Calc. Creatinine Clearance 146 mL/min (70-130); Calcium 8.4 mg/dL (7.8-10.44); Carbon Dioxide 34 mmol/L (23-31); Chloride 102 mmol/L (98-107); Glucose 94 mg/dL (80-115); Potassium 3.5 mmol/L (3.5-5.1); Sodium 147 mmol/L (136-145)
[2020-03-07] MEDS: MEROPENEM 1 GM/50 ML 1 GM in Premix Bag 1 BAG IVPB SCH ×3 (05:24→21:23)
[2020-03-07] MEDS: Mometasone 100 MCG/Formoterol 5 MCG 120 PUFF INHALER INH SCH ×2 (07:46→18:13)
--- NOTE | 2020-03-07 08:11 | RAD ---
Portable frontal chest radiograph: 03/07/2020 COMPARISON: 03/06/2020 HISTORY: Pneumonia FINDINGS: Stable endotracheal tube, nasogastric tube, and left-sided PICC. There is increased linear interstitial density with pulmonary hyperinflation, suspicious for underlying COPD. There is superimposed patchy interstitial and alveolar opacity in the perihilar regions and bilateral lung bas es, which appear slightly improved within the right lung base when compared to the prior exam. Stable midline sternotomy wires. IMPRESSION: Interval improvement in right basilar aeration-otherwise unchanged.
[2020-03-07] MEDS: Venlafaxine HCl XR 150 MG CAP PO SCH (08:22)
[2020-03-07] MEDS: Dexamethasone 4 mg/ml Vial SLOW IVP SCH (08:22)
[2020-03-07] MEDS: Clopidogrel Bisulfate 75 MG TAB PO SCH (08:23)
[2020-03-07] MEDS: Carvedilol 6.25 MG TAB PO SCH ×2 (08:23→19:59)
[2020-03-07] MEDS: Cholecalciferol (Vitamin D3) 400 UNITS TAB PO SCH (08:23)
[2020-03-07] MEDS: Aspirin Chewable 81 MG TAB PO SCH (08:23)
[2020-03-07] MEDS: Zinc Sulfate 220 MG CAP PO SCH (08:24)
[2020-03-07] MEDS: Escitalopram Oxalate 10 mg Tablet PO SCH (08:24)
[2020-03-07] MEDS: Ascorbic Acid 500 mg Chewable Tablet PO SCH (08:24)
[2020-03-07] MEDS: Famotidine 20 MG TAB PO SCH ×2 (08:24→20:00)
[2020-03-07] MEDS ORDERED: Enoxaparin Sodium 60 MG/0.6 ML SYRINGE SC SCH (09:00)
--- NOTE | 2020-03-07 10:32 | PRG ---
DATE OF SERVICE: 03/07/2020 HISTORY OF PRESENT ILLNESS: Mr. Garcia is a 64-year-old male, who is status post explant of infected right shoulder reverse arthroplasty. His last date of surgery was 02/09/2020. He is currently on broad-spectrum antibiotics for his COVID pneumonia. The patient is currently intubated in the ICU, resting in bed. The patient's wound is clean, dry, and intact. The patient is potentially undergo a trach and a PEG and potentially transferred to [facility]. The patient will need 6 total weeks of IV antibiotics for coverage with appropriate antibiotics for P acnes. The patient will be continued to followed in house. . Job ID: [id number] [facility]
--- NOTE | 2020-03-07 14:43 | PDOC.HOSPP ---
- Subjective Encounter Date: 03/07/20 Encounter Time: 14:43 Subjective: Mr. Garcia was seen and evaluated today in the intensive care unit. He remains intubated and ventilated. Discussion has been had about tracheostomy and PEG tube placement. Ultimate plan is for him to go to LTAC per family's request somewhere closer to [place]. - Objective Vital Signs & Weight: Vital Signs (12 hours) Temp Pulse Resp BP Pulse Ox 03/07/20 14:23 100 03/07/20 11:40 23 H 03/07/20 11:38 99.6 F 03/07/20 10:50 97 03/07/20 09:54 22 H 03/07/20 08:23 144/83 H 03/07/20 07:42 97 03/07/20 07:21 21 H 03/07/20 07:09 95 03/07/20 07:00 98.9 F 03/07/20 06:00 20 03/07/20 04:00 98.1 F 21 H Weight Admit Weight 260 lb Weight 244 lb 0.827 oz Most Recent Monitor Data Heart Rate from ECG 101 NIBP 141/90 NIBP BP-Mean 107 Respiration from ECG 23 SpO2 98 I&O: 03/06/20 03/07/20 03/08/20 06:59 06:59 06:59 Intake Total 2443 2470.0 401.5 Output Total 1755 1475 440 Balance 688 995.0 -38.5 Result Diagrams: 03/07/20 03:00 03/07/20 03:00 Radiology Reviewed by me: Yes EKG Reviewed by me: Yes Hospitalist ROS - Review of Systems ROS unobtainable: due to endotracheal tube Constitutional: reports: weakness, malaise Eyes: reports: pain, vision change, conjunctivae inflammation Respiratory: reports: shortness of breath, SOB with excertion - Medication Medications: Active Medications Generic Name Dose Route Start Last Admin Trade Name Freq PRN Reason Stop Dose Admin Acetaminophen 650 mg 02/08/20 10:28 03/04/20 20:32 Acetaminophen 325 Mg Tab PO 650 mg Q4H PRN Administration ORTA/T > 101.5F/Mild Pain (1-3) Albuterol/Ipratropium 3 ml 02/26/20 10:30 03/07/20 14:23 Ipratropium/Albuterol Sulfate 3 Ml Neb NEB 3 ml [id number] DIO Administration Lipase/Protease/Amylase 1 cap 03/03/20 10:15 03/03/20 11:[address] 12,000 1 Cap FS 1 cap .PER PROTOCOL PRN Administration TUBE OCCLUSION PROTOCOL Ascorbic Acid 1,000 mg 02/19/20 09:00 03/07/20 08:24 Ascorbic Acid 500 Mg Chewable Tablet PO 1,000 mg DAILY DIO Administration Aspirin 81 mg 02/29/20 09:00 03/07/20 08:23 Aspirin Chewable 81 Mg Tab PO 81 mg DAILY DIO Administration Benzonatate 100 mg 02/16/20 10:30 02/19/20 03:30 Benzonatate 100 Mg Cap PO 100 mg Q4H PRN Administration Cough Bisacodyl 10 mg 02/08/20 10:28 03/04/20 00:18 Bisacodyl 10 Mg Supp [place] 10 mg Q6H PRN Administration Constipation Carvedilol 6.25 mg 02/08/20 21:00 03/07/20 08:23 Carvedilol 6.25 Mg Tab PO 6.25 mg BID DIO Administration Cholecalciferol 400 units 02/19/20 09:00 03/07/20 08:23 Cholecalciferol (Vitamin D3) 400 Units Tab PO 400 units DAILY DIO Administration Clopidogrel Bisulfate 75 mg 03/07/20 09:00 03/07/20 08:23 Clopidogrel Bisulfate 75 Mg Tab PO 75 mg DAILY DIO Administration Dexamethasone 6 mg 02/19/20 09:00 03/07/20 08:22 Dexamethasone 4 Mg/Ml Vial SLOW IVP 6 mg DAILY DIO Administration Escitalopram Oxalate 10 mg 02/08/20 09:00 03/07/20 08:24 Escitalopram Oxalate 10 Mg Tablet PO 10 mg DAILY DIO Administration Famotidine 20 mg 02/08/20 12:00 03/07/20 08:24 Famotidine 20 Mg Tab PO 20 mg BID DIO Administration Sodium Chloride 1,000 mls @ 0 mls/hr 02/26/20 12:15 03/05/20 22:05 1/2 Normal Saline IV 1,000 mls .Q0M DIO Administration KVO Fentanyl 100 mls @ 0 mls/hr 02/28/20 16:30 03/04/20 23:27 Fentanyl Cadd IV 03/29/20 16:30 100 mls INF DIO Administration Protocol Per Protocol Meropenem 1 gm/ Device 50 mls @ 200 mls/hr 03/01/20 14:00 03/07/20 13:45 IVPB 50 mls Q8HR DIO Administration Insulin Human Lispro 0 units 02/22/20 08:23 03/02/20 21:32 Humalog 300 Units/3 Ml Vial SC 2 unit .MILD SLIDING SCALE PRN Administration Mild Correctional Scale Magnesium Hydroxide 30 ml 02/08/20 10:28 03/03/20 17:52 Milk Of Magnesia 30 Ml Udcup PO 30 ml DAILYPRN PRN Administration Constipation Melatonin 3 mg 02/21/20 03:20 02/21/20 19:36 Melatonin 3 Mg Tab PO 3 mg HSPRN PRN Administration Insomnia Methocarbamol 1,500 mg 02/08/20 10:28 02/20/20 22:50 Methocarbamol 500 Mg Tab PO 1,500 mg Q6H PRN Administration Muscle Spasm Mometasone Furoate/Formoterol Fumar 2 puff 02/20/20 18:30 03/07/20 07:46 Mometasone 100 Mcg/Formoterol 5 Mcg 120 Puff Inhaler INH 2 puff BID-RT DIO Administration Propofol 1,000 mg 02/22/20 12:15 03/07/20 13:45 Propofol 1,000 Mg/100 Ml Vial IV 03/23/20 12:15 1,000 mg INF PRN Administration TO ACHIEVE GOAL RASS Protocol Rosuvastatin Calcium 10 mg 02/08/20 21:00 03/06/20 20:17 Rosuvastatin 10 Mg Tab PO 10 mg HS DIO Administration Sodium Bicarbonate 650 mg 03/03/20 10:15 03/03/20 11:52 Sodium Bicarbonate Tab 325 Mg Tab PER TUBE 650 mg .PER PROTOCOL PRN Administration ENTERAL TUBE OCCLUSION Sodium Chloride 10 ml 02/08/20 09:00 03/07/20 08:24 Flush - Normal Saline 10 Ml Syringe IVF 10 ml Q12HR DIO Administration Sterile Water 1.2 ml 02/21/20 03:45 02/21/20 04:06 Sterile Water 10 Ml Vial FS 1.2 ml PRN PRN Administration RECONSTITUTION Venlafaxine HCl 150 mg 02/08/20 09:00 03/07/20 08:22 Venlafaxine Hcl Xr 150 Mg Cap PO 150 mg DAILY DIO Administration Zinc Sulfate 220 mg 02/19/20 09:00 03/07/20 08:24 Zinc Sulfate 220 Mg Cap PO 220 mg DAILY DIO Administration - Exam General Appearance: NAD, ill appearing Eye: PERRL, anicteric sclera ENT: normocephalic atraumatic, no oropharyngeal lesions Neck: supple, symmetric, no JVD Heart: RRR, no murmur, no gallops, no rubs Respiratory: CTAB, no wheezes, no rales, no ronchi Gastrointestinal: soft, non-tender, non-distended, normal bowel sounds, no palpable masses Musculoskeletal: generalized weakness Psychiatric: not oriented, somnolent, lethargic Hosp A/P (1) 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 He likely will need long-term antibiotic treatment related to the culture from the shoulder. 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
--- NOTE | 2020-03-07 15:10 | PRG ---
DATE OF SERVICE: 03/07/2020 OBJECTIVE: VITAL SIGNS: Mr. Garcia's heart rate of 100, FiO2 is 45%, blood pressure 141/90, respiratory rates in the 20s. LUNGS: Remarkable for coarse equal breath sounds. HEART: Regular rhythm. ABDOMEN: Soft. LABORATORY DATA: White count 10.9, hemoglobin 10.7, platelets 266. Sodium 147, potassium 3.5, chloride 102, bicarb 34, BUN 48, creatinine 0.78. IMPRESSION: COVID pneumonia. PLAN: We will have to have his Plavix and Lovenox held for tracheostomy. His is now willing to move forward with tracheostomy and LTAC placement. It is unclear to me how long Dr. Jasso wanted to treat his shoulder space infection. This will need to be delineated before he is discharged. Continue supportive care. Job ID: [id number]
[2020-03-07] MEDS ORDERED: CEFAZOLIN 2 GM in Premix Bag 1 BAG IVPB SCH (18:45)
[2020-03-07] MEDS: Rosuvastatin 10 MG TAB PO SCH (20:00)
--- NOTE | 2020-03-08 00:11 | CON ---
DATE OF CONSULTATION: HISTORY OF PRESENT ILLNESS: Mr. Garcia is a 64-year-old male patient with respiratory failure. I have been consulted for tracheostomy and PEG tube. He is scheduled to go to LTAC. He underwent on 02/09/[address] Leigh Ann oliveira with antibiotic spacers. Apparently postprocedural, the patient had pain on 02/10/2020, underwent irrigation and debridement with exploration and cauterization of bleeding. Dr. Jasso saw him postoperatively. He had problems with desaturation and dyspnea. X-rays on 02/18 revealed bilateral infiltrates and he was found to have COVID pneumonia, diagnosed 02/13/2020, followed by hospitalist and Pulmonary Medicine, required intubation, now released from isolation and planned for tracheostomy and PEG tube in LTAC for convalescence and rehabilitation. ALLERGIES: NONE. MEDICATIONS: 1. Crestor. 2. Lexapro. 3. Plavix. 4. Carvedilol. 5. Aspirin. 6. He is on tube feedings. PAST MEDICAL HISTORY: Lipid disorder, hypertension, spinal stimulator for chronic back pain, coronary artery bypass grafting in the past, right shoulder surgery, history of ischemic cardiomyopathy, tobacco cessation in 2010 per records, alcohol occasionally. The patient is intubated, sedated. PHYSICAL EXAMINATION: VITAL SIGNS: Height 6 feet 2 inches, weight 245 pounds, 31 BMI, and blood pressure 145/94. LUNGS: Clear to auscultation. No wheezing. CARDIAC: Rhythm. ABDOMEN: Soft. EXTREMITIES: Unremarkable. LABORATORY DATA: White count 10, hemoglobin 10. Basic metabolic profile normal. Sodium 147, BUN 48, creatinine 0.78. ASSESSMENT: Respiratory failure, COVID pneumonia. PLAN: 1. Tracheostomy and PEG tube to facilitate convalescence weaning and transfer to LTAC. 2. Status post shoulder surgery with subsequent washout. Other medical problems as noted above. Job ID: [id number]
[2020-03-08] MEDS ORDERED: Fentanyl CADD 100 ML ONE (03:18)
[2020-03-08] MEDS: Propofol 1,000 MG/100 ML VIAL IV PRN ×2 (05:00→20:09)
[2020-03-08] MEDS: MEROPENEM 1 GM/50 ML 1 GM in Premix Bag 1 BAG IVPB SCH (05:00)
[2020-03-08 05:06] LABS: ALT (SGPT) 252 U/L (8-55); AST (SGOT) 145 U/L (5-34); Alkaline Phosphatase 83 U/L (40-110); Bilirubin, Direct 0.7 mg/dL (0.1-0.3); Bilirubin, Total 1.2 mg/dL (0.2-1.2); Protein, Total 6.5 g/dL (5.8-8.1)
[2020-03-08 05:08] VITALS: BMI 31.6
[2020-03-08 05:29] LABS: Anion Gap 14 mmol/L (10-20); BUN (Urea Nitrogen) 42 mg/dL (8.4-25.7); Calc. Creatinine Clearance 155 mL/min (70-130); Calcium 8.5 mg/dL (7.8-10.44); Carbon Dioxide 32 mmol/L (23-31); Chloride 105 mmol/L (98-107); Glucose 94 mg/dL (80-115); Potassium 3.3 mmol/L (3.5-5.1); Sodium 148 mmol/L (136-145)
[2020-03-08 05:31] LABS: Band 2 % (5-11); Eosinophils 1 % (0-10); Hemoglobin 11.1 g/dL (14.0-18.0); Lymphocytes 12 % (21-51); MDiff Complete? YES; Mean Corpuscular Hemoglobin 26.8 pg (27.0-31.0); Mean Corpuscular Volume 89.3 fL (78.0-98.0); Mean Platelet Volume 8.2 fL (7.4-10.4); Metamyelocyte 1 % (0-0); Monocytes 4 % (0-10); Myelocyte 3 % (0-0); Neutrophil 77 % (42-75); Platelet Count 278 thou/uL (130-400); RBC Distribution Width 15.3 % (11.5-14.5); Red Blood Cell (RBC) Count 4.12 mill/uL (4.70-6.10); White Blood Cell (WBC) Count 12.6 thou/uL (4.8-10.8)
[2020-03-08 06:13] LABS: Fungus Culture Final report (.)
[2020-03-08] MEDS: Mometasone 100 MCG/Formoterol 5 MCG 120 PUFF INHALER INH SCH ×2 (06:58→18:12)
[2020-03-08] MEDS: Acetaminophen 325 MG TAB PO PRN (07:33)
[2020-03-08] MEDS: Venlafaxine HCl XR 150 MG CAP PO SCH (07:34)
[2020-03-08] MEDS: Zinc Sulfate 220 MG CAP PO SCH (07:36)
[2020-03-08] MEDS: Ascorbic Acid 500 mg Chewable Tablet PO SCH (07:37)
[2020-03-08] MEDS: Escitalopram Oxalate 10 mg Tablet PO SCH (07:37)
[2020-03-08] MEDS: Cholecalciferol (Vitamin D3) 400 UNITS TAB PO SCH (07:37)
[2020-03-08] MEDS: Carvedilol 6.25 MG TAB PO SCH ×2 (07:37→20:09)
[2020-03-08] MEDS: Famotidine 20 MG TAB PO SCH ×2 (07:37→20:09)
[2020-03-08] MEDS: Aspirin Chewable 81 MG TAB PO SCH (07:38)
[2020-03-08] MEDS: Enoxaparin Sodium 40 MG/0.4 ML SYRINGE SC SCH (07:49)
[2020-03-08] MEDS: Dexamethasone 4 mg/ml Vial SLOW IVP SCH (08:18)
[2020-03-08] MEDS ORDERED: Fentanyl 100 MCG/2 ML VIAL ONE (08:49)
[2020-03-08] MEDS: cefTRIAXone\\ROCEPHIN 2 GM in Sodium Chloride 0.9% 100 ML IVPB SCH (08:49)
[2020-03-08] MEDS ORDERED: Midazolam HCl 2 mg/2 ml Vial ONE (08:49)
--- NOTE | 2020-03-08 08:52 | RAD ---
PORTABLE CHEST: HISTORY: Pneumonia. CCU followup on ventilator. COMPARISON: 03/07/2020. FINDINGS: Thee is interstitial and hazy alveolar/ground-glass infiltrate seen in the right lower lung and in th e left mid and lower lung. More confluent opacity is seen in both lung bases. Central line unchanged. Heart size is normal with postop sternotomy changes. IMPRESSION: Bilateral infiltrates which appear more prominent today, although differences in technique make mireya rison suboptimal. POS: OFF
[2020-03-08] MEDS ORDERED: Bupivacaine PF 0.5% 30 ML VIAL ONE (09:02)
[2020-03-08] MEDS ORDERED: Lidocaine 2% w/Epinephrine 1:200K 20 ML VIAL ONE (09:02)
[2020-03-08] MEDS ORDERED: Rocuronium Bromide 10 MG/ML (10ML VIAL) ONE (10:13)
--- NOTE | 2020-03-08 11:03 | OP ---
DATE OF PROCEDURE: 03/08/2020 PREOPERATIVE DIAGNOSES: Respiratory failure, COVID pneumonia, malnutrition, oropharyngeal dysphagia. POSTOPERATIVE DIAGNOSES: Respiratory failure, COVID pneumonia, malnutrition, oropharyngeal dysphagia. PROCEDURE PERFORMED: #8 Shiley low-pressure cuffed tracheostomy tube, percutaneous endoscopic gastrostomy tube. ANESTHESIA: General, local 0.5% Marcaine 30 mL mixed with 1% Xylocaine with epinephrine 20 mL. DESCRIPTION OF PROCEDURE: The patient was taken to the operating room, where in supine position, neck, chest, and abdomen prepared with ChloraPrep and draped in routine fashion. Local anesthetic mixture was infiltrated into the skin and subcutaneous tissue about the operative site. Incision made at the anterior lower neck above the manubrium, carried down skin, platysma, gaining hemostasis with a cautery, reflecting the strap muscles laterally, dissecting the trachea placing strap sutures 3-0 Prolene on either side. Anterior lateral trachea and air knots tied. Anterior tracheal window excised over 2 cartilaginous rings below the cricoid. Endotracheal tube withdrawn under direct visualization and a #8 Shiley low-pressure cuffed tracheostomy tube placed under direct visualization of the trachea, balloon inflated, connected to the ventilator, applying the rest of the subcutaneous tissue and skin approximated outside with continuous suture of 3-0 Prolene. Tracheostomy appliance secured to skin with 3-0 Prolene suture. Sterile dressing applied. Endoscope was placed per os under direct visualization with air insufflation and passed throughout the esophagus and the stomach, noting normal esophagus and stomach visualized. A good indentation noted in the left subxiphoid and stab incision made and trocar catheter induced percutaneously visualized endoscopically within the gastric lumen, grasping the wire with a snare with the wire introduced through the trocar catheter subxiphoid and bringing the endoscope and wire out through the mouth. The wire connected to the feeding tube, lubricated and pulled back down the esophagus fixating it to the abdominal wall with the fixation device. Tube tailored to length and feeding device secured. Patient tolerated the procedure well. Job ID: [id number]
--- NOTE | 2020-03-08 12:12 | PDOC.HOSPP ---
- Subjective Encounter Date: 03/08/20 Encounter Time: 12:10 Subjective: Patient went to the OR today for tracheostomy. Family looking into LTAC placement. He can go whenever he is approved. I did discuss with the ID services who was the patient to remain on Rocephin till March [id number]. And he can switch to doxycycline to complete a total of 6 weeks of antibiotics. - Objective Vital Signs & Weight: Vital Signs (12 hours) Temp Pulse Resp BP Pulse Ox 03/08/20 11:06 82 03/08/20 11:00 99.4 F 03/08/20 09:00 99.2 F 03/08/20 08:00 20 99 03/08/20 07:37 144/83 H 03/08/20 07:33 101.2 F H 03/08/20 07:00 101.2 F H 03/08/20 06:53 96 03/08/20 06:00 22 H 03/08/20 04:00 98.5 F 28 H 03/08/20 02:01 89 03/08/20 02:00 22 H Weight Admit Weight 260 lb Weight 246 lb 0.574 oz Most Recent Monitor Data Heart Rate from ECG 82 NIBP 133/92 NIBP BP-Mean 105 Respiration from ECG 9 SpO2 94 I&O: 03/07/20 03/08/20 03/09/20 06:59 06:59 06:59 Intake Total 2470.0 2347.0 150 Output Total 1475 1765 240 Balance 995.0 582.0 -90 Result Diagrams: 03/08/20 03:10 03/08/20 03:10 Radiology Reviewed by me: Yes EKG Reviewed by me: Yes Hospitalist ROS - Review of Systems ROS unobtainable: due to mental status Constitutional: reports: weakness, malaise Gastrointestinal: reports: nausea Neurological: reports: weakness - Medication Medications: Active Medications Generic Name Dose Route Start Last Admin Trade Name Freq PRN Reason Stop Dose Admin Acetaminophen 650 mg 02/08/20 10:28 03/08/20 07:33 Acetaminophen 325 Mg Tab PO 650 mg Q4H PRN Administration ORTA/T > 101.5F/Mild Pain (1-3) Albuterol/Ipratropium 3 ml 02/26/20 10:30 03/08/20 11:03 Ipratropium/Albuterol Sulfate 3 Ml Neb NEB 3 ml [id number] DIO Administration Lipase/Protease/Amylase 1 cap 03/03/20 10:15 03/03/20 11:[address] 12,000 1 Cap FS 1 cap .PER PROTOCOL PRN Administration TUBE OCCLUSION PROTOCOL Ascorbic Acid 1,000 mg 02/19/20 09:00 03/08/20 07:37 Ascorbic Acid 500 Mg Chewable Tablet PO 1,000 mg DAILY DIO Administration Aspirin 81 mg 02/29/20 09:00 03/08/20 07:38 Aspirin Chewable 81 Mg Tab PO 81 mg DAILY DIO Administration Benzonatate 100 mg 02/16/20 10:30 02/19/20 03:30 Benzonatate 100 Mg Cap PO 100 mg Q4H PRN Administration Cough Bisacodyl 10 mg 02/08/20 10:28 03/04/20 00:18 Bisacodyl 10 Mg Supp [place] 10 mg Q6H PRN Administration Constipation Carvedilol 6.25 mg 02/08/20 21:00 03/08/20 07:37 Carvedilol 6.25 Mg Tab PO 6.25 mg BID DIO Administration Cholecalciferol 400 units 02/19/20 09:00 03/08/20 07:37 Cholecalciferol (Vitamin D3) 400 Units Tab PO 400 units DAILY DIO Administration Clopidogrel Bisulfate 75 mg 03/07/20 09:00 03/07/20 08:23 Clopidogrel Bisulfate 75 Mg Tab PO 75 mg DAILY DIO Administration Dexamethasone 6 mg 02/19/20 09:00 03/08/20 08:18 Dexamethasone 4 Mg/Ml Vial SLOW IVP 6 mg DAILY DIO Administration Enoxaparin Sodium 40 mg 03/08/20 09:00 03/08/20 07:49 Enoxaparin Sodium 40 Mg/0.4 Ml Syringe SC Not Given 09 DIO Escitalopram Oxalate 10 mg 02/08/20 09:00 03/08/20 07:37 Escitalopram Oxalate 10 Mg Tablet PO 10 mg DAILY DIO Administration Famotidine 20 mg 02/08/20 12:00 03/08/20 07:37 Famotidine 20 Mg Tab PO 20 mg BID DIO Administration Sodium Chloride 1,000 mls @ 0 mls/hr 02/26/20 12:15 03/05/20 22:05 1/2 Normal Saline IV 1,000 mls .Q0M DIO Administration KVO Fentanyl 100 mls @ 0 mls/hr 02/28/20 16:30 03/04/20 23:27 Fentanyl Cadd IV 03/29/20 16:30 100 mls INF DIO Administration Protocol Per Protocol Ceftriaxone Sodium 2 gm/ 100 mls @ 200 mls/hr 03/08/20 08:15 03/08/20 08:49 Sodium Chloride IVPB 100 mls Q24HR DIO Administration Insulin Human Lispro 0 units 02/22/20 08:23 03/02/20 21:32 Humalog 300 Units/3 Ml Vial SC 2 unit .MILD SLIDING SCALE PRN Administration Mild Correctional Scale Magnesium Hydroxide 30 ml 02/08/20 10:28 03/03/20 17:52 Milk Of Magnesia 30 Ml Udcup PO 30 ml DAILYPRN PRN Administration Constipation Melatonin 3 mg 02/21/20 03:20 02/21/20 19:36 Melatonin 3 Mg Tab PO 3 mg HSPRN PRN Administration Insomnia Methocarbamol 1,500 mg 02/08/20 10:28 02/20/20 22:50 Methocarbamol 500 Mg Tab PO 1,500 mg Q6H PRN Administration Muscle Spasm Mometasone Furoate/Formoterol Fumar 2 puff 02/20/20 18:30 03/08/20 06:58 Mometasone 100 Mcg/Formoterol 5 Mcg 120 Puff Inhaler INH 2 puff BID-RT DIO Administration Propofol 1,000 mg 02/22/20 12:15 03/08/20 05:00 Propofol 1,000 Mg/100 Ml Vial IV 03/23/20 12:15 1,000 mg INF PRN Administration TO ACHIEVE GOAL RASS Protocol Rosuvastatin Calcium 10 mg 02/08/20 21:00 03/07/20 20:00 Rosuvastatin 10 Mg Tab PO 10 mg HS DIO Administration Sodium Bicarbonate 650 mg 03/03/20 10:15 03/03/20 11:52 Sodium Bicarbonate Tab 325 Mg Tab PER TUBE 650 mg .PER PROTOCOL PRN Administration ENTERAL TUBE OCCLUSION Sodium Chloride 10 ml 02/08/20 09:00 03/08/20 08:21 Flush - Normal Saline 10 Ml Syringe IVF 10 ml Q12HR DIO Administration Sterile Water 1.2 ml 02/21/20 03:45 02/21/20 04:06 Sterile Water 10 Ml Vial FS 1.2 ml PRN PRN Administration RECONSTITUTION Venlafaxine HCl 150 mg 02/08/20 09:00 03/08/20 07:34 Venlafaxine Hcl Xr 150 Mg Cap PO 150 mg DAILY DIO Administration Zinc Sulfate 220 mg 02/19/20 09:00 03/08/20 07:36 Zinc Sulfate 220 Mg Cap PO 220 mg DAILY DIO Administration - Exam General Appearance: NAD, ill appearing Eye: PERRL, anicteric sclera ENT: normocephalic atraumatic, no oropharyngeal lesions Neck: supple, symmetric, no JVD, no thyromegaly Heart: RRR, no murmur, no gallops Respiratory: CTAB, no wheezes Gastrointestinal: soft, non-tender, non-distended Neurological: cranial nerve grossly intact Psychiatric: normal affect, normal behavior, A&O x 3 Hosp A/P (1) 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 Code(s): T84.59XA - INFECT/INFLM REACTION DUE TO OTH INTERNAL JOINT PROSTH, INIT; Z96.611 - PRESENCE OF RIGHT ARTIFICIAL SHOULDER JOINT Status: Acute (2) Acute respiratory failure with hypoxia Code(s): J96.01 - ACUTE RESPIRATORY FAILURE WITH HYPOXIA Status: Acute (3) Pneumonia due to COVID-19 virus Code(s): U07.1 - COVID-19; J12.82 - PNEUMONIA DUE TO CORONAVIRUS DISEASE 2019 Status: Acute (4) 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
--- NOTE | 2020-03-08 17:06 | PRG ---
DATE OF SERVICE: 03/08/2020 SUBJECTIVE: Hair Garcia has tracheostomy today. OBJECTIVE: VITAL SIGNS: Respiratory rate is in the 20s, FiO2 is 40, heart rate is in the 80s, and blood pressure 132/86. LUNGS: Remarkable for coarse equal breath sounds. HEART: Regular rate and rhythm. ABDOMEN: Soft. EXTREMITIES: Without asymmetry. LABORATORY DATA: White count 12.6, hemoglobin 11.1, and platelets 278. Sodium 148, potassium 3.3, chloride 105, bicarb 32, BUN 42, and creatinine 0.74. IMPRESSION: 1. Status post removal of infected hardware in his shoulder. Dr. Jasso wants 6 weeks of IV Rocephin. 2. COVID pneumonia, discovered after he had been admitted to the hospital, likely present on admission. It is now 29 days into this hospitalization. We were awaiting approval to go to a long-term acute care facility. Job ID: [id number]
[2020-03-08] MEDS: Rosuvastatin 10 MG TAB PO SCH (20:09)
[2020-03-09] MEDS: Propofol 1,000 MG/100 ML VIAL IV PRN ×2 (03:15→12:50)
[2020-03-09 05:34] LABS: Anion Gap 13 mmol/L (10-20); BUN (Urea Nitrogen) 35 mg/dL (8.4-25.7); Calc. Creatinine Clearance 160 mL/min (70-130); Calcium 8.1 mg/dL (7.8-10.44); Carbon Dioxide 30 mmol/L (23-31); Chloride 107 mmol/L (98-107); Glucose 96 mg/dL (80-115); Potassium 3.3 mmol/L (3.5-5.1); Sodium 147 mmol/L (136-145)
[2020-03-09 06:02] LABS: Band 7 % (5-11); Hemoglobin 11.1 g/dL (14.0-18.0); Lymphocytes 7 % (21-51); MDiff Complete? YES; Mean Corpuscular HGB CONC 30.4 g/dL (32.0-36.0); Mean Corpuscular Volume 88.9 fL (78.0-98.0); Mean Platelet Volume 8.1 fL (7.4-10.4); Monocytes 11 % (0-10); Myelocyte 1 % (0-0); Neutrophil 74 % (42-75); Platelet Count 285 thou/uL (130-400); RBC Distribution Width 15.5 % (11.5-14.5); Red Blood Cell (RBC) Count 4.12 mill/uL (4.70-6.10); White Blood Cell (WBC) Count 15.1 thou/uL (4.8-10.8)
[2020-03-09] MEDS: Mometasone 100 MCG/Formoterol 5 MCG 120 PUFF INHALER INH SCH ×2 (07:20→18:12)
--- NOTE | 2020-03-09 07:48 | PRG ---
DATE OF SERVICE: 03/09/2020 SUBJECTIVE: The patient remains on mechanical ventilation through a tracheostomy. He is deeply sedated on propofol. OBJECTIVE: VITAL SIGNS: Temperature is 101.0 with a T-max of 101.2 yesterday, pulse 97, blood pressure 142/82, O2 saturation 96%. His current ventilator settings is on SIMV rate 14, tidal volume 500, PEEP 5, pressure support 10, and FiO2 of 35%. GENERAL: He is not following commands for me. HEENT: Otherwise, unremarkable. NECK: No JVD. CHEST: Fairly clear. CARDIAC: S1, S2. Regular. ABDOMEN: Soft. EXTREMITIES: No edema. LABORATORY DATA AND DIAGNOSTIC STUDIES: White blood cell count 15.1, hematocrit 36.6, and platelet count 285. Sodium 147, potassium 3.3, chloride 107, CO2 of 30, BUN 35, creatinine 0.7, and glucose 96. Chest x-ray demonstrates hyperinflation with no evidence of mass, maybe some bilateral lower lobe infiltrates present. ASSESSMENT: 1. Acute respiratory failure requiring mechanical ventilation and tracheostomy placement. 2. Status post infected hardware removal from shoulder-currently on IV Rocephin. 3. COVID pneumonia. PLAN: 1. We are awaiting LTAC placement. 2. I have asked the Nursing Service to back down his sedation if at all possible. 3. Continue IV antibiotics. 4. Continue enteral tube feeds. 5. I will go ahead and start decreasing his steroid dose. Job ID: [id number]
--- NOTE | 2020-03-09 08:08 | PRG ---
DATE OF SERVICE: 03/09/2020 Mr. Garcia is doing well today. He had a tracheostomy and a PEG tube yesterday. His tracheostomy site is dry. His abdomen is soft and nontender. He is tolerating his tube feedings. At this point, I will see him as needed. Please call with any problems. Job ID: [id number]
[2020-03-09] MEDS: Zinc Sulfate 220 MG CAP PO SCH (08:38)
[2020-03-09] MEDS: cefTRIAXone\\ROCEPHIN 2 GM in Sodium Chloride 0.9% 100 ML IVPB SCH (08:38)
[2020-03-09] MEDS: Enoxaparin Sodium 40 MG/0.4 ML SYRINGE SC SCH (08:38)
[2020-03-09] MEDS: Ascorbic Acid 500 mg Chewable Tablet PO SCH (08:39)
[2020-03-09] MEDS: Carvedilol 6.25 MG TAB PO SCH ×2 (08:39→20:27)
[2020-03-09] MEDS: Aspirin Chewable 81 MG TAB PO SCH (08:40)
[2020-03-09] MEDS: Dexamethasone 4 mg/ml Vial SLOW IVP SCH (08:40)
[2020-03-09] MEDS: Famotidine 20 MG TAB PO SCH ×2 (08:40→20:27)
[2020-03-09] MEDS: Escitalopram Oxalate 10 mg Tablet PO SCH (08:40)
[2020-03-09] MEDS: Cholecalciferol (Vitamin D3) 400 UNITS TAB PO SCH (08:40)
[2020-03-09] MEDS: Venlafaxine HCl XR 150 MG CAP PO SCH (08:40)
[2020-03-09] MEDS: Clopidogrel Bisulfate 75 MG TAB PO SCH (08:40)
--- NOTE | 2020-03-09 08:42 | RAD ---
PORTABLE CHEST: INDICATION: Pneumonia followup. COMPARISON: 03/08/2020. FINDINGS: Tracheostomy device has been placed. PICC line via the left upper extremity overlies the SVC. Hazy infiltrate throughout both lungs with more patchy airspace infiltrate in the lung bases. No acute callie nge from yesterday. POS: AGW
[2020-03-09] MEDS ORDERED: Potassium Chloride 40 MEQ in Sodium Chloride 0.9% 250 ML 250 ML IVPB SCH (09:00)
--- NOTE | 2020-03-09 15:27 | PDOC.HOSPP ---
- Subjective Encounter Date: 03/09/20 Encounter Time: 15:19 Subjective: Trach and PEG are in place. Patient now pending transfer to long-term acute care hospital per family's request. No other acute issues reported. He is still not following any commands. - Objective Vital Signs & Weight: Vital Signs (12 hours) Temp Pulse Resp BP Pulse Ox 03/09/20 14:34 106 H 158/86 H 03/09/20 14:00 25 H 03/09/20 12:00 99.1 F 28 H 03/09/20 10:29 95 124/60 03/09/20 10:00 30 H 03/09/20 08:39 145/79 H 03/09/20 08:00 99.1 F 28 H 99 03/09/20 07:21 96 142/82 H 03/09/20 06:00 101.0 F H 29 H 03/09/20 04:00 99.0 F 26 H Weight Admit Weight 260 lb Weight 243 lb 9.773 oz Most Recent Monitor Data Heart Rate from ECG 107 NIBP 149/77 NIBP BP-Mean 101 Respiration from ECG 26 SpO2 97 I&O: 03/08/20 03/09/20 03/10/20 06:59 06:59 06:59 Intake Total 2347.0 1454.9 770 Output Total 1765 1590 340 Balance 582.0 -135.1 430 Result Diagrams: 03/09/20 03:25 03/09/20 03:25 Radiology Reviewed by me: Yes EKG Reviewed by me: Yes Hospitalist ROS - Review of Systems Constitutional: reports: weakness, malaise Gastrointestinal: reports: nausea Neurological: reports: weakness - Medication Medications: Active Medications Generic Name Dose Route Start Last Admin Trade Name Freq PRN Reason Stop Dose Admin Acetaminophen 650 mg 02/08/20 10:28 03/08/20 07:33 Acetaminophen 325 Mg Tab PO 650 mg Q4H PRN Administration ORTA/T > 101.5F/Mild Pain (1-3) Albuterol/Ipratropium 3 ml 02/26/20 10:30 03/09/20 14:33 Ipratropium/Albuterol Sulfate 3 Ml Neb NEB 3 ml [id number] DIO Administration Lipase/Protease/Amylase 1 cap 03/03/20 10:15 03/03/20 11:[address] 12,000 1 Cap FS 1 cap .PER PROTOCOL PRN Administration TUBE OCCLUSION PROTOCOL Ascorbic Acid 1,000 mg 02/19/20 09:00 03/09/20 08:39 Ascorbic Acid 500 Mg Chewable Tablet PO 1,000 mg DAILY DIO Administration Aspirin 81 mg 02/29/20 09:00 03/09/20 08:40 Aspirin Chewable 81 Mg Tab PO 81 mg DAILY DIO Administration Benzonatate 100 mg 02/16/20 10:30 02/19/20 03:30 Benzonatate 100 Mg Cap PO 100 mg Q4H PRN Administration Cough Bisacodyl 10 mg 02/08/20 10:28 03/04/20 00:18 Bisacodyl 10 Mg Supp [place] 10 mg Q6H PRN Administration Constipation Carvedilol 6.25 mg 02/08/20 21:00 03/09/20 08:39 Carvedilol 6.25 Mg Tab PO 6.25 mg BID DIO Administration Cholecalciferol 400 units 02/19/20 09:00 03/09/20 08:40 Cholecalciferol (Vitamin D3) 400 Units Tab PO 400 units DAILY DIO Administration Clopidogrel Bisulfate 75 mg 03/07/20 09:00 03/09/20 08:40 Clopidogrel Bisulfate 75 Mg Tab PO 75 mg DAILY DIO Administration Dexamethasone 4 mg 03/09/20 09:00 03/09/20 08:40 Dexamethasone 4 Mg/Ml Vial SLOW IVP 4 mg DAILY DIO Administration Enoxaparin Sodium 40 mg 03/08/20 09:00 03/09/20 08:38 Enoxaparin Sodium 40 Mg/0.4 Ml Syringe SC 40 mg 0900 DIO Administration Escitalopram Oxalate 10 mg 02/08/20 09:00 03/09/20 08:40 Escitalopram Oxalate 10 Mg Tablet PO 10 mg DAILY DIO Administration Famotidine 20 mg 02/08/20 12:00 03/09/20 08:40 Famotidine 20 Mg Tab PO 20 mg BID DIO Administration Sodium Chloride 1,000 mls @ 0 mls/hr 02/26/20 12:15 03/05/20 22:05 1/2 Normal Saline IV 1,000 mls .Q0M DIO Administration KVO Fentanyl 100 mls @ 0 mls/hr 02/28/20 16:30 03/04/20 23:27 Fentanyl Cadd IV 03/29/20 16:30 100 mls INF DIO Administration Protocol Per Protocol Ceftriaxone Sodium 2 gm/ 100 mls @ 200 mls/hr 03/08/20 08:15 03/09/20 08:38 Sodium Chloride IVPB 100 mls Q24HR DIO Administration Insulin Human Lispro 0 units 02/22/20 08:23 03/02/20 21:32 Humalog 300 Units/3 Ml Vial SC 2 unit .MILD SLIDING SCALE PRN Administration Mild Correctional Scale Magnesium Hydroxide 30 ml 02/08/20 10:28 03/03/20 17:52 Milk Of Magnesia 30 Ml Udcup PO 30 ml DAILYPRN PRN Administration Constipation Melatonin 3 mg 02/21/20 03:20 02/21/20 19:36 Melatonin 3 Mg Tab PO 3 mg HSPRN PRN Administration Insomnia Methocarbamol 1,500 mg 02/08/20 10:28 02/20/20 22:50 Methocarbamol 500 Mg Tab PO 1,500 mg Q6H PRN Administration Muscle Spasm Mometasone Furoate/Formoterol Fumar 2 puff 02/20/20 18:30 03/09/20 07:20 Mometasone 100 Mcg/Formoterol 5 Mcg 120 Puff Inhaler INH 2 puff BID-RT DIO Administration Propofol 1,000 mg 02/22/20 12:15 03/09/20 12:50 Propofol 1,000 Mg/100 Ml Vial IV 03/23/20 12:15 1,000 mg INF PRN Administration TO ACHIEVE GOAL RASS Protocol Rosuvastatin Calcium 10 mg 02/08/20 21:00 03/08/20 20:09 Rosuvastatin 10 Mg Tab PO 10 mg HS DIO Administration Sodium Bicarbonate 650 mg 03/03/20 10:15 03/03/20 11:52 Sodium Bicarbonate Tab 325 Mg Tab PER TUBE 650 mg .PER PROTOCOL PRN Administration ENTERAL TUBE OCCLUSION Sodium Chloride 10 ml 02/08/20 09:00 03/09/20 08:40 Flush - Normal Saline 10 Ml Syringe IVF 10 ml Q12HR DIO Administration Sterile Water 1.2 ml 02/21/20 03:45 02/21/20 04:06 Sterile Water 10 Ml Vial FS 1.2 ml PRN PRN Administration RECONSTITUTION Venlafaxine HCl 150 mg 02/08/20 09:00 03/09/20 08:40 Venlafaxine Hcl Xr 150 Mg Cap PO 150 mg DAILY DIO Administration Zinc Sulfate 220 mg 02/19/20 09:00 03/09/20 08:38 Zinc Sulfate 220 Mg Cap PO 220 mg DAILY DIO Administration - Exam General Appearance: NAD, ill appearing Eye: PERRL, anicteric sclera ENT: normocephalic atraumatic, no oropharyngeal lesions Neck: supple, symmetric Respiratory: CTAB, no wheezes, no rales, no ronchi Gastrointestinal: soft, non-tender, non-distended, normal bowel sounds Musculoskeletal: generalized weakness Psychiatric: not oriented, somnolent, lethargic Hosp A/P (1) 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 Code(s): T84.59XA - INFECT/INFLM REACTION DUE TO OTH INTERNAL JOINT PROSTH, INIT; Z96.611 - PRESENCE OF RIGHT ARTIFICIAL SHOULDER JOINT Status: Acute (2) Acute respiratory failure with hypoxia Code(s): J96.01 - ACUTE RESPIRATORY FAILURE WITH HYPOXIA Status: Acute (3) Pneumonia due to COVID-19 virus Code(s): U07.1 - COVID-19; J12.82 - PNEUMONIA DUE TO CORONAVIRUS DISEASE 2019 Status: Acute (4) 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
--- NOTE | 2020-03-09 19:31 | PRG ---
DATE OF SERVICE: 03/09/2020 SUBJECTIVE: Mr. Garcia is in the ICU. He has tracheostomy and gastrostomy tube. He is cephalopathic, and according to the nurse, he is not moving much his extremities. He will move the lower extremities, but not voluntarily or at least not following commands. The right upper extremity does not move most likely due to the right shoulder surgery. OBJECTIVE: LUNGS: Coarse breath sounds. EXTREMITIES: He has a PICC line in left upper extremity, peripheral IV access in the other, and Burroughs catheter. VITAL SIGNS: His I's and O's have been anywhere from -135 to +995 the past few days. LABORATORY DATA: White cell count is up to 15, hemoglobin 11, platelets 285. Normal differential. Creatinine 0.71. AST is up to 145, ALT 252. Bilirubin is a little high at 0.7. CRP is down to 0.59, is the lowest, it has been since the start of this syndrome. He is not considered infectious anymore and precautions had been discontinued. ASSESSMENT AND DISCUSSION: Right shoulder infection, Propionibacterium after arthroplasty removed on Rocephin previously, COVID-19 with severe infection now with PEG and trach and having intermittent temperature elevation. He has one set of blood cultures, coagulase-negative staph and bacillus species. The repeat blood cultures from March 08 thus far negative. Has not had a urinalysis and probably needs one. All the lines have been exchanged and a chest x-ray shows a tracheostomy, hazy infiltrates throughout both lungs, more patchy airspace disease in the bases, so at this point, the possible nosocomial infection, particularly pneumonia, is a concern. We will go ahead and switch him to broad-spectrum coverage in that regard. Job ID: [id number]
[2020-03-09] MEDS: Rosuvastatin 10 MG TAB PO SCH (20:27)
[2020-03-10] MEDS: Piperacillin/Tazobactam 4.5 GM in Sodium Chloride 0.9% 100 ML IVPB SCH ×5 (00:50→22:50)
[2020-03-10] MEDS ORDERED: Fentanyl CADD 100 ML ONE ×2 (02:25→22:33)
[2020-03-10] MEDS: Propofol 1,000 MG/100 ML VIAL IV PRN ×2 (02:30→12:42)
[2020-03-10 05:10] LABS: Hemoglobin 11.6 g/dL (14.0-18.0); Mean Corpuscular HGB CONC 30.4 g/dL (32.0-36.0); Mean Corpuscular Hemoglobin 27.1 pg (27.0-31.0); Mean Corpuscular Volume 89.2 fL (78.0-98.0); Mean Platelet Volume 8.4 fL (7.4-10.4); Platelet Count 308 thou/uL (130-400); RBC Distribution Width 15.6 % (11.5-14.5); Red Blood Cell (RBC) Count 4.27 mill/uL (4.70-6.10); White Blood Cell (WBC) Count 16.2 thou/uL (4.8-10.8)
[2020-03-10 05:11] LABS: Band 3 % (5-11); Hypochromia SLIGHT = 6-15 cells (100X) (0-5/hpf); Lymphocytes 7 % (21-51); MDiff Complete? YES; Monocytes 3 % (0-10); Neutrophil 86 % (42-75); Platelet Morphology Comment Appears Adequate; Reactive Lymphocytes 1 % (0-10)
[2020-03-10 05:12] LABS: Anion Gap 14 mmol/L (10-20); BUN (Urea Nitrogen) 32 mg/dL (8.4-25.7); Calc. Creatinine Clearance 167 mL/min (70-130); Carbon Dioxide 25 mmol/L (23-31); Chloride 111 mmol/L (98-107); Glucose 111 mg/dL (80-115); Potassium 3.2 mmol/L (3.5-5.1); Sodium 147 mmol/L (136-145)
[2020-03-10 05:13] LABS: ALT (SGPT) 203 U/L (8-55); AST (SGOT) 86 U/L (5-34); Alkaline Phosphatase 73 U/L (40-110); Bilirubin, Direct 0.8 mg/dL (0.1-0.3); Bilirubin, Total 1.4 mg/dL (0.2-1.2); Protein, Total 6.6 g/dL (5.8-8.1)
[2020-03-10] MEDS ORDERED: Potassium Chloride 40 MEQ in Premix Bag 1 BAG IVPB SCH (05:45)
[2020-03-10] MEDS ORDERED: Electrolyte Replacement Protocol FS PRN (05:45)
[2020-03-10] MEDS: Mometasone 100 MCG/Formoterol 5 MCG 120 PUFF INHALER INH SCH ×2 (06:52→18:19)
--- NOTE | 2020-03-10 08:11 | RAD ---
Portable frontal chest radiograph: 03/10/2020 COMPARISON: 03/09/2020 HISTORY: Pneumonia FINDINGS: There is a stable tracheostomy tube, left PICC, and dorsal column stimulating leads. [place]lin e sternotomy wires are noted. There is interstitial opacity with superimposed groundglass opacity within the perihilar regions in b ilateral lung bases. No appreciable interval change when compared to the prior exam. IMPRESSION: Interstitial and alveolar/groundglass opacities are suspicious for bilateral Covid pneumo mahnaz and are stable.
[2020-03-10] MEDS: Aspirin Chewable 81 MG TAB PO SCH (08:23)
[2020-03-10] MEDS: Carvedilol 6.25 MG TAB PO SCH ×2 (08:23→20:47)
[2020-03-10] MEDS: Clopidogrel Bisulfate 75 MG TAB PO SCH (08:24)
[2020-03-10] MEDS: Dexamethasone 4 mg/ml Vial SLOW IVP SCH (08:24)
[2020-03-10] MEDS: Ascorbic Acid 500 mg Chewable Tablet PO SCH (08:24)
[2020-03-10] MEDS: Famotidine 20 MG TAB PO SCH ×2 (08:24→20:47)
[2020-03-10] MEDS: Zinc Sulfate 220 MG CAP PO SCH (08:24)
[2020-03-10] MEDS: Venlafaxine HCl XR 150 MG CAP PO SCH (08:25)
[2020-03-10] MEDS: Escitalopram Oxalate 10 mg Tablet PO SCH (08:25)
[2020-03-10] MEDS: Enoxaparin Sodium 40 MG/0.4 ML SYRINGE SC SCH (08:26)
[2020-03-10] MEDS: cefTRIAXone\\ROCEPHIN 2 GM in Sodium Chloride 0.9% 100 ML IVPB SCH (08:48)
[2020-03-10] MEDS: Acetaminophen 325 MG TAB PO PRN (09:15)
[2020-03-10] MEDS ORDERED: Vecuronium 10 MG VIAL ONE (10:46)
[2020-03-10] MEDS: Vancomycin HCl 1.75 GM in Sodium Chloride 0.9% 500 ML IVPB SCH ×2 (10:50→23:06)
--- NOTE | 2020-03-10 10:53 | RAD ---
EXAM: Portable chest PROVIDED CLINICAL HISTORY: Respiratory insufficiency COMPARISON: 03/10/2020 5:33 AM FINDINGS: Significant interval change with respect to the prior examination is not apparent. IMPRESSION: As above.
[2020-03-10] MEDS: Cholecalciferol (Vitamin D3) 400 UNITS TAB PO SCH (11:00)
[2020-03-10] MEDS ORDERED: Budesonide 0.25 MG/2 ML NEB ONE (12:05)
--- NOTE | 2020-03-10 12:43 | EKG ---
Test Reason : Blood Pressure : / mmHG Vent. Rate : 112 BPM Atrial Rate : 112 BPM P-R Int : 196 ms QRS Dur : 080 ms QT Int : 300 ms P-R-T Axes : -12 050 074 degrees QTc Int : 409 ms Sinus tachycardia Nonspecific ST and T wave abnormality Abnormal ECG Confirmed by CHELSEY ROBBINS ([id number]) on 03/10/2020 12:43:14 PM Referred By: FARIDA Confirmed By:CHELSEY ROBBINS
--- NOTE | 2020-03-10 13:03 | ULT ---
GALLBLADDER ULTRASOUND: INDICATION: Right upper quadrant pain. FINDINGS: Imaging of the gallbladder reveals a small echogenic focus along the gallbladder wall in the neck of the gallbladder measuring approximately 1.0 cm. No definite posterior shadowing is seen and, therefo re, cannot be confirmed as a calculus. A nonshadowing calculus or polyp are considerations. Gallbladder wall thickness is normal. No other evidence of stones. Common bile duct is dilated measured at 1.3 cm. The images of the liver are suboptimal due to feeding tube placement. Portions of the right lobe of the liver that are imaged show mild heterogeneity; however, no focal mass identified. No definite in trahepatic bile duct dilatation identified. Pancreas is obscured. The main portal vein demonstrates blood flow with color Doppler and spectral analysis. The right kidney is imaged and appears unremarkable. IMPRESSION: 1. Limited exam due to body habitus and patient on ventilator and being sedated. 2. Small echogenic focus in the gallbladder neck as described above. Gallbladder polyp versus nonsh adowing gallstone are considerations. 3. Dilated common bile duct. Common duct stone not excluded. 4. Liver is suboptimally evaluated as discussed above. No focal liver mass or lesion identified. POS: OFF
[2020-03-10] MEDS ORDERED: Metoprolol Tartrate 5 MG/5 ML VIAL IVP PRN (13:28)
[2020-03-10] MEDS ORDERED: Metoprolol Tartrate 5 MG/5 ML VIAL IVP SCH (13:30)
[2020-03-10] MEDS ORDERED: Vecuronium 10 MG VIAL IVP SCH (13:30)
--- NOTE | 2020-03-10 13:56 | PDOC.HOSPP ---
- Subjective Encounter Date: 03/10/20 Encounter Time: 13:54 non-verbal Subjective: Mr. Garcia was seen and evaluated. Nursing staff asked me to see her emergently after he was noted to be tachypneic, tachycardic and also febrile. There is some concern that he may be getting septic and a set of cultures already obtained prior to my arrival. He was suctioned and there was some bloody secretions n oted. They critical care attending was also brought to the bedside and he made some changes on the vent. Final plan is for patient to go to LTAC for convalescence. - Objective Vital Signs & Weight: Vital Signs (12 hours) Temp Pulse Resp BP Pulse Ox 03/10/20 12:00 99.5 F 32 H 03/10/20 11:09 101 H 03/10/20 10:00 34 H 03/10/20 09:45 100.2 F H 93 26 H 125/81 03/10/20 09:15 101.9 F H 111 H 32 H 155/78 H 03/10/20 08:23 143/88 H 03/10/20 08:00 101.1 F H 03/10/20 07:53 94 L 03/10/20 07:46 26 H 03/10/20 06:50 107 H 03/10/20 06:00 28 H 03/10/20 04:00 99.4 F 30 H 03/10/20 02:00 26 H Weight Admit Weight 260 lb Weight 244 lb 7.882 oz Most Recent Monitor Data Heart Rate from ECG 93 NIBP 132/73 NIBP BP-Mean 92 Respiration from ECG 23 SpO2 99 I&O: 03/09/20 03/10/20 03/11/20 06:59 06:59 06:59 Intake Total 1454.9 1873.6 1797 Output Total 1590 1150 430 Balance -135.1 723.6 1367 Result Diagrams: 03/10/20 03:40 03/10/20 03:30 Radiology Reviewed by me: Yes EKG Reviewed by me: Yes Hospitalist ROS - Review of Systems ROS unobtainable: due to mental status Constitutional: reports: weakness, malaise Eyes: reports: pain, conjunctivae inflammation ENT: reports: ear pain, ear discharge, nose pain, nose discharge Respiratory: reports: cough, dry, shortness of breath, hemoptysis, SOB with excertion Cardiovascular: reports: chest pain Neurological: reports: weakness - Medication Medications: Active Medications Generic Name Dose Route Start Last Admin Trade Name Zuly PRN Reason Stop Dose Admin Acetaminophen 650 mg 02/08/20 10:28 03/10/20 09:15 Acetaminophen 325 Mg Tab PO 650 mg Q4H PRN Administration ORTA/T > 101.5F/Mild Pain (1-3) Albuterol/Ipratropium 3 ml 02/26/20 10:30 03/10/20 11:07 Ipratropium/Albuterol Sulfate 3 Ml Neb NEB 3 ml [id number] DIO Administration Lipase/Protease/Amylase 1 cap 03/03/20 10:15 03/03/20 11:[address] 12,000 1 Cap FS 1 cap .PER PROTOCOL PRN Administration TUBE OCCLUSION PROTOCOL Ascorbic Acid 1,000 mg 02/19/20 09:00 03/10/20 08:24 Ascorbic Acid 500 Mg Chewable Tablet PO 1,000 mg DAILY DIO Administration Aspirin 81 mg 02/29/20 09:00 03/10/20 08:23 Aspirin Chewable 81 Mg Tab PO 81 mg DAILY DIO Administration Benzonatate 100 mg 02/16/20 10:30 02/19/20 03:30 Benzonatate 100 Mg Cap PO 100 mg Q4H PRN Administration Cough Bisacodyl 10 mg 02/08/20 10:28 03/04/20 00:18 Bisacodyl 10 Mg Supp IN 10 mg Q6H PRN Administration Constipation Carvedilol 6.25 mg 02/08/20 21:00 03/10/20 08:23 Carvedilol 6.25 Mg Tab PO 6.25 mg BID DIO Administration Cholecalciferol 400 units 02/19/20 09:00 03/10/20 11:00 Cholecalciferol (Vitamin D3) 400 Units Tab PO 400 units DAILY DIO Administration Clopidogrel Bisulfate 75 mg 03/07/20 09:00 03/10/20 08:24 Clopidogrel Bisulfate 75 Mg Tab PO 75 mg DAILY DIO Administration Dexamethasone 4 mg 03/09/20 09:00 03/10/20 08:24 Dexamethasone 4 Mg/Ml Vial SLOW IVP 4 mg DAILY DIO Administration Enoxaparin Sodium 40 mg 03/08/20 09:00 03/10/20 08:26 Enoxaparin Sodium 40 Mg/0.4 Ml Syringe SC 40 mg 0900 DIO Administration Escitalopram Oxalate 10 mg 02/08/20 09:00 03/10/20 08:25 Escitalopram Oxalate 10 Mg Tablet PO 10 mg DAILY DIO Administration Famotidine 20 mg 02/08/20 12:00 03/10/20 08:24 Famotidine 20 Mg Tab PO 20 mg BID DIO Administration Sodium Chloride 1,000 mls @ 0 mls/hr 02/26/20 12:15 03/05/20 22:05 1/2 Normal Saline IV 1,000 mls .Q0M DIO Administration KVO Fentanyl 100 mls @ 0 mls/hr 02/28/20 16:30 03/04/20 23:27 Fentanyl Cadd IV 03/29/20 16:30 100 mls INF DIO Administration Protocol Per Protocol Ceftriaxone Sodium 2 gm/ 100 mls @ 200 mls/hr 03/08/20 08:15 03/10/20 08:48 Sodium Chloride IVPB 100 mls Q24HR DIO Administration Piperacillin Sod/Tazobactam 100 mls @ 200 mls/hr 03/09/20 23:59 03/10/20 12:33 Sod 4.5 gm/ Sodium Chloride IVPB 100 mls Q6HR DIO Administration Vancomycin HCl 1.75 gm/ Sodium 500 mls @ 250 mls/hr 03/10/20 11:00 03/10/20 10:50 Chloride IVPB 500 mls 1100,2300 DIO Administration Insulin Human Lispro 0 units 02/22/20 08:23 03/02/20 21:32 Humalog 300 Units/3 Ml Vial SC 2 unit .MILD SLIDING SCALE PRN Administration Mild Correctional Scale Lorazepam 2 mg 03/03/20 12:47 03/10/20 12:15 Lorazepam 2 Mg/Ml Vial SLOW IVP 2 mg Q1H PRN Administration Breakthrough agitation Magnesium Hydroxide 30 ml 02/08/20 10:28 03/03/20 17:52 Milk Of Magnesia 30 Ml Udcup PO 30 ml DAILYPRN PRN Administration Constipation Melatonin 3 mg 02/21/20 03:20 02/21/20 19:36 Melatonin 3 Mg Tab PO 3 mg HSPRN PRN Administration Insomnia Methocarbamol 1,500 mg 02/08/20 10:28 02/20/20 22:50 Methocarbamol 500 Mg Tab PO 1,500 mg Q6H PRN Administration Muscle Spasm Mometasone Furoate/Formoterol Fumar 2 puff 02/20/20 18:30 03/10/20 06:52 Mometasone 100 Mcg/Formoterol 5 Mcg 120 Puff Inhaler INH 2 puff BID-RT DIO Administration Propofol 1,000 mg 02/22/20 12:15 03/10/20 12:42 Propofol 1,000 Mg/100 Ml Vial IV 03/23/20 12:15 1,000 mg INF PRN Administration TO ACHIEVE GOAL RASS Protocol Rosuvastatin Calcium 10 mg 02/08/20 21:00 03/09/20 20:27 Rosuvastatin 10 Mg Tab PO 10 mg HS DIO Administration Sodium Bicarbonate 650 mg 03/03/20 10:15 03/03/20 11:52 Sodium Bicarbonate Tab 325 Mg Tab PER TUBE 650 mg .PER PROTOCOL PRN Administration ENTERAL TUBE OCCLUSION Sodium Chloride 10 ml 02/08/20 09:00 03/10/20 08:27 Flush - Normal Saline 10 Ml Syringe IVF 10 ml Q12HR DIO Administration Sterile Water 1.2 ml 02/21/20 03:45 02/21/20 04:06 Sterile Water 10 Ml Vial FS 1.2 ml PRN PRN Administration RECONSTITUTION Venlafaxine HCl 150 mg 02/08/20 09:00 03/10/20 08:25 Venlafaxine Hcl Xr 150 Mg Cap PO 150 mg DAILY DIO Administration Zinc Sulfate 220 mg 02/19/20 09:00 03/10/20 08:24 Zinc Sulfate 220 Mg Cap PO 220 mg DAILY DIO Administration - Exam General Appearance: NAD, ill appearing Eye: PERRL, anicteric sclera ENT: normocephalic atraumatic, no oropharyngeal lesions Neck: supple, symmetric, no JVD, no thyromegaly Heart: RRR, no murmur, no gallops, no rubs, normal peripheral pulses Respiratory: CTAB, no wheezes, no rales, no ronchi Gastrointestinal: soft, non-tender, non-distended, normal bowel sounds, no palpa ble masses Psychiatric: not oriented, somnolent, lethargic Hosp A/P (1) 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 Garcia was originally admitted by orthopedic services for a right shoulder joint reversal. Surgery went well with removal of hardware. Cultures collected the grew out Propionibacterium and he has been on antibiotics. Unfortunately in the course of his admission he was noted to have COVID-19 pneumonia and initially he seemed to be doing well but unfortunately deteriorated and ended up being intubated and mechanically ventilated. He is now trached and pegged. Family wants for him to go to LTAC and this is being arranged by case management. Today unfortunately the patient developed fever, he was tachycardic and tachypneic.
--- NOTE | 2020-03-10 17:28 | PRG ---
DATE OF SERVICE: 03/10/2020 SUBJECTIVE: Hair Garcia is on the schedule to go to an LTAC today, but developed a temperature elevation. With that, came in elevation in heart rate. With a cooling blanket and control of his blood pressure, his heart rate came down. He is in sinus rhythm by EKG. Blood pressure is 100/67, respiratory rates now set at 20. With his fever, he is becoming mechanical ventilation. OBJECTIVE: LUNGS: Remarkable for equal breath sounds. HEART: Regular rhythm. ABDOMEN: Soft. EXTREMITIES: Without asymmetry or edema. DIAGNOSTIC STUDIES: Chest x-ray is essentially unchanged. LABORATORY DATA: White count 16.2, hemoglobin 11.6, platelets 308, he only had 3% bands on his peripheral smear today. Electrolytes; sodium 147, potassium 3.2, chloride 111, bicarb 25, BUN 32, and creatinine 0.68. IMPRESSION: New fever on top COVID pneumonia on top of infected shoulder, status post removal of hardware. PLAN: Continue supportive care. Antibiotics to be adjusted by Infectious Disease. Job ID: [id number]
[2020-03-10] MEDS: Rosuvastatin 10 MG TAB PO SCH (20:45)
[2020-03-11 04:37] LABS: Anion Gap 14 mmol/L (10-20); BUN (Urea Nitrogen) 35 mg/dL (8.4-25.7); Calc. Creatinine Clearance 173 mL/min (70-130); Calcium 7.7 mg/dL (7.8-10.44); Carbon Dioxide 26 mmol/L (23-31); Chloride 115 mmol/L (98-107); Glucose 111 mg/dL (80-115); Potassium 3.5 mmol/L (3.5-5.1); Sodium 151 mmol/L (136-145)
[2020-03-11] MEDS: Piperacillin/Tazobactam 4.5 GM in Sodium Chloride 0.9% 100 ML IVPB SCH ×2 (05:04→11:57)
[2020-03-11 05:35] LABS: Eosinophils 1 % (0-10); Hemoglobin 10.7 g/dL (14.0-18.0); Lymphocytes 4 % (21-51); MDiff Complete? YES; Mean Corpuscular HGB CONC 29.4 g/dL (32.0-36.0); Mean Corpuscular Hemoglobin 26.4 pg (27.0-31.0); Mean Corpuscular Volume 89.8 fL (78.0-98.0); Mean Platelet Volume 8.4 fL (7.4-10.4); Monocytes 2 % (0-10); Neutrophil 93 % (42-75); Platelet Count 260 thou/uL (130-400); Platelet Morphology Comment Appears Adequate; RBC Distribution Width 15.3 % (11.5-14.5); RBC Morphology Normal; Red Blood Cell (RBC) Count 4.04 mill/uL (4.70-6.10); White Blood Cell (WBC) Count 14.1 thou/uL (4.8-10.8)
[2020-03-11] MEDS ORDERED: Potassium Chloride 20 MEQ TAB PO SCH (06:30)
[2020-03-11] MEDS: Mometasone 100 MCG/Formoterol 5 MCG 120 PUFF INHALER INH SCH (06:34)
--- NOTE | 2020-03-11 08:46 | RAD ---
Portable frontal chest radiograph: 03/11/2020 COMPARISON: 03/10/2020 HISTORY: Pneumonia FINDINGS: There is a stable tracheostomy tube, left upper extremity PICC, and there are stable midlin e sternotomy wires. Linear interstitial density noted with superimposed groundglass alveolar opacity within the perihilar regions and both lung bases, left greater than right, not significantly changed. IMPRESSION: No significant interval change.
[2020-03-11 08:54] VITALS: TEMP 100.3
[2020-03-11] MEDS: cefTRIAXone\\ROCEPHIN 2 GM in Sodium Chloride 0.9% 100 ML IVPB SCH (09:10)
[2020-03-11] MEDS: Dexamethasone 4 mg/ml Vial SLOW IVP SCH (09:11)
[2020-03-11] MEDS: Famotidine 20 MG TAB PO SCH (09:12)
[2020-03-11] MEDS: Escitalopram Oxalate 10 mg Tablet PO SCH (09:12)
[2020-03-11] MEDS: Cholecalciferol (Vitamin D3) 400 UNITS TAB PO SCH (09:12)
[2020-03-11] MEDS: Clopidogrel Bisulfate 75 MG TAB PO SCH (09:12)
[2020-03-11] MEDS: Aspirin Chewable 81 MG TAB PO SCH (09:12)
[2020-03-11] MEDS: Zinc Sulfate 220 MG CAP PO SCH (09:12)
[2020-03-11] MEDS: Carvedilol 6.25 MG TAB PO SCH (09:13)
[2020-03-11] MEDS: Venlafaxine HCl XR 150 MG CAP PO SCH (09:13)
[2020-03-11] MEDS: Ascorbic Acid 500 mg Chewable Tablet PO SCH (09:17)
[2020-03-11] MEDS: Enoxaparin Sodium 40 MG/0.4 ML SYRINGE SC SCH (09:55)
[2020-03-11] MEDS: Acetaminophen 325 MG TAB PO PRN (10:32)
[2020-03-11 10:33] VITALS: BP 130/79
[2020-03-11] MEDS: Vancomycin HCl 1.75 GM in Sodium Chloride 0.9% 500 ML IVPB SCH (11:57)
[2020-03-11] MEDS: Propofol 1,000 MG/100 ML VIAL IV PRN (11:57)
[2020-03-11] MEDS ORDERED: Dextrose 5% in Water 1,000 ML IV SCH (12:15)
--- NOTE | 2020-03-11 13:36 | PRG ---
DATE OF SERVICE: 03/11/2020 SUBJECTIVE: Mr. Garcia continues in the ICU intubated. He has been scheduled for transfer to an LTAC. His temperature curve still with low-grade elevations intermittently, but better than previously. His delivery method of O2 supplementation is mechanical ventilator. His FiO2 is 35, which is pretty good and O2 saturations are ranging from 93-100. OBJECTIVE: LUNGS: Coarse breath sounds. HEART: S1, S2 regular rate. ABDOMEN: Soft. PEG and trach. LABORATORY DATA: White cell count is down now to 14, hemoglobin 10, 92% neutrophils, platelets 260. Creatinine 0.66. 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 The plan is to continue with Rocephin until March 21. The Zosyn and vancomycin had been added because of the likely nosocomial pneumonia and he seems to be present in early response. I would recommend another 5-7 days of treatment with Zosyn and vancomycin and discontinue Zosyn in another 5-7 days and then continue Rocephin and vancomycin until March 21 for completion of his shoulder infection treatment. Job ID: [id number]
--- NOTE | 2020-03-11 14:31 | PDOC.HOSPP ---
- Subjective Encounter Date: 03/11/20 Encounter Time: 10:00 Subjective: is on vent, sedated - Objective Vital Signs & Weight: Vital Signs (12 hours) Temp Pulse Resp BP Pulse Ox 03/11/20 12:00 29 H 03/11/20 11:19 93 03/11/20 10:32 100.3 F H 96 30 H 130/79 03/11/20 10:00 99.5 F 30 H 03/11/20 09:13 129/82 03/11/20 08:00 100.3 F H 28 H 03/11/20 07:28 93 L 03/11/20 06:37 96 03/11/20 05:27 29 H 03/11/20 04:00 99.3 F 27 H Weight Admit Weight 260 lb Weight 238 lb 12.17 oz Most Recent Monitor Data Heart Rate from ECG 88 NIBP 126/75 NIBP BP-Mean 92 Respiration from ECG 27 SpO2 100 I&O: 03/10/20 03/11/20 03/12/20 06:59 06:59 06:59 Intake Total 1873.6 3666.3 1074 Output Total 1150 1805 305 Balance 723.6 1861.3 769 Result Diagrams: 03/11/20 03:56 03/11/20 03:56 Additional Labs: Accuchecks 03/11/20 03/10/20 03:57 20:41 POC Glucose 106 H 101 H - Exam General Appearance: ill appearing Eye: PERRL, anicteric sclera ENT: no oropharyngeal lesions, dry oral mucosa Neck: no JVD Neck - other findings: trach+ Heart: RRR, no murmur Respiratory: no wheezes, rales, rhonchi Gastrointestinal: soft, non-tender, non-distended, normal bowel sounds Gastrointestinal - other findings: peg+ Extremities: no cyanosis, no edema Neurological: cranial nerve grossly intact, no focal deficits Hosp A/P (1) Acute respiratory failure with hypoxia Code(s): J96.01 - ACUTE RESPIRATORY FAILURE WITH HYPOXIA Status: Acute (2) Pneumonia due to COVID-19 virus Code(s): U07.1 - COVID-19; J12.82 - PNEUMONIA DUE TO CORONAVIRUS DISEASE 2019 Status: Acute (3) 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 transplanted heart: [place] heart Associated angina: without angina Qualified Code(s): I25.810 - Atherosclerosis of coronary artery bypass graft(s) without angina pectoris (5) History of tobacco abuse Code(s): Z87.891 - PERSONAL HISTORY OF NICOTINE DEPENDENCE Status: Chronic (6) Hypercholesteremia Code(s): E78.00 - PURE HYPERCHOLESTEROLEMIA, UNSPECIFIED Status: Chronic (7) Hypertension Code(s): I10 - ESSENTIAL (PRIMARY) HYPERTENSION Status: Chronic Qualifiers: Hypertension type: essential hypertension Qualified Code(s): I10 - Essential (primary) hypertension (8) Obesity Code(s): E66.9 - OBESITY, UNSPECIFIED Status: Chronic Qualifiers: Body mass index: BMI 30.0-30.9 - Plan blood cs x4 from 03/08 are -ve, is on ceftriaxone, zosyn and vanc to continue zosyn for 1 week and ceftriaxone with vanc till mar 21, d/w free water, d5w for hypernatremia may dc to [facility] if cleared by . is on asp, coreg, plavix, dexamethasone, lexapro, nebs, dulera inh, effexor. Has mild oozing from trach site which is slowly resolving if it were to bleed more may hold both asp and plavix hemostable prognosis guarded d/w Mrs.Miller Cheng () and gave full updates including plans for transfer if cleared by pulm.
--- NOTE | 2020-03-11 15:59 | PRG ---
DATE OF SERVICE: 03/11/2020 SUBJECTIVE: Mr. Garcia has stable hemodynamics overnight. His temperature is trending downward. He has had no recurrence of his tachycardia and high fever since his antibiotics are adjusted. All cultures are negative so far. OBJECTIVE: LUNGS: Clear. HEART: Regular rhythm. ABDOMEN: Soft. LAB WORK: Stable. In my opinion, he is stable for transfer to long-term acute care when bed becomes available. Hopefully, he will make some slow progress with regard to weaning from ventilation. Infectious Disease doctors have recommended 6 weeks of total IV antibiotics for his shoulder infection. Job ID: [id number]
--- NOTE | 2020-03-12 17:15 | DIS ---
DATE OF ADMISSION: 02/08/2020 DATE OF DISCHARGE: 03/11/2020 DISCHARGE DISPOSITION: To [facility]. PRIMARY DISCHARGE DIAGNOSES: COVID-19 pneumonia; infected right reverse shoulder arthroplasty, status post explantation, growing Propionibacterium, done on 02/10/2020; acute respiratory failure with hypoxia, status post trach and PEG done on 03/08/2020; the patient got intubated on 02/22/2020; coronary artery disease; dyslipidemia; hypertension; obesity; history of tobacco abuse. PROCEDURES DONE DURING HOSPITALIZATION: The patient had explantation of right reverse shoulder arthroplasty with irrigation and debridement done for osteomyelitis of right shoulder and has had antibiotic spacer implantation done on 02/08/[address] Beltrán, orthopedic surgeon. The patient had irrigation and debridement of right shoulder with exploration and cauterization of bleeding on 02/10/[address] Beltrán[address] angio chest done on 02/12/2020, showed no evidence of pulmonary embolus, there were peripheral areas of patchy interstitial and airspace opacity bilaterally, cholelithiasis. Small hiatal hernia was incidentally noted. Venous Doppler of bilateral lower extremities done showed no evidence of DVT, this was done on 02/19/2020. A #8 [place] low-pressure cuffed tracheostomy tube and percutaneous endoscopic gastrostomy tube placed by Dr. Mendoza on 03/08/2020. Right upper quadrant ultrasound done on 03/10/2020, was limited due to body habitus with the patient being on ventilator and sedated. Small echogenic focus in the gallbladder neck was seen, gallbladder polyp versus non-shadowing gallstone was consideration. Common bile duct was 1.3 cm. Blood cultures drawn on 03/08/2020 and 03/10/2020, did not show any growth. Respiratory cultures are growing gram-negative rods, obtained on 03/10/2020. Urine culture grew presumptive [place] albicans, obtained on 03/10/2020. Right shoulder culture grew Propionibacterium acnes. Discharge hemoglobin and hematocrit are 10 and 36, platelet count 260, white count of 14, MCV 89. Discharge BUN and creatinine are 35 and 0.6, had sodium of 151, chloride 115, serum bicarb 26, AST 86, ALT 203, alkaline phosphatase 73, total bilirubin 1.4, direct bilirubin 0.8, albumin 3, on 03/10/2020. CRP was 9.25 on 03/10/2020, which was 14 on 02/19/2020. Ferritin 214 on 03/08/2020. COVID-19 PCR was detected on 02/13/2020. DISCHARGE MEDICATIONS: 1. Ceftriaxone 2 g IV daily until 03/21/2020. 2. Vancomycin 1.25 g q.12 hourly until 03/21/2020. 3. Zosyn 4.5 g IV q.6 hourly for a week. 4. Coreg 6.25 mg twice daily. 5. Plavix 75 mg p.o. daily. 6. Crestor 10 mg p.o. q.p.m. 7. Lexapro 10 mg p.o. daily. 8. Venlafaxine extended release 150 mg p.o. daily. 9. Dexamethasone 4 mg p.o. daily for another 6 days. 10. Dulera inhaler two puffs twice daily. 11. DuoNeb q.4 hourly. 12. Aspirin 81 mg p.o. daily. 13. Protonix 40 mg p.o. daily. 14. Vitamin C 1000 mg daily. ALLERGIES: NO KNOWN DRUG ALLERGIES. INPATIENT CONSULTS: 1. Dr. Sharp for Pulmonology. 2. Dr. Jasso for Infectious Disease. 3. Dr. Beltrán for Orthopedic Surgery. 4. Dr. Mendoza for General Surgery. BRIEF COURSE DURING HOSPITALIZATION: The patient initially got admitted on the for right shoulder pain with suspicion for infection of reverse right shoulder arthroplasty. He was admitted by Dr. Beltrán, orthopedic surgeon. The patient had a CT-guided aspiration of the right shoulder, which grew fluid concerning for infection prior to hospitalization. He was taken to the operating room and has had explantation of the reverse shoulder arthroplasty and placement of antibiotic spacer. Subsequent to this, the patient had bleeding and was taken again to cauterize the source in the shoulder. As part of hospital admission protocol, the patient had COVID-19 PCR done, which came back positive with CT angio chest revealing peripheral patchy infiltrates. He has had consultation with Dr. Jasso for Infectious Disease and the patient was placed on oxygen, later on BiPAP. Subsequently, the patient had to be intubated on the 21 of February for progressive desaturations. He has had tracheostomy and PEG tube placed on the by Dr. Mendoza. He was slowly weaning on the ventilator. On the , the patient developed fever of 101.2 degrees. Four sets of blood cultures were drawn, none of which grew any organism. His sputum culture is currently growing gram-negative rods, the identification and sensitivities are pending at present. His urine culture also grew [place] albicans. Initially, he was only on ceftriaxone for Propionibacterium acnes which grew in his right shoulder. Vancomycin and Zosyn were added to his regimen on the . He needs to continue ceftriaxone and vancomycin until the 21 of March and Zosyn for a total duration of 1 week after discharge. The patient has been accepted to [facility]. He has been cleared for discharge by all specialists. A total of 35 minutes were spent on discharge plan. Please see a [id number] documentation for the day of discharge on [employer]. Job ID: [id number]
== END 2020-03-11 13:37 | DRG 3 ==
LOC: SDC 02-08 05:49 → SURG A 02-08 05:52 → EDSTATUS 02-08 16:30 → 2SW 02-19 04:30 → CCU 02-22 12:29
PROVIDERS: ADMIT Orthopaedic Surgery; ATTEND Internal Medicine
PROC: 0RPJ0JZ Removal of Synthetic Substitute from Right Shoulder Joint, Open Approach (ICD-10-PCS; principal; 2020-02-08)
PROC: 0RHJ08Z Insertion of Spacer into Right Shoulder Joint, Open Approach (ICD-10-PCS; 2020-02-08)
PROC: 02HV33Z Insertion of Infusion Device into Superior Vena Cava, Percutaneous Approach (ICD-10-PCS; 2020-02-09)
PROC: B548ZZA Ultrasonography of Superior Vena Cava, Guidance (ICD-10-PCS; 2020-02-09)
PROC: 0X3 Anatomical Regions, Upper Extremities, Control (ICD-10-PCS; 2020-02-10)
PROC: XW033E5 Introduction of Remdesivir Anti-infective into Peripheral Vein, Percutaneous Approach, New Technology Group 5 (ICD-10-PCS; 2020-02-19)
PROC: 5A1955Z Respiratory Ventilation, Greater than 96 Consecutive Hours (ICD-10-PCS; 2020-02-22)
PROC: 8E0ZXY6 Isolation (ICD-10-PCS; 2020-02-22)
PROC: 0BH17EZ Insertion of Endotracheal Airway into Trachea, Via Natural or Artificial Opening (ICD-10-PCS; 2020-02-22)
PROC: 0B110F4 Bypass Trachea to Cutaneous with Tracheostomy Device, Open Approach (ICD-10-PCS; 2020-03-08)
PROC: 0DH63UZ Insertion of Feeding Device into Stomach, Percutaneous Approach (ICD-10-PCS; 2020-03-08)
DX: T84.59XA Infection and inflammatory reaction due to other internal joint prosthesis, initial encounter (principal); U07.1 COVID-19; J12.82 Pneumonia due to coronavirus disease 2019; J96.01 Acute respiratory failure with hypoxia; G93.41 Metabolic encephalopathy; M96.830 Postprocedural hemorrhage of a musculoskeletal structure following a musculoskeletal system procedure; J95.01 Hemorrhage from tracheostomy stoma; M86.8X1 Other osteomyelitis, shoulder; E46 Unspecified protein-calorie malnutrition; M00.811 Arthritis due to other bacteria, right shoulder; E87.0 Hyperosmolality and hypernatremia; Y83.1 Surgical operation with implant of artificial internal device as the cause of abnormal reaction of the patient, or of later complication, without mention of misadventure at the time of the procedure; B96.89 Other specified bacterial agents as the cause of diseases classified elsewhere; I25.10 Atherosclerotic heart disease of native coronary artery without angina pectoris; E78.5 Hyperlipidemia, unspecified; I10 Essential (primary) hypertension; E66.9 Obesity, unspecified; E78.00 Pure hypercholesterolemia, unspecified; K44.9 Diaphragmatic hernia without obstruction or gangrene; G89.29 Other chronic pain; M54.9 Dorsalgia, unspecified; Z96.89 Presence of other specified functional implants; I25.5 Ischemic cardiomyopathy; Y95 Nosocomial condition; R13.12 Dysphagia, oropharyngeal phase; Y83.8 Other surgical procedures as the cause of abnormal reaction of the patient, or of later complication, without mention of misadventure at the time of the procedure; Y83.3 Surgical operation with formation of external stoma as the cause of abnormal reaction of the patient, or of later complication, without mention of misadventure at the time of the procedure; Z78.1 Physical restraint status; Z68.30 Body mass index [BMI] 30.0-30.9, adult; Z87.891 Personal history of nicotine dependence; Z95.1 Presence of aortocoronary bypass graft; Z79.899 Other long term (current) drug therapy; Z79.82 Long term (current) use of aspirin; Z79.02 Long term (current) use of antithrombotics/antiplatelets
CPT/HCPCS: 36415; 36416; 36569; 36600; 71045; 71275; 74018; 76705; 80048; 80053; 80076; 80202; 81001; 82728; 82805; 83605; 83735; 83880; 84484; 85007; 85025; 85027; 85379; 85610; 85730; 86140; 86769; 86850; 86900; 86901; 87040; 87070; 87076; 87077; 87081; 87086; 87102; 87116; 87149; 87186; 87205; 87206; 87635; 88305; 92950; 93005; 93010; 93970; 94002; 94003; 94640; 94664; C1713; C1751; J0456; J0696; J1100; J1644; J1650; J1940; J2001; J2060; J2185; J2250; J2270; J2370; J2405; J2543; J2704; J2795; J2920; J3010; J3260; J3370; J3480; J3486; J3490; J7030; J7050; J7620; Q0161; Q0163; Q9967; S0020; U0003

== ENCOUNTER 2020-02-04 16:50 | Outpatient (CLI) | payer MEDICARE ==
[2020-02-04 17:37] LABS: #Basophils 0.1 10x3/uL (0.0-0.2); #Eosinphils 0.1 10x3/uL (0.0-0.5); #Monocytes 0.9 10x3/uL (0.0-1.1); #Neutrophils 7.7 10x3/uL (1.5-8.4); %Basophils 0.7 % (0.0-2.0); %Eosinophils 0.5 % (0.0-6.0); %Lymphocytes 16.8 % (18.0-47.0); %Monocytes 8.5 % (0.0-10.0); %Neutrophils 72.1 % (40.0-75.0); Hemoglobin 15.2 g/dL (14.0-18.0); Mean Corpuscular HGB CONC 31.5 G/DL (32.0-36.0); Mean Corpuscular Hemoglobin 27.2 PG (27.0-33.0); Mean Corpuscular Volume 86.6 fl (80.0-100.0); Mean Platelet Volume 8.9 fl (7.4-10.4); Platelet Count 320 10x3/uL (130-400); RBC Distribution Width 14.5 % (11.5-14.5); Red Blood Cell (RBC) Count 5.58 10x6/uL (4.40-5.80); White Blood Cell (WBC) Count 10.7 10x3/uL (4.5-11.0)
[2020-02-04 17:57] LABS: Anion Gap 16 mmol/L (10-20); BUN (Urea Nitrogen) 15 mg/dL (8.4-25.7); Calc. Creatinine Clearance 0 mL/min (70-130); Calcium 8.9 mg/dL (7.8-10.44); Carbon Dioxide 25 mmol/L (23-31); Chloride 102 mmol/L (98-107); Glucose 97 mg/dL (80-115); Potassium 4.5 mmol/L (3.5-5.1); Sodium 138 mmol/L (136-145)
[2020-02-05 02:10] LABS: SARS-CoV-2 MS2 Positive; SARS-CoV-2 N Gene Negative; SARS-CoV-2 S Gene Negative; SARS-CoV-2 by NAA Not Detected (NotDetected); SARS-CoV-2 orf1ab Negative
== END 2020-02-04 16:51 | disposition home or self-care (01) ==
LOC: LABBT 16:50
PROVIDERS: ATTEND Orthopaedic Surgery Sports Medicine
DX: Z01.818 Encounter for other preprocedural examination (principal); Z20.828 Contact with and (suspected) exposure to other viral communicable diseases
CPT/HCPCS: 80048; 85025; U0003; 87635; 93005; 93010

== ENCOUNTER 2020-06-20 02:40 | Inpatient (IN) | payer MEDICARE ==
[2020-06-20] MEDS ORDERED: Ondansetron PF 4 MG/2 ML Vial ONE ×2 (03:26→10:07)
[2020-06-20] MEDS ORDERED: Morphine 4 MG/ML VIAL ONE (03:26)
[2020-06-20] MEDS ORDERED: Acetaminophen 325 MG TAB PO PRN (04:22)
[2020-06-20] MEDS ORDERED: Potassium Chloride 20 MEQ TAB PO SCH (04:30)
[2020-06-20 05:21] LABS: INR-International Normal Ratio 1.2; PTT 29.8 sec (22.9-36.1); Prothrombin Time 15.2 sec (12.0-14.7)
[2020-06-20 05:29] LABS: Eosinophils 1 % (0-10); Hemoglobin 11.6 g/dL (14.0-18.0); Lymphocytes 5 % (21-51); MDiff Complete? YES; Mean Corpuscular Hemoglobin 29.1 pg (27.0-31.0); Mean Platelet Volume 7.5 fL (7.4-10.4); Metamyelocyte 1 % (0-0); Monocytes 4 % (0-10); Neutrophil 89 % (42-75); Platelet Count 223 thou/uL (130-400); Platelet Morphology Comment Appears Adequate; RBC Distribution Width 15.4 % (11.5-14.5); Red Blood Cell (RBC) Count 3.97 mill/uL (4.70-6.10); White Blood Cell (WBC) Count 14.6 thou/uL (4.8-10.8)
[2020-06-20 05:32] LABS: Anion Gap 10 mmol/L (10-20); BUN (Urea Nitrogen) 13 mg/dL (8.4-25.7); Calc. Creatinine Clearance 0 mL/min (70-130); Calcium 7.1 mg/dL (7.8-10.44); Carbon Dioxide 22 mmol/L (23-31); Chloride 110 mmol/L (98-107); Glucose 118 mg/dL (80-115); Magnesium 1.6 mg/dL (1.6-2.6); Potassium 4.1 mmol/L (3.5-5.1); Sodium 138 mmol/L (136-145)
[2020-06-20] MEDS ORDERED: Potassium Chloride 20 MEQ TAB ONE (06:04)
[2020-06-20] MEDS ORDERED: Piperacillin/Tazobactam 3.375 GM VIAL ONE (06:04)
[2020-06-20] MEDS: Piperacillin/Tazobactam 3.375 GM in Sodium Chloride 0.9% 100 ML IVPB SCH ×4 (06:14→18:07)
[2020-06-20] MEDS ORDERED: Heparin 1,000 UNITS/ML VIAL ONE (09:42)
[2020-06-20] MEDS: Ondansetron PF 4 MG/2 ML Vial IVP PRN ×2 (10:14→17:52)
[2020-06-20 13:39] LABS: SARS-CoV-2 NAA Rapid Test Not Detected (NotDetected)
[2020-06-20] MEDS: Vancomycin HCl 1.5 GM in Sodium Chloride 0.9% 250 ML 300 ML IVPB SCH ×2 (14:08→23:31)
[2020-06-20 16:32] LABS: Bilirubin Negative (Negative); Blood, Urine 2+ (Negative); Clarity Turbid (Clear); Glucose, Urine (Dipstick) Normal (Negative); Ketone, Urine Negative (Negative); Leukocyte 500 Leu/uL (Negative); Nitrite Negative (Negative); Protein, Urine (Dipstick) 50 mg/dL (Neg-Trace); RBC/HPF Greater than 50 HPF (0-3); Squamous Epithelial 0-3 HPF (0-3); Urobilinogen Normal mg/dL (Less than 2); WBC/HPF Greater than 50 HPF (0-3)
[2020-06-20 16:33] LABS: Bacteria/HPF Rare-Few HPF (None Seen); Urine Culture Reflex Yes Yes
[2020-06-20] MEDS ORDERED: Sodium Chloride 0.9% 1,000 ML IV SCH (16:45)
[2020-06-20] MEDS ORDERED: Midazolam HCl 2 mg/2 ml Vial ONE (18:22)
[2020-06-20] MEDS ORDERED: Fentanyl 100 MCG/2 ML VIAL ONE ×2 (18:22→20:03)
[2020-06-20] MEDS ORDERED: PHENYLEPHRINE-NS 100 MCG/ML 10 ML SYRINGE ONE (19:01)
[2020-06-20] MEDS ORDERED: Calcium Chloride 1 GM/10 ML Abboject SYRINGE ONE ×2 (19:01→19:46)
[2020-06-20] MEDS ORDERED: PROPOFOL 200 MG/20 ML VIAL ONE (19:01)
[2020-06-20] MEDS ORDERED: Succinylcholine 200 MG/10 ml SYRINGE FS ONE (19:01)
[2020-06-20] MEDS ORDERED: Sodium Bicarb 50 MEQ/50 ML Abboject 8.4% SYRINGE ONE (19:46)
[2020-06-20] MEDS ORDERED: Promethazine HCl 25 MG/ML VIAL IM PRN (19:58)
[2020-06-20] MEDS ORDERED: Promethazine HCl 25 MG/ML VIAL SLOW IVP PRN (19:58)
[2020-06-20] MEDS ORDERED: Ondansetron HCl/PF 4 MG/2 ML Vial IVP PRN (19:58)
[2020-06-20 22:46] LABS: Lactic Acid 4.2 mmol/L (0.5-2.2)
[2020-06-21] MEDS ORDERED: Sodium Chloride 0.9% 1,000 ML IV SCH ×2 (01:00→02:45)
[2020-06-21] MEDS ORDERED: Ketorolac Tromethamine 30 MG/ML VIAL IM SCH (01:00)
[2020-06-21] MEDS: Piperacillin/Tazobactam 3.375 GM in Sodium Chloride 0.9% 100 ML IVPB SCH ×5 (01:25→23:19)
[2020-06-21] MEDS: Sodium Chloride 0.9% 1,000 ML IV SCH ×2 (02:00→02:48)
[2020-06-21 03:08] LABS: #Basophils 0.1 thou/uL (0.0-0.2); #Eosinphils 0.1 thou/uL (0.0-0.7); #Lymphocytes 0.2 thou/uL (1.20-3.40); #Monocytes 0.3 thou/uL (0.11-0.59); #Neutrophils 16.5 thou/uL (1.40-6.50); %Basophils 0.7 % (0.0-1.0); %Eosinophils 0.8 % (0.0-10.0); %Lymphocytes 1.3 % (21.0-51.0); %Monocytes 1.8 % (0.0-10.0); %Neutrophils 95.5 % (42.0-75.0); Hemoglobin 8.1 g/dL (14.0-18.0); Mean Corpuscular HGB CONC 31.2 g/dL (32.0-36.0); Mean Corpuscular Volume 92.9 fL (78.0-98.0); Mean Platelet Volume 7.3 fL (7.4-10.4); Platelet Count 160 thou/uL (130-400); RBC Distribution Width 15.6 % (11.5-14.5); Red Blood Cell (RBC) Count 2.78 mill/uL (4.70-6.10); White Blood Cell (WBC) Count 17.3 thou/uL (4.8-10.8)
[2020-06-21] MEDS ORDERED: Midodrine HCl 5 MG TAB PO SCH (03:45)
[2020-06-21 04:09] LABS: Anion Gap 12 mmol/L (10-20); BUN (Urea Nitrogen) 21 mg/dL (8.4-25.7); Calc. Creatinine Clearance 77 mL/min (70-130); Calcium 6.9 mg/dL (7.8-10.44); Carbon Dioxide 17 mmol/L (23-31); Chloride 111 mmol/L (98-107); Glucose 95 mg/dL (80-115); Potassium 4.2 mmol/L (3.5-5.1); Sodium 136 mmol/L (136-145)
[2020-06-21] MEDS ORDERED: Hydrocortisone Sod Succ/PF 100 mg/2 ml Vial IVP SCH (06:45)
[2020-06-21] MEDS ORDERED: Norepinephrine 8 MG/0.9% NS 250 ML IVPB SCH (08:45)
[2020-06-21] MEDS: Pantoprazole 40 MG VIAL IVP SCH (08:58)
[2020-06-21 10:16] LABS: Lactic Acid 2.4 mmol/L (0.5-2.2)
[2020-06-21 10:31] LABS: Vancomycin, Trough 34.7 ug/mL
[2020-06-21] MEDS: Hydrocortisone Sod Succ/PF 100 mg/2 ml Vial IVP SCH ×2 (13:38→22:29)
[2020-06-21 21:35] LABS: Hemoglobin 12.3 g/dL (14.0-18.0)
[2020-06-21 21:58] LABS: Vancomycin, Trough 29.8 ug/mL
[2020-06-21] MEDS ORDERED: Vancomycin 1.5 GRAM/300 ML BAG 1.5 GM in Premix Bag 1 BAG IVPB SCH (23:00)
[2020-06-22 03:52] LABS: Hemoglobin 11.7 g/dL (14.0-18.0); Mean Corpuscular HGB CONC 31.1 g/dL (32.0-36.0); Mean Corpuscular Hemoglobin 28.3 pg (27.0-31.0); Mean Corpuscular Volume 91.2 fL (78.0-98.0); Mean Platelet Volume 7.6 fL (7.4-10.4); Platelet Count 212 thou/uL (130-400); RBC Distribution Width 15.9 % (11.5-14.5); Red Blood Cell (RBC) Count 4.12 mill/uL (4.70-6.10); White Blood Cell (WBC) Count 35.2 thou/uL (4.8-10.8)
[2020-06-22 04:14] LABS: ALT (SGPT) 27 U/L (8-55); AST (SGOT) 30 U/L (5-34); Albumin 1.8 g/dL (3.4-4.8); Alkaline Phosphatase 106 U/L (40-110); Anion Gap 16 mmol/L (10-20); BUN (Urea Nitrogen) 29 mg/dL (8.4-25.7); Bilirubin, Total 0.9 mg/dL (0.2-1.2); Calc. Creatinine Clearance 60 mL/min (70-130); Calcium 7.2 mg/dL (7.8-10.44); Carbon Dioxide 15 mmol/L (23-31); Chloride 113 mmol/L (98-107); Glucose 116 mg/dL (80-115); Potassium 4.2 mmol/L (3.5-5.1); Protein, Total 4.8 g/dL (5.8-8.1); Sodium 140 mmol/L (136-145)
[2020-06-22 04:15] LABS: Band 2 % (5-11); Lymphocytes 1 % (21-51); MDiff Complete? YES; Monocytes 2 % (0-10); Neutrophil 95 % (42-75); Platelet Morphology Comment Appears Adequate
[2020-06-22] MEDS: Hydrocortisone Sod Succ/PF 100 mg/2 ml Vial IVP SCH ×3 (05:19→21:58)
[2020-06-22] MEDS: Piperacillin/Tazobactam 3.375 GM in Sodium Chloride 0.9% 100 ML IVPB SCH ×4 (05:20→22:51)
[2020-06-22] MEDS: Ondansetron PF 4 MG/2 ML Vial IVP PRN ×2 (09:02→21:58)
[2020-06-22] MEDS: Pantoprazole 40 MG VIAL IVP SCH (09:03)
[2020-06-22] MEDS ORDERED: Senokot S 8.6-50 MG TAB PO SCH (11:30)
[2020-06-22 14:05] VITALS: BMI 30.7
[2020-06-22] MEDS ORDERED: Bisacodyl 10 MG SUPP PR SCH (15:15)
[2020-06-22] MEDS: Senokot S 8.6-50 MG TAB PO SCH (21:54)
[2020-06-22] MEDS ORDERED: Lactated Ringer's 1,000 ML IV SCH (22:30)
[2020-06-22] MEDS: Morphine 4 MG/ML VIAL SLOW IVP PRN (22:51)
[2020-06-22 23:18] LABS: Vancomycin, Random 23.7 ug/mL (See Comment)
[2020-06-23] MEDS: Lactated Ringer's 1,000 ML IV SCH ×3 (00:41→10:41)
[2020-06-23] MEDS: Morphine 4 MG/ML VIAL SLOW IVP PRN ×4 (03:20→23:00)
[2020-06-23] MEDS: Piperacillin/Tazobactam 3.375 GM in Sodium Chloride 0.9% 100 ML IVPB SCH ×4 (05:53→23:02)
[2020-06-23] MEDS: Hydrocortisone Sod Succ/PF 100 mg/2 ml Vial IVP SCH ×3 (05:54→23:01)
[2020-06-23 06:37] LABS: ALT (SGPT) 28 U/L (8-55); AST (SGOT) 25 U/L (5-34); Albumin 1.6 g/dL (3.4-4.8); Alkaline Phosphatase 113 U/L (40-110); Anion Gap 13 mmol/L (10-20); BUN (Urea Nitrogen) 34 mg/dL (8.4-25.7); Bilirubin, Total 0.5 mg/dL (0.2-1.2); Calc. Creatinine Clearance 59 mL/min (70-130); Calcium 6.9 mg/dL (7.8-10.44); Carbon Dioxide 15 mmol/L (23-31); Chloride 112 mmol/L (98-107); Globulin 2.8 g/dL (2.4-3.5); Glucose 88 mg/dL (80-115); Lipase 609 U/L (8-78); Protein, Total 4.4 g/dL (5.8-8.1); Sodium 137 mmol/L (136-145)
[2020-06-23 07:27] LABS: #Lymphocytes 0.5 thou/uL (1.20-3.40); #Monocytes 0.4 thou/uL (0.11-0.59); #Neutrophils 11.6 thou/uL (1.40-6.50); %Eosinophils 0.3 % (0.0-10.0); %Neutrophils 92.8 % (42.0-75.0); Anisocytosis SLIGHT = 6-15 cells (100X) (0-5/hpf); Hemoglobin 10.9 g/dL (14.0-18.0); MDiff Complete? YES; Mean Corpuscular HGB CONC 31.3 g/dL (32.0-36.0); Mean Corpuscular Hemoglobin 28.2 pg (27.0-31.0); Mean Corpuscular Volume 90.2 fL (78.0-98.0); Mean Platelet Volume 8.1 fL (7.4-10.4); Platelet Count 95 thou/uL (130-400); Platelet Morphology Comment Appears Decreased; RBC Distribution Width 15.5 % (11.5-14.5); Red Blood Cell (RBC) Count 3.84 mill/uL (4.70-6.10); White Blood Cell (WBC) Count 12.5 thou/uL (4.8-10.8)
[2020-06-23] MEDS ORDERED: Magnesium 2 GM/50 ML 2 GM in Premix Bag 1 BAG IVPB SCH (09:15)
[2020-06-23] MEDS ORDERED: Potassium Phosphate 30 MMOL in Sodium Chloride 0.9% 250 ML 250 ML IVPB SCH (09:15)
[2020-06-23] MEDS: Polyethylene Glycol 3350 17 GM Packet PO SCH (09:43)
[2020-06-23] MEDS: Pantoprazole 40 MG VIAL IVP SCH (09:43)
[2020-06-23] MEDS: Senokot S 8.6-50 MG TAB PO SCH ×2 (09:43→21:18)
[2020-06-23] MEDS: Ondansetron PF 4 MG/2 ML Vial IVP PRN ×2 (10:57→17:42)
[2020-06-23] MEDS: Sodium Chloride 0.45% 1,000 ML IV SCH ×2 (11:52→17:43)
[2020-06-23] MEDS: Chloraseptic Spray 180 ml Bottle PO PRN ×2 (13:51→17:44)
[2020-06-23 21:31] LABS: Vancomycin, Random 16.7 ug/mL (See Comment)
[2020-06-23] MEDS ORDERED: Vancomycin 1 GM in Premix Bag 1 BAG IVPB SCH (23:30)
[2020-06-24] MEDS: Sodium Chloride 0.45% 1,000 ML IV SCH ×4 (00:56→20:54)
[2020-06-24] MEDS: Hydrocortisone Sod Succ/PF 100 mg/2 ml Vial IVP SCH ×3 (05:23→21:00)
[2020-06-24] MEDS: Morphine 4 MG/ML VIAL SLOW IVP PRN (05:23)
[2020-06-24] MEDS: Piperacillin/Tazobactam 3.375 GM in Sodium Chloride 0.9% 100 ML IVPB SCH ×4 (05:23→23:57)
[2020-06-24] MEDS: Ondansetron PF 4 MG/2 ML Vial IVP PRN (05:23)
[2020-06-24 05:47] LABS: #Eosinphils 0.1 thou/uL (0.0-0.7); #Lymphocytes 0.7 thou/uL (1.20-3.40); #Monocytes 0.6 thou/uL (0.11-0.59); #Neutrophils 11.8 thou/uL (1.40-6.50); %Basophils 0.1 % (0.0-1.0); %Eosinophils 0.5 % (0.0-10.0); %Lymphocytes 5.4 % (21.0-51.0); %Monocytes 4.3 % (0.0-10.0); %Neutrophils 89.6 % (42.0-75.0); Hemoglobin 10.5 g/dL (14.0-18.0); Mean Corpuscular HGB CONC 30.9 g/dL (32.0-36.0); Mean Corpuscular Hemoglobin 27.7 pg (27.0-31.0); Mean Corpuscular Volume 89.6 fL (78.0-98.0); Mean Platelet Volume 8.4 fL (7.4-10.4); Platelet Count 95 thou/uL (130-400); RBC Distribution Width 15.4 % (11.5-14.5); White Blood Cell (WBC) Count 13.1 thou/uL (4.8-10.8)
[2020-06-24 05:51] LABS: Phosphorus 6.1 mg/dL (2.3-4.7)
[2020-06-24 05:53] LABS: ALT (SGPT) 29 U/L (8-55); AST (SGOT) 21 U/L (5-34); Albumin 1.6 g/dL (3.4-4.8); Alkaline Phosphatase 111 U/L (40-110); Anion Gap 12 mmol/L (10-20); BUN (Urea Nitrogen) 33 mg/dL (8.4-25.7); Bilirubin, Total 0.4 mg/dL (0.2-1.2); Calc. Creatinine Clearance 67 mL/min (70-130); Calcium 6.6 mg/dL (7.8-10.44); Carbon Dioxide 15 mmol/L (23-31); Chloride 113 mmol/L (98-107); Globulin 2.8 g/dL (2.4-3.5); Glucose 81 mg/dL (80-115); Lipase 204 U/L (8-78); Protein, Total 4.4 g/dL (5.8-8.1); Sodium 138 mmol/L (136-145)
[2020-06-24 06:02] LABS: Potassium 2.4 mmol/L (3.5-5.1)
[2020-06-24] MEDS: Potassium Chloride 20 MEQ in Premix Bag 1 BAG IVPB SCH ×3 (06:33→09:09)
[2020-06-24] MEDS ORDERED: Electrolyte Replacement Protocol 1 EACH FS SCH (08:45)
[2020-06-24] MEDS ORDERED: Magnesium 2 GM/50 ML 2 GM in Premix Bag 1 BAG IVPB SCH (09:00)
[2020-06-24] MEDS: Pantoprazole 40 MG VIAL IVP SCH (09:03)
[2020-06-24] MEDS: Senokot S 8.6-50 MG TAB PO SCH ×2 (09:06→20:52)
[2020-06-24] MEDS: Polyethylene Glycol 3350 17 GM Packet PO SCH (09:07)
[2020-06-24] MEDS: Potassium Chloride 40 MEQ in Sodium Chloride 0.9% 250 ML 250 ML IVPB SCH ×3 (09:48→20:52)
[2020-06-24 11:38] LABS: Vancomycin, Trough 25.1 ug/mL
[2020-06-24] MEDS ORDERED: Iothalamate Meglumine 60% 50 ML VIAL FS ONE (13:49)
[2020-06-24] MEDS ORDERED: Lidocaine 1% w/Epinephrine 1:100K 20 ML VIAL ONE (13:49)
[2020-06-24] MEDS ORDERED: Bupivacaine 0.25% HCL 30 ML VIAL ONE (13:49)
[2020-06-24] MEDS ORDERED: Fentanyl 100 MCG/2 ML VIAL ONE (13:55)
[2020-06-24 14:07] LABS: Anion Gap 13 mmol/L (10-20); BUN (Urea Nitrogen) 31 mg/dL (8.4-25.7); Calc. Creatinine Clearance 71 mL/min (70-130); Carbon Dioxide 14 mmol/L (23-31); Chloride 115 mmol/L (98-107); Potassium 3.1 mmol/L (3.5-5.1); Sodium 139 mmol/L (136-145)
[2020-06-24 14:08] LABS: Calcium 6.9 mg/dL (7.8-10.44); Glucose 67 mg/dL (80-115)
[2020-06-24] MEDS ORDERED: Ondansetron PF 4 MG/2 ML Vial ONE (14:39)
[2020-06-24] MEDS ORDERED: PROPOFOL 200 MG/20 ML VIAL ONE (14:39)
[2020-06-24] MEDS ORDERED: Rocuronium Bromide 10 MG/ML (10ML VIAL) ONE (14:39)
[2020-06-24] MEDS ORDERED: Lidocaine 1% PF 5 ML VIAL ONE (14:39)
[2020-06-24] MEDS ORDERED: Dexamethasone 20 MG/5 ML VIAL ONE (14:39)
[2020-06-24] MEDS ORDERED: Succinylcholine 200 MG/10 ml SYRINGE FS ONE (14:39)
[2020-06-24] MEDS ORDERED: ePHEDrine Sulfate 50 MG/10 ML VIAL ONE (14:39)
[2020-06-24] MEDS ORDERED: PHENYLEPHRINE-NS 100 MCG/ML 10 ML SYRINGE ONE (14:39)
[2020-06-24] MEDS ORDERED: HYDROmorphone 2 MG/ML VIAL SLOW IVP PRN (17:31)
[2020-06-24] MEDS ORDERED: Promethazine HCl 25 MG/ML VIAL SLOW IVP PRN (17:31)
[2020-06-24] MEDS ORDERED: Promethazine HCl 25 MG/ML VIAL IM PRN (17:31)
[2020-06-24] MEDS ORDERED: PACU-Morphine 4MG/ML VIAL SLOW IVP PRN (17:31)
[2020-06-24] MEDS ORDERED: Ondansetron HCl/PF 4 MG/2 ML Vial IVP PRN (17:31)
[2020-06-24] MEDS ORDERED: Morphine Sulfate 2 MG/ML SYRINGE SLOW IVP PRN (17:31)
[2020-06-24] MEDS ORDERED: Acetaminophen 325 MG TAB PO PRN ×2 (18:46→18:47)
[2020-06-24] MEDS ORDERED: traMADol HCl 50 MG TAB PO PRN ×2 (18:48)
[2020-06-24] MEDS ORDERED: HYDROcodone/Acetaminophen 5/325 mg Tablet PO PRN ×2 (18:49)
[2020-06-24] MEDS ORDERED: Morphine 4 MG/ML VIAL SLOW IVP PRN (18:50)
[2020-06-25 01:11] LABS: Vancomycin, Random 19.9 ug/mL (See Comment)
[2020-06-25] MEDS: Sodium Chloride 0.45% 1,000 ML IV SCH ×4 (05:55→20:20)
[2020-06-25] MEDS: Piperacillin/Tazobactam 3.375 GM in Sodium Chloride 0.9% 100 ML IVPB SCH ×3 (05:56→18:01)
[2020-06-25] MEDS: Hydrocortisone Sod Succ/PF 100 mg/2 ml Vial IVP SCH ×3 (05:56→23:11)
[2020-06-25 06:38] LABS: #Eosinphils 0.1 thou/uL (0.0-0.7); #Lymphocytes 1.1 thou/uL (1.20-3.40); #Monocytes 0.6 thou/uL (0.11-0.59); #Neutrophils 9.1 thou/uL (1.40-6.50); %Basophils 0.2 % (0.0-1.0); %Eosinophils 0.8 % (0.0-10.0); %Lymphocytes 9.8 % (21.0-51.0); %Monocytes 5.7 % (0.0-10.0); %Neutrophils 83.6 % (42.0-75.0); Hemoglobin 9.7 g/dL (14.0-18.0); Mean Corpuscular Hemoglobin 28.9 pg (27.0-31.0); Mean Corpuscular Volume 90.4 fL (78.0-98.0); Mean Platelet Volume 8.7 fL (7.4-10.4); Platelet Count 80 thou/uL (130-400); RBC Distribution Width 15.4 % (11.5-14.5); Red Blood Cell (RBC) Count 3.34 mill/uL (4.70-6.10); White Blood Cell (WBC) Count 10.9 thou/uL (4.8-10.8)
[2020-06-25 06:48] LABS: ALT (SGPT) 36 U/L (8-55); AST (SGOT) 33 U/L (5-34); Albumin 1.5 g/dL (3.4-4.8); Alkaline Phosphatase 110 U/L (40-110); Anion Gap 13 mmol/L (10-20); BUN (Urea Nitrogen) 31 mg/dL (8.4-25.7); Bilirubin, Total 0.4 mg/dL (0.2-1.2); Calc. Creatinine Clearance 75 mL/min (70-130); Calcium 6.5 mg/dL (7.8-10.44); Carbon Dioxide 15 mmol/L (23-31); Chloride 116 mmol/L (98-107); Globulin 2.6 g/dL (2.4-3.5); Glucose 83 mg/dL (80-115); Lipase 93 U/L (8-78); Protein, Total 4.1 g/dL (5.8-8.1); Sodium 141 mmol/L (136-145)
[2020-06-25] MEDS ORDERED: Potassium Chloride 20 MEQ TAB PO SCH (07:45)
[2020-06-25] MEDS: Polyethylene Glycol 3350 17 GM Packet PO SCH (09:03)
[2020-06-25] MEDS: Senokot S 8.6-50 MG TAB PO SCH ×2 (09:05→20:35)
[2020-06-25] MEDS: Pantoprazole 40 MG VIAL IVP SCH (09:10)
[2020-06-25] MEDS ORDERED: Vancomycin 1 GM in Premix Bag 1 BAG IVPB SCH (12:00)
[2020-06-25] MEDS: Ondansetron PF 4 MG/2 ML Vial IVP PRN (14:56)
[2020-06-25] MEDS: Albumin 25% 25 GM/100 ML BOT IVPB SCH ×2 (16:00→20:35)
[2020-06-25 17:26] LABS: #Lymphocytes 1.3 thou/uL (1.20-3.40); #Monocytes 0.7 thou/uL (0.11-0.59); #Neutrophils 8.5 thou/uL (1.40-6.50); %Basophils 0.1 % (0.0-1.0); %Eosinophils 0.4 % (0.0-10.0); %Lymphocytes 12.1 % (21.0-51.0); %Monocytes 6.3 % (0.0-10.0); %Neutrophils 81.1 % (42.0-75.0); Hemoglobin 9.9 g/dL (14.0-18.0); Mean Corpuscular HGB CONC 31.4 g/dL (32.0-36.0); Mean Corpuscular Hemoglobin 28.7 pg (27.0-31.0); Mean Corpuscular Volume 91.4 fL (78.0-98.0); Mean Platelet Volume 8.9 fL (7.4-10.4); Platelet Count 59 thou/uL (130-400); RBC Distribution Width 15.2 % (11.5-14.5); Red Blood Cell (RBC) Count 3.44 mill/uL (4.70-6.10); White Blood Cell (WBC) Count 10.4 thou/uL (4.8-10.8)
[2020-06-25] MEDS ORDERED: Sodium Chloride 0.9% 1,000 ML IV SCH (17:45)
[2020-06-25] MEDS ORDERED: cefTRIAXone\\ROCEPHIN 2 GM in Sodium Chloride 0.9% 100 ML IVPB SCH (19:00)
[2020-06-25] MEDS ORDERED: metroNIDAZOLE 500 MG in Premix Bag 1 BAG IVPB SCH (20:00)
[2020-06-25] MEDS: MEROPENEM 1 GM/50 ML 1 GM in Premix Bag 1 BAG IVPB SCH (20:21)
[2020-06-26] MEDS: MEROPENEM 1 GM/50 ML 1 GM in Premix Bag 1 BAG IVPB SCH ×3 (05:17→20:16)
[2020-06-26] MEDS: Hydrocortisone Sod Succ/PF 100 mg/2 ml Vial IVP SCH ×3 (05:17→22:03)
[2020-06-26 05:57] LABS: #Lymphocytes 0.8 thou/uL (1.20-3.40); #Monocytes 0.4 thou/uL (0.11-0.59); #Neutrophils 5.4 thou/uL (1.40-6.50); %Basophils 0.2 % (0.0-1.0); %Eosinophils 0.5 % (0.0-10.0); %Lymphocytes 12.5 % (21.0-51.0); %Monocytes 5.3 % (0.0-10.0); %Neutrophils 81.5 % (42.0-75.0); Hemoglobin 8.8 g/dL (14.0-18.0); Mean Corpuscular HGB CONC 32.2 g/dL (32.0-36.0); Mean Corpuscular Hemoglobin 28.9 pg (27.0-31.0); Mean Corpuscular Volume 89.8 fL (78.0-98.0); Platelet Count 63 thou/uL (130-400); RBC Distribution Width 15.3 % (11.5-14.5); Red Blood Cell (RBC) Count 3.04 mill/uL (4.70-6.10); White Blood Cell (WBC) Count 6.6 thou/uL (4.8-10.8)
[2020-06-26 06:10] LABS: ALT (SGPT) 30 U/L (8-55); AST (SGOT) 21 U/L (5-34); Alkaline Phosphatase 78 U/L (40-110); Anion Gap 10 mmol/L (10-20); BUN (Urea Nitrogen) 22 mg/dL (8.4-25.7); Bilirubin, Total 0.5 mg/dL (0.2-1.2); Calc. Creatinine Clearance 100 mL/min (70-130); Calcium 6.4 mg/dL (7.8-10.44); Carbon Dioxide 16 mmol/L (23-31); Chloride 116 mmol/L (98-107); Globulin 2.1 g/dL (2.4-3.5); Glucose 109 mg/dL (80-115); Magnesium 1.7 mg/dL (1.6-2.6); Protein, Total 4.1 g/dL (5.8-8.1); Sodium 140 mmol/L (136-145)
[2020-06-26 06:15] LABS: Potassium 1.9 mmol/L (3.5-5.1)
[2020-06-26] MEDS ORDERED: Potassium Chloride 20 MEQ TAB PO SCH (06:30)
[2020-06-26] MEDS ORDERED: Magnesium 2 GM/50 ML 2 GM in Premix Bag 1 BAG IVPB SCH (06:30)
[2020-06-26] MEDS: Sodium Chloride 0.45% 1,000 ML IV SCH (07:16)
[2020-06-26] MEDS: Potassium Chloride 20 MEQ TAB PO SCH ×4 (09:58→22:02)
[2020-06-26] MEDS: Senokot S 8.6-50 MG TAB PO SCH ×2 (09:58→20:16)
[2020-06-26] MEDS: Albumin 25% 25 GM/100 ML BOT IVPB SCH ×2 (10:00→15:19)
[2020-06-26] MEDS: Pantoprazole 40 MG VIAL IVP SCH (10:00)
[2020-06-26] MEDS: Polyethylene Glycol 3350 17 GM Packet PO SCH (10:01)
[2020-06-26] MEDS: Morphine 4 MG/ML VIAL SLOW IVP PRN (12:11)
[2020-06-26 13:19] LABS: #Lymphocytes 1.2 thou/uL (1.20-3.40); #Monocytes 0.5 thou/uL (0.11-0.59); #Neutrophils 6.3 thou/uL (1.40-6.50); %Basophils 0.1 % (0.0-1.0); %Eosinophils 0.3 % (0.0-10.0); %Lymphocytes 15.1 % (21.0-51.0); %Neutrophils 78.6 % (42.0-75.0); Hemoglobin 8.3 g/dL (14.0-18.0); Mean Corpuscular HGB CONC 31.2 g/dL (32.0-36.0); Mean Corpuscular Hemoglobin 28.1 pg (27.0-31.0); Platelet Count 59 thou/uL (130-400); RBC Distribution Width 14.9 % (11.5-14.5); Red Blood Cell (RBC) Count 2.97 mill/uL (4.70-6.10)
[2020-06-27] MEDS: MEROPENEM 1 GM/50 ML 1 GM in Premix Bag 1 BAG IVPB SCH ×3 (03:14→21:09)
[2020-06-27] MEDS: Hydrocortisone Sod Succ/PF 100 mg/2 ml Vial IVP SCH ×2 (05:36→14:35)
[2020-06-27 06:03] LABS: #Eosinphils 0.1 thou/uL (0.0-0.7); #Lymphocytes 1.1 thou/uL (1.20-3.40); #Monocytes 0.5 thou/uL (0.11-0.59); %Basophils 0.1 % (0.0-1.0); %Lymphocytes 12.5 % (21.0-51.0); %Monocytes 5.7 % (0.0-10.0); %Neutrophils 80.7 % (42.0-75.0); Mean Corpuscular HGB CONC 32.9 g/dL (32.0-36.0); Mean Corpuscular Hemoglobin 29.2 pg (27.0-31.0); Mean Corpuscular Volume 88.7 fL (78.0-98.0); Mean Platelet Volume 8.8 fL (7.4-10.4); Platelet Count 70 thou/uL (130-400); RBC Distribution Width 15.2 % (11.5-14.5); Red Blood Cell (RBC) Count 2.73 mill/uL (4.70-6.10); White Blood Cell (WBC) Count 8.7 thou/uL (4.8-10.8)
[2020-06-27 06:22] LABS: ALT (SGPT) 26 U/L (8-55); AST (SGOT) 19 U/L (5-34); Albumin 2.2 g/dL (3.4-4.8); Alkaline Phosphatase 67 U/L (40-110); Anion Gap 8 mmol/L (10-20); BUN (Urea Nitrogen) 15 mg/dL (8.4-25.7); Bilirubin, Total 0.5 mg/dL (0.2-1.2); Calc. Creatinine Clearance 138 mL/min (70-130); Calcium 6.4 mg/dL (7.8-10.44); Carbon Dioxide 17 mmol/L (23-31); Chloride 117 mmol/L (98-107); Globulin 1.8 g/dL (2.4-3.5); Glucose 110 mg/dL (80-115); Sodium 140 mmol/L (136-145)
[2020-06-27 06:24] LABS: Potassium 2.3 mmol/L (3.5-5.1)
[2020-06-27] MEDS: Potassium Chloride 20 MEQ in Premix Bag 1 BAG IVPB SCH ×4 (08:21→14:35)
[2020-06-27] MEDS: Senokot S 8.6-50 MG TAB PO SCH ×2 (08:22→21:15)
[2020-06-27] MEDS: Polyethylene Glycol 3350 17 GM Packet PO SCH (08:22)
[2020-06-27] MEDS: Pantoprazole 40 MG VIAL IVP SCH (08:22)
[2020-06-27] MEDS: Ondansetron PF 4 MG/2 ML Vial IVP PRN (08:29)
[2020-06-27] MEDS: Potassium Bicarbonate/Cit Ac 20 MEQ TAB PO SCH (17:39)
[2020-06-27] MEDS ORDERED: predniSONE 20 MG TAB PO SCH (18:00)
[2020-06-27] MEDS: Mometasone 100 MCG/Formoterol 5 MCG 120 PUFF INHALER INH SCH (18:44)
[2020-06-28] MEDS: Melatonin 3 MG TAB PO PRN ×2 (02:05→21:52)
[2020-06-28] MEDS: MEROPENEM 1 GM/50 ML 1 GM in Premix Bag 1 BAG IVPB SCH ×3 (05:21→20:20)
[2020-06-28 05:38] LABS: Hemoglobin 8.8 g/dL (14.0-18.0); Mean Corpuscular HGB CONC 31.7 g/dL (32.0-36.0); Mean Corpuscular Hemoglobin 28.1 pg (27.0-31.0); Mean Corpuscular Volume 88.7 fL (78.0-98.0); Mean Platelet Volume 8.7 fL (7.4-10.4); Platelet Count 110 thou/uL (130-400); RBC Distribution Width 15.2 % (11.5-14.5); Red Blood Cell (RBC) Count 3.14 mill/uL (4.70-6.10); White Blood Cell (WBC) Count 11.9 thou/uL (4.8-10.8)
[2020-06-28 06:00] LABS: ALT (SGPT) 31 U/L (8-55); AST (SGOT) 23 U/L (5-34); Albumin 2.1 g/dL (3.4-4.8); Alkaline Phosphatase 81 U/L (40-110); Anion Gap 9 mmol/L (10-20); BUN (Urea Nitrogen) 12 mg/dL (8.4-25.7); Bilirubin, Total 0.4 mg/dL (0.2-1.2); Calc. Creatinine Clearance 155 mL/min (70-130); Calcium 6.3 mg/dL (7.8-10.44); Carbon Dioxide 17 mmol/L (23-31); Chloride 115 mmol/L (98-107); Globulin 2.1 g/dL (2.4-3.5); Glucose 123 mg/dL (80-115); Magnesium 1.5 mg/dL (1.6-2.6); Protein, Total 4.2 g/dL (5.8-8.1); Sodium 139 mmol/L (136-145)
[2020-06-28 06:05] LABS: Lymphocytes 7 % (21-51); MDiff Complete? YES; Metamyelocyte 1 % (0-0); Monocytes 1 % (0-10); Myelocyte 1 % (0-0); Neutrophil 90 % (42-75); Platelet Morphology Comment Appears Decreased
[2020-06-28 06:06] LABS: Phosphorus 1.7 mg/dL (2.3-4.7); Potassium 2.2 mmol/L (3.5-5.1)
[2020-06-28] MEDS ORDERED: Potassium Phosphate 15 MMOL in Sodium Chloride 0.9% 100 ML IVPB SCH (06:45)
[2020-06-28] MEDS ORDERED: Magnesium 2 GM/50 ML 2 GM in Premix Bag 1 BAG IVPB SCH (06:45)
[2020-06-28] MEDS: Mometasone 100 MCG/Formoterol 5 MCG 120 PUFF INHALER INH SCH ×2 (06:57→20:09)
[2020-06-28] MEDS ORDERED: Potassium Chloride 20 MEQ in Premix Bag 1 BAG IVPB SCH (07:00)
[2020-06-28] MEDS ORDERED: Potassium Bicarbonate/Cit Ac 20 MEQ TAB PO SCH (08:00)
[2020-06-28] MEDS ORDERED: Insulin Regular 300 UNITS/3 ML VIAL SC PRN (08:30)
[2020-06-28] MEDS ORDERED: Ondansetron PF 4 MG/2 ML Vial IVP SCH ×2 (08:30→11:00)
[2020-06-28] MEDS ORDERED: Dextrose 50% Abboject 50 ML SYRINGE IVP PRN (08:30)
[2020-06-28] MEDS ORDERED: Dextrose 5% in Water 1,000 ML IV PRN (08:30)
[2020-06-28] MEDS ORDERED: Sodium Chloride 0.45% 1,000 ML IV SCH (08:30)
[2020-06-28] MEDS: Polyethylene Glycol 3350 17 GM Packet PO SCH (08:41)
[2020-06-28] MEDS: Senokot S 8.6-50 MG TAB PO SCH ×2 (08:41→22:21)
[2020-06-28] MEDS: Saccharomyces boulardii 250 MG CAP PO SCH (08:41)
[2020-06-28] MEDS: predniSONE 20 MG TAB PO SCH ×2 (08:41→16:20)
[2020-06-28] MEDS: Escitalopram Oxalate 10 mg Tablet PO SCH (08:42)
[2020-06-28] MEDS: Potassium Bicarbonate/Cit Ac 20 MEQ TAB PO SCH (08:49)
[2020-06-28] MEDS ORDERED: Potassium Chloride 40 MEQ in Sodium Chloride 0.9% 250 ML 250 ML IVPB SCH ×2 (09:00→22:00)
[2020-06-28] MEDS: Morphine 4 MG/ML VIAL SLOW IVP PRN (10:47)
[2020-06-28] MEDS: K-Phos Neutral 250 MG TAB PO SCH ×2 (11:20→16:19)
[2020-06-28] MEDS: Potassium Chloride 20 MEQ TAB PO SCH ×2 (11:20→16:19)
[2020-06-29] MEDS: MEROPENEM 1 GM/50 ML 1 GM in Premix Bag 1 BAG IVPB SCH ×3 (05:25→20:11)
[2020-06-29 05:37] LABS: Anion Gap 10 mmol/L (10-20); BUN (Urea Nitrogen) 10 mg/dL (8.4-25.7); Calc. Creatinine Clearance 169 mL/min (70-130); Calcium 6.1 mg/dL (7.8-10.44); Carbon Dioxide 17 mmol/L (23-31); Chloride 116 mmol/L (98-107); Glucose 160 mg/dL (80-115); Magnesium 1.6 mg/dL (1.6-2.6); Phosphorus 2.2 mg/dL (2.3-4.7); Potassium 2.7 mmol/L (3.5-5.1); Sodium 140 mmol/L (136-145)
[2020-06-29] MEDS ORDERED: Magnesium 2 GM/50 ML 2 GM in Premix Bag 1 BAG IVPB SCH (06:00)
[2020-06-29] MEDS: Potassium Chloride 20 MEQ TAB PO SCH ×5 (06:52→16:12)
[2020-06-29] MEDS: Mometasone 100 MCG/Formoterol 5 MCG 120 PUFF INHALER INH SCH ×2 (07:28→19:27)
[2020-06-29] MEDS: predniSONE 20 MG TAB PO SCH ×2 (08:30→16:12)
[2020-06-29] MEDS: Saccharomyces boulardii 250 MG CAP PO SCH (08:30)
[2020-06-29] MEDS: Aspirin 81 mg Enteric Coated Tablet PO SCH (08:30)
[2020-06-29] MEDS: Escitalopram Oxalate 10 mg Tablet PO SCH (08:30)
[2020-06-29] MEDS: Polyethylene Glycol 3350 17 GM Packet PO SCH (08:31)
[2020-06-29] MEDS: K-Phos Neutral 250 MG TAB PO SCH ×4 (08:31→19:50)
[2020-06-29] MEDS: Senokot S 8.6-50 MG TAB PO SCH ×2 (08:31→19:50)
[2020-06-29] MEDS ORDERED: Potassium Phosphate 30 MMOL in Sodium Chloride 0.9% 250 ML 250 ML IVPB SCH (12:45)
[2020-06-29] MEDS: Ondansetron PF 4 MG/2 ML Vial IVP PRN (15:41)
[2020-06-29] MEDS: Melatonin 3 MG TAB PO PRN (22:44)
[2020-06-30] MEDS ORDERED: Loperamide HCl 2 MG CAP PO PRN (02:13)
[2020-06-30] MEDS: Loperamide HCl 2 MG CAP PO PRN ×2 (02:21→07:59)
[2020-06-30] MEDS: MEROPENEM 1 GM/50 ML 1 GM in Premix Bag 1 BAG IVPB SCH ×2 (05:27→12:24)
[2020-06-30 06:47] LABS: Anion Gap 10 mmol/L (10-20); BUN (Urea Nitrogen) 8 mg/dL (8.4-25.7); Calc. Creatinine Clearance 189 mL/min (70-130); Carbon Dioxide 20 mmol/L (23-31); Chloride 113 mmol/L (98-107); Glucose 110 mg/dL (80-115); Magnesium 1.5 mg/dL (1.6-2.6); Phosphorus 3.5 mg/dL (2.3-4.7); Potassium 2.9 mmol/L (3.5-5.1); Sodium 140 mmol/L (136-145)
[2020-06-30] MEDS: Mometasone 100 MCG/Formoterol 5 MCG 120 PUFF INHALER INH SCH (06:55)
[2020-06-30] MEDS ORDERED: Magnesium 2 GM/50 ML 2 GM in Premix Bag 1 BAG IVPB SCH (07:00)
[2020-06-30] MEDS: K-Phos Neutral 250 MG TAB PO SCH ×2 (07:53→12:26)
[2020-06-30] MEDS: predniSONE 20 MG TAB PO SCH (07:53)
[2020-06-30] MEDS: Saccharomyces boulardii 250 MG CAP PO SCH (07:53)
[2020-06-30] MEDS: Escitalopram Oxalate 10 mg Tablet PO SCH (07:53)
[2020-06-30] MEDS: Potassium Chloride 20 MEQ TAB PO SCH ×3 (07:54→12:26)
[2020-06-30] MEDS: Aspirin 81 mg Enteric Coated Tablet PO SCH (07:54)
[2020-06-30] MEDS: Polyethylene Glycol 3350 17 GM Packet PO SCH (10:08)
[2020-06-30] MEDS: Senokot S 8.6-50 MG TAB PO SCH (10:08)
[2020-06-30] MEDS: Morphine 4 MG/ML VIAL SLOW IVP PRN (10:15)
[2020-06-30 11:21] VITALS: BP 116/72; TEMP 98.4
== END 2020-06-30 13:25 | disposition swing bed (61) | DRG 853 ==
LOC: ERS 02:40 → ERHOLD 03:51 → T4-A 13:21 → IMCU/EMU 22:43 → CCU 06-21 07:18 → SURG B 06-22 20:13
PROVIDERS: ADMIT Internal Medicine; ATTEND Internal Medicine
PROC: 0KBP0ZZ Excision of Left Hip Muscle, Open Approach (ICD-10-PCS; principal; 2020-06-20)
PROC: 0KBN0ZZ Excision of Right Hip Muscle, Open Approach (ICD-10-PCS; 2020-06-20)
PROC: 30233N1 Transfusion of Nonautologous Red Blood Cells into Peripheral Vein, Percutaneous Approach (ICD-10-PCS; 2020-06-21)
PROC: 0D9670Z Drainage of Stomach with Drainage Device, Via Natural or Artificial Opening (ICD-10-PCS; 2020-06-22)
PROC: 0DJ08ZZ Inspection of Upper Intestinal Tract, Via Natural or Artificial Opening Endoscopic (ICD-10-PCS; 2020-06-23)
PROC: 0W3P8ZZ Control Bleeding in Gastrointestinal Tract, Via Natural or Artificial Opening Endoscopic (ICD-10-PCS; 2020-06-23)
PROC: 0FT44ZZ Resection of Gallbladder, Percutaneous Endoscopic Approach (ICD-10-PCS; 2020-06-24)
PROC: BF131ZZ Fluoroscopy of Gallbladder and Bile Ducts using Low Osmolar Contrast (ICD-10-PCS; 2020-06-24)
PROC: 0T9B70Z Drainage of Bladder with Drainage Device, Via Natural or Artificial Opening (ICD-10-PCS; 2020-06-25)
PROC: 02HV33Z Insertion of Infusion Device into Superior Vena Cava, Percutaneous Approach (ICD-10-PCS; 2020-06-29)
PROC: B548ZZA Ultrasonography of Superior Vena Cava, Guidance (ICD-10-PCS; 2020-06-29)
DX: A41.9 Sepsis, unspecified organism (principal); L89.154 Pressure ulcer of sacral region, stage 4; E43 Unspecified severe protein-calorie malnutrition; K57.31 Diverticulosis of large intestine without perforation or abscess with bleeding; K85.10 Biliary acute pancreatitis without necrosis or infection; L89.324 Pressure ulcer of left buttock, stage 4; L89.314 Pressure ulcer of right buttock, stage 4; E27.40 Unspecified adrenocortical insufficiency; K81.2 Acute cholecystitis with chronic cholecystitis; E87.2 Acidosis; N39.0 Urinary tract infection, site not specified; D62 Acute posthemorrhagic anemia; K91.840 Postprocedural hemorrhage of a digestive system organ or structure following a digestive system procedure; K56.7 Ileus, unspecified; R65.20 Severe sepsis without septic shock; Z20.822 Contact with and (suspected) exposure to COVID-19; K82.A1 Gangrene of gallbladder in cholecystitis; Z96.611 Presence of right artificial shoulder joint; E78.5 Hyperlipidemia, unspecified; E88.09 Other disorders of plasma-protein metabolism, not elsewhere classified; B96.20 Unspecified Escherichia coli [E. coli] as the cause of diseases classified elsewhere; I25.10 Atherosclerotic heart disease of native coronary artery without angina pectoris; F41.9 Anxiety disorder, unspecified; I10 Essential (primary) hypertension; I71.4 Abdominal aortic aneurysm, without rupture; B96.5 Pseudomonas (aeruginosa) (mallei) (pseudomallei) as the cause of diseases classified elsewhere; K21.9 Gastro-esophageal reflux disease without esophagitis; E87.6 Hypokalemia; R33.9 Retention of urine, unspecified; E86.0 Dehydration; L70.8 Other acne; K31.84 Gastroparesis; D69.6 Thrombocytopenia, unspecified; Y83.6 Removal of other organ (partial) (total) as the cause of abnormal reaction of the patient, or of later complication, without mention of misadventure at the time of the procedure; E83.39 Other disorders of phosphorus metabolism; E87.8 Other disorders of electrolyte and fluid balance, not elsewhere classified; E83.42 Hypomagnesemia; Z86.16 Personal history of COVID-19; Z80.1 Family history of malignant neoplasm of trachea, bronchus and lung; Z68.30 Body mass index [BMI] 30.0-30.9, adult; Z95.1 Presence of aortocoronary bypass graft; Z95.5 Presence of coronary angioplasty implant and graft; Z87.01 Personal history of pneumonia (recurrent); Z83.6 Family history of other diseases of the respiratory system; Z79.899 Other long term (current) drug therapy; Z79.82 Long term (current) use of aspirin; Z79.02 Long term (current) use of antithrombotics/antiplatelets; Z79.51 Long term (current) use of inhaled steroids; Z87.891 Personal history of nicotine dependence; K82.8 Other specified diseases of gallbladder
CPT/HCPCS: 36415; 36416; 36430; 36569; 47532; 71045; 76705; 78227; 80048; 80053; 80202; 81001; 82040; 82533; 83605; 83690; 83735; 84100; 84478; 85025; 85610; 85730; 86850; 86900; 86901; 87070; 87077; 87086; 87186; 87205; 88304; 96374; 96375; A9537; C1751; C9113; J1100; J1610; J1644; J1720; J1885; J2185; J2250; J2270; J2405; J2543; J2704; J3010; J3370; J3475; J3480; J3490; J7050; J7512; P9016; P9045; P9047; Q9961; S0020; U0002

== ENCOUNTER 2020-12-27 13:57 | Outpatient (CLI) | payer MEDICARE | END 2020-12-27 13:58 | disposition home or self-care (01) | LOC: BICRAD 13:57 | PROVIDERS: ATTEND Physician Assistant | DX: U07.1 COVID-19 (principal) | CPT/HCPCS: 71046 ==

== ENCOUNTER 2020-12-29 14:13 | Outpatient (CLI) | payer MEDICARE | END 2020-12-29 14:14 | disposition home or self-care (01) | LOC: BICMAMMO 14:13 | PROVIDERS: ATTEND Physician Assistant | DX: N63.10 Unspecified lump in the right breast, unspecified quadrant (principal) | CPT/HCPCS: 77066; G0279 ==

== ENCOUNTER 2021-03-15 07:22 | Outpatient (CLI) | payer MEDICARE | END 2021-03-15 07:23 | disposition home or self-care (01) | LOC: BICCT 07:22 | PROVIDERS: ATTEND Physician Assistant | DX: Z12.2 Encounter for screening for malignant neoplasm of respiratory organs (principal); Z87.891 Personal history of nicotine dependence; R91.8 Other nonspecific abnormal finding of lung field | CPT/HCPCS: 71271 ==

== ENCOUNTER 2022-04-15 06:55 | Outpatient (CLI) | payer MEDICARE | END 2022-04-15 06:56 | disposition home or self-care (01) | LOC: BICULT 06:55 | PROVIDERS: ATTEND Physician Assistant | DX: Z12.2 Encounter for screening for malignant neoplasm of respiratory organs (principal); Z13.6 Encounter for screening for cardiovascular disorders; I71.40 Abdominal aortic aneurysm, without rupture, unspecified; Z87.891 Personal history of nicotine dependence | CPT/HCPCS: 71271; 76775 ==

== ENCOUNTER 2022-05-16 12:20 | Outpatient (CLI) | payer MEDICARE ==
[2022-05-16 13:15] LABS: Hemoglobin 16.4 g/dL (13.5-17.5); Mean Corpuscular HGB CONC 31.4 g/dL (32.0-36.0); Mean Corpuscular Hemoglobin 28.6 pg (27.0-33.0); Mean Corpuscular Volume 91.3 fl (81.2-95.1); Mean Platelet Volume 9.5 fl (7.4-10.4); Platelet Count 195 10x3/uL (150-450); RBC Distribution Width 13.4 % (11.5-14.5); Red Blood Cell (RBC) Count 5.73 10x6/uL (4.32-5.72); White Blood Cell (WBC) Count 9.2 10x3/uL (3.5-10.5)
[2022-05-16 13:28] LABS: PTT 25.9 sec (22.0-33.0); Prothrombin Time 10.5 sec (9.5-12.1)
[2022-05-16 13:32] LABS: Anion Gap 15 mmol/L (10-20); BUN (Urea Nitrogen) 15 mg/dL (8.4-25.7); Calc. Creatinine Clearance 0 mL/min (70-130); Calcium 9.2 mg/dL (7.8-10.44); Carbon Dioxide 22 mmol/L (23-31); Chloride 107 mmol/L (98-107); Estimated GFR 67; Glucose 82 mg/dL (80-115); Potassium 4.8 mmol/L (3.5-5.1); Sodium 139 mmol/L (136-145)
== END 2022-05-16 12:21 | disposition home or self-care (01) ==
LOC: LABBT 12:20
PROVIDERS: ATTEND Urology
DX: Z01.818 Encounter for other preprocedural examination (principal)
CPT/HCPCS: 80048; 85027; 85610; 85730; 93005; 93010

== ENCOUNTER 2022-05-21 08:59 | Day surgery (SDC) | payer MEDICARE ==
[2022-05-20 11:51] VITALS: BMI 27.6
[2022-05-21] MEDS ORDERED: Meropenem 1 GM in Sodium Chloride 0.9% 100 ML IVPB SCH (11:00)
[2022-05-21] MEDS ORDERED: Iopamidol 15 ML ONE (11:11)
[2022-05-21] MEDS ORDERED: FENTANYL 50 MCG/ML 1 ML VIAL ONE (11:20)
[2022-05-21] MEDS ORDERED: SUGAMMADEX SODIUM 200 MG/2 ML VIAL ONE (11:20)
[2022-05-21] MEDS ORDERED: Midazolam HCl 2 mg/2 ml Vial ONE (11:37)
[2022-05-21] MEDS ORDERED: Famotidine/PF 20 mg/2ml Vial ONE (11:39)
[2022-05-21] MEDS ORDERED: Metoclopramide HCl 10 MG/2 ML VIAL ONE (11:50)
[2022-05-21] MEDS ORDERED: ePHEDrine Sulfate 50 MG/10 ML VIAL ONE (11:50)
[2022-05-21] MEDS ORDERED: Phenylephrine 10 MG/ML VIAL ONE (11:50)
[2022-05-21] MEDS ORDERED: Lidocaine 1% PF 5 ML VIAL ONE (11:50)
[2022-05-21] MEDS ORDERED: PROPOFOL 200 MG/20 ML VIAL ONE (11:50)
[2022-05-21] MEDS ORDERED: Succinylcholine Chloride 100 MG/5 ML SYRINGE FS ONE (11:50)
[2022-05-21] MEDS ORDERED: Ondansetron HCl/PF 4 MG/2 ML Vial IVP PRN (12:59)
[2022-05-21] MEDS ORDERED: Promethazine HCl 25 MG/ML VIAL IM PRN (12:59)
[2022-05-21] MEDS ORDERED: hydrALAZINE 20 MG/ML VIAL SLOW IVP PRN (13:00)
== END 2022-05-21 15:27 | disposition home or self-care (01) ==
LOC: SDC 08:59
PROVIDERS: ATTEND Urology
PROC: 0TBB8ZZ Excision of Bladder, Via Natural or Artificial Opening Endoscopic (ICD-10-PCS; principal; 2022-05-21)
PROC: 0T768DZ Dilation of Right Ureter with Intraluminal Device, Via Natural or Artificial Opening Endoscopic (ICD-10-PCS; 2022-05-21)
DX: N32.89 Other specified disorders of bladder (principal); N20.1 Calculus of ureter; N13.5 Crossing vessel and stricture of ureter without hydronephrosis; N40.1 Benign prostatic hyperplasia with lower urinary tract symptoms; I25.10 Atherosclerotic heart disease of native coronary artery without angina pectoris; I10 Essential (primary) hypertension; Z85.51 Personal history of malignant neoplasm of bladder; Z87.440 Personal history of urinary (tract) infections; Z79.02 Long term (current) use of antithrombotics/antiplatelets; Z79.2 Long term (current) use of antibiotics; Z79.82 Long term (current) use of aspirin; Z79.899 Other long term (current) drug therapy; Z95.1 Presence of aortocoronary bypass graft
CPT/HCPCS: 52234; 52332; 74420; J3010; 88305; J2185; J2250; J2370; J2704; J2765; J3490; Q9967; S0028

== ENCOUNTER 2022-06-12 13:15 | Outpatient (CLI) | payer MEDICARE | END 2022-06-12 13:16 | disposition home or self-care (01) | LOC: LABBT 13:15 | PROVIDERS: ATTEND Urology | DX: Z01.812 Encounter for preprocedural laboratory examination (principal); N20.1 Calculus of ureter | CPT/HCPCS: 87086 ==

== ENCOUNTER 2022-06-18 05:41 | Day surgery (SDC) | payer MEDICARE ==
[2022-06-12 14:08] VITALS: BMI 32.1
[2022-06-18] MEDS ORDERED: GENTAMICIN IVPB SCH (06:15)
[2022-06-18] MEDS ORDERED: SODIUM CHLORIDE 0.9% IVPB SCH (06:15)
[2022-06-18] MEDS ORDERED: Iopamidol 30 ML ONE (06:38)
[2022-06-18] MEDS ORDERED: fentaNYL PF 100 MCG/2 ML SYRINGE ONE (06:58)
[2022-06-18] MEDS ORDERED: Midazolam HCl 2 mg/2 ml Vial ONE (07:26)
[2022-06-18] MEDS ORDERED: PHENYLEPHRINE-NS 100 MCG/ML 10 ML SYRINGE ONE (07:42)
[2022-06-18] MEDS ORDERED: Glycopyrrolate 0.2 MG/ML 5 ML SYRINGE ONE (07:42)
[2022-06-18] MEDS ORDERED: Ondansetron PF 4 MG/2 ML Vial ONE (07:42)
[2022-06-18] MEDS ORDERED: PROPOFOL 200 MG/20 ML VIAL ONE (07:42)
[2022-06-18] MEDS ORDERED: NEOSTIGMINE 3 MG/3 ML SYR 3 MG/3 ML SYRINGE ONE (07:42)
[2022-06-18] MEDS ORDERED: Lidocaine 1% PF 5 ML VIAL ONE (07:42)
[2022-06-18] MEDS ORDERED: Dexamethasone 20 MG/5 ML VIAL ONE (07:42)
[2022-06-18] MEDS ORDERED: Rocuronium Bromide 10 MG/ML (10ML VIAL) ONE (07:42)
[2022-06-18] MEDS ORDERED: HYDROcodone/Acetaminophen 5/325 mg Tablet ONE (09:49)
== END 2022-06-18 11:00 | disposition home or self-care (01) ==
LOC: SDC 05:41
PROVIDERS: ATTEND Urology
PROC: 0T768DZ Dilation of Right Ureter with Intraluminal Device, Via Natural or Artificial Opening Endoscopic (ICD-10-PCS; principal; 2022-06-18)
DX: N20.2 Calculus of kidney with calculus of ureter (principal); E78.00 Pure hypercholesterolemia, unspecified; I25.10 Atherosclerotic heart disease of native coronary artery without angina pectoris; I10 Essential (primary) hypertension; Z79.899 Other long term (current) drug therapy
CPT/HCPCS: 74420; 82365; 88300; C1747; C1874; J1100; J1580; J2250; J2405; J2704; J3490; Q9967

== ENCOUNTER 2023-10-07 06:56 | Outpatient (CLI) | payer MEDICARE | END 2023-10-07 06:57 | disposition home or self-care (01) | LOC: BICULT 06:56 | PROVIDERS: ATTEND Physician Assistant | DX: Z13.6 Encounter for screening for cardiovascular disorders (principal); I71.43 Infrarenal abdominal aortic aneurysm, without rupture | CPT/HCPCS: 76775 ==

== ENCOUNTER 2024-03-09 15:52 | Emergency (ER) | payer MEDICARE | END 2024-03-09 18:11 | disposition home or self-care (01) | LOC: ERS 15:52 | DX: N45.1 Epididymitis (principal); I25.10 Atherosclerotic heart disease of native coronary artery without angina pectoris; I10 Essential (primary) hypertension; Z87.891 Personal history of nicotine dependence; Z79.82 Long term (current) use of aspirin; Z79.02 Long term (current) use of antithrombotics/antiplatelets; Z79.899 Other long term (current) drug therapy | CPT/HCPCS: 76870; 93976 ==